=== PATIENT | female | born 1955 | race Caucasian/White ===

== ENCOUNTER 2016-07-27 06:33 | Inpatient (IN) ==
[2016-07-27] MEDS ORDERED: Ipratropium/Albuterol Neb 3 ML IH ONE (07:25)
[2016-07-27] MEDS ORDERED: 0.9 % Sodium Chloride 1,000 ML IVC ONE ×2 (07:27→10:56)
[2016-07-27] MEDS ORDERED: Acetaminophen 325 MG TABLET PO ONE (07:33)
--- NOTE | 2016-07-27 07:33 | Emergency Department Note ---
Disposition Clinical Impression: Sepsis Qualifiers: Sepsis type: sepsis due to unspecified organism Qualified Code(s): A41.9 - Sepsis, unspecified organism Lumbar compression fracture Qualifiers: Encounter type: initial encounter Fracture type: closed Qualified Code(s): S32.000A - Wedge compression fracture of unspecified lumbar vertebra, initial encounter for closed fracture Disposition: Admitted As Inpatient Condition: Fair Time of Disposition: 09:27 Fall HPI - General Chief Complaint: ED Fall Stated Complaint: fall Time Seen by Provider: 07/27/16 06:37 Source: patient Mode of arrival: EMS Limitations: language barrier, altered mental status, physical limitation Nursing Notes Reviewed: Yes Vital Signs Reviewed: Yes - History of Present Illness HPI Narrative: 61 year old female with PMHx of GERD, anemia, Osteoarthritis, depression, asthma , DM II, hypothyroidism. Patient is a poor historian and was extremely somnolent upon qestioning. She was having a very hard time staying awake. patient lives at home with her . She states that she had two episodes of falls before arriving to the ED. Her first time, she lost her balance and fell and hit the wall. Her second fall was when she was in the bathroom, went to get up and fell. She has had multiple falls over the years. She admits to nausea with 1 episode of vomiting. She denies diarrhea, fever, admits to having chills. she denies chest pain, shortness of breath, and dizziness. Patient is prescribed clonazapam 1mg TID for anxiety. She states she has not taken more of her medication than prescribed. She denies loss of consciousness. Pt Subjective Complaint: fall Onset (ago): hour(s) Fall From: standing Fall Witnessed: yes Place Fall Occurred: home Loss of Consciousness: none Symptoms Prior to Fall: dizziness Context: history of frequent falls Location of injury: head Location of injury - extremities: Bilateral: arm, knee, lower leg Associated symptoms (after fall): Denies: chest pain, shortness of breath, lightheaded - Related Data Home Medications Medication Instructions Recorded Confirmed BuPROPion 02/06/15 Buspirone 02/06/15 Citalopram 02/06/15 ClonazePAM 02/06/15 Iron Pill 02/06/15 Loratadine 02/06/15 Vitamin D 02/06/15 Albuterol Sulfate [Albuterol 07/07/16 Inhaler] Alendronate Sodium [Fosamax] 07/07/16 Biotin 1 mg PO 07/07/16 Calcium Carbonate [Tums] 07/07/16 Celecoxib [Celebrex] 200 mg PO BID 07/07/16 07/07/16 Fluticasone/Salmeterol [Advair 07/07/16 500-50 Diskus] Glucosamn/Condroitn/C/Mn/Stuart 1 each PO 07/07/16 [Cvs Glucosamine Chondroitin Tb] Levothyroxine [Synthroid] 07/07/16 Loratadine [Allergy Relief] 07/07/16 Magnesium Oxide [Magnesium] 400 mg PO 07/07/16 Melatonin 5 mg PO 07/07/16 Meloxicam 15 mg PO 07/07/16 Montelukast [Singulair] 10 mg PO 07/07/16 Omeprazole 20 mg PO 07/07/16 clonazePAM [Klonopin] 1 mg PO TID 07/07/16 07/07/16 traZODone [TraZODone] 50 mg PO 07/07/16 Previous Rx's Medication Instructions Recorded Benzonatate [Tessalon] 200 mg PO TID PRN #30 capsule 02/06/15 Cyclobenzaprine [Flexeril] 10 mg PO TID #15 tablet 02/06/15 Albuterol Sulfate [Albuterol 2 - 4 puff IH Q4HR PRN #1 03/09/15 Inhaler] hfa.[id number].ad Oxycodone HCl/Acetaminophen 1 each PO Q4-6H PRN #15 tablet 07/29/15 [Percocet 5-325 mg Tablet] Gabapentin [Neurontin] 200 mg PO TID #35 capsule 05/30/16 OxyCODONE/APAP 5/325 [Percocet 1 each PO Q6HR PRN #8 tablet 07/07/16 5/325 MG] PredniSONE [Deltasone] 40 mg PO DAILY 4 Days 07/07/16 Allergies Allergy/AdvReac Type Severity Reaction Status Date / Time codeine Allergy Swelling Verified 07/27/16 06:34 of Lip/Tongue/Throat Medroxyprogesterone Allergy Swelling Verified 07/27/16 06:34 [From Provera] of Lip/Tongue/Throat Penicillins Allergy Rash Verified 06/18/17 06:34 All systems ED: reviewed and negative except as stated. Fall PMH - Past Medical History Medical history: Reports: asthma, osteoporosis, thyroid disease, other Surgical history: Reports: cholecystectomy, orthopedic, other, JULIANNA/BSO, thyroidectomy, other Psychiatric history: Reports: anxiety, depression MOTION [employer]APH[employer] ARTIST history: Reports: no [employer]ION [employer] ARTIST history - Social History Smoking Status: Never smoker Alcohol use: Reports: none Drug use: Reports: none Physical Exam - General Limitations: altered mental status, physical limitation General appearance: alert, anxious, lethargic - Head Head exam: other (bruising along width of forehead. ) - Eye Eye exam: Present: normal appearance - Neck Neck exam: Present: trachea midline - Chest Chest inspection: Present: normal inspection, symmetric chest wall rise - Respiratory Respiratory exam: Present: wheezes - Cardiovascular Cardiovascular exam: Present: regular rate, normal rhythm, +S1, +S2 - Abdominal Exam Abdominal exam: Present: soft, Non-Tender - Extremities Exam Extremities exam: Present: other (significant bruising and scabbing along both arms, both legs, forhead, and knees. ) - Neurological Exam Neurological exam: Present: alert, other (oriented to person and place. ) - Psychiatric Psychiatric exam: Present: anxious Course Vital Signs Temperature 97.6 F 07/27/16 06:36 Pulse Rate 107 07/27/16 06:36 Respiratory Rate 18 07/27/16 06:36 Blood Pressure 118/72 07/27/16 06:36 O2 Sat by Pulse Oximetry 84 07/27/16 06:36 Temperature 97.6 F 07/27/16 06:36 Pulse Rate 102 07/27/16 08:57 Respiratory Rate 20 07/27/16 08:57 Blood Pressure 134/83 07/27/16 08:57 O2 Sat by Pulse Oximetry 98 07/27/16 08:57 Oxygen Delivery Oxygen Delivery Aerosol Mask Fall - [facility] Narrative Medical decision making narrative: Patient had wbc of 22.5, HG of 10.4. She has sodium of 129, creatinine of 1.98. She received one breathing treatment, 1 L of fluid, one dose of ceftriaxone, and one dose of azithromycin. She did not receive 30 mL per kilogram of fluids initially as her blood pressure was stable. Patient is septic, and source of infection likely secondary to multifocal opacities seen on thoracic CT. Patient also was noted to have a UTI. Patient had elevated troponin of .05 and EKG showed no signs of acute ischemia. Patients lactic acid level is currently pending. CT of thoracic spine did not show any signs of fracture. CT of cervical spine was negative as well. L5 transverse process acute fracture. She also had bilateral sacral insufficiency fractures. Spoke with Dr. Archer and informed him of these results. Spoke with hospitalist, , who has accepted this patient for admission. - Medical Records Medical records reviewed: Yes I reviewed the patient's medical records. - Lab Data Lab results reviewed: Yes I reviewed the patient's lab results. Result diagrams: 07/27/16 08:17 07/27/16 08:17 Lab Results 07/27/16 07/27/16 07/27/16 Range/Units 08:17 08:17 08:17 WBC 22.5 H (4.3-11.1) K/mcL RBC 3.82 (3.82-4.97) M/mcL Hgb 10.4 L (11.5-15.4) g/dL Hct 31.8 L (35.3-44.9) % MCV 83.2 (83.0-100.0) fL MCH 27.2 L (28.0-33.3) pg MCHC 32.7 (31.6-35.5) g/dL RDW 16.5 H (11.5-14.5) % Plt Count 303 (140-400) K/mcL MPV 10.5 (9.4-12.4) fL Seg Neutrophils % 83.0 % Band Neutrophils % 7.0 H (0-4) % Lymphocytes % 10.0 % Neutrophils # 20.3 H (1.6-8.9) K/mcL Lymphocytes # 2.3 (0.6-4.6) K/mcL Nucleated RBCs/100 WBC 0.1 H (0) /100 WBC Platelet Estimate Normal (Normal) Sodium 129 L (136-145) mEq/L Potassium 4.4 (3.5-4.5) mEq/L Chloride 97 L (98-109) mEq/L Carbon Dioxide 20 (19-29) mEq/L BUN 50 H (7-20) mg/dL Creatinine 1.98 H (0.57-1.11) mg/dL Est GFR ( Amer) 31 L (> 60) Est GFR (Non-Af Amer) 26 L (> 60) BUN/Creatinine Ratio 25 (6-26) Glucose 133 H (70-99) mg/dL Calculated Osmolality 283 (280-300) Calcium 9.6 (8.6-10.8) mg/dL Troponin I 0.05 H* (0-0.03) ng/mL Urine Color (Yellow) Urine Clarity (Clear) Urine pH (5.0-8.0) pH Units Ur Specific Goodman (1.010-1.025) Urine Protein (Neg-Trace) mg/dL Urine Glucose (UA) (Normal) mg/dL Urine Ketones (Negative) mg/dL Urine Blood (Negative) Urine Nitrite (Negative) Urine Bilirubin (Negative) Urine Urobilinogen (Normal) mg/dL Ur Leukocyte Esterase (Negative) Urine Microscopic RBC (0-3) per hpf Urine Microscopic WBC (0-3) per hpf Ur Squamous Epith Cells (None-Few) per lpf Urine Bacteria (None-Few) per hpf Ur Culture Indicated? (NO) Urine Opiates Screen (Obsvse=062) ng/mL Ur Barbiturates Screen (Bimwwu=658) ng/mL Ur Phencyclidine Scrn (Cutoff=25) ng/mL Ur Amphetamines Screen (Rshdle=8930) ng/mL U Benzodiazepines Scrn (Vbuluk=899) ng/mL Urine Cocaine Screen (Cutoff= 300) ng/mL U Marijuana (THC) Screen (Cutoff = 50) ng/mL 07/27/16 07/27/16 Range/Units 08:34 08:34 WBC (4.3-11.1) K/mcL RBC (3.82-4.97) M/mcL Hgb (11.5-15.4) g/dL Hct (35.3-44.9) % MCV (83.0-100.0) fL MCH (28.0-33.3) pg MCHC (31.6-35.5) g/dL RDW (11.5-14.5) % Plt Count (140-400) K/mcL MPV (9.4-12.4) fL Seg Neutrophils % % Band Neutrophils % (0-4) % Lymphocytes % % Neutrophils # (1.6-8.9) K/mcL Lymphocytes # (0.6-4.6) K/mcL Nucleated RBCs/100 WBC (0) /100 WBC Platelet Estimate (Normal) Sodium (136-145) mEq/L Potassium (3.5-4.5) mEq/L Chloride (98-109) mEq/L Carbon Dioxide (19-29) mEq/L BUN (7-20) mg/dL Creatinine (0.57-1.11) mg/dL Est GFR ( Amer) (> 60) Est GFR (Non-Af Amer) (> 60) BUN/Creatinine Ratio (6-26) Glucose (70-99) mg/dL Calculated Osmolality (280-300) Calcium (8.6-10.8) mg/dL Troponin I (0-0.03) ng/mL Urine Color Dark Yellow (Yellow) Urine Clarity Turbid A (Clear) Urine pH 5.0 (5.0-8.0) pH Units Ur Specific Goodman 1.025 (1.010-1.025) Urine Protein 30 H (Neg-Trace) mg/dL Urine Glucose (UA) Normal (Normal) mg/dL Urine Ketones Negative (Negative) mg/dL Urine Blood Large H (Negative) Urine Nitrite Negative (Negative) Urine Bilirubin Negative (Negative) Urine Urobilinogen Normal (Normal) mg/dL Ur Leukocyte Esterase Moderate H (Negative) Urine Microscopic RBC 15-30 H (0-3) per hpf Urine Microscopic WBC 15-30 H (0-3) per hpf Ur Squamous Epith Cells Many H (None-Few) per lpf Urine Bacteria Many H (None-Few) per hpf Ur Culture Indicated? YES A (NO) Urine Opiates Screen Positive H (Roidbu=830) ng/mL Ur Barbiturates Screen Negative (Eusjdk=655) ng/mL Ur Phencyclidine Scrn Negative (Cutoff=25) ng/mL Ur Amphetamines Screen Negative (Uxwqet=1058) ng/mL U Benzodiazepines Scrn Positive H (Idzcmj=669) ng/mL Urine Cocaine Screen Negative (Cutoff= 300) ng/mL U Marijuana (THC) Screen Negative (Cutoff = 50) ng/mL - Radiology Data Radiology results reviewed: Yes I reviewed the patient's radiology results. - EKG Data EKG attestation: Yes I reviewed and interpreted this EKG. EKG results narrative: sinus tachycardia, regular axis, ventricular rate 109, ME interval 139, QRS duration: 86 Qt/Qtc: 293/357, P-R-T axes: 49 27 48, no ischemic changes noted.
[2016-07-27 08:23] LABS: Hematocrit 31.8 % (35.3-44.9); Hemoglobin 10.4 g/dL (11.5-15.4); Mean Corpuscular HGB Conc 32.7 g/dL (31.6-35.5); Mean Corpuscular Hemoglobin 27.2 pg (28.0-33.3); Mean Corpuscular Volume 83.2 fL (83.0-100.0); Mean Platelet Volume 10.5 fL (9.4-12.4); Nucleated Red Blood Cells 0.1 /100 WBC (0); Platelet Count 303 K/mcL (140-400); Red Blood Count 3.82 M/mcL (3.82-4.97); Red Cell Distribution Width 16.5 % (11.5-14.5)
[2016-07-27 08:36] LABS: Calcium 9.6 mg/dL (8.6-10.8); Potassium 4.4 mEq/L (3.5-4.5)
[2016-07-27 08:41] LABS: Bilirubin,Urine Negative (Negative); Blood,Urine Large (Negative); Clarity,Urine Turbid (Clear); Color,Urine Dark Yellow (Yellow); Glucose,Urine (UA) Normal (Normal); Ketones,Urine Negative (Negative); Leukocyte Esterase,Urine Moderate (Negative); Nitrite,Urine Negative (Negative); Protein,Urine 30 mg/dL (Neg-Trace); Specific Gravity,Urine 1.025 (1.010-1.025); Urobilinogen,Urine Normal (Normal)
[2016-07-27 08:44] LABS: Bacteria,Urine Many per hpf (None-Few); RBC,Urine 15-30 per hpf (0-3); Squamous Epithelial Cell,Urine Many per lpf (None-Few); WBC,Urine 15-30 per hpf (0-3)
[2016-07-27 08:51] LABS: Amphetamine Screen,Urine Negative ng/mL (Cutoff=1000); Barbiturate Screen,Urine Negative ng/mL (Cutoff=200); Benzodiazepines Screen,Urine Positive ng/mL (Cutoff=200); Cannabinoid Screen,Urine Negative ng/mL (Cutoff = 50); Cocaine Screen,Urine Negative ng/mL (Cutoff= 300); Opiate Screen,Urine Positive ng/mL (Cutoff=300); Phencyclidine Screen,Urine Negative ng/mL (Cutoff=25)
[2016-07-27 08:57] LABS: Lymphocytes # 2.3 K/mcL (0.6-4.6); Neutrophils # 20.3 K/mcL (1.6-8.9); Platelet Estimate Normal (Normal)
[2016-07-27] MEDS ORDERED: Azithromycin 500 MG in D5% in Water 250 ML IVPB ONE (08:58)
[2016-07-27] MEDS ORDERED: Naloxone 0.4 MG/ML INJ IVP PRN (10:42)
[2016-07-27] MEDS ORDERED: Acetaminophen 325 MG TABLET PO PRN (10:42)
[2016-07-27] MEDS ORDERED: Albuterol 2.5 MG/3 ML NEBULIZER IH PRN (10:49)
[2016-07-27] MEDS: Ipratropium/Albuterol Neb 3 ML IH SCH ×3 (11:15→22:17)
--- NOTE | 2016-07-27 11:19 | Internal Med History&Physical ---
<Elliott Shah - Last Filed: 07/27/16 19:06> Date of Encounter: 07/27/16 Internal Medicine - H&P: HPI History of present illness: Ms. Chen is a 61 year old female Internal Medicine - H&P: Meds Citalopram [CeleXA] 20 mg PO DAILY 02/06/15 [History] Cyclobenzaprine [Flexeril] 10 mg PO TID #15 tablet 02/06/15 [Rx] Albuterol Sulfate [Albuterol Inhaler] 2 - 4 puff IH Q4HR PRN #1 hfa.aer.[id number] 03/09 [Rx] Alendronate Sodium [Fosamax] 70 mg PO QWEEK 07/07/16 [History] Celecoxib [Celebrex] 200 mg PO BID 07/07/16 [History] Fluticasone/Salmeterol [Advair 500-50 Diskus] 1 puff IH BID 07/07/16 [History] Levothyroxine [Synthroid] 100 mcg PO DAILY 07/07/16 [History] Meloxicam 15 mg PO DAILY 07/07/16 [History] Omeprazole 20 mg PO DAILY 07/07/16 [History] OxyCODONE/APAP 5/325 [Percocet 5/325 MG] 1 each PO Q6HR PRN #8 tablet 07/07/16 [ Rx] clonazePAM [Klonopin] 1 mg PO TID 07/07/16 [History] Gabapentin [Neurontin] 300 mg PO TID 07/27/16 [History] Tramadol HCl [Ultram] 50 mg PO TID PRN 07/27/16 [History] Allergies codeine Allergy (Verified 07/27/16 06:34) Swelling of Lip/Tongue/Throat Medroxyprogesterone [From Provera] Allergy (Verified 07/27/16 06:34) Swelling of Lip/Tongue/Throat Penicillins Allergy (Verified 07/27/16 06:34) Rash All Systems PM: A 10-system review of systems was performed and is negative for pertinent findings except as documented above in the HPI. - Constitutional Vitals: Temp Pulse Resp BP Pulse Ox 98.7 F 94 18 112/60 98 07/27/16 15:00 07/27/16 15:00 07/27/16 16:15 07/27/16 15:00 07/27/16 16:15 Internal Med - H&P Results - Labs CBC & Chem 7: 07/27/16 08:17 07/27/16 08:17 Labs: Cardiac Enzymes 07/27/16 Range/Units 14:24 Troponin I 0.03 (0-0.03) ng/mL - Attending Attestation I examined this patient and my medical decision-making was reviewed with the Advanced Practice Nurse. I agree with the documented findings, disposition and treatment plan as described except to the extent set forth below. Plan: Ceftriaxone and azithromycin for pneumonia and UTI as well as broad- spectrum coverage for sepsis. Follow-up urine culture and blood culture. IV fluids. PT OT and social work consult for unsanitary living situation. Spine surgery consult for acute L4 fracture. <Germaine Lombardo - Last Filed: 07/27/16 22:29> Date of Encounter: 07/27/16 Time of Encounter: 11:15 Assessment and Plan (1) Sepsis Current visit: Yes Status: Acute Patient with UTI, pneumonia, elevated WBC, tachycardia with HR in low 100s, meeting criteria for sepsis. Blood cultures and urine cultures obtained. 2L fluid bolus ordered, followed by fluids at 125mL/hr Lactate normal at 1.8 Antibiotics initiated with Azithromycin and ceftriaxone. Qualifiers: Sepsis type: sepsis due to unspecified organism Qualified Code(s): A41.9 - Sepsis, unspecified organism (2) Pneumonia Current visit: Yes Status: Acute CT of the thoracic spine revealed multifocal ground glass opacities in bilateral lungs. WBC count 22.5. Patient denies fever, chills, sweats, or coughing, though she is a bit somnolent and appears to be a poor historian. Azithromycin and Ceftriaxone IVPB daily 2L fluid bolus followed by 0.9NS at 125mL/hr duoneb treatments QID albuterol nebulizer Q2hr PRN. titrate oxygen to maintain saturations > 92%. Qualifiers: Pneumonia type: due to unspecified organism Laterality: bilateral Lung location: unspecified part of lung Qualified Code(s): J18.9 - Pneumonia, unspecified organism (3) Urinary tract infection Current visit: Yes Status: Acute UA was consistent with UTI. Cultures are pending. Patient also has elevated WBC count and NAVDEEP. Patient denied any dysuria, but appears to be poor historian. Getting Azithromycin and Ceftriaxone for PNeumonia, which should also cover her UTI. 2L fluid bolus followed by 0.9NS at 125mL/hr Qualifiers: Urinary tract infection type: acute cystitis Hematuria presence: without hematuria Qualified Code(s): N30.00 - Acute cystitis without hematuria (4) Acute kidney injury Current visit: Yes Status: Acute BUN of 50 and Creatinine of 1.98. Up from previous creatinine of 0.8. Likely multifactorial with chronic use of NSAIDS, with acute UTI and sepsis. Hold NSAIDS and nephrotoxins. Renal dose medications. 2L fluid bolus followed by 0.9NS at 125mL/hr Check chemistry again tomorrow. (5) Elevated troponin Current visit: Yes Status: Acute Troponin of 0.05. Patient denies any chest pain or shortness of breath. Likely due to demand secondary to sepsis. Serial troponins for trend continuous personnel monitor. (6) Lumbar compression fracture Current visit: Yes Status: Acute Patient's lumbar spine CT revealed acute right L5 transverse fracture as well as a right sacral insufficiency fracture. Patient has been having multiple falls at home. Orthopedic surgery, Dr. Ratliff consulted. Qualifiers: Encounter type: initial encounter Fracture type: closed Qualified Code(s) : S32.000A - Wedge compression fracture of unspecified lumbar vertebra, initial encounter for closed fracture (7) Falls Current visit: Yes Status: Acute Patient reporting frequent falls at home, stating she has fallen and hit her head and has pain in her right hip and lower back. She has bruising to her left forehead, as well as bruised on her left arm, left hip, and left sacral area. She has scattered abrasions and ecchymosis to both legs. CT of the head showed no acute intracranial abnormality. CT of the lumbar spine revealed acute right L5 transverse fracture and right sacral insuffieciency fracture. Fall precautions SWK, PT/OT consults Ortho consulted for fractures. Qualifiers: Encounter type: initial encounter Qualified Code(s): W19.XXXA - Unspecified fall, initial encounter (8) DVT prophylaxis Current visit: Yes Status: Acute anti-embolic stockings. Heparin 5000u SQ TID Internal Medicine - H&P: HPI Chief complaint: falls Admitted From: Emergency Dept Plans for Post Hospital Care: Home History of present illness: Ms. Chen is a 61 year old female with asthma, type 2 diabetes, hypothyroid, osteopororis who presented to the emergency department with complaints of multiple falls recently. She reports she fell and hit her head. She reports pain in her back and right hip. She denies any chest pain, palpitations, shortness of breath, coughing, fever, chills, sweats, nausea, vomiting, dysuria , diarrhea. Evaluation in the ER revealed elevated WBC count to 22.5, UA consistent with UTI, CT of lumbar spine revealed multifocal ground glass opacities in bilateral lungs consistent with pneumonia, Lumbar spine CT revealed acute right L5 transverse fracture and right sacral insufficiency fracture. She has acute kidney injury with creatinine 1.98, up from previous value of 0.8. Troponin was mildly elevated at 0.05. Lactate was normal at 1.8. On exam, patient appears disheveled and dirty, with bruising to her forehead, left elbow, left hip. She has multiple small abrasions to her abdomen she reports are from her multiple animals (dogs and cats). Lungs have bilateral rhonchi. Heart has regular rate and rhythm with systolic murmur. Past Med Surg Social Fam HX - Past Medical History Source: patient, old records reviewed Medical history: asthma, diabetes, osteoporosis, thyroid disease, other Psychiatric history: anxiety, depression - Past Surgical History Surgical History: cholecystectomy, hysterectomy, orthopedic, other (shoulder, neck, back ), JULIANNA/BSO, thyroidectomy, other, bariatric surgery - Social History Smoking Status: Never smoker Smokeless Tobacco Status: No Alcohol use: none Drug use: none - Family History Father Living Status: Hx Family Cardiac Disorders: Yes Hx Family Respiratory Disorders: Yes Hx Family Cancer: Yes (lung) Hx Family GI Disorders: No Hx Family Endocrine Disorder: Yes Hx Family Neuromuscular Disorders: No Hx Family Neurologic Disorders: No Hx Family HEENT Disorders: No Hx Family Autoimmune Disorders: No Mother Living Status: Hx Family Cardiac Disorders: Yes (chf) Hx Family Respiratory Disorders: No Hx Family Cancer: No Hx Family GI Disorders: No Hx Family Endocrine Disorder: Yes (DM) Hx Family Neuromuscular Disorders: No Hx Family Neurologic Disorders: No Hx Family HEENT Disorders: No Hx Family Autoimmune Disorders: No All Systems PM: A 10-system review of systems was performed and is negative for pertinent findings except as documented above in the HPI. - Constitutional Constitutional: falls, no chills, no fever(s), no night sweats - EENT Eyes: no change in vision, no discharge, no pain, no photophobia Ears: no ear discharge, no ear pain, no tinnitus Nose, mouth and throat: no dysphagia, no nasal discharge, no neck pain, no sore throat - Cardiovascular Cardiovascular ROS IM: no chest pain, no diaphoresis, no dyspnea, no lightheadedness, no palpitations, no syncope - Respiratory Respiratory: no cough, no dyspnea, no wheezing, no excessive phlegm production - Gastrointestinal Gastrointestinal: no abdominal pain, no diarrhea, no hematemesis, no hematochezia, no melena, no nausea, no vomiting - Genitourinary Genitourinary: no change in urinary stream, no dysuria, no flank pain, no hematuria - Musculoskeletal Musculoskeletal ROS IM: back pain, no numbness, no tingling - Integumentary Integumentary IM: no rash, no unusual bruising - Neurological Neurological ROS: no confusion, no convulsions, no focal weakness, no numbness, no tingling, no tremor(s) - Hematologic/Lymphatic Hematologic/Lymphatic: no easy bruising - Constitutional Vitals: Temp Pulse Resp BP Pulse Ox 97.6 F 88 18 123/76 94 07/27/16 11:00 07/27/16 11:00 07/27/16 11:00 07/27/16 11:00 07/27/16 11:00 General appearance: Present: disheveled, A&O X 3, pleasant, no acute distress - Head Head exam: Present: normocephalic Additional comments: bruising to left forehead - Eye Eye exam: Present: PERRL, conjuntiva pink, sclera anicteric Pupils: Present: PERRL - Neck Neck exam general surgery: Present: supple, trachea midline. Absent: lymphadenopathy - Respiratory Respiratory exam: Present: rhonchi. Absent: accessory muscle use, rales, wheezes - Cardiovascular Cardiovascular exam: Present: RRR, +S1, +S2, systolic murmur. Absent: diastolic murmur, gallop, rubs - GI/Abdominal GI/Abdominal exam: Present: normal bowel sounds, soft, no peritoneal signs. Absent: distended, tenderness - Extremities Exam Extremities exam: Present: warm, radial pulses palpable and symetrical. Absent : calf tenderness, cyanotic, pedal edema - Neurological Exam Neurological exam: Present: CN II-XII intact, oriented X3, no focal deficits. Absent: facial droop, speech deficit - Skin Skin exam: Present: abrasion (scattered abrasions and excoriations to legs, arms and abdomen.), dry, excoriation Additional comments: ecchymosis to forehead, left arm, left hip Internal Med - H&P Results - Labs CBC & Chem 7: 07/27/16 08:17 07/27/16 08:17 Labs: All Lab Results (24 Hours) 07/27/16 07/27/16 07/27/16 Range/Units 08:17 08:17 08:17 WBC 22.5 H (4.3-11.1) K/mcL RBC 3.82 (3.82-4.97) M/mcL Hgb 10.4 L (11.5-15.4) g/dL Hct 31.8 L (35.3-44.9) % MCV 83.2 (83.0-100.0) fL MCH 27.2 L (28.0-33.3) pg MCHC 32.7 (31.6-35.5) g/dL RDW 16.5 H (11.5-14.5) % Plt Count 303 (140-400) K/mcL MPV 10.5 (9.4-12.4) fL Seg Neutrophils % 83.0 % Band Neutrophils % 7.0 H (0-4) % Lymphocytes % 10.0 % Neutrophils # 20.3 H (1.6-8.9) K/mcL Lymphocytes # 2.3 (0.6-4.6) K/mcL Nucleated RBCs/100 WBC 0.1 H (0) /100 WBC Platelet Estimate Normal (Normal) Sodium 129 L (136-145) mEq/L Potassium 4.4 (3.5-4.5) mEq/L Chloride 97 L (98-109) mEq/L Carbon Dioxide 20 (19-29) mEq/L BUN 50 H (7-20) mg/dL Creatinine 1.98 H (0.57-1.11) mg/dL Est GFR ( Amer) 31 L (> 60) Est GFR (Non-Af Amer) 26 L (> 60) BUN/Creatinine Ratio 25 (6-26) Glucose 133 H (70-99) mg/dL Calculated Osmolality 283 (280-300) Lactic Acid (0.5-2.2) mmol/L Calcium 9.6 (8.6-10.8) mg/dL Troponin I 0.05 H* (0-0.03) ng/mL Urine Color (Yellow) Urine Clarity (Clear) Urine pH (5.0-8.0) pH Units Ur Specific [place] (1.010-1.025) Urine Protein (Neg-Trace) mg/dL Urine Glucose (UA) (Normal) mg/dL Urine Ketones (Negative) mg/dL Urine Blood (Negative) Urine Nitrite (Negative) Urine Bilirubin (Negative) Urine Urobilinogen (Normal) mg/dL Ur Leukocyte Esterase (Negative) Urine Microscopic RBC (0-3) per hpf Urine Microscopic WBC (0-3) per hpf Ur Squamous Epith Cells (None-Few) per lpf Urine Bacteria (None-Few) per hpf Ur Culture Indicated? (NO) Urine Opiates Screen (Bhdltg=105) ng/mL Ur Barbiturates Screen (Ievfoz=316) ng/mL Ur Phencyclidine Scrn (Cutoff=25) ng/mL Ur Amphetamines Screen (Fqcqgs=4331) ng/mL U Benzodiazepines Scrn (Omzowb=013) ng/mL Urine Cocaine Screen (Cutoff= 300) ng/mL U Marijuana (THC) Screen (Cutoff = 50) ng/mL 07/27/16 07/27/16 07/27/16 Range/Units 08:34 08:34 09:38 WBC (4.3-11.1) K/mcL RBC (3.82-4.97) M/mcL Hgb (11.5-15.4) g/dL Hct (35.3-44.9) % MCV (83.0-100.0) fL MCH (28.0-33.3) pg MCHC (31.6-35.5) g/dL RDW (11.5-14.5) % Plt Count (140-400) K/mcL MPV (9.4-12.4) fL Seg Neutrophils % % Band Neutrophils % (0-4) % Lymphocytes % % Neutrophils # (1.6-8.9) K/mcL Lymphocytes # (0.6-4.6) K/mcL Nucleated RBCs/100 WBC (0) /100 WBC Platelet Estimate (Normal) Sodium (136-145) mEq/L Potassium (3.5-4.5) mEq/L Chloride (98-109) mEq/L Carbon Dioxide (19-29) mEq/L BUN (7-20) mg/dL Creatinine (0.57-1.11) mg/dL Est GFR ( Amer) (> 60) Est GFR (Non-Af Amer) (> 60) BUN/Creatinine Ratio (6-26) Glucose (70-99) mg/dL Calculated Osmolality (280-300) Lactic Acid 1.8 (0.5-2.2) mmol/L Calcium (8.6-10.8) mg/dL Troponin I (0-0.03) ng/mL Urine Color Dark Yellow (Yellow) Urine Clarity Turbid A (Clear) Urine pH 5.0 (5.0-8.0) pH Units Ur Specific [place] 1.025 (1.010-1.025) Urine Protein 30 H (Neg-Trace) mg/dL Urine Glucose (UA) Normal (Normal) mg/dL Urine Ketones Negative (Negative) mg/dL Urine Blood Large H (Negative) Urine Nitrite Negative (Negative) Urine Bilirubin Negative (Negative) Urine Urobilinogen Normal (Normal) mg/dL Ur Leukocyte Esterase Moderate H (Negative) Urine Microscopic RBC 15-30 H (0-3) per hpf Urine Microscopic WBC 15-30 H (0-3) per hpf Ur Squamous Epith Cells Many H (None-Few) per lpf Urine Bacteria Many H (None-Few) per hpf Ur Culture Indicated? YES A (NO) Urine Opiates Screen Positive H (Rnykzz=916) ng/mL Ur Barbiturates Screen Negative (Hrcioh=550) ng/mL Ur Phencyclidine Scrn Negative (Cutoff=25) ng/mL Ur Amphetamines Screen Negative (Ynzlea=9982) ng/mL U Benzodiazepines Scrn Positive H (Xcftzh=404) ng/mL Urine Cocaine Screen Negative (Cutoff= 300) ng/mL U Marijuana (THC) Screen Negative (Cutoff = 50) ng/mL - Diagnostic Studies Chest x-ray Additional comments: Chest X-Ray 07/27/16 07:22 IMPRESSION: Mild bibasilar atelectasis. D/ / Chelita Duran MD / Chelita Duran MD Interpreting Provider: Chelita Duran MD CT scan - head Additional comments: Head CT 07/27/16 07:22 IMPRESSION: No acute intracranial abnormality. Sinus disease as discussed above. D/ / 07/27/2016 08:29:09 Oneyda Arevalo MD / [email or web address] Interpreting Provider: Oneyda Arevalo MD Other Images Additional comments: Cervical Spine CT 07/27/16 07:22 IMPRESSION: No acute abnormality of the cervical spine. Stable postsurgical changes D/ / Lonnie Donaldson MD / Lonnie Donaldson MD Interpreting Provider: Lonnie Donaldson MD Lumbar Spine CT 07/27/16 07:22 IMPRESSION: 1. Mild compression fracture of the superior endplate of L2 is age indeterminate but likely chronic. No other acute lumbar compression fracture. 2. Acute appearing right L5 transverse process fracture. 3. Acute right sacral insufficiency fracture. Subacute left sacral insufficiency fracture. D/ / 07/27/2016 08:52:31 Zach Shepherd MD / [email or web address] Interpreting Provider: Zach Shepherd MD Thoracic Spine CT 07/27/16 07:22 IMPRESSION: 1. No acute abnormality of the thoracic spine 2. Multifocal ground-glass opacities in both lungs should be correlated with any clinical findings of pneumonia or other acute respiratory abnormality D/ / Lonnie Donaldson MD / Lonnie Donaldson MD Interpreting Provider: Lonnie Donaldson MD
[2016-07-27] MEDS ORDERED: *HR* Dextrose 50 % in Water (Syg) 50 ML SYRINGE IVP PRN (11:20)
[2016-07-27] MEDS ORDERED: D5% in Water 1,000 ML IVC PRN (11:20)
[2016-07-27] MEDS ORDERED: Dextrose Gel 15 GM PO PRN ×2 (11:20)
[2016-07-27] MEDS: Insulin LISPRO 300 UNITS/3 ML VIAL SQ SCH ×2 (12:00→16:18)
[2016-07-27 14:47] LABS: Hemoglobin A1C 5.6 %
[2016-07-27] MEDS: *HR* OxyCODONE/APAP 5/325 TABLET PO PRN ×2 (16:09→23:05)
[2016-07-27] MEDS: Gabapentin 300 MG CAPSULE PO SCH ×2 (16:09→21:03)
[2016-07-27] MEDS: 0.9 % Sodium Chloride 1,000 ML IVC SCH (16:09)
[2016-07-27] MEDS: *HR* Heparin 5,000 UNIT/ML VIAL SQ SCH ×2 (16:12→23:31)
[2016-07-27] MEDS ORDERED: *HR* HYDROmorphone (PF) 1 MG/ML SYRINGE IVP PRN (17:17)
[2016-07-27] MEDS ORDERED: Insulin LISPRO 300 UNITS/3 ML VIAL SQ SCH (21:00)
[2016-07-27] MEDS: Budesonide/Formoterol 160/4.5 MDI IH SCH (22:17)
[2016-07-28 03:46] LABS: Basophils % 0.2 %; Eosinophils # 0.3 K/mcL (0.0-0.6); Eosinophils % 1.8 %; Hematocrit 26.7 % (35.3-44.9); Immature Granulocytes % 0.4 % (0-4); Lymphocytes # 1.3 K/mcL (0.6-4.6); Lymphocytes % 8.3 %; Mean Corpuscular HGB Conc 32.6 g/dL (31.6-35.5); Mean Corpuscular Hemoglobin 27.1 pg (28.0-33.3); Mean Corpuscular Volume 83.2 fL (83.0-100.0); Mean Platelet Volume 10.6 fL (9.4-12.4); Monocytes # 0.8 K/mcL (0.0-1.3); Monocytes % 4.8 %; Neutrophils # 13.7 K/mcL (1.6-8.9); Platelet Count 228 K/mcL (140-400); Red Blood Count 3.21 M/mcL (3.82-4.97); Red Cell Distribution Width 16.9 % (11.5-14.5); Segmented Neutrophils % 84.5 %
[2016-07-28 03:47] LABS: Hemoglobin 8.7 g/dL (11.5-15.4)
[2016-07-28 04:03] LABS: BUN/Creatinine Ratio 34 (6-26); Calcium 8.2 mg/dL (8.6-10.8); Carbon Dioxide 23 mEq/L (19-29); Chloride 108 mEq/L (98-109); Glucose 134 mg/dL (70-99); Osmolality,Calculated 289 (280-300); Potassium 4.1 mEq/L (3.5-4.5); eGFR For African Americans > 60 (> 60); eGFR For Non-African Americans > 60 (> 60)
[2016-07-28 04:19] LABS: Sodium 136 mEq/L (136-145)
[2016-07-28 04:20] LABS: Blood Urea Nitrogen 28 mg/dL (7-20)
[2016-07-28] MEDS: Ipratropium/Albuterol Neb 3 ML IH SCH ×2 (04:39→10:40)
[2016-07-28] MEDS: 0.9 % Sodium Chloride 1,000 ML IVC SCH ×2 (05:21→08:38)
[2016-07-28] MEDS ORDERED: *HR* Morphine 2 MG/ML SYRINGE IVP ONE (06:16)
[2016-07-28] MEDS ORDERED: *HR* HYDROmorphone (PF) 1 MG/ML SYRINGE IVP PRN ×2 (08:28→15:08)
--- NOTE | 2016-07-28 08:33 | Pain Management Consultation ---
Date of Encounter: 07/28/16 Time of Encounter: 12:25 Assessment and Plan (1) Lumbar compression fracture Current Visit: Yes Status: Acute The patient has both a transverse process fracture as well as a compression fracture. The transverse process fracture is inconsequential. Nothing that supportive care is necessary for that problem. The compression fracture appears old on the CT scan, but the patient is complaining of a severe exacerbation of chronic low back pain. That situation warrants MRI imaging without contrast to check the L2 vertebral body for acute signs of compression deformity. If acute signs of compression fracture/deformity are found on the MRI, the patient would be a candidate for kyphoplasty repair of that fracture. Recommend obtaining lumbar MRI without contrast. We will also recommend that the patient's infectious process were treated adequately before considering surgery. Therefore, the patient could be sent home on antibiotic therapy and follow up with me in the office to continue to formulate a plan for suspected L2 compression fracture. The assessment and plan as outlined above was discussed with the patient and/or family members who expressed understanding and agreement. All questions were answered. Qualifiers: Encounter type: initial encounter Fracture type: closed Qualified Code(s) : S32.000A - Wedge compression fracture of unspecified lumbar vertebra, initial encounter for closed fracture History of Present Illness Chief complaint: back pain HPI: Ms. Chen is a 61 year old female suffering with sharp pain in the lower back. She expressed a fall 2 days ago they cause a significant increase in chronic back pain. This is a person that has had back pain for the past 7 months. She does say that the pain traditionally radiates down the backside of her right leg. She says that now the pain score is 12/10. She hurts more when she sits up or roll side to side. She is mostly reclined to a bed right now. She states the most significant pain is located in her right lower back and the pain traveling down her leg is also worse. Past Med Surg Social Fam HX - Past Medical History Medical history: asthma, diabetes, osteoporosis, thyroid disease, other Psychiatric history: anxiety, depression - Past Surgical History Surgical History: cholecystectomy, hysterectomy, orthopedic, other (shoulder, neck, back ), JULIANNA/BSO, thyroidectomy, other, bariatric surgery - Social History Smoking Status: Never smoker Smokeless Tobacco Status: No Alcohol use: none Drug use: none - Family History Father Living Status: Hx Family Cardiac Disorders: Yes Hx Family Respiratory Disorders: Yes Hx Family Cancer: Yes (lung) Hx Family GI Disorders: No Hx Family Endocrine Disorder: Yes Hx Family Neuromuscular Disorders: No Hx Family Neurologic Disorders: No Hx Family HEENT Disorders: No Hx Family Autoimmune Disorders: No Mother Living Status: Hx Family Cardiac Disorders: Yes (chf) Hx Family Respiratory Disorders: No Hx Family Cancer: No Hx Family GI Disorders: No Hx Family Endocrine Disorder: Yes (DM) Hx Family Neuromuscular Disorders: No Hx Family Neurologic Disorders: No Hx Family HEENT Disorders: No Hx Family Autoimmune Disorders: No Medications and Allergies Citalopram [CeleXA] 20 mg PO DAILY 02/06/15 [History] Cyclobenzaprine [Flexeril] 10 mg PO TID #15 tablet 02/06/15 [Rx] Albuterol Sulfate [Albuterol Inhaler] 2 - 4 puff IH Q4HR PRN #1 [id number] 03/09 [Rx] Alendronate Sodium [Fosamax] 70 mg PO QWEEK 07/07/16 [History] Celecoxib [Celebrex] 200 mg PO BID 07/07/16 [History] Fluticasone/Salmeterol [Advair 500-50 Diskus] 1 puff IH BID 07/07/16 [History] Levothyroxine [Synthroid] 100 mcg PO DAILY 07/07/16 [History] Meloxicam 15 mg PO DAILY 07/07/16 [History] Omeprazole 20 mg PO DAILY 07/07/16 [History] OxyCODONE/APAP 5/325 [Percocet 5/325 MG] 1 each PO Q6HR PRN #8 tablet 07/07/16 [ Rx] clonazePAM [Klonopin] 1 mg PO TID 07/07/16 [History] Gabapentin [Neurontin] 300 mg PO TID 07/27/16 [History] Tramadol HCl [Ultram] 50 mg PO TID PRN 07/27/16 [History] Allergies codeine Allergy (Verified 07/27/16 06:34) Swelling of Lip/Tongue/Throat Medroxyprogesterone [From Provera] Allergy (Verified 07/27/16 06:34) Swelling of Lip/Tongue/Throat Penicillins Allergy (Verified 07/27/16 06:34) Rash Review of Systems - Constitutional Constitutional ROS IM: no photophobia, no phonophobia, no daytime sleepiness, no fever(s), no stops breathing during sleep - EENT Nose, mouth and throat: no headache(s), no neck pain, no neck trauma - Cardiovascular Cardiovascular ROS: no chest pain, no leg edema, no lightheadedness - Respiratory Respiratory: no pain on inspiration, no pain with cough - Gastrointestinal Gastrointestinal: no abdominal pain, no constipation, no diarrhea, no heartburn - Genitourinary Genitourinary ROS: no difficulty urinating, no flank pain, no urinary hesitancy - Musculoskeletal Musculoskeletal ROS: no muscle weakness, no numbness, no radiating pain into limb, no tingling - Integumentary Integumentary: no erythema, no lesions, no swelling - Neurological Neurological ROS: radicular pain, no abnormal gait, no behavioral changes, no focal weakness - Psychiatric Psychiatric general: no anxiety, no confusion, no depression - Hematologic/Lymphatic Hematologic/Lymphatic pediatric: no easy bleeding, no easy bruising Physical Exam Initial Vital Signs Temp Pulse Resp BP Pulse Ox 97.6 F 107 18 118/72 84 07/27/16 06:36 07/27/16 06:36 07/27/16 06:36 07/27/16 06:36 07/27/16 06:36 - Additional Findings EYES:: pupils equal and round, no myosis. SKIN:: multiple areas of echymoses in upper and lower limbs. CARDIOVASCULAR:: Tachycardia, regular rhythm PULMONARY:: Quiet, normal respiratory pattern. GASTROINTESTINAL:: active bowel sounds. MUSCULOSKELETAL GAIT:: Reclining in bed INSPECTION:: Midline lumbar surgical scarring. PALPATION:: paraspinous musculature is tender to deep palpation in the lumbar area bilaterally, right more so than left about the L5 level. STRENGTH:: RIGHT hip flexors: 5/5 :: LEFT hip flexors: 5/5 RIGHT hip adduction 5/5 :: LEFT hip adduction 5/5 RIGHT hip abduction 5/5 :: LEFT hip abduction 5/5 RIGHT knee extension 5/5 :: LEFT knee extension 5/5 RIGHT knee flexion 5/5 :: LEFT knee flexion 5/5 RIGHT ankle dorsiflexion 5/5 :: LEFT ankle dorsiflexion 5/5 RIGHT ankle plantarflexion 5/5 :: LEFT ankle plantarflexion 5/5 RIGHT great toe dorsiflexion 5/5 :: LEFT great toe dorsiflexion 5/5 RIGHT great toe plantarflexion 5/5 :: LEFT great toe plantarflexion 5/5 STRAIGHT LEG RAISE:: LLE is negative at 120 degrees. RLE is positive at 90 degrees. NEUROLOGIC SENSATION:: hypesthesia is not noted in lower extremity dermatomes. SIGNS OF NEUROVASCULAR COMPRESSION Spasticity:: none Atrophy:: not present in UE or LE musculature Fasciculation:: not present in UE or LE musculature PSYCHIATRIC:: ORIENTATION:: awake and alert. INSIGHT:: good awareness of illness. AFFECT:: pleasant. Radiology Images Viewed By Me:: 07/27/2016 CT scan of the lumbar spine shows an old L2 superior endplate fracture that is mild with approximately 10% loss of the body height. There is a an acute L5 transverse process fracture. No other acute abnormalities are identified. The lumbar spine is overall degenerated. There is severe degenerative disc disease at nearly every lumbar level with vacuum phenomenon present in the remaining aspect of the disc that is not loss to degeneration. Moderate to severe spondylosis is also present throughout the neuraxis. I have reviewed and agree with information documented in the scribed documentation, ROS, patient medications, allergies, medical history, surgical history, social history, and family history. Results - Labs 07/28/16 03:35 07/28/16 03:35 Abnormal lab results WBC 16.2 K/mcL (4.3-11.1) H 07/28/16 03:35 RBC 3.21 M/mcL (3.82-4.97) L 07/28/16 03:35 Hgb 8.7 g/dL (11.5-15.4) L D 07/28/16 03:35 Hct 26.7 % (35.3-44.9) L 07/28/16 03:35 MCH 27.1 pg (28.0-33.3) L 07/28/16 03:35 RDW 16.9 % (11.5-14.5) H 07/28/16 03:35 Band Neutrophils % 7.0 % (0-4) H 07/27/16 08:17 Neutrophils # 13.7 K/mcL (1.6-8.9) H 07/28/16 03:35 Nucleated RBCs/100 WBC 0.1 /100 WBC (0) H 07/27/16 08:17 BUN 28 mg/dL (7-20) H D 07/28/16 03:35 BUN/Creatinine Ratio 34 (6-26) H 07/28/16 03:35 Glucose 134 mg/dL (70-99) H 07/28/16 03:35 POC Glucose 151 (58-89) H 07/27/16 16:12 Calcium 8.2 mg/dL (8.6-10.8) L 07/28/16 03:35 Urine Clarity Turbid (Clear) A 07/27/16 08:34 Urine Protein 30 mg/dL (Neg-Trace) H 07/27/16 08:34 Urine Blood Large (Negative) H 07/27/16 08:34 Ur Leukocyte Esterase Moderate (Negative) H 07/27/16 08:34 Urine Microscopic RBC 15-30 per hpf (0-3) H 07/27/16 08:34 Urine Microscopic WBC 15-30 per hpf (0-3) H 07/27/16 08:34 Ur Squamous Epith Cells Many per lpf (None-Few) H 07/27/16 08:34 Urine Bacteria Many per hpf (None-Few) H 07/27/16 08:34 Ur Culture Indicated? YES (NO) A 07/27/16 08:34 Urine Opiates Screen Positive ng/mL (Hmhndk=409) H 07/27/16 08:34 U Benzodiazepines Scrn Positive ng/mL (Uhzztv=481) H 07/27/16 08:34 Diabetes panel 07/28/16 Range/Units 03:35 Sodium 136 D (136-145) mEq/L Potassium 4.1 (3.5-4.5) mEq/L Chloride 108 (98-109) mEq/L Carbon Dioxide 23 (19-29) mEq/L BUN 28 H D (7-20) mg/dL Creatinine 0.82 D (0.57-1.11) mg/dL Glucose 134 H (70-99) mg/dL Calcium 8.2 L (8.6-10.8) mg/dL Calcium panel 07/28/16 Range/Units 03:35 Calcium 8.2 L (8.6-10.8) mg/dL Pituitary panel 07/28/16 Range/Units 03:35 Sodium 136 D (136-145) mEq/L Potassium 4.1 (3.5-4.5) mEq/L Chloride 108 (98-109) mEq/L Carbon Dioxide 23 (19-29) mEq/L BUN 28 H D (7-20) mg/dL Creatinine 0.82 D (0.57-1.11) mg/dL Glucose 134 H (70-99) mg/dL Calcium 8.2 L (8.6-10.8) mg/dL Adrenal panel 07/28/16 Range/Units 03:35 Sodium 136 D (136-145) mEq/L Potassium 4.1 (3.5-4.5) mEq/L Chloride 108 (98-109) mEq/L Carbon Dioxide 23 (19-29) mEq/L BUN 28 H D (7-20) mg/dL Creatinine 0.82 D (0.57-1.11) mg/dL Glucose 134 H (70-99) mg/dL Calcium 8.2 L (8.6-10.8) mg/dL All other labs normal. - VTE Documentation of Mechanical Device: Graduated compression elastic hosiery Consult Discharge Plan - Plan Referrals: Tracie Castelan CNP [Primary Care Provider] - 08/20/16 2:00 pm
[2016-07-28] MEDS: Insulin LISPRO 300 UNITS/3 ML VIAL SQ SCH ×2 (08:38→12:59)
[2016-07-28] MEDS: *HR* Heparin 5,000 UNIT/ML VIAL SQ SCH (08:48)
[2016-07-28] MEDS: Gabapentin 300 MG CAPSULE PO SCH ×3 (08:50→20:59)
[2016-07-28] MEDS: *HR* HYDROmorphone (PF) 1 MG/ML SYRINGE IVP PRN ×3 (08:50→19:50)
[2016-07-28] MEDS ORDERED: Azithromycin 500 MG in D5% in Water 250 ML IVPB SCH (09:00)
--- NOTE | 2016-07-28 09:11 | Internal Med Progress Note ---
<Frederick Ramirez - Last Filed: 07/28/16 09:09> Date of Encounter: 07/28/16 Time of Encounter: 09:09 - Assessment and plan (1) Sepsis Current Visit: Yes Status: Resolved Assessment and plan: Resolved at this time. White blood cell count is elevated but improved. Tachycardia is resolved. Blood cultures are pending. We will discontinue fluids. Continue antibiotics. Qualifiers: Sepsis type: sepsis due to unspecified organism Qualified Code(s): A41.9 - Sepsis, unspecified organism (2) Pneumonia Current Visit: Yes Status: Acute Assessment and plan: Patient underwent an incidental finding of areas of groundglass opacities of the lungs on the thoracic spine CT. Patient did have signs of sepsis as discussed above however I think these are more likely related to a urinary tract infection and pneumonia. Clinically the patient's lungs are clear, she is having no breathing difficulties, she is saturating in the 90s on room air. We will discontinue azithromycin and continue Rocephin. Qualifiers: Pneumonia type: due to unspecified organism Laterality: bilateral Lung location: unspecified part of lung Qualified Code(s): J18.9 - Pneumonia, unspecified organism (3) Urinary tract infection Current Visit: Yes Status: Acute Assessment and plan: UA shows sign of infection which could be contributing to the patient's unsteadiness and falls. Urinary catheter in place at this time due to extreme fall risk. Continue Rocephin. Urine culture pending. Qualifiers: Urinary tract infection type: acute cystitis Hematuria presence: without hematuria Qualified Code(s): N30.00 - Acute cystitis without hematuria (4) Acute kidney injury Current Visit: Yes Status: Acute Assessment and plan: Likely related to dehydration in the setting of infection. Has resolved. Continue to monitor serum creatinine and urine output. (5) Lumbar compression fracture Current Visit: Yes Status: Acute Assessment and plan: Imaging shows a likely chronic L2 compression fracture and an acute transverse process fracture of L5. Consult spine surgery. Qualifiers: Encounter type: initial encounter Fracture type: closed Qualified Code(s) : S32.000A - Wedge compression fracture of unspecified lumbar vertebra, initial encounter for closed fracture (6) Falls Current Visit: Yes Status: Acute Assessment and plan: Patient has multiple falls at home which is a chronic issue for her which she reports is related to cervical spine pathology for which she has had multiple surgeries in [place]. Patient states she continues to follow-up in [place] with her spine surgeon and the plan was for her to receive a motorized wheelchair to prevent further falls. PT/OT consult pending. Qualifiers: Encounter type: initial encounter Qualified Code(s): W19.XXXA - Unspecified fall, initial encounter (7) Chronic back pain Current Visit: No Status: Acute Assessment and plan: Patient calls with the spine surgeon in [place] and has had multiple spine surgeries in the past. Will be evaluated by our surgeon for plan of care. Continue with pain medication. Qualifiers: Back pain location: low back pain Back pain laterality: midline Sciatica presence: without sciatica Qualified Code(s): M54.5 - Low back pain; G89.29 - Other chronic pain (8) DVT prophylaxis Current Visit: Yes Status: Acute Assessment and plan: Heparin 5000 units subcutaneous 3 times a day. - Subjective Interval history: Patient seen and examined at bedside. Patient states that she feels better today, she states her pain is improved this morning. She does still report some mild low back pain but states it is tolerable. She states she is breathing normally. She is eating and drinking well, has no other complaints. - Constitutional Vitals: Temp Pulse Resp BP Pulse Ox 97.9 F 76 18 115/96 92 07/28/16 07:27 07/28/16 07:27 07/28/16 07:27 07/28/16 07:27 07/28/16 07:48 General appearance: Present: disheveled, A&O X 3, pleasant, no acute distress - Head Additional comments: Ecchymosis to the left forehead - Respiratory Respiratory exam: Present: CTAB. Absent: rales, rhonchi, wheezes - Cardiovascular Cardiovascular exam: Present: RRR. Absent: gallop, rubs, systolic murmur - GI/Abdominal GI/Abdominal exam: Present: normal bowel sounds, soft. Absent: distended, tenderness - Extremities Exam Extremities exam: Absent: pedal edema - Skin Additional comments: There is extensive ecchymosis and abrasions on all 4 extremities in different stages of healing. None of the areas have significant erythema, drainage, warmth. Internal Medicine: Result - Labs CBC & Chem 7: 07/28/16 03:35 07/28/16 03:35 Labs: Short CBC 06/19/17 Range/Units 03:35 WBC 16.2 H (4.3-11.1) K/mcL Hgb 8.7 L D (11.5-15.4) g/dL Hct 26.7 L (35.3-44.9) % Plt Count 228 (140-400) K/mcL Neutrophils # 13.7 H (1.6-8.9) K/mcL BMP 07/28/16 03:35 Sodium 136 D Potassium 4.1 Chloride 108 Carbon Dioxide 23 BUN 28 H D Creatinine 0.82 D Glucose 134 H Calcium 8.2 L Cardiac Enzymes 07/27/16 07/27/16 Range/Units 14:24 20:35 Troponin I 0.03 0.02 (0-0.03) ng/mL - VTE Documentation of Mechanical Device: Graduated compression elastic hosiery Consult Discharge Plan - Plan Referrals: Tracie Castelan, JACKSPOOLER [Primary Care Provider] - 08/20/16 2:00 pm <Emely Mijares - Last Filed: 07/28/16 13:37> Date of Encounter: 07/28/16 - Constitutional Vitals: Temp Pulse Resp BP Pulse Ox 98.2 F 99 18 112/108 95 07/28/16 11:57 07/28/16 11:57 07/28/16 11:57 07/28/16 11:57 07/28/16 11:57 Internal Medicine: Result - Labs CBC & Chem 7: 07/28/16 03:35 07/28/16 03:35 Labs: Short CBC 07/28/16 Range/Units 03:35 WBC 16.2 H (4.3-11.1) K/mcL Hgb 8.7 L D (11.5-15.4) g/dL Hct 26.7 L (35.3-44.9) % Plt Count 228 (140-400) K/mcL Neutrophils # 13.7 H (1.6-8.9) K/mcL BMP 07/28/16 03:35 Sodium 136 D Potassium 4.1 Chloride 108 Carbon Dioxide 23 BUN 28 H D Creatinine 0.82 D Glucose 134 H Calcium 8.2 L Cardiac Enzymes 07/27/16 07/27/16 Range/Units 14:24 20:35 Troponin I 0.03 0.02 (0-0.03) ng/mL - Attending Attestation I saw and examined pt. I have discussed with Resident Dr Ramirez regarding pt' s management plan. I agree with the documentation. Pt c/o back pain. Denies chest pain or SOB, denies dysuria. She came with Fall, without LOC. In ER she was found elevated WBC, possible pneumonia and asymptomatic UTI. Elevated WBC is also possible reactive. Will continue rocephin. Orthopedic surgeon consult for L5 transverse process fracture. In the afternoon, pt was found A Fib with RVR. She has no hx of A Fib previously. Will start cardizem drip and heparin drip now. Will consult cardio for further management.
[2016-07-28] MEDS: Budesonide/Formoterol 160/4.5 MDI IH SCH ×2 (10:40→20:36)
[2016-07-28] MEDS ORDERED: *HR* HYDROmorphone 2 MG/ML SYRINGE IVP ONE (13:20)
[2016-07-28] MEDS ORDERED: *HR* Heparin 5,000 UNIT/ML VIAL IVP PRN ×4 (13:24→18:34)
[2016-07-28] MEDS ORDERED: *HR* Heparin 5,000 UNIT/ML VIAL IVP ONE (13:24)
[2016-07-28] MEDS ORDERED: Heparin 25,000 UNIT/500 ML D5W 25,000 UNIT/500 ML MLS IVC SCH ×2 (13:30→18:34)
--- NOTE | 2016-07-28 14:03 | Event Note ---
Date of Encounter: 07/28/16 Time of Encounter: 13:59 I was paged by the nurse due to concernes for high HR. When I entered the room patient was awake, alert and writhing around in pain. She denied any chest pain , palpitations, lightheadedness, syncope. Patients HR was 170-190 sustained with BPs running 110/70s. Patient denied history of cardiac arrhythmia. EKG revealed A fib with RVR. Patient was initially given cardizem 10mg bolus with briefly decreased her HR to the 140s but it quickly returned to the 180s. Cardizem drip was then initiated. Heparin drip was also initiated for anticoaglation. Echo has been ordered, cardiology has been consulted. Patient remains asymptomatic. Pain and muscle spasms were further treated.
[2016-07-28] MEDS ORDERED: *HR* Metoprolol 5 MG/5 ML VIAL IVP ONE (14:38)
--- NOTE | 2016-07-28 15:12 | Cardiology Consult Note ---
<Ulysses Lopez - Last Filed: 07/28/16 15:06> Date of Encounter: 07/28/16 Time of Encounter: 15:07 Assessment and Plan (1) Atrial fibrillation Current Visit: Yes Status: Acute This is a resident progress note pending review by attending medical economics consultant New onset, possibly secondary to sepsis, UTI, PNA Echocardiogram pending Agree with current rate control using Cardizem titration, can consider change to amiodarone Agree with current anticoagulation using heparin, [id number] 1 or 2 (per patient diabetes reversed following gastric bypass ---> 200 lb weight loss years ago) May not need long-term anticoagulation if rhythm converts, will reassess TSH 2.07 four weeks ago Qualifiers: Qualified Code(s): I48.91 - Unspecified atrial fibrillation Discussion w patient/family: The assessment and plan as outlined above was discussed with the patient and/or family members who expressed understanding and agreement. All questions were answered. Thank you for involving us in the care of your patient. Please call with any questions. History of Present Illness Consult date: 07/28/16 Consult reason: New onset a. fib History of present illness: Ms. Chen is a 61 year old female with past medical history of hypothyroidism , type 2 diabetes which per patient report resolved years ago after she lost 200 pounds following gastric bypass, asthma, and osteoporosis who was recently admitted to the hospital following a fall in which she hit her head and appears to have an acute lumbar fracture. She was found to be septic with positive urinalysis as well as pneumonia on CT chest. Patient denies any history of hypertension, heart failure, heart attack, or other cardiac history. This afternoon her heart rate became elevated in the 170-190s and EKG revealed A. fib with RVR. She was given Cardizem 10 mg bolus with brief improvement in her heart rate into the 140s however it returned to the 180s. Patient denies any recent history of chest pain, palpitations, shortness of breath and is currently comfortable Past Med Surg Social Fam HX - Past Medical History Medical history: asthma, diabetes, osteoporosis, thyroid disease, other Psychiatric history: anxiety, depression - Past Surgical History Surgical History: cholecystectomy, hysterectomy, orthopedic, other (shoulder, neck, back ), JULIANNA/BSO, thyroidectomy, other, bariatric surgery - Social History Smoking Status: Never smoker Smokeless Tobacco Status: No Alcohol use: none Drug use: none - Family History Father Living Status: Hx Family Cardiac Disorders: Yes Hx Family Respiratory Disorders: Yes Hx Family Cancer: Yes (lung) Hx Family GI Disorders: No Hx Family Endocrine Disorder: Yes Hx Family Neuromuscular Disorders: No Hx Family Neurologic Disorders: No Hx Family HEENT Disorders: No Hx Family Autoimmune Disorders: No Mother Living Status: Hx Family Cardiac Disorders: Yes (chf) Hx Family Respiratory Disorders: No Hx Family Cancer: No Hx Family GI Disorders: No Hx Family Endocrine Disorder: Yes (DM) Hx Family Neuromuscular Disorders: No Hx Family Neurologic Disorders: No Hx Family HEENT Disorders: No Hx Family Autoimmune Disorders: No Medications and Allergies Citalopram [CeleXA] 20 mg PO DAILY 02/06/15 [History] Cyclobenzaprine [Flexeril] 10 mg PO TID #15 tablet 02/06/15 [Rx] Albuterol Sulfate [Albuterol Inhaler] 2 - 4 puff IH Q4HR PRN #1 [id number].[id number] 03/09 [Rx] Alendronate Sodium [Fosamax] 70 mg PO QWEEK 07/07/16 [History] Celecoxib [Celebrex] 200 mg PO BID 07/07/16 [History] Fluticasone/Salmeterol [Advair 500-50 Diskus] 1 puff IH BID 07/07/16 [History] Levothyroxine [Synthroid] 100 mcg PO DAILY 07/07/16 [History] Meloxicam 15 mg PO DAILY 07/07/16 [History] Omeprazole 20 mg PO DAILY 07/07/16 [History] OxyCODONE/APAP 5/325 [Percocet 5/325 MG] 1 each PO Q6HR PRN #8 tablet 07/07/16 [ Rx] clonazePAM [Klonopin] 1 mg PO TID 07/07/16 [History] Gabapentin [Neurontin] 300 mg PO TID 07/27/16 [History] Tramadol HCl [Ultram] 50 mg PO TID PRN 07/27/16 [History] Allergies codeine Allergy (Verified 07/27/16 06:34) Swelling of Lip/Tongue/Throat Medroxyprogesterone [From Provera] Allergy (Verified 07/27/16 06:34) Swelling of Lip/Tongue/Throat Penicillins Allergy (Verified 07/27/16 06:34) Rash All Systems Review: A 10-system review of systems was performed and is negative for pertinent findings except as documented above in the HPI. - Cardiovascular Cardiovascular: no chest pain at rest, no chest pain with exertion, no claudication, no diaphoresis, no dyspnea at rest, no dyspnea on exertion, no radiating jaw, neck or arm pain, no leg edema, no palpitations - Respiratory Respiratory: no cough, no dyspnea, no wheezing Physical Examination Vital Signs, Last 4 Hours Temp Pulse Resp BP Pulse Ox 07/28/16 15:00 170 16 142/72 07/28/16 14:40 160 16 120/72 95 07/28/16 14:00 180 16 126/62 95 07/28/16 11:57 98.2 F 99 18 112/108 95 General: Conversant, No Apparent Distress Cardiac: Normal S1 and S2, No Murmur, Other (Irregularly irregular) Lungs: Other (Bilateral rhonchi) Abdomen: Soft, Non-Tender Extremities: No Clubbing, No Cyanosis, No Edema, Normal Pulses Results 07/28/16 03:35 07/28/16 03:35 Lab Results 07/27/16 07/27/16 07/28/16 14:24 20:35 03:35 WBC 16.2 H Hgb 8.7 L D Hct 26.7 L Plt Count 228 Sodium Potassium Chloride Carbon Dioxide BUN Creatinine Glucose Calcium Troponin I 0.03 0.02 07/28/16 03:35 WBC Hgb Hct Plt Count Sodium 136 D Potassium 4.1 Chloride 108 Carbon Dioxide 23 BUN 28 H D Creatinine 0.82 D Glucose 134 H Calcium 8.2 L Troponin I Consult Discharge Plan - Plan Referrals: Tracie Castelan CNP [Primary Care Provider] - 08/20/16 2:00 pm <Aide Rodriguez - Last Filed: 07/28/16 16:32> Date of Encounter: 07/28/16 Assessment and Plan Discussion w patient/family: The assessment and plan as outlined above was discussed with the patient and/or family members who expressed understanding and agreement. All questions were answered. Thank you for involving us in the care of your patient. Please call with any questions. History of Present Illness History of present illness: Ms. Chen is a 61 year old female All Systems Review: A 10-system review of systems was performed and is negative for pertinent findings except as documented above in the HPI. Physical Examination Vital Signs, Last 4 Hours Temp Pulse Resp BP Pulse Ox 07/28/16 16:24 150 16 116/72 07/28/16 15:59 98.4 F 94 16 100/72 94 07/28/16 15:00 170 16 142/72 07/28/16 14:40 160 16 120/72 95 07/28/16 14:00 180 16 126/62 95 Results 07/28/16 03:35 07/28/16 03:35 Lab Results 07/27/16 07/28/16 07/28/16 20:35 03:35 03:35 WBC 16.2 H Hgb 8.7 L D Hct 26.7 L Plt Count 228 Sodium 136 D Potassium 4.1 Chloride 108 Carbon Dioxide 23 BUN 28 H D Creatinine 0.82 D Glucose 134 H Calcium 8.2 L Troponin I 0.02 - Attending Attestation I examined this patient and my medical decision-making was reviewed with the ICE HANDLER/PA/Advanced Practice Nurse/Resident Physician. I agree with the documented findings, disposition and treatment plan. Ms. Chen presented with what appears to be a mechanical fall. She states she has "bad knees" that "just give out." She was noted to have a UTI and possibly PNA. She was found to be in AF RVR upon admission which is a new diagnosis. She is being anticoagulated with heparin and rate is attempting to be controlled with cardizem but is not very effective. It is reasonable to try amiodarone drip for now. 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 Additionally, recommend careful watch on blood counts which have downtrended. Otherwise, TSH recently normal. Troponin elevation is flat and adynamic and does not appear to represent acute coronary syndrome. Agree with echo for re-evaluation of structure and function.
[2016-07-28] MEDS ORDERED: Amiodarone Premix 360 MG/200 ML BAG IVC ONE ×2 (15:23→20:36)
[2016-07-28] MEDS ORDERED: Amiodarone Premix 150 MG/100 ML BAG IVPB ONE ×3 (15:23→20:40)
[2016-07-28] MEDS ORDERED: Amiodarone Premix 360 MG/200 ML BAG IVC SCH ×3 (15:30→21:30)
[2016-07-28] MEDS ORDERED: Acetaminophen 325 MG TABLET PO PRN (18:34)
[2016-07-28] MEDS ORDERED: Albuterol 2.5 MG/3 ML NEBULIZER IH PRN (18:34)
[2016-07-28] MEDS ORDERED: Dextrose Gel 15 GM PO PRN ×2 (18:34)
[2016-07-28] MEDS ORDERED: *HR* Dextrose 50 % in Water (Syg) 50 ML SYRINGE IVP PRN (18:34)
[2016-07-28] MEDS ORDERED: D5% in Water 1,000 ML IVC PRN (18:34)
[2016-07-28] MEDS ORDERED: Naloxone 0.4 MG/ML INJ IVP PRN (18:34)
[2016-07-28] MEDS: *HR* OxyCODONE/APAP 5/325 TABLET PO PRN (20:50)
[2016-07-29] MEDS: *HR* HYDROmorphone (PF) 1 MG/ML SYRINGE IVP PRN ×4 (00:33→20:05)
[2016-07-29] MEDS: Insulin LISPRO 300 UNITS/3 ML VIAL SQ SCH ×5 (00:35→20:06)
[2016-07-29] MEDS: *HR* OxyCODONE/APAP 5/325 TABLET PO PRN ×3 (03:15→19:29)
[2016-07-29 07:46] LABS: Basophils % 0.2 %; Eosinophils # 0.3 K/mcL (0.0-0.6); Eosinophils % 2.7 %; Hematocrit 26.1 % (35.3-44.9); Hemoglobin 8.5 g/dL (11.5-15.4); Immature Granulocytes % 0.4 % (0-4); Lymphocytes % 16.4 %; Mean Corpuscular HGB Conc 32.6 g/dL (31.6-35.5); Mean Corpuscular Hemoglobin 27.6 pg (28.0-33.3); Mean Corpuscular Volume 84.7 fL (83.0-100.0); Mean Platelet Volume 11.5 fL (9.4-12.4); Monocytes # 0.9 K/mcL (0.0-1.3); Monocytes % 7.8 %; Neutrophils # 8.8 K/mcL (1.6-8.9); Platelet Count 205 K/mcL (140-400); Red Blood Count 3.08 M/mcL (3.82-4.97); Red Cell Distribution Width 17.4 % (11.5-14.5); Segmented Neutrophils % 72.5 %
[2016-07-29 08:05] LABS: BUN/Creatinine Ratio 24 (6-26); Calcium 8.1 mg/dL (8.6-10.8); Carbon Dioxide 24 mEq/L (19-29); Chloride 105 mEq/L (98-109); Glucose 126 mg/dL (70-99); Magnesium 1.4 mg/dL (1.6-2.6); Osmolality,Calculated 285 (280-300); Potassium 4.1 mEq/L (3.5-4.5); Sodium 136 mEq/L (136-145); eGFR For African Americans > 60 (> 60); eGFR For Non-African Americans > 60 (> 60)
[2016-07-29 08:16] LABS: Large Platelets Present (Not Present); Platelet Estimate Normal (Normal)
[2016-07-29 08:25] LABS: Blood Urea Nitrogen 17 mg/dL (7-20)
[2016-07-29 08:51] LABS: Phosphorous 2.4 mg/dL (2.3-4.7)
[2016-07-29] MEDS: Gabapentin 300 MG CAPSULE PO SCH ×3 (08:55→21:31)
--- NOTE | 2016-07-29 09:01 | Cardiology Progress Note ---
<Ulysses Lopez - Last Filed: 07/29/16 13:42> Date of Encounter: 07/29/16 Time of Encounter: 08:59 Assessment and Plan (1) Atrial fibrillation Current Visit: Yes Status: Acute This is a resident progress note pending review by attending contact center representative Rhythm appears to have converted to normal sinus Discontinue amiodarone, will change to by mouth Toprol Patient c/o mild chest pain this morning, continue to monitor for now Echocardiogram pending Agree with stopping heparin, start aspirin Qualifiers: Atrial fibrillation type: unspecified Qualified Code(s): I48.91 - Unspecified atrial fibrillation Discussion w patient/family: The assessment and plan as outlined above was discussed with the patient and/or family members who expressed understanding and agreement. All questions were answered. Thank you for involving us in the care of your patient. Please call with any questions. Subjective Principal diagnosis: atrial fibrillation Interval history: Patient was seen and examined at bedside this morning. She is complaining of some chest pain which she describes as mild. She has history of acid reflux but says this feels different. Described as "achy". No radiation, no diaphoresis. She denies palpitations, dyspnea, or other new complaints. Objective General: Conversant, No Apparent Distress Cardiac: Reg Rate and Rhythm, Normal S1 and S2, No Murmur Lungs: Other (Bilateral rhonchi) Neuro: Alert and responsive Abdomen: Soft, Non-Tender Extremities: No Clubbing, No Cyanosis, No Edema, Normal Pulses Results 07/29/16 07:08 07/29/16 07:08 Lab Results 07/28/16 07/29/16 07/29/16 20:22 07:08 07:08 WBC 12.1 H Hgb 8.5 L Hct 26.1 L Plt Count 205 APTT 55.0 H Sodium 136 Potassium 4.1 Chloride 105 Carbon Dioxide 24 BUN 17 D Creatinine 0.72 Glucose 126 H Calcium 8.1 L Magnesium 1.4 L 07/29/16 07:08 WBC Hgb Hct Plt Count APTT 33.5 Sodium Potassium Chloride Carbon Dioxide BUN Creatinine Glucose Calcium Magnesium - VTE Documentation of Mechanical Device: Graduated compression elastic hosiery Consult Discharge Plan - Plan Referrals: Tracie Castelan, WOOL FLEECE GRADER [Primary Care Provider] - (SENT WEB REQUEST ON 07-29-16 @ 1367) <Aide Rodriguez - Last Filed: 07/29/16 17:06> Date of Encounter: 07/29/16 Assessment and Plan Discussion w patient/family: I examined this patient and my medical decision-making was reviewed with the CLOTH CUTTING INSPECTOR/PA/Advanced Practice Nurse/Resident Physician. I agree with the documented findings, disposition and treatment plan. Ms. Chen does not describe any particular complaints to me today. She states she is feeling better and is interested in going home. She has converted to normal sinus rhythm. Recommend stopping amiodarone. Will start aspirin (CHADSVASC 1-frequent falls) and beta lillie. She can follow up as an outpatient. Objective Vital Signs, Last 4 Hours Temp Pulse Resp BP Pulse Ox 07/29/16 15:57 98.1 F 85 16 117/67 99 Results 07/29/16 15:21 07/29/16 15:21 Lab Results 07/28/16 07/29/16 07/29/16 20:22 07:08 07:08 WBC 12.1 H Hgb 8.5 L Hct 26.1 L Plt Count 205 APTT 55.0 H Sodium 136 Potassium 4.1 Chloride 105 Carbon Dioxide 24 BUN 17 D Creatinine 0.72 Glucose 126 H Calcium 8.1 L Magnesium 1.4 L 07/29/16 07/29/16 07/29/16 07:08 15:21 15:21 WBC 11.2 H Hgb 9.4 L Hct 29.5 L Plt Count 232 APTT 33.5 Sodium 137 Potassium 3.9 Chloride 105 Carbon Dioxide 26 BUN 15 Creatinine 0.70 Glucose 108 H Calcium 8.4 L Magnesium
[2016-07-29] MEDS ORDERED: Magnesium Sulfate 1 GM in D5% in Water 100 ML IVPB ONE (09:43)
--- NOTE | 2016-07-29 09:49 | Internal Med Progress Note ---
Date of Encounter: 07/29/16 Time of Encounter: 09:49 - Assessment and plan (1) Electrolyte abnormality Current Visit: Yes Status: Acute Assessment and plan: Hypomagnesemia Mg supplemented continue to monitor electrolytes and replace as needed (2) Chronic back pain Current Visit: No Status: Acute Assessment and plan: Awaiting MR of [facility] spine to rule out compression fracture PT eval after MR Dr. Lopez's evaluation noted Qualifiers: Back pain location: low back pain Back pain laterality: midline Sciatica presence: without sciatica Qualified Code(s): M54.5 - Low back pain; G89.29 - Other chronic pain (3) Sepsis Current Visit: Yes Status: Resolved Assessment and plan: Resolved Likely secondary to UTI Continue Ceftriaxone at this time. Will treat for a total of 5 days Qualifiers: Sepsis type: sepsis due to unspecified organism Qualified Code(s): A41.9 - Sepsis, unspecified organism (4) Urinary tract infection Current Visit: Yes Status: Acute Assessment and plan: Urine culture positive for Ecoli continue ceftriaxone Qualifiers: Urinary tract infection type: acute cystitis Hematuria presence: without hematuria Qualified Code(s): N30.00 - Acute cystitis without hematuria (5) Acute kidney injury Current Visit: Yes Status: Resolved Assessment and plan: renal function back to baseline continue to monitor (6) Falls Current Visit: Yes Status: Acute Assessment and plan: PT eval fall precautions pt to receive MR of Vy spine prior to her PT evaluation Qualifiers: Encounter type: initial encounter Qualified Code(s): W19.XXXA - Unspecified fall, initial encounter (7) DVT prophylaxis Current Visit: Yes Status: Acute Assessment and plan: Heparin SQ (8) Atrial fibrillation Current Visit: Yes Status: Acute Assessment and plan: Rate controlled converted to sinus rhythm cardiology on board, consultation appreciated to be transitioned to oral agent and titrate off amiodarone drip as per cardiology not a candidate for anticoagulation given history of recurrent falls. discontinued heparin gtt BP better controlled. Repeat BP: 116/59 Qualifiers: Qualified Code(s): I48.91 - Unspecified atrial fibrillation - Subjective Interval history: Patient seen and examined at bedside. Resting in bed and reports of having chronic back pain. Pt is disheveled, reports of living with her and able to ambulate with a walker. Given patient's recurrent falls, pt might benefit from ECF, however she states she will not be going to any ECF and only wants ECF. Dr. Lopez's evaluation noted, awaiting MR Vy spine for further evaluation and to rule out compression fracture. Rate better controlled, currently on Amiodarone gtt. Cardiology on board Anticoagulation discontinued given increased risk of falls. Currently in sinus rhythm. - Constitutional Vitals: Temp Pulse Resp BP Pulse Ox 98.3 F 77 16 161/80 94 07/29/16 04:46 07/29/16 02:00 07/28/16 17:27 07/29/16 02:00 07/28/16 23:30 General appearance: Present: disheveled, A&O X 3, no acute distress, obese - Head Head exam: Present: atraumatic, normocephalic - Eye Eye exam: Present: normal appearance, conjuntiva pink, sclera anicteric - Respiratory Respiratory exam: Present: CTAB. Absent: respiratory distress, wheezes - Cardiovascular Cardiovascular exam: Present: RRR, +S1, +S2. Absent: diastolic murmur, gallop, rubs, systolic murmur - GI/Abdominal GI/Abdominal exam: Present: normal bowel sounds, soft, no peritoneal signs. Absent: distended, tenderness - Extremities Exam Extremities exam: Present: warm, radial pulses palpable and symetrical. Absent : calf tenderness, pedal edema - Neurological Exam Neurological exam: Present: alert, oriented X3 - Psychiatric Psychiatric exam: Present: normal affect, normal mood Internal Medicine: Result - Labs CBC & Chem 7: 07/29/16 07:08 07/29/16 07:08 Labs: Short CBC 07/29/16 Range/Units 07:08 WBC 12.1 H (4.3-11.1) K/mcL Hgb 8.5 L (11.5-15.4) g/dL Hct 26.1 L (35.3-44.9) % Plt Count 205 (140-400) K/mcL Neutrophils # 8.8 (1.6-8.9) K/mcL BMP 07/29/16 07:08 Sodium 136 Potassium 4.1 Chloride 105 Carbon Dioxide 24 BUN 17 D Creatinine 0.72 Glucose 126 H Calcium 8.1 L - VTE Documentation of Mechanical Device: Graduated compression elastic hosiery Consult Discharge Plan - Plan Referrals: Tracie Castelan, MOBILE LOUNGE DRIVER [Primary Care Provider] - (SENT WEB REQUEST ON 07-29-16 @ [id number])
[2016-07-29] MEDS: Budesonide/Formoterol 160/4.5 MDI IH SCH ×2 (11:59→20:52)
[2016-07-29] MEDS: Aspirin 81 MG TAB.CHEW PO SCH (12:12)
[2016-07-29] MEDS: Metoprolol XL (24 HR) Succ 25 MG TAB.ER.24H PO SCH (12:12)
--- NOTE | 2016-07-29 13:50 | Event Note ---
<JohnUlysses Frederick - Last Filed: 07/29/16 13:48> Date of Encounter: 07/29/16 Time of Encounter: 13:48 - Cardiology Event Note Patient was complaining of some chest pain this morning. I reevaluated her this afternoon and she states her pain has completely resolved. No current palpitations, dyspnea, or new complaints. Echocardiogram resulted and is nonacute. Cardiology will sign off at this time thank you for the consult and please let us know if we can be of further assistance <Aide Rodriguez - Last Filed: 07/29/16 17:08> Date of Encounter: 07/29/16 - Cardiology Event Note Patient did not endorse any particular complaints this morning to me. She reported feeling better and expressed interest in wanting to go home. Recommend aspirin and BB and follow up as outpatient. Echo demonstrated normal LV/RV function. Will sign off.
[2016-07-29] MEDS ORDERED: Magnesium Sulfate 2 GM in D5% in Water 100 ML IVPB PRN (15:02)
[2016-07-29] MEDS ORDERED: Potassium Phosphate 44 MEQ in 0.9 % Sodium Chloride 250 ML IVPB PRN (15:02)
[2016-07-29 15:31] LABS: Basophils % 0.3 %; Eosinophils # 0.3 K/mcL (0.0-0.6); Eosinophils % 2.9 %; Hematocrit 29.5 % (35.3-44.9); Hemoglobin 9.4 g/dL (11.5-15.4); Immature Granulocytes % 0.5 % (0-4); Lymphocytes # 1.3 K/mcL (0.6-4.6); Lymphocytes % 11.4 %; Mean Corpuscular HGB Conc 31.9 g/dL (31.6-35.5); Mean Corpuscular Hemoglobin 26.6 pg (28.0-33.3); Mean Corpuscular Volume 83.6 fL (83.0-100.0); Mean Platelet Volume 10.6 fL (9.4-12.4); Monocytes # 0.9 K/mcL (0.0-1.3); Monocytes % 8.1 %; Neutrophils # 8.6 K/mcL (1.6-8.9); Platelet Count 232 K/mcL (140-400); Red Blood Count 3.53 M/mcL (3.82-4.97); Red Cell Distribution Width 17.5 % (11.5-14.5); Segmented Neutrophils % 76.8 %
[2016-07-29 15:40] LABS: BUN/Creatinine Ratio 21 (6-26); Blood Urea Nitrogen 15 mg/dL (7-20); Calcium 8.4 mg/dL (8.6-10.8); Carbon Dioxide 26 mEq/L (19-29); Chloride 105 mEq/L (98-109); Glucose 108 mg/dL (70-99); Osmolality,Calculated 285 (280-300); Potassium 3.9 mEq/L (3.5-4.5); Sodium 137 mEq/L (136-145); eGFR For African Americans > 60 (> 60); eGFR For Non-African Americans > 60 (> 60)
--- NOTE | 2016-07-29 17:20 | Pain Management Consultation ---
Date of Encounter: 07/29/16 Time of Encounter: 17:17 Assessment and Plan (1) Lumbar compression fracture Current Visit: Yes Status: Chronic Qualifiers: Encounter type: initial encounter Fracture type: closed Qualified Code(s) : S32.000A - Wedge compression fracture of unspecified lumbar vertebra, initial encounter for closed fracture (2) Sacral fracture Current Visit: Yes Status: Acute MRI imaging shows an old lumbar compression fracture. There is an acute right L5 transverse process fracture. No surgical intervention necessary for these problems. A new finding that was not seen on the prior CT scan is a sacral ala fracture both left and right. The management of this sort of fracture can be conservative at first if the patient is able to function relatively well. Recommend trial of physical therapy, oral analgesics, and back bracing. If the patient is able to participate in physical therapy and remain comfortable with reasonable doses of oral analgesics, she can follow-up with me in the outpatient chronic pain clinic as well as be sent home. If the patient is having difficulty with routine activities such as moving around, transferring in and out of bed, and participating in physical therapy, recommend transfer of care to a tertiary center that can provide interventional care for the sacral fractures. The assessment and plan as outlined above was discussed with the patient and/or family members who expressed understanding and agreement. All questions were answered. Qualifiers: Encounter type: initial encounter Zone of sacrum fracture: zone I of sacrum Fracture type: closed Fracture alignment: nondisplaced Qualified Code(s): S32.110A - Nondisplaced Zone I fracture of sacrum, initial encounter for closed fracture History of Present Illness Chief complaint: back pain HPI: Ms. Chen is a 61 year old female continuing to suffer with severe lower back pain on the left and right. The pain dramatically increases when she gets up out of the hospital bed. She is requiring the assistance of one of the nurses to transfer out of bed. The pain score is a "12/10". Again, she typically has elements of pain radiating down her legs. This is not a new symptom. She does not necessarily feel worse radiating pain into her left or right lower limb. The pain that she is complaining of has been present since the fall one day prior to her hospital admission. Pain is described as "sharp". The pain causes her legs to get out because it is intense. Past Med Surg Social Fam HX - Past Medical History Medical history: asthma, diabetes, osteoporosis, thyroid disease, other Psychiatric history: anxiety, depression - Past Surgical History Surgical History: cholecystectomy, hysterectomy, orthopedic, other (shoulder, neck, back ), JULIANNA/BSO, thyroidectomy, other, bariatric surgery - Social History Smoking Status: Never smoker Smokeless Tobacco Status: No Alcohol use: none Drug use: none - Family History Father Living Status: Hx Family Cardiac Disorders: Yes Hx Family Respiratory Disorders: Yes Hx Family Cancer: Yes (lung) Hx Family GI Disorders: No Hx Family Endocrine Disorder: Yes Hx Family Neuromuscular Disorders: No Hx Family Neurologic Disorders: No Hx Family HEENT Disorders: No Hx Family Autoimmune Disorders: No Mother Living Status: Hx Family Cardiac Disorders: Yes (chf) Hx Family Respiratory Disorders: No Hx Family Cancer: No Hx Family GI Disorders: No Hx Family Endocrine Disorder: Yes (DM) Hx Family Neuromuscular Disorders: No Hx Family Neurologic Disorders: No Hx Family HEENT Disorders: No Hx Family Autoimmune Disorders: No Medications and Allergies Citalopram [CeleXA] 20 mg PO DAILY 02/06/15 [History] Cyclobenzaprine [Flexeril] 10 mg PO TID #15 tablet 02/06/15 [Rx] Albuterol Sulfate [Albuterol Inhaler] 2 - 4 puff IH Q4HR PRN #1 hfa.aer.ad 03/09 [Rx] Alendronate Sodium [Fosamax] 70 mg PO QWEEK 07/07/16 [History] Celecoxib [Celebrex] 200 mg PO BID 07/07/16 [History] Fluticasone/Salmeterol [Advair 500-50 Diskus] 1 puff IH BID 07/07/16 [History] Levothyroxine [Synthroid] 100 mcg PO DAILY 07/07/16 [History] Meloxicam 15 mg PO DAILY 07/07/16 [History] Omeprazole 20 mg PO DAILY 07/07/16 [History] OxyCODONE/APAP 5/325 [Percocet 5/325 MG] 1 each PO Q6HR PRN #8 tablet 07/07/16 [ Rx] clonazePAM [Klonopin] 1 mg PO TID 07/07/16 [History] Gabapentin [Neurontin] 300 mg PO TID 07/27/16 [History] Tramadol HCl [Ultram] 50 mg PO TID PRN 07/27/16 [History] Allergies codeine Allergy (Verified 07/27/16 06:34) Swelling of Lip/Tongue/Throat Medroxyprogesterone [From Provera] Allergy (Verified 07/27/16 06:34) Swelling of Lip/Tongue/Throat Penicillins Allergy (Verified 07/27/16 06:34) Rash Review of Systems - Constitutional Constitutional ROS IM: no photophobia, no phonophobia, no daytime sleepiness, no fever(s), no stops breathing during sleep - EENT Nose, mouth and throat: no headache(s), no neck pain, no neck trauma - Cardiovascular Cardiovascular ROS: no chest pain, no leg edema, no lightheadedness - Respiratory Respiratory: no pain on inspiration, no pain with cough - Gastrointestinal Gastrointestinal: no abdominal pain, no constipation, no diarrhea, no heartburn - Genitourinary Genitourinary ROS: no difficulty urinating, no flank pain, no urinary hesitancy - Musculoskeletal Musculoskeletal ROS: radiating pain into limb, no muscle weakness, no numbness, no tingling - Integumentary Integumentary: no erythema, no lesions, no swelling - Neurological Neurological ROS: no abnormal gait, no behavioral changes, no focal weakness, no radicular pain - Psychiatric Psychiatric general: no anxiety, no confusion, no depression - Hematologic/Lymphatic Hematologic/Lymphatic pediatric: no easy bleeding, no easy bruising Physical Exam Initial Vital Signs Temp Pulse Resp BP Pulse Ox 97.6 F 107 18 118/72 84 07/27/16 06:36 07/27/16 06:36 07/27/16 06:36 07/27/16 06:36 07/27/16 06:36 - Additional Findings Constitutional: well appearing, well dressed, well groomed Skin: Multiple areas of echymoses or petechiae. Multiple skin tears noted on right anterior forehead, left forearm. Cranial Nerves: CN II through X12 grossly intact HEENT: NCAT other than skin tears. Ecchymosis noted around left eye. Cardiac: peripheral pulses equal and symmetric at radial arteries Respiratory: quiet, normal respiratory pattern ABD: no distention MSK: Pain at lumbosacral junction in the midline. Neuro: no focal sensory deficits in lower limbs. Lower extremity myotomes graded 5/5 grossly. Radiology images viewed by me: Lumbar MRI shows an old L2 compression fracture as well as an acute L5 right transverse process fracture. There is also bilateral sacral ala fractures. I have reviewed and agree with information documented in the scribed documentation, ROS, patient medications, allergies, medical history, surgical history, social history, and family history. Results - Labs 07/29/16 15:21 07/29/16 15:21 Abnormal lab results WBC 11.2 K/mcL (4.3-11.1) H 07/29/16 15:21 RBC 3.53 M/mcL (3.82-4.97) L 07/29/16 15:21 Hgb 9.4 g/dL (11.5-15.4) L 07/29/16 15:21 Hct 29.5 % (35.3-44.9) L 07/29/16 15:21 MCH 26.6 pg (28.0-33.3) L 07/29/16 15:21 RDW 17.5 % (11.5-14.5) H 07/29/16 15:21 Band Neutrophils % 7.0 % (0-4) H 07/27/16 08:17 Nucleated RBCs/100 WBC 0.1 /100 WBC (0) H 07/27/16 08:17 Large Platelets Present (Not Present) A 07/29/16 07:08 Glucose 108 mg/dL (70-99) H 07/29/16 15:21 POC Glucose 99 (58-89) H 07/28/16 20:45 Calcium 8.4 mg/dL (8.6-10.8) L 07/29/16 15:21 Magnesium 1.4 mg/dL (1.6-2.6) L 07/29/16 07:08 Urine Clarity Turbid (Clear) A 07/27/16 08:34 Urine Protein 30 mg/dL (Neg-Trace) H 07/27/16 08:34 Urine Blood Large (Negative) H 07/27/16 08:34 Ur Leukocyte Esterase Moderate (Negative) H 07/27/16 08:34 Urine Microscopic RBC 15-30 per hpf (0-3) H 07/27/16 08:34 Urine Microscopic WBC 15-30 per hpf (0-3) H 07/27/16 08:34 Ur Squamous Epith Cells Many per lpf (None-Few) H 07/27/16 08:34 Urine Bacteria Many per hpf (None-Few) H 07/27/16 08:34 Ur Culture Indicated? YES (NO) A 07/27/16 08:34 Urine Opiates Screen Positive ng/mL (Ybzgaz=374) H 07/27/16 08:34 U Benzodiazepines Scrn Positive ng/mL (Qfmnwq=096) H 07/27/16 08:34 Diabetes panel 07/29/16 07/29/16 Range/Units 07:08 15:21 Sodium 136 137 (136-145) mEq/L Potassium 4.1 3.9 (3.5-4.5) mEq/L Chloride 105 105 (98-109) mEq/L Carbon Dioxide 24 26 (19-29) mEq/L BUN 17 D 15 (7-20) mg/dL Creatinine 0.72 0.70 (0.57-1.11) mg/dL Glucose 126 H 108 H (70-99) mg/dL Calcium 8.1 L 8.4 L (8.6-10.8) mg/dL Calcium panel 07/29/16 07/29/16 Range/Units 07:08 15:21 Calcium 8.1 L 8.4 L (8.6-10.8) mg/dL Phosphorus 2.4 (2.3-4.7) mg/dL Pituitary panel 07/29/16 07/29/16 Range/Units 07:08 15:21 Sodium 136 137 (136-145) mEq/L Potassium 4.1 3.9 (3.5-4.5) mEq/L Chloride 105 105 (98-109) mEq/L Carbon Dioxide 24 26 (19-29) mEq/L BUN 17 D 15 (7-20) mg/dL Creatinine 0.72 0.70 (0.57-1.11) mg/dL Glucose 126 H 108 H (70-99) mg/dL Calcium 8.1 L 8.4 L (8.6-10.8) mg/dL Adrenal panel 07/29/16 07/29/16 Range/Units 07:08 15:21 Sodium 136 137 (136-145) mEq/L Potassium 4.1 3.9 (3.5-4.5) mEq/L Chloride 105 105 (98-109) mEq/L Carbon Dioxide 24 26 (19-29) mEq/L BUN 17 D 15 (7-20) mg/dL Creatinine 0.72 0.70 (0.57-1.11) mg/dL Glucose 126 H 108 H (70-99) mg/dL Calcium 8.1 L 8.4 L (8.6-10.8) mg/dL All other labs normal. - VTE Documentation of Mechanical Device: Graduated compression elastic hosiery Consult Discharge Plan - Plan Referrals: Tracie Castelan, MACHINIST SUPERVISOR OUTSIDE [Primary Care Provider] - (SENT WEB REQUEST ON 07-29-16 @ [id number])
--- NOTE | 2016-07-29 18:58 | Electrocardiograph Report ---
[address] [address] Test Date: 2016-07-28 Pat Name: Fanta Chen Department: 111 Room: 2N06 Gender: F Rn Lvn: REYES : 1955 Requested By: Mary Gomez Order Number: [id number] Reading MD: Camila Presley Measurements Intervals [place] Rate: 179 P: IA: 0 QRS: 62 QRSD: 89 T: -83 QT: 213 QTc: 308 Interpretive Statements ATRIAL FIBRILLATION WITH RAPID VENTRICULAR RESPONSE ST DEVIATION AND MODERATE T-WAVE ABNORMALITY, CONSIDER INFERIOR ISCHEMIA Electronically Signed On 07-29-2016 18:56:43 EDT by Camila Presley
[2016-07-29] MEDS: *HR* Heparin 5,000 UNIT/ML VIAL SQ SCH (19:29)
[2016-07-29] MEDS: clonazePAM 1 MG TABLET PO SCH (21:31)
[2016-07-30] MEDS: *HR* OxyCODONE/APAP 5/325 TABLET PO PRN (04:02)
[2016-07-30] MEDS: *HR* Heparin 5,000 UNIT/ML VIAL SQ SCH ×2 (06:04→16:56)
[2016-07-30 07:15] LABS: Basophils % 0.4 %; Eosinophils # 0.3 K/mcL (0.0-0.6); Eosinophils % 3.5 %; Hematocrit 28.5 % (35.3-44.9); Hemoglobin 9.3 g/dL (11.5-15.4); Immature Granulocytes % 0.4 % (0-4); Lymphocytes # 1.6 K/mcL (0.6-4.6); Lymphocytes % 18.6 %; Mean Corpuscular HGB Conc 32.6 g/dL (31.6-35.5); Mean Corpuscular Hemoglobin 27.5 pg (28.0-33.3); Mean Corpuscular Volume 84.3 fL (83.0-100.0); Mean Platelet Volume 11.1 fL (9.4-12.4); Monocytes # 0.8 K/mcL (0.0-1.3); Monocytes % 9.8 %; Neutrophils # 5.7 K/mcL (1.6-8.9); Platelet Count 259 K/mcL (140-400); Red Blood Count 3.38 M/mcL (3.82-4.97); Red Cell Distribution Width 17.4 % (11.5-14.5); Segmented Neutrophils % 67.3 %
[2016-07-30 07:18] LABS: BUN/Creatinine Ratio 17 (6-26); Blood Urea Nitrogen 12 mg/dL (7-20); Calcium 8.3 mg/dL (8.6-10.8); Carbon Dioxide 28 mEq/L (19-29); Chloride 104 mEq/L (98-109); Glucose 151 mg/dL (70-99); Magnesium 1.4 mg/dL (1.6-2.6); Osmolality,Calculated 287 (280-300); Phosphorous 2.4 mg/dL (2.3-4.7); Potassium 3.7 mEq/L (3.5-4.5); Sodium 137 mEq/L (136-145); eGFR For African Americans > 60 (> 60); eGFR For Non-African Americans > 60 (> 60)
[2016-07-30] MEDS: *HR* HYDROmorphone (PF) 1 MG/ML SYRINGE IVP PRN (08:25)
[2016-07-30] MEDS: clonazePAM 1 MG TABLET PO SCH ×3 (08:29→21:51)
[2016-07-30] MEDS: Gabapentin 300 MG CAPSULE PO SCH ×3 (08:30→21:51)
[2016-07-30] MEDS: Metoprolol XL (24 HR) Succ 25 MG TAB.ER.24H PO SCH (08:30)
[2016-07-30] MEDS: Aspirin 81 MG TAB.CHEW PO SCH (08:30)
[2016-07-30] MEDS: Insulin LISPRO 300 UNITS/3 ML VIAL SQ SCH ×4 (08:32→21:51)
[2016-07-30] MEDS: Budesonide/Formoterol 160/4.5 MDI IH SCH ×2 (09:28→20:53)
--- NOTE | 2016-07-30 10:35 | Internal Med Progress Note ---
Date of Encounter: 07/30/16 Time of Encounter: 10:10 - Assessment and plan (1) Electrolyte abnormality Current Visit: Yes Status: Acute Assessment and plan: Hypomagnesemia Mg supplemented continue to monitor electrolytes and replace as needed (2) Chronic back pain Current Visit: No Status: Inactive Assessment and plan: MR Vy spine reviewed Dr. Lopez's evaluated noted and appreciated Aggressive pain control back brace to be ordered by Dr. Lopez PT as tolerated Pt in agreement for d/c to ECF at this time Qualifiers: Back pain location: low back pain Back pain laterality: midline Sciatica presence: without sciatica Qualified Code(s): M54.5 - Low back pain; G89.29 - Other chronic pain (3) Sepsis Current Visit: Yes Status: Resolved Assessment and plan: Resolved Likely secondary to UTI Continue Ceftriaxone at this time. Will treat for a total of 5 days(Day 3/5) Qualifiers: Sepsis type: sepsis due to unspecified organism Qualified Code(s): A41.9 - Sepsis, unspecified organism (4) Urinary tract infection Current Visit: Yes Status: Acute Assessment and plan: Urine culture positive for Ecoli continue ceftriaxone Qualifiers: Urinary tract infection type: acute cystitis Hematuria presence: without hematuria Qualified Code(s): N30.00 - Acute cystitis without hematuria (5) Acute kidney injury Current Visit: Yes Status: Resolved Assessment and plan: renal function back to baseline continue to monitor (6) Falls Current Visit: Yes Status: Acute Assessment and plan: PT eval fall precautions Qualifiers: Encounter type: initial encounter Qualified Code(s): W19.XXXA - Unspecified fall, initial encounter (7) DVT prophylaxis Current Visit: Yes Status: Acute Assessment and plan: Heparin SQ (8) Atrial fibrillation Current Visit: Yes Status: Acute Assessment and plan: Rate controlled converted to sinus rhythm cardiology on board, consultation appreciated continue BB ASA for CVA ppx not a candidate for anticoagulation given history of recurrent falls. BP better controlled Qualifiers: Atrial fibrillation type: unspecified Qualified Code(s): I48.91 - Unspecified atrial fibrillation - Subjective Interval history: Patient seen and examined at bedside. Reports of severe back pain that is only relieved with IV pain medications. I spoke with Dr. Lopez who states that the patient has sacral fractures and no surgical intervention can be provided at this facility. Medical optimization and supportive care is recommended Awaiting PT eval and back brace. Pt in agreement for ECF placement at this time. Rate better controlled, off amiodarone gtt. Rate controlled with BB FPC anticoagulation not recommended given high risk of falls. ASA for CVA ppx - Constitutional Vitals: Temp Pulse Resp BP Pulse Ox 97.8 F 77 18 130/33 99 07/30/16 07:50 07/30/16 07:50 07/30/16 07:50 07/30/16 07:50 07/30/16 07:50 General appearance: Present: disheveled, A&O X 3, no acute distress, obese - Head Head exam: Present: atraumatic, normocephalic - Eye Eye exam: Present: conjuntiva pink, sclera anicteric - Respiratory Respiratory exam: Present: CTAB. Absent: accessory muscle use, rales, rhonchi, wheezes - Cardiovascular Cardiovascular exam: Present: RRR, +S1, +S2. Absent: diastolic murmur, gallop, rubs, systolic murmur - GI/Abdominal GI/Abdominal exam: Present: normal bowel sounds, soft. Absent: tenderness - Extremities Exam Extremities exam: Present: warm, radial pulses palpable and symetrical. Absent : calf tenderness, pedal edema - Neurological Exam Neurological exam: Present: alert, oriented X3 - Psychiatric Psychiatric exam: Present: normal affect, normal mood Internal Medicine: Result - Labs CBC & Chem 7: 07/30/16 06:02 07/30/16 06:02 Labs: Short CBC 07/29/16 07/30/16 Range/Units 15:21 06:02 WBC 11.2 H 8.4 (4.3-11.1) K/mcL Hgb 9.4 L 9.3 L (11.5-15.4) g/dL Hct 29.5 L 28.5 L (35.3-44.9) % Plt Count 232 259 (140-400) K/mcL Neutrophils # 8.6 5.7 (1.6-8.9) K/mcL BMP 07/29/16 07/30/16 15:21 06:02 Sodium 137 137 Potassium 3.9 3.7 Chloride 105 104 Carbon Dioxide 26 28 BUN 15 12 Creatinine 0.70 0.70 Glucose 108 H 151 H Calcium 8.4 L 8.3 L - Impressions Impressions Lumbar Spine MRI 07/29/16 12:23 IMPRESSION: 1. Acute bilateral sacral ala fractures. 2. The right L5 transverse process fracture is not well seen on the current exam, however, there is a left transverse process fracture that is better seen on the current MRI compared to the previous CT. 3. Chronic L2 superior endplate compression fracture with 10% loss of vertebral body height. 4. Multilevel foraminal narrowing as described in detail above. 5. Mild central spinal canal narrowing at L5-S1, and L1-L2. D/ / 07/29/2016 13:51:47 Josias De Anda MD / Beth Lindsey Interpreting Provider: Josias De Anda MD - VTE Documentation of Mechanical Device: Graduated compression elastic hosiery Consult Discharge Plan - Plan Referrals: Tracie Castelan, MANAGER APPLICATION DEVELOPMENT [Primary Care Provider] - (SENT WEB REQUEST ON 07-29-16 @ [id number])
[2016-07-30] MEDS: *HR* OxyCODONE/APAP 10/325 TABLET PO PRN ×3 (10:46→23:27)
[2016-07-30 15:05] LABS: BUN/Creatinine Ratio 16 (6-26); Blood Urea Nitrogen 12 mg/dL (7-20); Calcium 8.4 mg/dL (8.6-10.8); Carbon Dioxide 27 mEq/L (19-29); Chloride 102 mEq/L (98-109); Glucose 137 mg/dL (70-99); Osmolality,Calculated 284 (280-300); Potassium 3.7 mEq/L (3.5-4.5); Sodium 136 mEq/L (136-145); eGFR For African Americans > 60 (> 60); eGFR For Non-African Americans > 60 (> 60)
[2016-07-31] MEDS: *HR* HYDROmorphone (PF) 1 MG/ML SYRINGE IVP PRN ×2 (00:48→19:33)
[2016-07-31 05:20] LABS: Basophils % 0.4 %; Eosinophils # 0.2 K/mcL (0.0-0.6); Hematocrit 30.1 % (35.3-44.9); Hemoglobin 9.8 g/dL (11.5-15.4); Immature Granulocytes % 0.6 % (0-4); Lymphocytes % 20.4 %; Mean Corpuscular HGB Conc 32.6 g/dL (31.6-35.5); Mean Corpuscular Hemoglobin 27.3 pg (28.0-33.3); Mean Corpuscular Volume 83.8 fL (83.0-100.0); Mean Platelet Volume 10.9 fL (9.4-12.4); Monocytes # 1.6 K/mcL (0.0-1.3); Monocytes % 16.3 %; Neutrophils # 5.9 K/mcL (1.6-8.9); Platelet Count 275 K/mcL (140-400); Red Blood Count 3.59 M/mcL (3.82-4.97); Red Cell Distribution Width 17.2 % (11.5-14.5); Segmented Neutrophils % 60.3 %
[2016-07-31 05:37] LABS: BUN/Creatinine Ratio 14 (6-26); Blood Urea Nitrogen 10 mg/dL (7-20); Calcium 9.1 mg/dL (8.6-10.8); Carbon Dioxide 27 mEq/L (19-29); Chloride 100 mEq/L (98-109); Glucose 114 mg/dL (70-99); Magnesium 1.6 mg/dL (1.6-2.6); Osmolality,Calculated 282 (280-300); Phosphorous 3.7 mg/dL (2.3-4.7); Sodium 136 mEq/L (136-145); eGFR For African Americans > 60 (> 60); eGFR For Non-African Americans > 60 (> 60)
[2016-07-31] MEDS: *HR* Heparin 5,000 UNIT/ML VIAL SQ SCH ×2 (05:39→16:36)
[2016-07-31] MEDS: Insulin LISPRO 300 UNITS/3 ML VIAL SQ SCH ×4 (07:29→20:58)
[2016-07-31] MEDS: Aspirin 81 MG TAB.CHEW PO SCH (08:38)
[2016-07-31] MEDS: Gabapentin 300 MG CAPSULE PO SCH ×3 (08:38→20:57)
[2016-07-31] MEDS: clonazePAM 1 MG TABLET PO SCH ×3 (08:38→20:57)
[2016-07-31] MEDS: *HR* OxyCODONE/APAP 10/325 TABLET PO PRN ×3 (08:39→20:57)
[2016-07-31] MEDS: Metoprolol XL (24 HR) Succ 25 MG TAB.ER.24H PO SCH (08:39)
[2016-07-31] MEDS: Budesonide/Formoterol 160/4.5 MDI IH SCH ×2 (09:47→21:34)
[2016-07-31 16:12] LABS: BUN/Creatinine Ratio 13 (6-26); Blood Urea Nitrogen 10 mg/dL (7-20); Calcium 8.9 mg/dL (8.6-10.8); Carbon Dioxide 31 mEq/L (19-29); Chloride 100 mEq/L (98-109); Glucose 118 mg/dL (70-99); Osmolality,Calculated 286 (280-300); Potassium 3.9 mEq/L (3.5-4.5); Sodium 138 mEq/L (136-145); eGFR For African Americans > 60 (> 60); eGFR For Non-African Americans > 60 (> 60)
--- NOTE | 2016-07-31 17:57 | Internal Med Progress Note ---
Date of Encounter: 08/01/16 Time of Encounter: 17:55 - Assessment and plan (1) Fracture of transverse process of lumbar vertebra Current Visit: Yes Status: Acute Qualifiers: Qualified Code(s): S32.008A - Other fracture of unspecified lumbar vertebra, initial encounter for closed fracture (2) Atrial fibrillation Current Visit: Yes Status: Acute Qualifiers: Atrial fibrillation type: unspecified Qualified Code(s): I48.91 - Unspecified atrial fibrillation (3) Falls Current Visit: Yes Status: Acute Qualifiers: Encounter type: initial encounter Qualified Code(s): W19.XXXA - Unspecified fall, initial encounter (4) Urinary tract infection Current Visit: Yes Status: Acute Qualifiers: Urinary tract infection type: acute cystitis Hematuria presence: without hematuria Qualified Code(s): N30.00 - Acute cystitis without hematuria (5) Acute kidney injury Current Visit: Yes Status: Resolved (6) Sepsis Current Visit: Yes Status: Resolved Qualifiers: Sepsis type: sepsis due to unspecified organism Qualified Code(s): A41.9 - Sepsis, unspecified organism - Subjective Interval history: Mrs. Fanta Garcia is a 61-year-old female with a long history of chronic pain. She was admitted with UTI sepsis and pneumonia shown on CAT scan. She is on IV antibiotics. Initially she had acute kidney injury but that has resolved. She also has chronic atrial fibrillation which was cardioverted. Manager Oncology has recommended to DC amiodarone and start Toprol and aspirin. Patient has multiple falls at home and her whole body is covered with bruises. Recently she sustained right L5 transverse process fracture. An echocardiogram was done which is unremarkable. He has seen an neurologist and [place] and also underwent 11 back surgeries in the past. She uses walker at home. His vital therapy has recommended inpatient rehabilitation. - Constitutional Vitals: Temp Pulse Resp BP Pulse Ox 98.3 F 80 18 124/74 97 07/31/16 15:00 07/31/16 15:00 07/31/16 15:00 07/31/16 15:00 07/31/16 15:00 General appearance: Present: disheveled, A&O X 3, no acute distress, obese - Head Head exam: Present: atraumatic, normocephalic - Eye Eye exam: Present: PERRL, conjuntiva pink, sclera anicteric Pupils: Present: PERRL - Neck Neck exam general surgery: Present: supple, trachea midline. Absent: lymphadenopathy - Respiratory Respiratory exam: Present: CTAB. Absent: accessory muscle use, rales, rhonchi, wheezes - Cardiovascular Cardiovascular exam: Present: RRR, +S1, +S2. Absent: diastolic murmur, gallop, rubs, systolic murmur - GI/Abdominal GI/Abdominal exam: Present: normal bowel sounds, soft, no peritoneal signs. Absent: distended, tenderness - Extremities Exam Extremities exam: Present: warm, radial pulses palpable and symetrical. Absent : calf tenderness, cyanotic, pedal edema - Neurological Exam Neurological exam: Present: CN II-XII intact, oriented X3, no focal deficits. Absent: pronater drift, facial droop, speech deficit - Skin Skin exam: Present: dry, intact Internal Medicine: Result - Labs CBC & Chem 7: 07/31/16 04:42 07/31/16 15:50 Labs: Short CBC 07/31/16 Range/Units 04:42 WBC 9.8 (4.3-11.1) K/mcL Hgb 9.8 L (11.5-15.4) g/dL Hct 30.1 L (35.3-44.9) % Plt Count 275 (140-400) K/mcL Neutrophils # 5.9 (1.6-8.9) K/mcL BMP 07/31/16 07/31/16 04:42 15:50 Sodium 136 138 Potassium 4.0 3.9 Chloride 100 100 Carbon Dioxide 27 31 H BUN 10 10 Creatinine 0.71 0.78 Glucose 114 H 118 H Calcium 9.1 8.9 - VTE Documentation of Mechanical Device: Graduated compression elastic hosiery Consult Discharge Plan - Plan Referrals: Tracie Castelan, SHUTTLECOCK FEATHER TRIMMER [Primary Care Provider] - (SENT WEB REQUEST ON 07-29-16 @ 4047)
[2016-08-01] MEDS: *HR* OxyCODONE/APAP 10/325 TABLET PO PRN ×3 (02:58→15:03)
[2016-08-01] MEDS: *HR* Heparin 5,000 UNIT/ML VIAL SQ SCH ×2 (06:14→17:39)
[2016-08-01] MEDS: *HR* HYDROmorphone (PF) 1 MG/ML SYRINGE IVP PRN ×2 (06:21→12:19)
[2016-08-01] MEDS: Insulin LISPRO 300 UNITS/3 ML VIAL SQ SCH ×3 (08:52→17:33)
[2016-08-01] MEDS: Metoprolol XL (24 HR) Succ 25 MG TAB.ER.24H PO SCH (09:20)
[2016-08-01] MEDS: Aspirin 81 MG TAB.CHEW PO SCH (09:20)
[2016-08-01] MEDS: clonazePAM 1 MG TABLET PO SCH ×2 (09:20→15:03)
[2016-08-01] MEDS: Gabapentin 300 MG CAPSULE PO SCH ×2 (09:21→15:03)
[2016-08-01] MEDS: Budesonide/Formoterol 160/4.5 MDI IH SCH (10:51)
--- NOTE | 2016-08-01 14:53 | Electrocardiograph Report ---
[place] [address] Test Date: 2016-07-27 Pat Name: Fanta Chen Department: 105 Room: [facility] Gender: F Track Laborer: MELITON : 1955 Requested By: Eboni Lim Order Number: [id number] Reading MD: Camila Presley Measurements Intervals [place] Rate: 109 P: 49 MO: 139 QRS: 27 QRSD: 86 T: 48 QT: 293 QTc: 357 Interpretive Statements SINUS TACHYCARDIA WITH OCCASIONAL SUPRAVENTRICULAR PREMATURE COMPLEXES MINIMAL ST DEPRESSION [0.025+ mV ST DEPRESSION] ABNORMAL RHYTHM ECG Electronically Signed On 08-01-2016 14:51:53 EDT by Camila Presley
[2016-08-01 16:25] VITALS: BP 112/68
--- NOTE | 2016-08-01 16:28 | Physician Discharge Referral ---
ExtendedCare Referral Info Transfer To: ECF Provider in Charge: anushka Provider in Charge after Transfer: PCP Institutional Level of Care: Skilled - Diagnosis (1) Fracture of transverse process of lumbar vertebra Status: Acute (2) Atrial fibrillation Status: Acute (3) Falls Status: Acute (4) Urinary tract infection Status: Acute (5) Acute kidney injury Status: Resolved (6) Sepsis Status: Resolved - Transfer Medications Home Medications: Citalopram [CeleXA] 20 mg PO DAILY 02/06/15 [History] Cyclobenzaprine [Flexeril] 10 mg PO TID #15 tablet 02/06/15 [Rx] Albuterol Sulfate [Albuterol Inhaler] 2 - 4 puff IH Q4HR PRN #1 hfa.aer.ad 03/09 [Rx] Alendronate Sodium [Fosamax] 70 mg PO QWEEK 07/07/16 [History] Celecoxib [Celebrex] 200 mg PO BID 07/07/16 [History] Fluticasone/Salmeterol [Advair 500-50 Diskus] 1 puff IH BID 07/07/16 [History] Levothyroxine [Synthroid] 100 mcg PO DAILY 07/07/16 [History] Meloxicam 15 mg PO DAILY 07/07/16 [History] Omeprazole 20 mg PO DAILY 07/07/16 [History] OxyCODONE/APAP 5/325 [Percocet 5/325 MG] 1 each PO Q6HR PRN #8 tablet 07/07/16 [ Rx] clonazePAM [Klonopin] 1 mg PO TID 07/07/16 [History] Gabapentin [Neurontin] 300 mg PO TID 07/27/16 [History] Tramadol HCl [Ultram] 50 mg PO TID PRN 07/27/16 [History] Allergies/Adverse Reactions: Allergies codeine Allergy (Verified 07/27/16 06:34) Swelling of Lip/Tongue/Throat Medroxyprogesterone [From Provera] Allergy (Verified 07/27/16 06:34) Swelling of Lip/Tongue/Throat Penicillins Allergy (Verified 07/27/16 06:34) Rash - Respiratory Orders Smoking Cessation: Smoking cessation has been advised. For more information, call the [place] Tobacco Quit Line at 7-744-ZEAG-NOW. CERTIFICATION: I certify that the transfer of the above named patient to an Extended Care Facility is necessary for the continuing treatment of the diagnosis listed. The above information is true and accurate reflection of patient's current condition. Confidential - Redisclosure prohibited without a patient's written consent.
--- NOTE | 2016-08-01 16:33 | Discharge Summary ---
Date of Encounter: 08/01/16 Time of Encounter: 16:30 - Discharge Diagnosis (1) Fracture of transverse process of lumbar vertebra Priority: Secondary Status: Acute Qualifiers: Qualified Code(s): S32.008A - Other fracture of unspecified lumbar vertebra, initial encounter for closed fracture (2) Atrial fibrillation Priority: Secondary Status: Acute Qualifiers: Atrial fibrillation type: unspecified Qualified Code(s): I48.91 - Unspecified atrial fibrillation (3) Falls Priority: Primary Status: Acute Qualifiers: Encounter type: initial encounter Qualified Code(s): W19.XXXA - Unspecified fall, initial encounter (4) Urinary tract infection Priority: Primary Status: Acute Qualifiers: Urinary tract infection type: acute cystitis Hematuria presence: without hematuria Qualified Code(s): N30.00 - Acute cystitis without hematuria (5) Acute kidney injury Priority: Secondary Status: Resolved (6) Sepsis Priority: Primary Status: Resolved Qualifiers: Sepsis type: sepsis due to unspecified organism Qualified Code(s): A41.9 - Sepsis, unspecified organism - Discharge Medications Prescriptions: cefaCLOR [Cefaclor] 500 mg PO BID #18 capsule Home Medications: Citalopram [CeleXA] 20 mg PO DAILY 02/06/15 [History] Albuterol Sulfate [Albuterol Inhaler] 2 - 4 puff IH Q4HR PRN #1 hfa.aer.ad 03/09 [Rx] Alendronate Sodium [Fosamax] 70 mg PO QWEEK 07/07/16 [History] Celecoxib [Celebrex] 200 mg PO BID 07/07/16 [History] Fluticasone/Salmeterol [Advair 500-50 Diskus] 1 puff IH BID 07/07/16 [History] Levothyroxine [Synthroid] 100 mcg PO DAILY 07/07/16 [History] Omeprazole 20 mg PO DAILY 07/07/16 [History] clonazePAM [Klonopin] 1 mg PO TID 07/07/16 [History] Gabapentin [Neurontin] 300 mg PO TID 07/27/16 [History] Tramadol HCl [Ultram] 50 mg PO TID PRN 07/27/16 [History] Acetaminophen [Tylenol] 650 mg PO Q6HR PRN #0 tablet 08/01/16 [Rx] Aspirin 81 mg PO DAILY tab.chew 08/01/16 [Rx] Budesonide/Formoterol 160/4.5 [Symbicort 160/4.5] 2 puff IH BIDR inhaler [Rx] Docusate [Colace] 100 mg PO BID PRN #0 capsule 08/01/16 [Rx] Heparin 5,000 unit SQ Q12HCO vial 08/01/16 [Rx] Metoprolol XL (24 HR) Succ [Toprol Xl] 25 mg PO DAILY tab.er.24h 08/01/16 [Rx] cefaCLOR [Cefaclor] 500 mg PO BID #18 capsule 08/01/16 [Rx] Allergies/Adverse Reactions: Allergies codeine Allergy (Verified 07/27/16 06:34) Swelling of Lip/Tongue/Throat Medroxyprogesterone [From Provera] Allergy (Verified 07/27/16 06:34) Swelling of Lip/Tongue/Throat Penicillins Allergy (Verified 07/27/16 06:34) Rash Date of admission: 07/27/16 10:42 Primary care physician: Tracie Castelan CNP Consults: 07/28/16 13:35 Consult to Cardiology [CONS] Routine Comment: Consulting Provider: Cardiology Jannette Reason for Consult: New onset a fib Call Completed: Yes Discharging clinician: Hollie Garcia Anticipated date of discharge: 08/01/16 - Patient Status Disposition: Transfer SNF Overall status at discharge: patient is progressing back to baseline - Discharge Instructions Follow Up With: Tracie Castelan CNP [Primary Care Provider] - (SENT WEB REQUEST ON 07-29-16 @ [phone]) Forms: ED Satisfaction Letter Additional Instructions: Take medications as prescribed. Use brace with ambulation for comfort. Use walker as needed. Web request made for follow-up appointment. - Diet and Activity Activity: as per physical therapy Diet: advance to your usual diet Hospital course: Mrs. Fanta Garcia is a 61-year-old female with a long history of chronic pain. She was admitted with UTI sepsis and pneumonia shown on CAT scan. She is on IV antibiotics. Initially she had acute kidney injury but that has resolved. She also has chronic atrial fibrillation which was cardioverted. Electroplating Sales Representative has recommended to DC amiodarone and start Toprol and aspirin. Patient has multiple falls at home and her whole body is covered with bruises. Recently she sustained right L5 transverse process fracture. During this admission she was diagnosed with UTI due to Escherichia coli. She was treated with IV Rocephin. An echocardiogram was done which is unremarkable. sHe has seen an neurologist in [place] and also underwent 11 back surgeries in the past. She uses walker at home. Physical therapy has recommended inpatient rehabilitation. - Time Spent with Patient Total time spent providing and/or coordinating discharge services: Greater than 30 minutes - Constitutional Vitals: Temp Pulse Resp BP Pulse Ox 98.9 F 94 16 112/68 93 08/01/16 14:38 08/01/16 14:38 08/01/16 14:38 08/01/16 14:38 08/01/16 14:38 General appearance: Present: disheveled, A&O X 3, no acute distress, obese - Head Head exam: Present: atraumatic, normocephalic - Eye Eye exam: Present: PERRL, conjuntiva pink, sclera anicteric Pupils: Present: PERRL - Neck Neck exam general surgery: Present: supple, trachea midline. Absent: lymphadenopathy - Respiratory Respiratory exam: Present: CTAB. Absent: accessory muscle use, rales, rhonchi, wheezes - Cardiovascular Cardiovascular exam: Present: RRR, +S1, +S2. Absent: diastolic murmur, gallop, rubs, systolic murmur - GI/Abdominal GI/Abdominal exam: Present: normal bowel sounds, soft, no peritoneal signs. Absent: distended, tenderness - Extremities Exam Extremities exam: Present: warm, radial pulses palpable and symetrical. Absent : calf tenderness, cyanotic, pedal edema - Neurological Exam Neurological exam: Present: CN II-XII intact, oriented X3, no focal deficits. Absent: pronater drift, facial droop, speech deficit - Skin Skin exam: Present: dry, intact - VTE Documentation of Mechanical Device: Graduated compression elastic hosiery
== END 2016-08-01 17:56 | DRG 871 ==
LOC: 2NENU 06:33 → EMEROO 06:33 → 2NENU 10:21 → SUATTDRO 10:42 → 2NENU 10:47 → 2NNU 07-28 17:20 → 3NENU 07-30 15:16
PROVIDERS: ADMIT Internal Medicine; ATTEND Internal Medicine

== ENCOUNTER 2016-09-16 07:54 | Inpatient (IN) ==
[2016-09-16] MEDS ORDERED: *HR* HYDROcodone/Acet 5/325 mg TABLET PO ONE (07:58)
--- NOTE | 2016-09-16 09:55 | Emergency Department Note ---
START Narrative - START START: examined and interviewed patient. Ciaran has a distal femur fracture and has been admitted to the [facility] for ortho surgical intervetion with [place]. Patient is stable and in no acute distress.
[2016-09-16] MEDS ORDERED: Ondansetron 4 MG/2 ML VIAL IVP ONE (10:13)
[2016-09-16] MEDS ORDERED: *HR* Morphine 2 MG/ML SYRINGE IVP ONE (10:13)
[2016-09-16 10:39] LABS: Basophils % 0.2 %; Hematocrit 33.1 % (35.3-44.9); Hemoglobin 10.5 g/dL (11.5-15.4); Immature Granulocytes % 0.3 % (0-4); Lymphocytes # 1.2 K/mcL (0.6-4.6); Lymphocytes % 8.8 %; Mean Corpuscular HGB Conc 31.7 g/dL (31.6-35.5); Mean Corpuscular Volume 85.1 fL (83.0-100.0); Mean Platelet Volume 11.2 fL (9.4-12.4); Monocytes # 0.3 K/mcL (0.0-1.3); Monocytes % 2.5 %; Neutrophils # 11.7 K/mcL (1.6-8.9); Platelet Count 274 K/mcL (140-400); Red Blood Count 3.89 M/mcL (3.82-4.97); Red Cell Distribution Width 16.2 % (11.5-14.5); Segmented Neutrophils % 88.2 %
--- NOTE | 2016-09-16 10:44 | Internal Med History&Physical ---
<ArceliaelviNaga bee - Last Filed: 09/16/16 11:30> Date of Encounter: 09/16/16 Time of Encounter: 10:15 Assessment and Plan (1) Fracture of distal femur Current visit: Yes Status: Acute Patient presents with a fracture of distal femur of the right leg sustained following a fall she reports happened within the past 24 hours. Orthopedic surgery consult placed in the ED. Will administer stair-step pain medication for pain management. Patient to be placed as falls precautions/up with assist/ bed rest with bed side commode with assist only due to hx of falls and current fracture/pain. Qualifiers: Encounter type: initial encounter Fracture type: closed Fracture morphology: unspecified fracture morphology Laterality: right Qualified Code (s): S72.401A - Unspecified fracture of lower end of right femur, initial encounter for closed fracture (2) Bronchitis Current visit: Yes Status: Acute Patient presents with current bronchitis she states was diagnosed yesterday at urgent care. Patient was placed on oral erythromycin for infection coverage. We will continue patient's by mouth erythromycin. (3) Falls Current visit: Yes Status: Acute Patient presents with history of falls and latest acute fall resulting in right distal femur fracture. Patient reports falling 7 times within recent history but denies losing consciousness or seizures. Patient placed as falls precautions/up with assist/bed rest with bed side commode with assist only due to hx of falls and current pain related to fracture. Qualifiers: Encounter type: initial encounter Qualified Code(s): W19.XXXA - Unspecified fall, initial encounter (4) Chronic anemia Current visit: Yes Status: Chronic Patient presents with history of chronic anemia. Patient's Hgb is currently 10.5 and HCT is 33.1, both of which are higher than patient's usual baseline. Will monitor H/H follow-up labs and order type and screen if needed for transfusion if necessary. (5) Diabetes Current visit: Yes Status: Chronic Patient reports history of chronic diabetes but is currently not on hyperglycemic medications. A1c ordered. Will order low-dose correction insulin sliding scale and blood glucose monitoring before meals at bedtime if needed. Qualifiers: Diabetes mellitus type: type 2 Diabetes mellitus complication status: without complication Diabetes mellitus auto tech insulin use: without residential use Qualified Code(s): E11.9 - Type 2 diabetes mellitus without complications (6) Thyroid disease Current visit: Yes Status: Chronic Patient presents with history of chronic thyroid disease. Will continue patient 's Synthroid. (7) DVT prophylaxis Current visit: Yes Status: Acute Patient placed on DVT prophylaxis due to current admission status, bed rest, and recent fracture. Heparin 5000 units subcutaneous every 8 ordered. Internal Medicine - H&P: HPI Chief complaint: Fall/Femur fracture Admitted From: Emergency Dept Plans for Post Hospital Care: Home History of present illness: Ms. Chen is a 61 year old female who presents from the ED with chief complaint of fall resulting in a femur fracture of her right leg. Patient reports she has a history of falls, stating that she has fallen approximately 7 times recently. She denies pre-syncope, syncope, seizures, or neuro symptoms prior to falls. She reports falls are more from clumsiness. Ms. Chen also states that she has bronchitis and was diagnosed yesterday at Urgent Care and was placed on oral erythromycin. Patient has a medical history of asthma, diabetes, osteoporosis, thyroid disease, and anemia. Patient has a history of chronic anemia and current Hgb and Hct are above her numbers from previous visits. Will monitor H/H through follow-up labs. Ms. Chen is at moderate risk for further morbidity due to current leg fracture as well as medical history and will be placed as inpatient status with consult to orthopedic surgery placed in the ED. Patient will be placed as falls precautions/up/with assist/bed rest with bed side commode with assist only due to current fracture and pain. Stair-step pain medication to be ordered for pain management. Time spent with patient > 40 minutes. Past Med Surg Social Fam HX - Past Medical History Source: patient Medical history: arthritis, asthma, diabetes, fibromyalgia, osteoporosis, thyroid disease, other (Chronic anemia) Psychiatric history: anxiety, depression - Past Surgical History Surgical History: cholecystectomy, orthopedic, other (shoulder, neck, back ), JULIANNA/BSO, thyroidectomy, other, bariatric surgery - Social History Smoking Status: Never smoker Smokeless Tobacco Status: No Alcohol use: none Drug use: none Current living situation: Home Activity Level: Independent ambulation Recent Out of Country Travel Within the Last 8 Weeks: No Exposure or Possible Exposure to Illness During Travel: No - Family History Father Race: Family Member Ethnicity: Non- Living Status: (6) Age at : 63 Cause of : [place] Hx Family Cardiac Disorders: Yes ([place], Stroke) Hx Family Respiratory Disorders: Yes Hx Family Cancer: Yes (Lung/Metastatic) Hx Family Endocrine Disorder: Yes (DM) Mother Race: Family Member Ethnicity: Non- Living Status: Age at : 82 Cause of : Kidney Failure Hx Family Cardiac Disorders: Yes (CHF) Hx Family Genitourinary Disorders: Yes (Kidney Disease) Hx Family Endocrine Disorder: Yes (DM) Brother Race: Family Member Ethnicity: Non- Living Status: Still Living Hx Family Cardiac Disorders: Yes (HD) Hx Family Endocrine Disorder: Yes (DM) Sister Race: Family Member Ethnicity: Non- Living Status: Still Living Hx Family Musculoskeletal Disorders: Yes (Arthritis) Internal Medicine - H&P: Meds Citalopram [CeleXA] 20 mg PO DAILY 02/06/15 [History] Albuterol Sulfate [Albuterol Inhaler] 2 - 4 puff IH Q4HR PRN #1 hfa.aer.ad 03/09 [Rx] Alendronate Sodium [Fosamax] 70 mg PO QWEEK 07/07/16 [History] Celecoxib [Celebrex] 200 mg PO BID 07/07/16 [History] Fluticasone/Salmeterol [Advair 500-50 Diskus] 1 puff IH BID 07/07/16 [History] Levothyroxine [Synthroid] 100 mcg PO DAILY 07/07/16 [History] Omeprazole 20 mg PO DAILY 07/07/16 [History] clonazePAM [Klonopin] 1 mg PO TID 07/07/16 [History] Gabapentin [Neurontin] 300 mg PO TID 07/27/16 [History] Acetaminophen [Tylenol] 650 mg PO Q6HR PRN #0 tablet 08/01/16 [Rx] Aspirin 81 mg PO DAILY tab.chew 08/01/16 [Rx] Docusate [Colace] 100 mg PO BID PRN #0 capsule 08/01/16 [Rx] Metoprolol XL (24 HR) Succ [Toprol Xl] 25 mg PO DAILY tab.er.24h 08/01/16 [Rx] Azithromycin [Azithromycin 6-Tab Pack] 250 mg PO PER PKG DI #6 tab 09/15/16 [Rx] Benzonatate [Tessalon] 200 mg PO TID PRN #30 capsule 09/15/16 [Rx] GuaiFENesin ER [Mucinex] 1,200 mg PO BID #20 tbbp.12hr 09/15/16 [Rx] methylPREDNISolone [Medrol] 4 mg PO TAPER #21 tablet 09/15/16 [Rx] Bupropion HCl [Wellbutrin Xl] 300 mg PO QAM 09/16/16 [History] Cyclobenzaprine [Flexeril] 10 mg PO TID 09/16/16 [History] Diphenhydramine HCl [Allergy Relief] 25 mg PO DAILY PRN 09/16/16 [History] Ferrous Sulfate [Iron] 325 mg PO BID 09/16/16 [History] Magnesium Oxide [Mgo] 400 mg PO DAILY 09/16/16 [History] OxyCODONE/APAP 10/325 [Percocet 10/325 MG] 1 tab PO Q6HR PRN 09/16/16 [History] Aspirin Enteric Coated [Aspirin EC] 325 mg PO DAILY #21 tablet. 09/17/16 [Rx] OxyCODONE Immed Rel [Roxicodone 5 MG] 5 - 10 mg PO Q6HR PRN #40 tablet 09/17/16 [Rx] Allergies codeine Allergy (Verified 07/27/16 06:34) Swelling of Lip/Tongue/Throat Medroxyprogesterone [From Provera] Allergy (Verified 07/27/16 06:34) Swelling of Lip/Tongue/Throat Penicillins Allergy (Verified 07/27/16 06:34) Rash All Systems PM: A 10-system review of systems was performed and is negative for pertinent findings except as documented above in the HPI. - Constitutional Constitutional: as per HPI, falls, no chills, no fever(s), no night sweats - EENT Eyes: no change in vision, no discharge, no pain, no photophobia Ears: no ear discharge, no ear pain, no tinnitus Nose, mouth and throat: no dysphagia, no nasal discharge, no neck pain, no sore throat - Breasts Breasts: as per HPI - Cardiovascular Cardiovascular ROS IM: no chest pain, no diaphoresis, no dyspnea, no lightheadedness, no palpitations, no syncope - Respiratory Respiratory: as per HPI, dyspnea (Due to current bronchitis), no cough, no wheezing, no excessive phlegm production - Gastrointestinal Gastrointestinal: no abdominal pain, no diarrhea, no hematemesis, no hematochezia, no melena, no nausea, no vomiting - Genitourinary Genitourinary: no change in urinary stream, no dysuria, no flank pain, no hematuria Menstruation: as per HPI - Musculoskeletal Musculoskeletal ROS IM: no numbness, no tingling - Integumentary Integumentary IM: no rash, no unusual bruising - Neurological Neurological ROS: no confusion, no convulsions, no focal weakness, no numbness, no tingling, no tremor(s) - Psychiatric Psychiatric: as per HPI - Endocrine Endocrine IM: as per HPI - Hematologic/Lymphatic Hematologic/Lymphatic: no easy bruising - Allergic/Immunologic Allergic/Immunologic: as per HPI - Constitutional Vitals: Temp Pulse Resp BP Pulse Ox 98.6 F 81 16 136/98 96 09/16/16 07:56 09/16/16 10:05 09/16/16 10:05 09/16/16 10:05 09/16/16 07:56 General appearance: Present: cooperative, mild distress, A&O X 3, pleasant, obese, answers questions appropriately - Head Head exam: Present: atraumatic, normocephalic - Eye Eye exam: Present: PERRL, conjuntiva pink, sclera anicteric Pupils: Present: PERRL - ENT ENT exam: Present: normal exam, normal external ear exam - Neck Neck exam general surgery: Present: normal inspection, supple, trachea midline. Absent: lymphadenopathy - Respiratory Respiratory exam: Present: CTAB. Absent: accessory muscle use, rales, rhonchi, wheezes - Cardiovascular Cardiovascular exam: Present: irregular rhythm - GI/Abdominal GI/Abdominal exam: Present: normal bowel sounds, soft, no peritoneal signs. Absent: distended, tenderness - Rectal Rectal exam: Present: deferred - Additional comments: exam deferred. - Extremities Exam Extremities exam: Present: warm, radial pulses palpable and symmetrical. Absent : calf tenderness, cyanotic, pedal edema - Back Exam Back exam: Present: normal inspection - Neurological Exam Neurological exam: Present: CN II-XII intact, oriented X3, no focal deficits. Absent: pronater drift, facial droop, speech deficit - Psychiatric Psychiatric exam: Present: normal affect, normal mood - Skin Skin exam: Present: dry, intact Internal Med - H&P Results - Labs CBC & Chem 7: 09/16/16 10:30 09/16/16 10:30 - EKG Data EKG shows normal: sinus rhythm - EKG Data Prior EKG available for review: yes When compared to previous EKG: there are significant changes EKG comments: 09/16/16 11:02 EKG dated 07/28/16 shows atrial fibrillation with rapid ventricular response, ST deviation and moderate T-wave abnormality (consider inferior ischemia). EKG dated 09/16/16 shows sinus rhythm with frequent supraventricular premature complexes. - Impressions ITS Impressions Knee X-Ray 09/16/16 07:57 IMPRESSION: Comminuted, impacted and angulated distal femoral diaphyseal fracture. D/ / 09/16/2016 08:21:07 Harjinder Soliman MD / brandon Interpreting Provider: Harjinder Soliman MD - Diagnostic Studies Other Images Additional comments: Impressions Knee X-Ray 09/16/16 07:57 IMPRESSION: Comminuted, impacted and angulated distal femoral diaphyseal fracture. D/ / 09/16/2016 08:21:07 Harjinder Soliman MD / brandon Interpreting Provider: Harjinder Soliman MD Chest x-ray Additional comments: Impressions Chest X-Ray 09/16/16 10:04 IMPRESSION: No acute process. D/ / 09/16/2016 10:44:02 Harjinder Soliman MD / brandon Interpreting Provider: Harjinder Soliman MD <Juan Ramon Gan - Last Filed: 09/17/16 18:44> Date of Encounter: 09/17/16 Internal Medicine - H&P: HPI History of present illness: Ms. Chen is a 61 year old female All Systems PM: A 10-system review of systems was performed and is negative for pertinent findings except as documented above in the HPI. - Constitutional Vitals: Temp Pulse Resp BP Pulse Ox 98.3 F 67 14 101/69 96 09/17/16 18:19 09/17/16 18:19 09/17/16 18:19 09/17/16 18:19 09/17/16 18:19 Internal Med - H&P Results - Labs CBC & Chem 7: 09/17/16 14:44 09/17/16 05:31 Labs: Short CBC 09/17/16 09/17/16 09/17/16 Range/Units 05:31 09:03 14:44 WBC 9.5 (4.3-11.1) K/mcL Hgb 9.8 L 9.2 L 8.6 L (11.5-15.4) g/dL Hct 31.8 L 29.4 L 27.7 L (35.3-44.9) % Plt Count 231 (140-400) K/mcL Neutrophils # 4.7 (1.6-8.9) K/mcL BMP 09/17/16 05:31 Sodium 139 Potassium 4.3 Chloride 105 Carbon Dioxide 28 BUN 19 Creatinine 0.96 Glucose 93 Calcium 8.4 L - Impressions ITS Impressions Femur X-Ray 09/17/16 08:10 IMPRESSION: Expected new changes of internal fixation of the comminuted fracture of the right femoral distal metadiaphysis with near anatomic alignment. D/ / Frederick Caro MD / Frederick Caro MD Interpreting Provider: Frederick Caro MD Fluoroscopy 09/17/16 13:00 IMPRESSION: Intraprocedural fluoroscopic spot images as above. See separate procedure report for more information. D/ / Estelita Lee MD / Estelita Lee MD Interpreting Provider: Estelita Lee MD - Attending Attestation I examined this patient and my medical decision-making was reviewed with the GRAIN CLEANER AND TRANSFER OPERATOR. I agree with the documented findings, disposition and treatment plan as described
[2016-09-16 10:45] LABS: INR 1.1; Prothrombin Time 11.6 Seconds (9.4-12.1)
[2016-09-16 10:48] LABS: Activated Partial Thrombo Time 28.3 Seconds (26.0-36.0)
--- NOTE | 2016-09-16 10:56 | Emergency Department Note ---
Disposition Clinical Impression: Femur fracture Disposition: Admitted As Inpatient Condition: Fair Referrals: Tracie Castelan CNP [Primary Care Provider] - Forms: ED Satisfaction Letter Time of Disposition: 10:59 Fall HPI - General Chief Complaint: ED Fall Stated Complaint: fall, R knee pain Time Seen by Provider: 09/16/16 07:57 Source: patient, EMS Mode of arrival: private vehicle Limitations: no limitations Nursing Notes Reviewed: Yes Vital Signs Reviewed: Yes - History of Present Illness HPI Narrative: 61-year-old female patient presents to the emergency department via EMS from her personal home. Patient had a fall. Patient states that this occurred because she tripped over a dog pad. She denies being dizzy or lightheaded prior to the fall. She denies any chest pain or shortness of breath. Patient is complaining of right knee pain. Patient does state that approximately 4 years ago she had a partial knee replacement with Dr. Fabian. Patient states that she cannot ambulate secondary to pain. She denies being able to bear weight. Pt Subjective Complaint: fall Onset (ago): Just NET FINISHER Fall From: standing Fall Witnessed: no Place Fall Occurred: home Loss of Consciousness: none Prolonged Down Time?: no Symptoms Prior to Fall: none Context: tripped/slipped Location of injury - extremities: Right: knee - Related Data Home Medications Medication Instructions Recorded Confirmed Citalopram [CeleXA] 20 mg PO DAILY 02/06/15 09/16/16 Alendronate Sodium [Fosamax] 70 mg PO QWEEK 07/07/16 09/16/16 Celecoxib [Celebrex] 200 mg PO BID 07/07/16 09/16/16 Fluticasone/Salmeterol [Advair 1 puff IH BID 07/07/16 09/16/16 500-50 Diskus] Levothyroxine [Synthroid] 100 mcg PO DAILY 07/07/16 09/16/16 Omeprazole 20 mg PO DAILY 07/07/16 09/16/16 clonazePAM [Klonopin] 1 mg PO TID 07/07/16 09/16/16 Gabapentin [Neurontin] 300 mg PO TID 07/27/16 09/16/16 Bupropion HCl [Wellbutrin Xl] 300 mg PO QAM 09/16/16 09/16/16 Cyclobenzaprine [Flexeril] 10 mg PO TID 09/16/16 09/16/16 Diphenhydramine HCl [Allergy 25 mg PO DAILY PRN 09/16/16 09/16/16 Relief] Ferrous Sulfate [Iron] 325 mg PO BID 09/16/16 09/16/16 Magnesium Oxide [Mgo] 400 mg PO DAILY 09/16/16 09/16/16 OxyCODONE/APAP 10/325 [Percocet 1 tab PO Q6HR PRN 09/16/16 09/16/16 10/325 MG] Previous Rx's Medication Instructions Recorded Albuterol Sulfate [Albuterol 2 - 4 puff IH Q4HR PRN #1 03/09/15 Inhaler] hfa.aer.ad Acetaminophen [Tylenol] 650 mg PO Q6HR PRN #0 tablet 08/01/16 Aspirin 81 mg PO DAILY tab.chew 08/01/16 Docusate [Colace] 100 mg PO BID PRN #0 capsule 08/01/16 Metoprolol XL (24 HR) Succ [Toprol 25 mg PO DAILY tab.er.24h 08/01/16 Xl] Azithromycin [Azithromycin 6-Tab 250 mg PO PER PKG DI #6 tab 09/15/16 Pack] Benzonatate [Tessalon] 200 mg PO TID PRN #30 capsule 09/15/16 GuaiFENesin ER [Mucinex] 1,200 mg PO BID #20 tbbp.12hr 09/15/16 methylPREDNISolone [Medrol] 4 mg PO TAPER #21 tablet 09/15/16 Allergies Allergy/AdvReac Type Severity Reaction Status Date / Time codeine Allergy Swelling Verified 07/27/16 06:34 of Lip/Tongue/Throat Medroxyprogesterone Allergy Swelling Verified 07/27/16 06:34 [From Provera] of Lip/Tongue/Throat Penicillins Allergy Rash Verified 07/27/16 06:34 All systems ED: reviewed and negative except as stated. Constitutional: Denies: fever, chills Cardiovascular: Denies: chest pain Respiratory: Denies: dyspnea Gastrointestinal: Denies: abdominal pain, nausea, vomiting Musculoskeletal: Reports: arthralgia. Denies: back pain, neck pain Integumentary: Denies: rash, abrasion, lesions Neurological: Denies: headache Fall PMH - Past Medical History Medical history: Reports: arthritis, asthma, diabetes, fibromyalgia, osteoporosis, thyroid disease, other Surgical history: Reports: cholecystectomy, hysterectomy, orthopedic, other ( shoulder, neck, back ), JULIANNA/BSO, thyroidectomy, other, bariatric surgery Psychiatric history: Reports: anxiety, depression BAKERY DELIVERER history: Reports: no BAKERY DELIVERER history - Social History Smoking Status: Never smoker Alcohol use: Reports: none Drug use: Reports: none Physical Exam - General Limitations: no limitations General appearance: alert - Head Head exam: atraumatic, normocephalic, normal inspection - Eye Eye exam: Present: normal appearance, PERRL - Neck Neck exam: Present: normal inspection, full ROM, trachea midline - Chest Chest inspection: Present: normal inspection, symmetric chest wall rise - Respiratory Respiratory exam: Present: normal lung sounds bilaterally. Absent: respiratory distress - Cardiovascular Cardiovascular exam: Present: regular rate, normal rhythm, normal heart sounds - Expanded Lower Extremity Exam Knee exam: Present: tenderness, swelling, pain with valgus, pain with varus, other (Well-healed scar consistent with previous knee replacement noted. cellulitis. No lymphangitis. Neurovascularly intact distally.) Gait: observed and normal - Back Exam Back exam: Present: normal inspection, full ROM. Absent: tenderness - Neurological Exam Neurological exam: Present: alert, oriented X3 - Psychiatric Psychiatric exam: Present: normal affect, normal mood - Skin Skin exam: Present: warm, dry, intact, normal color Course - Consultations Consultation #1: Dr. Fabian states that he would like the patient to be admitted to Medicine and will consult for orthopedic surgery. Time: 10:00 Vital Signs Temperature 98.6 F 09/16/16 07:56 Pulse Rate 92 09/16/16 07:56 Respiratory Rate 18 09/16/16 07:56 Blood Pressure 111/75 09/16/16 07:56 O2 Sat by Pulse Oximetry 96 09/16/16 07:56 Temperature 98.6 F 09/16/16 07:56 Pulse Rate 85 09/16/16 10:45 Respiratory Rate 16 09/16/16 10:45 Blood Pressure 142/55 09/16/16 10:45 O2 Sat by Pulse Oximetry 96 09/16/16 07:56 Oxygen Delivery Oxygen Delivery Room Air Fall - Lab Data Lab results reviewed: Yes I reviewed the patient's lab results. Result diagrams: 09/16/16 10:30 Lab Results 09/16/16 09/16/16 Range/Units 10:30 10:30 WBC 13.3 H (4.3-11.1) K/mcL RBC 3.89 (3.82-4.97) M/mcL Hgb 10.5 L (11.5-15.4) g/dL Hct 33.1 L (35.3-44.9) % MCV 85.1 (83.0-100.0) fL MCH 27.0 L (28.0-33.3) pg MCHC 31.7 (31.6-35.5) g/dL RDW 16.2 H (11.5-14.5) % Plt Count 274 (140-400) K/mcL MPV 11.2 (9.4-12.4) fL Immature Gran % 0.3 (0-4) % Seg Neutrophils % 88.2 % Lymphocytes % 8.8 % Monocytes % 2.5 % Eosinophils % 0.0 % Basophils % 0.2 % Neutrophils # 11.7 H (1.6-8.9) K/mcL Lymphocytes # 1.2 (0.6-4.6) K/mcL Monocytes # 0.3 (0.0-1.3) K/mcL Eosinophils # 0.0 (0.0-0.6) K/mcL Basophils # 0.0 (0.0-0.2) K/mcL PT 11.6 (9.4-12.1) Seconds INR 1.1 - Radiology Data Radiology results reviewed: Yes I reviewed the patient's radiology results.
[2016-09-16 10:58] LABS: Alanine Aminotransferase 11 Units/L (0-55); Albumin 2.9 g/dL (3.5-5.0); Albumin/Globulin Ratio 0.8 (1.1-2.2); Alkaline Phosphatase 111 Units/L (38-126); Aspartate Amino Transferase 17 Units/L (5-34); BUN/Creatinine Ratio 20 (6-26); Blood Urea Nitrogen 16 mg/dL (7-20); Calcium 8.7 mg/dL (8.6-10.8); Carbon Dioxide 26 mEq/L (19-29); Chloride 105 mEq/L (98-109); Globulin 3.6 g/dL (2.4-3.5); Glucose 131 mg/dL (70-99); Osmolality,Calculated 289 (280-300); Potassium 4.6 mEq/L (3.5-4.5); Sodium 138 mEq/L (136-145); Total Protein 6.5 g/dL (6.0-8.3); eGFR For African Americans > 60 (> 60); eGFR For Non-African Americans > 60 (> 60)
[2016-09-16 10:59] LABS: Bilirubin,Total < 0.3 mg/dL (0.2-1.2)
[2016-09-16] MEDS ORDERED: Naloxone 0.4 MG/ML INJ IVP PRN (11:15)
[2016-09-16] MEDS ORDERED: Acetaminophen 325 MG TABLET PO PRN (11:15)
[2016-09-16] MEDS ORDERED: Ondansetron 4 MG/2 ML VIAL IVP PRN (11:15)
[2016-09-16] MEDS ORDERED: *HR* HYDROmorphone (PF) 1 MG/ML SYRINGE IVP PRN (11:22)
[2016-09-16] MEDS ORDERED: Pantoprazole 40 MG VIAL IVP ONE (11:30)
--- NOTE | 2016-09-16 12:36 | Orthopedic Consult Note ---
Date of Encounter: 09/16/16 Time of Encounter: 12:33 Assessment and Plan (1) Fracture of distal femur Current Visit: Yes Status: Acute Patient set up for surgery 09/17/16, Right Distal femur ORIF with 1345. NWB, PLACED IN TSCOPE BRACE. Consent discussed and reviewed with patient. patient signed. NPO after midnight. Medical clearance. Diagnosed with Bronchitis 09/15/16 - on antibiotic. is aware, and ok to proceed with surgery while on antibiotics. Qualifiers: Encounter type: initial encounter Fracture type: closed Fracture morphology: unspecified fracture morphology Laterality: right Qualified Code (s): S72.401A - Unspecified fracture of lower end of right femur, initial encounter for closed fracture History of Present Illness Chief complaint: FAll HPI: Ms. Chen is a 61 year old female who presents from the ED - mechanical fall resulting in a femur fracture of her right leg. Patient reports she has a history of falls, stating that she has fallen approximately 7 times recently. She had a Right TKR 2013, unaffected by current fracture. Unable to ambulate secondary to pain. Lower extremity swelling minimal, denies N/T, denies radiation of pain. Pain resides along distal thigh, no calf tenderness. She denies syncope, or neuro symptoms prior to falls. She reports falls are more from clumsiness. Ms. Chen also states that she has bronchitis and was diagnosed yesterday at Urgent Care and was placed on oral erythromycin. Patient has a medical history of asthma, diabetes, osteoporosis, thyroid disease, and anemia. Patient has a history of chronic anemia and current Hgb and Hct are above her numbers from previous visits. Will monitor H/H through follow-up labs. Ms. Chen is at moderate risk for further morbidity due to current leg fracture as well as medical history and will be placed Past Med Surg Social Fam HX - Past Medical History Medical history: arthritis, asthma, diabetes, fibromyalgia, osteoporosis, thyroid disease, other (Chronic anemia) Psychiatric history: anxiety, depression - Past Surgical History Surgical History: cholecystectomy, orthopedic, other (shoulder, neck, back ), JULIANNA/BSO, thyroidectomy, other, bariatric surgery - Social History Smoking Status: Never smoker Smokeless Tobacco Status: No Alcohol use: none Drug use: none - Family History Father Race: Family Member Ethnicity: Non- Living Status: (6) Age at : 63 Cause of : SC Hx Family Cardiac Disorders: Yes (SC, Stroke) Hx Family Respiratory Disorders: Yes Hx Family Cancer: Yes (Lung/Metastatic) Hx Family GI Disorders: No Hx Family Endocrine Disorder: Yes (DM) Hx Family Neuromuscular Disorders: No Hx Family Neurologic Disorders: No Hx Family HEENT Disorders: No Hx Family Autoimmune Disorders: No Mother Race: Family Member Ethnicity: Non- Living Status: Age at : 82 Cause of : Kidney Failure Hx Family Cardiac Disorders: Yes (CHF) Hx Family Respiratory Disorders: No Hx Family Cancer: No Hx Family GI Disorders: No Hx Family Genitourinary Disorders: Yes (Kidney Disease) Hx Family Endocrine Disorder: Yes (DM) Hx Family Neuromuscular Disorders: No Hx Family Neurologic Disorders: No Hx Family HEENT Disorders: No Hx Family Autoimmune Disorders: No Brother Race: Family Member Ethnicity: Non- Living Status: Still Living Hx Family Cardiac Disorders: Yes (HD) Hx Family Endocrine Disorder: Yes (DM) Sister Race: Family Member Ethnicity: Non- Living Status: Still Living Hx Family Musculoskeletal Disorders: Yes (Arthritis) Medications and Allergies Citalopram [CeleXA] 20 mg PO DAILY 02/06/15 [History] Albuterol Sulfate [Albuterol Inhaler] 2 - 4 puff IH Q4HR PRN #1 hfa.aer.ad 03/09 [Rx] Alendronate Sodium [Fosamax] 70 mg PO QWEEK 07/07/16 [History] Celecoxib [Celebrex] 200 mg PO BID 07/07/16 [History] Fluticasone/Salmeterol [Advair 500-50 Diskus] 1 puff IH BID 07/07/16 [History] Levothyroxine [Synthroid] 100 mcg PO DAILY 07/07/16 [History] Omeprazole 20 mg PO DAILY 07/07/16 [History] clonazePAM [Klonopin] 1 mg PO TID 07/07/16 [History] Gabapentin [Neurontin] 300 mg PO TID 07/27/16 [History] Acetaminophen [Tylenol] 650 mg PO Q6HR PRN #0 tablet 08/01/16 [Rx] Aspirin 81 mg PO DAILY tab.chew 08/01/16 [Rx] Docusate [Colace] 100 mg PO BID PRN #0 capsule 08/01/16 [Rx] Metoprolol XL (24 HR) Succ [Toprol Xl] 25 mg PO DAILY tab.er.24h 08/01/16 [Rx] Azithromycin [Azithromycin 6-Tab Pack] 250 mg PO PER PKG DI #6 tab 09/15/16 [Rx] Benzonatate [Tessalon] 200 mg PO TID PRN #30 capsule 09/15/16 [Rx] GuaiFENesin ER [Mucinex] 1,200 mg PO BID #20 tbbp.12hr 09/15/16 [Rx] methylPREDNISolone [Medrol] 4 mg PO TAPER #21 tablet 09/15/16 [Rx] Bupropion HCl [Wellbutrin Xl] 300 mg PO QAM 09/16/16 [History] Cyclobenzaprine [Flexeril] 10 mg PO TID 09/16/16 [History] Diphenhydramine HCl [Allergy Relief] 25 mg PO DAILY PRN 09/16/16 [History] Ferrous Sulfate [Iron] 325 mg PO BID 09/16/16 [History] Magnesium Oxide [Mgo] 400 mg PO DAILY 09/16/16 [History] OxyCODONE/APAP 10/325 [Percocet 10/325 MG] 1 tab PO Q6HR PRN 09/16/16 [History] Allergies codeine Allergy (Verified 07/27/16 06:34) Swelling of Lip/Tongue/Throat Medroxyprogesterone [From Provera] Allergy (Verified 07/27/16 06:34) Swelling of Lip/Tongue/Throat Penicillins Allergy (Verified 07/27/16 06:34) Rash All Systems Reviewed: A 10-system review of systems was performed and is negative for pertinent findings except as documented above in the HPI. - Constitutional Constitutional: as per HPI - Cardiovascular Cardiovascular: as per HPI, no chest pain, no syncope - Respiratory Respiratory: as per HPI, no cough, no dyspnea - Musculoskeletal Musculoskeletal: as per HPI Physical Exam - Constitutional Vitals: Temp Pulse Resp BP Pulse Ox 98.6 F 85 18 140/70 96 09/16/16 07:56 09/16/16 10:45 09/16/16 12:11 09/16/16 12:11 09/16/16 07:56 - Fracture right femur Location of fracture: Right distal femur Compartments: soft Distal extremity neurovascularly intact: Yes Proximal joint involvement: No Distal joint involvement: No Other injury: muscle injury: no, tendon injury: no, ligament injury: no, vascular injury: no, nerve injury: no Results - Labs Result Diagrams: 09/16/16 10:30 09/16/16 10:30 Labs: Abnormal lab results WBC 13.3 K/mcL (4.3-11.1) H 09/16/16 10:30 Hgb 10.5 g/dL (11.5-15.4) L 09/16/16 10:30 Hct 33.1 % (35.3-44.9) L 09/16/16 10:30 MCH 27.0 pg (28.0-33.3) L 09/16/16 10:30 RDW 16.2 % (11.5-14.5) H 09/16/16 10:30 Neutrophils # 11.7 K/mcL (1.6-8.9) H 09/16/16 10:30 Potassium 4.6 mEq/L (3.5-4.5) H 09/16/16 10:30 Glucose 131 mg/dL (70-99) H 09/16/16 10:30 Albumin 2.9 g/dL (3.5-5.0) L 09/16/16 10:30 Globulin 3.6 g/dL (2.4-3.5) H 09/16/16 10:30 Albumin/Globulin Ratio 0.8 (1.1-2.2) L 09/16/16 10:30 All other labs normal. - Diagnostic results Knee x-ray: report reviewed, image reviewed Consult Discharge Plan - Plan Referrals: Tracie Castelan, DIETARY WORKER [Primary Care Provider] -
[2016-09-16] MEDS: *HR* Heparin 5,000 UNIT/ML VIAL SQ SCH ×2 (14:51→22:06)
[2016-09-16] MEDS: *HR* OxyCODONE/APAP 10/325 TABLET PO PRN (14:59)
--- NOTE | 2016-09-16 16:04 | Electrocardiograph Report ---
[place] [address] Test Date: 2016-09-16 Pat Name: Fanta Chen Department: 104 Room: [facility] Gender: F Biomedical Engineering Director: BELKIS : 1955 Requested By: Khalif Stout Order Number: [id number] Reading MD: Maycol Presley Measurements Intervals [place] Rate: 86 P: 60 [place]: 171 QRS: 36 QRSD: 84 T: 39 QT: 365 QTc: 409 Interpretive Statements SINUS RHYTHM WITH FREQUENT SUPRAVENTRICULAR PREMATURE COMPLEXES ABNORMAL RHYTHM ECG Electronically Signed On 09-16-2016 16:03:18 EDT by Maycol Presley
[2016-09-16] MEDS ORDERED: Benzonatate 100 MG CAPSULE PO PRN (16:52)
[2016-09-16] MEDS ORDERED: NON-FORMULARY MEDICATION 1 EACH EACH (Alendronate Sodium [Fosamax] 70 MG) PO SCH (17:00)
--- NOTE | 2016-09-16 19:17 | Anesthesia Evaluation PreOp ---
Date of Encounter: 09/16/16 Time of Encounter: 19:00 - Past History Planned Operation: ORIF Rt Femur Cardiac History: Arrhythmia (Hx AFib due to sepsis treated medically, on Diltiazem), Other (Anemia) Pulmonary History: Asthma, COPD, Other (Recent Bronchitis..started on Abtx and steroids) MACHINE TOOL MECHANIC History: Other (Recurrent Falls, denies seizures or CVA) Other Medical History: Diabetes Type II, Thyroid Anesthesia History: No Prior Anesthetic Complications, Past Anesthesia (JULIANNA, Cholecystectomy, Thyroidectomy) : No Alcohol Use: none Drug use: none Medications and Allergies Citalopram [CeleXA] 20 mg PO DAILY 02/06/15 [History] Albuterol Sulfate [Albuterol Inhaler] 2 - 4 puff IH Q4HR PRN #1 hfa.aer.ad 03/09 [Rx] Alendronate Sodium [Fosamax] 70 mg PO QWEEK 07/07/16 [History] Celecoxib [Celebrex] 200 mg PO BID 07/07/16 [History] Fluticasone/Salmeterol [Advair 500-50 Diskus] 1 puff IH BID 07/07/16 [History] Levothyroxine [Synthroid] 100 mcg PO DAILY 07/07/16 [History] Omeprazole 20 mg PO DAILY 07/07/16 [History] clonazePAM [Klonopin] 1 mg PO TID 07/07/16 [History] Gabapentin [Neurontin] 300 mg PO TID 07/27/16 [History] Acetaminophen [Tylenol] 650 mg PO Q6HR PRN #0 tablet 08/01/16 [Rx] Aspirin 81 mg PO DAILY tab.chew 08/01/16 [Rx] Docusate [Colace] 100 mg PO BID PRN #0 capsule 08/01/16 [Rx] Metoprolol XL (24 HR) Succ [Toprol Xl] 25 mg PO DAILY tab.er.24h 08/01/16 [Rx] Azithromycin [Azithromycin 6-Tab Pack] 250 mg PO PER PKG DI #6 tab 09/15/16 [Rx] Benzonatate [Tessalon] 200 mg PO TID PRN #30 capsule 09/15/16 [Rx] GuaiFENesin ER [Mucinex] 1,200 mg PO BID #20 tbbp.12hr 09/15/16 [Rx] methylPREDNISolone [Medrol] 4 mg PO TAPER #21 tablet 09/15/16 [Rx] Bupropion HCl [Wellbutrin Xl] 300 mg PO QAM 09/16/16 [History] Cyclobenzaprine [Flexeril] 10 mg PO TID 09/16/16 [History] Diphenhydramine HCl [Allergy Relief] 25 mg PO DAILY PRN 09/16/16 [History] Ferrous Sulfate [Iron] 325 mg PO BID 09/16/16 [History] Magnesium Oxide [Mgo] 400 mg PO DAILY 09/16/16 [History] OxyCODONE/APAP 10/325 [Percocet 10/325 MG] 1 tab PO Q6HR PRN 09/16/16 [History] Allergies codeine Allergy (Verified 07/27/16 06:34) Swelling of Lip/Tongue/Throat Medroxyprogesterone [From Provera] Allergy (Verified 07/27/16 06:34) Swelling of Lip/Tongue/Throat Penicillins Allergy (Verified 07/27/16 06:34) Rash - Meds/Allergy Pre-op Review Medications Reviewed: Yes Allergies Reviewed: Yes Beta Blockers on Current Med List: Yes (On Metoprolol) Anesthesia Results - Labs 09/16/16 10:30 09/16/16 10:30 - Imaging EKG: report reviewed (SR frequent PSVT) Additional studies: EF 60% Anesthesia Exam O2 Sat Height 1.6 m Weight 77.564 kg O2 Sat by Pulse Oximetry 94 O2 Sat by Pulse Oximetry 97 O2 Sat by Pulse Oximetry 94 O2 Sat by Pulse Oximetry 96 Vital Signs Temp Pulse Resp BP Pulse Ox 98.6 F 92 18 111/75 96 09/16/16 07:56 09/16/16 07:56 09/16/16 07:56 09/16/16 07:56 09/16/16 07:56 Height: 5'3 Weight: 171 lbs NPO (# of Hours): MN Pain Scale: 0 - HEENT Pupil (Motor): Pupils equal, EOMI Mallampati: III Teeth: Edentulous Oral Opening: Less than or equal to 3 - MACHINE TOOL MECHANIC LOC: Oriented MACHINE TOOL MECHANIC Motor: Normal RUE, Normal LUE, Normal RLE, Normal LLE, Normal Face MACHINE TOOL MECHANIC Sensory: Normal: RUE, LUE, RLE, LLE, Face - Cardiac Rhythm: Regular Murmur: None JVD: No Carotid Bruit: No - Pulmonary Breath Sounds: bilateral Rhonchi Respiratory Effort: Symmetrical Anesthesia Assess/Plan ASA Score: 3 (Asthma, Bronchitis, DM) Modified Christian Scale for Level of Consciousness: Cooperative, oriented, and tranquil Anesthetic Plan: General (Discussed GA, possible SAB but getting heparin q8 hrs , agrees to proceed, at risk for post op complications), Regional Monitoring Plan: Standard Monitors Recovery Plan: PACU
[2016-09-16] MEDS: Budesonide/Formoterol 160/4.5 MDI IH SCH (21:01)
[2016-09-16] MEDS: Celecoxib 200 MG CAPSULE PO SCH (22:05)
[2016-09-16] MEDS: Gabapentin 300 MG CAPSULE PO SCH (22:06)
[2016-09-16] MEDS: clonazePAM 1 MG TABLET PO SCH (22:06)
[2016-09-17] MEDS: *HR* Heparin 5,000 UNIT/ML VIAL SQ SCH ×3 (05:52→20:43)
[2016-09-17 05:53] LABS: Basophils % 0.4 %; Eosinophils % 0.4 %; Hematocrit 31.8 % (35.3-44.9); Hemoglobin 9.8 g/dL (11.5-15.4); Immature Granulocytes % 0.3 % (0-4); Lymphocytes # 3.7 K/mcL (0.6-4.6); Lymphocytes % 38.9 %; Mean Corpuscular HGB Conc 30.8 g/dL (31.6-35.5); Mean Corpuscular Volume 87.6 fL (83.0-100.0); Mean Platelet Volume 11.2 fL (9.4-12.4); Monocytes % 10.4 %; Neutrophils # 4.7 K/mcL (1.6-8.9); Platelet Count 231 K/mcL (140-400); Red Blood Count 3.63 M/mcL (3.82-4.97); Red Cell Distribution Width 16.4 % (11.5-14.5); Segmented Neutrophils % 49.6 %
[2016-09-17 06:03] LABS: BUN/Creatinine Ratio 20 (6-26); Blood Urea Nitrogen 19 mg/dL (7-20); Calcium 8.4 mg/dL (8.6-10.8); Carbon Dioxide 28 mEq/L (19-29); Chloride 105 mEq/L (98-109); Chol/HDL Ratio 2.7 (0-4.9); Cholesterol 145 mg/dL (< 200); Glucose 93 mg/dL (70-99); HDL Cholesterol 54 mg/dL (40-59); LDL Cholesterol,Calculated 70 mg/dL (0-99); Magnesium 1.9 mg/dL (1.6-2.6); Osmolality,Calculated 290 (280-300); Potassium 4.3 mEq/L (3.5-4.5); Sodium 139 mEq/L (136-145); Triglycerides 105 mg/dL (< 150); eGFR For African Americans > 60 (> 60); eGFR For Non-African Americans 59 (> 60)
[2016-09-17 07:09] LABS: Hypochromasia Present (Not Present); Platelet Estimate Normal (Normal)
[2016-09-17 07:10] LABS: Reactive Lymphocytes Present (Not Present)
--- NOTE | 2016-09-17 07:40 | Orthopedics Progress Note ---
Date of Encounter: 09/17/16 Time of Encounter: 07:39 Subjective Interval history: Patient seen this morning right distal third femur fracture. Neurovascular intact. Recommendation for open reduction internal fixation. Hematocrit 31 in stable Objective Vital signs: Vital Signs Temp Pulse Resp BP Pulse Ox 09/17/16 06:49 98 F 87 16 109/68 99 09/17/16 06:00 20 98 09/17/16 03:54 97.9 F 81 22 107/64 95 09/16/16 23:06 98.1 F 72 18 108/70 95 09/16/16 21:02 16 93 09/16/16 20:25 98.7 F 73 19 96/57 94 09/16/16 18:44 69 18 110/69 94 09/16/16 15:38 98.5 F 76 18 102/67 97 09/16/16 13:00 98.8 F 80 17 115/56 94 09/16/16 12:11 18 140/70 Intake and Output 09/16/16 09/16/16 09/17/16 15:59 23:59 07:59 Intake Total 120 / 120 Output Total 200 / 200 0 / 0 0 / 0 Balance -200 / -200 120 / 120 0 / 0 Intake: Oral 120 / 120 Output: Urine 200 / 200 0 / 0 0 / 0 Other: Meal Dinner Percent of Meal Consumed 90% # Voids 1 Weight 80.13 kg Blood Glucose* 145 89 Patient Weight 09/17/16 23:59 Weight 80.13 kg - Labs CBC & BMP: 09/17/16 05:31 09/17/16 05:31 Labs: Abnormal lab results RBC 3.63 M/mcL (3.82-4.97) L 09/17/16 05:31 Hgb 9.8 g/dL (11.5-15.4) L 09/17/16 05:31 Hct 31.8 % (35.3-44.9) L 09/17/16 05:31 MCH 27.0 pg (28.0-33.3) L 09/17/16 05:31 MCHC 30.8 g/dL (31.6-35.5) L 09/17/16 05:31 RDW 16.4 % (11.5-14.5) H 09/17/16 05:31 Reactive Lymphocytes Present (Not Present) A 09/17/16 05:31 Hypochromasia Present (Not Present) A 09/17/16 05:31 Est GFR (Non-Af Amer) 59 (> 60) L 09/17/16 05:31 POC Glucose 145 (58-89) H 09/16/16 23:13 Calcium 8.4 mg/dL (8.6-10.8) L 09/17/16 05:31 Albumin 2.9 g/dL (3.5-5.0) L 09/16/16 10:30 Globulin 3.6 g/dL (2.4-3.5) H 09/16/16 10:30 Albumin/Globulin Ratio 0.8 (1.1-2.2) L 09/16/16 10:30 Consult Discharge Plan - Plan Referrals: Tracie Castelan, HOTEL SERVICE SUPERVISOR [Primary Care Provider] -
[2016-09-17] MEDS: Celecoxib 200 MG CAPSULE PO SCH ×2 (07:53→20:41)
[2016-09-17] MEDS: Gabapentin 300 MG CAPSULE PO SCH ×2 (07:55→20:42)
[2016-09-17] MEDS: clonazePAM 1 MG TABLET PO SCH ×2 (07:55→20:42)
[2016-09-17] MEDS: *HR* OxyCODONE/APAP 10/325 TABLET PO PRN ×2 (08:04→16:23)
[2016-09-17] MEDS ORDERED: methylPREDNISolone 125 MG/2 ML VIAL IVP SCH (08:59)
[2016-09-17] MEDS ORDERED: Metoprolol XL (24 HR) Succ 25 MG TAB.ER.24H PO SCH (09:00)
[2016-09-17] MEDS ORDERED: BuPROPion XL (24 HR) 150 MG TABLET PO SCH (09:00)
[2016-09-17] MEDS ORDERED: Aspirin 81 MG TAB.CHEW PO SCH (09:00)
[2016-09-17] MEDS ORDERED: Magnesium Oxide 400 MG TABLET PO SCH (09:00)
[2016-09-17] MEDS ORDERED: Azithromycin 250 MG TABLET PO SCH (09:00)
--- NOTE | 2016-09-17 09:08 | Event Note ---
Date of Encounter: 09/17/16 Time of Encounter: 09:02 Pt admitted with acute R distal femur fracture s/p fall. She has hx of asthma and recent diagnosis of bronchitis yesterday. She is currently on azithromycin. She has taken steroids in the past. She also has a history of multiple spinal surgeries and disc removals. She denies chest pain. Occ dizziness and unsteady gait she relates to her spinal issues. Hx of "leak in heart valve." Exam Alert. Comfortable Mucus membranes dry No bruits heard. Heart reg - no overt murmur heard though difficult to hear. Lungs with scant end exp wheeze on L. Abd soft Pulses palpable. EKG - NSR with PACs Last echo 07/2016 - mild to mod MR. I/P 1. Acute asthmatic bronchitis- on azithromycin. Solumedrol started this AM. Pt not hypoxic at this time and in no respiratory distress. 2. Mild to mod MR on echo 3. Hx multiple spinal surgeries Pt is moderate risk (acute bronchitis) for moderate risk surgery but acceptable to proceed today.
[2016-09-17 10:02] LABS: Hematocrit 29.4 % (35.3-44.9); Hemoglobin 9.2 g/dL (11.5-15.4)
[2016-09-17] MEDS: Budesonide/Formoterol 160/4.5 MDI IH SCH ×2 (11:00→21:47)
--- NOTE | 2016-09-17 11:31 | Internal Med Progress Note ---
<Delmis Chavez - Last Filed: 09/17/16 11:28> Date of Encounter: 09/17/16 Time of Encounter: 11:28 - Assessment and plan (1) Fracture of distal femur Current Visit: Yes Status: Acute Assessment and plan: Patient suffered fx after fall at home. Plan for surgery today per ortho Plan: -Patient ok for surgery today -Plan per ortho Qualifiers: Encounter type: initial encounter Fracture type: closed Fracture morphology: unspecified fracture morphology Laterality: right Qualified Code (s): S72.401A - Unspecified fracture of lower end of right femur, initial encounter for closed fracture (2) Falls Current Visit: Yes Status: Acute Assessment and plan: Patient reports 7 falls in the last year secondary to "balance issues" and occasional dizziness. Friend reports 4 falls in last month. Patient uses cane and walker at home, although lost her cane. Plan: -PT/OT -Will require rehab stay at discharge Qualifiers: Encounter type: initial encounter Qualified Code(s): W19.XXXA - Unspecified fall, initial encounter (3) Bronchitis Current Visit: Yes Status: Acute Assessment and plan: On azithromycin from recent diagnosis Plan: -Continue azithromycin -Solumedrol (4) Mitral regurgitation Current Visit: Yes Status: Acute Assessment and plan: ECHO 07/2016 shows mild to moderate MR Murmur not appreciated on exam today, although heart sounds are distant (5) Chronic anemia Current Visit: Yes Status: Chronic Assessment and plan: Stable, 9.8, 9.2 this AM Plan: -Will continue to monitor (6) Diabetes Current Visit: Yes Status: Chronic Assessment and plan: Continue Low-dose SSI Qualifiers: Diabetes mellitus type: type 2 Diabetes mellitus complication status: without complication Diabetes mellitus termite renewal inspector insulin use: without termite renewal inspector use Qualified Code(s): E11.9 - Type 2 diabetes mellitus without complications (7) Thyroid disease Current Visit: Yes Status: Chronic - Subjective Interval history: Patient seen and examined. She reports that prior to her fall she was feeling dizzy. Her friend is at bedside and states she has fallen 4 times in the last month, and 7 times in the last year. She states she has "brittle bones" and will be started on IV therapy after surgery as she had a bad reaction to fosfomax. She denies CP, SOB, abd pain, dysuria, dizziness, GAYTAN, leg pain if at rest. - Constitutional Vitals: Temp Pulse Resp BP Pulse Ox 97.7 F 68 18 107/58 93 09/17/16 10:04 09/17/16 10:04 09/17/16 11:02 09/17/16 10:04 09/17/16 11:02 General appearance: Present: cooperative, mild distress, A&O X 3, pleasant, obese, answers questions appropriately - Head Head exam: Present: atraumatic, normocephalic - Neck Neck exam general surgery: Present: supple, trachea midline Additional comments: right anterior scar noted - Respiratory Respiratory exam: Present: CTAB. Absent: accessory muscle use, rales, rhonchi, wheezes - Cardiovascular Cardiovascular exam: Present: distant heart sounds, RRR, +S1, +S2. Absent: diastolic murmur, gallop, rubs, systolic murmur - GI/Abdominal GI/Abdominal exam: Present: normal bowel sounds, soft, no peritoneal signs. Absent: distended, tenderness - Extremities Exam Extremities exam: Present: normal capillary refill, warm, radial pulses palpable and symmetrical. Absent: calf tenderness, cyanotic, pedal edema Additional comments: leg brace in place on right leg, neurovascularly intact, no erythema or eccymosis noted - Neurological Exam Neurological exam: Present: oriented X3, no focal deficits. Absent: facial droop, speech deficit - Skin Skin exam: Present: dry, intact. Absent: erythema Internal Medicine: Result - Labs CBC & Chem 7: 09/17/16 09:03 09/17/16 05:31 Labs: Short CBC 09/17/16 09/17/16 Range/Units 05:31 09:03 WBC 9.5 (4.3-11.1) K/mcL Hgb 9.8 L 9.2 L (11.5-15.4) g/dL Hct 31.8 L 29.4 L (35.3-44.9) % Plt Count 231 (140-400) K/mcL Neutrophils # 4.7 (1.6-8.9) K/mcL BMP 09/17/16 05:31 Sodium 139 Potassium 4.3 Chloride 105 Carbon Dioxide 28 BUN 19 Creatinine 0.96 Glucose 93 Calcium 8.4 L - ABG Interpretation ABG results: PT/INR, D-dimer PT 11.6 Seconds (9.4-12.1) 09/16/16 10:30 Consult Discharge Plan - Plan Referrals: Tracie Castelan, HUGH [Primary Care Provider] - Prescriptions: OxyCODONE Immed Rel [Roxicodone 5 MG] 5 - 10 mg PO Q6HR PRN #40 tablet PRN Reason: Pain Aspirin Enteric Coated [Aspirin EC] 325 mg PO DAILY #21 tablet. <Johnny Cook - Last Filed: 09/17/16 18:48> Date of Encounter: 09/17/16 - Assessment and plan (1) Asthmatic bronchitis with acute exacerbation Current Visit: Yes Status: Acute Qualifiers: Asthma severity: mild intermittent Qualified Code(s): J45.21 - Mild intermittent asthma with (acute) exacerbation (2) Acute bronchitis Current Visit: Yes Status: Acute Qualifiers: Bronchitis organism: other organism Qualified Code(s): J20.8 - Acute bronchitis due to other specified organisms (3) Fracture of distal femur Current Visit: Yes Status: Acute Qualifiers: Encounter type: subsequent encounter Fracture type: closed Fracture morphology: unspecified fracture morphology Laterality: right Fracture healing: with routine healing Qualified Code(s): S72.401D - Unspecified fracture of lower end of right femur, subsequent encounter for closed fracture with routine healing (4) Mitral regurgitation Current Visit: Yes Status: Acute Qualifiers: Cardiac valve disease etiology: etiology unspecified Qualified Code(s): I34.0 - Nonrheumatic mitral (valve) insufficiency (5) Falls Current Visit: Yes Status: Acute Qualifiers: Encounter type: subsequent encounter Qualified Code(s): W19.XXXD - Unspecified fall, subsequent encounter (6) Diabetes Current Visit: Yes Status: Chronic Qualifiers: Diabetes mellitus type: type 2 Diabetes mellitus complication status: without complication Diabetes mellitus senior living insulin use: without termite renewal inspector use Qualified Code(s): E11.9 - Type 2 diabetes mellitus without complications - Constitutional Vitals: Temp Pulse Resp BP Pulse Ox 98.3 F 67 14 101/69 96 09/17/16 18:19 09/17/16 18:19 09/17/16 18:19 09/17/16 18:19 09/17/16 18:19 Internal Medicine: Result - Labs CBC & Chem 7: 09/17/16 14:44 09/17/16 05:31 Labs: Short CBC 09/17/16 09/17/16 09/17/16 Range/Units 05:31 09:03 14:44 WBC 9.5 (4.3-11.1) K/mcL Hgb 9.8 L 9.2 L 8.6 L (11.5-15.4) g/dL Hct 31.8 L 29.4 L 27.7 L (35.3-44.9) % Plt Count 231 (140-400) K/mcL Neutrophils # 4.7 (1.6-8.9) K/mcL BMP 09/17/16 05:31 Sodium 139 Potassium 4.3 Chloride 105 Carbon Dioxide 28 BUN 19 Creatinine 0.96 Glucose 93 Calcium 8.4 L - ABG Interpretation ABG results: PT/INR, D-dimer PT 11.6 Seconds (9.4-12.1) 09/16/16 10:30 - Impressions Impressions Femur X-Ray 09/17/16 08:10 IMPRESSION: Expected new changes of internal fixation of the comminuted fracture of the right femoral distal metadiaphysis with near anatomic alignment. D/ / Frederick Caro MD / Frederick Caro MD Interpreting Provider: Frederick Caro MD Fluoroscopy 09/17/16 13:00 IMPRESSION: Intraprocedural fluoroscopic spot images as above. See separate procedure report for more information. D/ / Estelita Lee MD / Estelita Lee MD Interpreting Provider: Estelita Lee MD - Attending Attestation I examined this patient and my medical decision-making was reviewed with the Resident Physician on 09/17/16. I agree with the documented findings, disposition and treatment plan as described except to the extent set forth below. Ms Chen is currently admitted for acute fracture of R distal femur. She remains high risk due to acute fracture, asthma and need for OR today. Ms Chen feels OK. She is breathing OK. Please see event note of today Exam Alert. Comfortable. Heart reg Lungs with scant wheeze L Abd soft I/P 1. Acute asthmatic bronchitis 2. Fracture femur Further diagnoses and plan as above.
[2016-09-17] MEDS ORDERED: *HR* Midazolam HCl 2 MG/2 ML VIAL ONE (11:37)
[2016-09-17] MEDS ORDERED: Lidocaine -MPF 4% 5 ML AMPUL ONE (11:37)
[2016-09-17] MEDS ORDERED: *HR* Propofol 200 MG/20 ML VIAL IVP ONE (11:37)
[2016-09-17] MEDS ORDERED: *HR* FentaNYL (PF) 100 MCG/2 ML VIAL ONE (11:37)
[2016-09-17] MEDS ORDERED: Lidocaine -MPF 2% 2 ML VIAL ONE (11:37)
[2016-09-17] MEDS ORDERED: *HR* Succinylcholine 200 MG/10 ML VIAL IVP ONE (11:37)
[2016-09-17] MEDS ORDERED: Albuterol 2.5 MG/3 ML NEBULIZER ONE (12:11)
[2016-09-17] MEDS ORDERED: cloNIDine HCl 0.1 MG TABLET ONE (12:13)
[2016-09-17] MEDS ORDERED: Ringers Solution, Lactated 1,000 ML IVC SCH ×3 (12:15→15:42)
[2016-09-17] MEDS ORDERED: CloNIDine Patch 0.1 MG PATCH (WEEKLY) TD SCH ×2 (12:15→15:42)
[2016-09-17] MEDS ORDERED: Albuterol 2.5 MG/3 ML NEBULIZER IH ONE (12:47)
[2016-09-17] MEDS ORDERED: *HR* Labetalol 20 MG/4 ML SYRINGE IVP PRN (12:47)
[2016-09-17] MEDS ORDERED: Ondansetron 4 MG/2 ML VIAL IVP ONE (12:47)
[2016-09-17] MEDS ORDERED: Naloxone 0.4 MG/ML INJ IVP PRN ×2 (12:47→15:42)
[2016-09-17] MEDS ORDERED: *HR* Meperidine 25 MG/ML SYRINGE IVP PRN (12:47)
[2016-09-17] MEDS ORDERED: CloNIDine Patch 0.1 MG PATCH (WEEKLY) ONE (12:50)
[2016-09-17] MEDS ORDERED: Clindamycin 900 MG/50 ML 900 MG/50 ML IV.SOLN IVPB ONE (12:58)
[2016-09-17] MEDS ORDERED: Ketamine *HR* 500 MG/10 ML MDV ONE (13:11)
[2016-09-17] MEDS ORDERED: Ketorolac 30 MG/ML VIAL ONE (13:13)
[2016-09-17] MEDS ORDERED: Ondansetron 4 MG/2 ML VIAL ONE (13:15)
[2016-09-17] MEDS ORDERED: Dexamethasone 4 MG/ML VIAL ONE (13:15)
--- NOTE | 2016-09-17 13:54 | Orthopedic Operative Note ---
<RuiRomain - Last Filed: 09/17/16 13:50> Date of procedure: 09/17/16 Pre-op diagnosis: Displaced right distal third femoral shaft fracture comminuted Post-op diagnosis: same Procedure: Right open reduction internal fixation femoral shaft fracture Estimated blood loss: 300 cc Hardware: Synthes Large Frag 4.5 LCDCP right periarticular distal femur locking Plate, 2 4.5 cortical screws, 6 5.0 Locking screws, 5, 5.0 cannulated locking screws. One super cable. Procedural Notes: Patient with a distal third displaced comminuted fracture proximal to a femoral implant for knee replacement. Fracture did not extend around the implant. Operative procedure: The patient was brought to the operating room and placed on the operating room fracture table. The well leg was placed in the well leg correa, the fracture leg was placed in the fracture leg correa. After general anesthesia was administered the operative leg was prepped and draped in the sterile surgical fashion The patient received IV antibiotics prior to skin incision. A standard lateral approach was made to the femur the incision is made to the skin and subcutaneous tissue. Hemostasis was obtained with Bovie cautery. Using careful blunt dissection the tensor fascia was identified and incised along the length of the incision. The vastus lateralis was elevated up after the fascia was split exposing the lateral femur and the fracture site. The fractures reduced and held in place with bone holding forceps a syntheses large fragment distal right periarticular LCDCP locking plate was approximated to the lateral femur surface position was confirmed with fluoroscopy. It was initially fixed distally with one 5.0 cannulated screw. This was placed over wire with fluoroscopic assistance. It was fixed proximally with 24.5 cortical screws. Position of hardware as well as fracture reduction found acceptable. Patient had a large butterfly fragment anterior medial, this was reduced and fixed with a super cable. Fixation was then completed with a combination of cannulated 5.0 locking screws and solid 5.0 locking screws. Position of hardware as well as fracture reduction was found to be acceptable with fluoroscopic assistance. The wound was irrigated the fascia was closed with a running #1 PDS suture tensa fascia was closed with a running #2 PDS suture subcutaneous tissues and closed deep #1 PDS suture superficially with 0 PDS suture and skin was closed with skin gregory. The patient was placed in a sterile dressing, and knee brace. The patient was extubated, and then transferred to the recovery room in stable condition. Anesthesia: GETA Surgeon: Romain Fabian Condition: stable Disposition: PACU <Diamodn Licea - Last Filed: 09/17/16 15:09> Procedure: Bone stimulator given - 3 hours per day to Right distal thigh.
[2016-09-17] MEDS: *HR* HYDROmorphone (PF) 1 MG/ML SYRINGE IVP PRN ×2 (14:53→14:58)
[2016-09-17 14:54] LABS: Hematocrit 27.7 % (35.3-44.9); Hemoglobin 8.6 g/dL (11.5-15.4)
--- NOTE | 2016-09-17 15:20 | Anesthesia Evaluation Post Op ---
Date of Encounter: 09/17/16 Time of Encounter: 15:19 - Vital Signs Vital Signs: Vital Signs/O2 Sat/Glucose, Most Current Temp Pulse Resp BP Pulse Ox 09/17/16 15:17 97.8 F 69 13 109/64 95 09/17/16 15:07 69 10 113/66 96 09/17/16 14:57 70 12 112/69 94 09/17/16 14:47 97.7 F 70 15 120/72 95 09/17/16 14:37 69 11 126/59 98 09/17/16 14:27 70 16 121/60 98 09/17/16 14:17 97.2 F L 74 18 114/58 96 - Lungs Lungs: Clear Ascult./Percussion - Airway Airway: Non-obstructed - Cardiovascular Regular Rate - Mental Status Mental Status: Alert & Oriented, Answers Appropriately - Pain Pain Scale: 2 - Nausea Vomiting Nausea Vomiting: Not Present - Hydration Hydration: Ice chips - Discharge PostOp Status: Transfer Patient to floor
[2016-09-17] MEDS ORDERED: Ondansetron 4 MG/2 ML VIAL IVP PRN (15:42)
[2016-09-17] MEDS ORDERED: Acetaminophen 325 MG TABLET PO PRN (15:42)
[2016-09-17] MEDS ORDERED: Benzonatate 100 MG CAPSULE PO PRN (15:42)
[2016-09-17] MEDS ORDERED: *HR* HYDROmorphone (PF) 1 MG/ML SYRINGE IVP PRN (15:42)
[2016-09-17] MEDS ORDERED: ceFAZolin 2,000 MG in D5% in Water 100 ML IVPB SCH (16:00)
[2016-09-17] MEDS: methylPREDNISolone 125 MG/2 ML VIAL IVP SCH (16:27)
[2016-09-18] MEDS ORDERED: Ringers Solution, Lactated 1,000 ML IVC SCH (00:14)
[2016-09-18] MEDS: *HR* OxyCODONE/APAP 10/325 TABLET PO PRN ×2 (03:48→11:22)
[2016-09-18] MEDS: *HR* Heparin 5,000 UNIT/ML VIAL SQ SCH ×3 (04:39→21:36)
[2016-09-18 07:00] LABS: Hematocrit 23.8 % (35.3-44.9); Hemoglobin 7.4 g/dL (11.5-15.4)
[2016-09-18] MEDS: Budesonide/Formoterol 160/4.5 MDI IH SCH ×2 (08:08→21:46)
[2016-09-18] MEDS: methylPREDNISolone 125 MG/2 ML VIAL IVP SCH ×3 (09:02→18:01)
[2016-09-18] MEDS: Azithromycin 250 MG TABLET PO SCH (09:03)
[2016-09-18] MEDS: clonazePAM 1 MG TABLET PO SCH ×3 (09:03→21:35)
[2016-09-18] MEDS: Metoprolol XL (24 HR) Succ 25 MG TAB.ER.24H PO SCH (09:03)
[2016-09-18] MEDS: Celecoxib 200 MG CAPSULE PO SCH ×2 (09:03→21:35)
[2016-09-18] MEDS: Aspirin 81 MG TAB.CHEW PO SCH (09:03)
[2016-09-18] MEDS: Magnesium Oxide 400 MG TABLET PO SCH (09:05)
[2016-09-18] MEDS: Gabapentin 300 MG CAPSULE PO SCH ×3 (09:06→21:35)
[2016-09-18] MEDS: BuPROPion XL (24 HR) 150 MG TABLET PO SCH (09:06)
[2016-09-18] MEDS: Clindamycin 600 MG/50 ML 600 MG/50 ML IV.SOLN IVPB SCH ×2 (09:06)
--- NOTE | 2016-09-18 09:22 | Internal Med Progress Note ---
<Delmis Chavez - Last Filed: 09/18/16 14:00> Date of Encounter: 09/18/16 Time of Encounter: 09:20 - Assessment and plan (1) Fracture of distal femur Current Visit: Yes Status: Acute Assessment and plan: POD#1 Right open reduction internal fixation of femoral shaft fracture with Dr. Fabian Patient suffered fx after fall at home. Post op management per ortho Patien currently in knee brace Plan for inpatient rehab at discharge Plan: -PT/OT per ortho -Post op management per ortho -SW in process of establishing placement at [place], possible bed available thursday/thursday Qualifiers: Encounter type: subsequent encounter Fracture type: closed Fracture morphology: unspecified fracture morphology Laterality: right Fracture healing: with routine healing Qualified Code(s): S72.401D - Unspecified fracture of lower end of right femur, subsequent encounter for closed fracture with routine healing (2) Falls Current Visit: Yes Status: Acute Assessment and plan: Patient reports 7 falls in the last year secondary to "balance issues" and occasional dizziness. Friend reports 4 falls in last month. Patient uses cane and walker at home, although lost her cane. Plan: -PT/OT -Will require rehab stay at discharge Qualifiers: Encounter type: subsequent encounter Qualified Code(s): W19.XXXD - Unspecified fall, subsequent encounter (3) Bronchitis Current Visit: Yes Status: Acute Assessment and plan: On azithromycin from recent diagnosis, increased wheezing today Plan: -Continue azithromycin -Continue Solumedrol -Will add albuterol nebs today -IS Q1 hr while awake (4) Mitral regurgitation Current Visit: Yes Status: Acute Assessment and plan: ECHO 07/2016 shows mild to moderate MR Murmur not appreciated on exam today, although heart sounds are distant (5) Chronic anemia Current Visit: Yes Status: Chronic Assessment and plan: Hgb 7.4 Plan: -Will continue to monitor H/H (6) Diabetes Current Visit: Yes Status: Chronic Assessment and plan: Plan: -Accuchecks ACHS -Continue Low-dose SSI Qualifiers: Diabetes mellitus type: type 2 Diabetes mellitus complication status: without complication Diabetes mellitus correction insulin use: without correction use Qualified Code(s): E11.9 - Type 2 diabetes mellitus without complications (7) Thyroid disease Current Visit: Yes Status: Chronic - Subjective Interval history: Patient seen and examined. She is sitting up in the chair with her breakfast untouched in front of her ordering her lunch. She states that she is angry and in pain. When asked what she is angry about she states "I'm angry at my . It's personal and I don't want to talk about it." She states that her right leg is painful. She notes some wheezing, but denies any CP, abdominal pain or any other complaints. - Constitutional Vitals: Temp Pulse Resp BP Pulse Ox 98 F 83 18 105/68 92 09/18/16 06:44 09/18/16 06:44 09/18/16 08:10 09/18/16 06:44 09/18/16 08:10 General appearance: Present: cooperative, mild distress, A&O X 3, obese, answers questions appropriately - Head Head exam: Present: atraumatic, normocephalic - Neck Neck exam general surgery: Present: trachea midline Additional comments: scar on right anterior neck just lateral to trachea - Respiratory Respiratory exam: Present: wheezes. Absent: accessory muscle use, respiratory distress, tachypnea - Cardiovascular Cardiovascular exam: Present: distant heart sounds, RRR, +S1, +S2. Absent: diastolic murmur, gallop, rubs, systolic murmur - GI/Abdominal GI/Abdominal exam: Present: normal bowel sounds, soft, no peritoneal signs. Absent: distended, tenderness - Extremities Exam Extremities exam: Present: normal capillary refill, radial pulses palpable and symmetrical. Absent: calf tenderness, joint swelling, pedal edema Additional comments: Splint in place right leg, leg wrapped and dressing in place. Leg is neurovascularly intact - Back Exam Additional comments: Scar noted over lower cervical/upper thoracic spine - Neurological Exam Neurological exam: Present: alert, oriented X3, no focal deficits. Absent: facial droop, speech deficit - Psychiatric Psychiatric exam: Present: agitated - Skin Skin exam: Present: dry, intact, normal color, warm. Absent: erythema Internal Medicine: Result - Labs CBC & Chem 7: 09/18/16 05:43 09/17/16 05:31 Labs: Short CBC 09/17/16 09/17/16 09/18/16 Range/Units 09:03 14:44 05:43 Hgb 9.2 L 8.6 L 7.4 L (11.5-15.4) g/dL Hct 29.4 L 27.7 L 23.8 L (35.3-44.9) % - ABG Interpretation ABG results: PT/INR, D-dimer PT 11.6 Seconds (9.4-12.1) 09/16/16 10:30 - Impressions Impressions Femur X-Ray 09/17/16 08:10 IMPRESSION: Expected new changes of internal fixation of the comminuted fracture of the right femoral distal metadiaphysis with near anatomic alignment. D/ / Frederick Caro MD / Frederick Caro MD Interpreting Provider: Frederick Caro MD Fluoroscopy 09/17/16 13:00 IMPRESSION: Intraprocedural fluoroscopic spot images as above. See separate procedure report for more information. D/ / Estelita Lee MD / Estelita Lee MD Interpreting Provider: Estelita Lee MD - VTE Documentation of Mechanical Device: Venous foot pump, device Consult Discharge Plan - Plan Referrals: Tracie Castelan CNP [Primary Care Provider] - Prescriptions: OxyCODONE Immed Rel [Roxicodone 5 MG] 5 - 10 mg PO Q6HR PRN #40 tablet PRN Reason: Pain Aspirin Enteric Coated [Aspirin EC] 325 mg PO DAILY #21 tablet.Johnny Cooney - Last Filed: 09/18/16 17:39> Date of Encounter: 09/18/16 - Assessment and plan (1) Anemia, posthemorrhagic, acute Current Visit: Yes Status: Acute (2) Asthmatic bronchitis with acute exacerbation Current Visit: Yes Status: Acute Qualifiers: Asthma severity: mild intermittent Qualified Code(s): J45.21 - Mild intermittent asthma with (acute) exacerbation (3) Acute bronchitis Current Visit: Yes Status: Acute Qualifiers: Bronchitis organism: other organism Qualified Code(s): J20.8 - Acute bronchitis due to other specified organisms (4) Fracture of distal femur Current Visit: Yes Status: Acute Qualifiers: Encounter type: subsequent encounter Fracture type: closed Fracture morphology: unspecified fracture morphology Laterality: right Fracture healing: with routine healing Qualified Code(s): S72.401D - Unspecified fracture of lower end of right femur, subsequent encounter for closed fracture with routine healing (5) Mitral regurgitation Current Visit: Yes Status: Acute Qualifiers: Cardiac valve disease etiology: etiology unspecified Qualified Code(s): I34.0 - Nonrheumatic mitral (valve) insufficiency (6) Falls Current Visit: Yes Status: Acute Qualifiers: Encounter type: subsequent encounter Qualified Code(s): W19.XXXD - Unspecified fall, subsequent encounter (7) Diabetes Current Visit: Yes Status: Chronic Qualifiers: Diabetes mellitus type: type 2 Diabetes mellitus complication status: without complication Diabetes mellitus extermination inspector insulin use: without correction use Qualified Code(s): E11.9 - Type 2 diabetes mellitus without complications - Constitutional Vitals: Temp Pulse Resp BP Pulse Ox 98.6 F 88 18 96/63 88 09/18/16 15:17 09/18/16 15:17 09/18/16 15:17 09/18/16 15:17 09/18/16 15:17 Internal Medicine: Result - Labs CBC & Chem 7: 09/18/16 05:43 09/17/16 05:31 Labs: Short CBC 09/18/16 Range/Units 05:43 Hgb 7.4 L (11.5-15.4) g/dL Hct 23.8 L (35.3-44.9) % - ABG Interpretation ABG results: PT/INR, D-dimer PT 11.6 Seconds (9.4-12.1) 09/16/16 10:30 - Attending Attestation I examined this patient and my medical decision-making was reviewed with the Resident Physician on 09/18/16. I agree with the documented findings, disposition and treatment plan as described except to the extent set forth below. Ms Chen is currently admitted for acute R distal femur fracture s/p orif. She remains moderate to high risk due to risk of post op complications. She is in need of blood today. Ms Chen is having some pain. She is upset with her and won't talk much. No fever or chills. No GI issues. To receive blood today. Exam Alert. Comfortable Mucus membranes dry Heart reg with murmur Lungs clear Abd soft I/P 1. Fracture R distal femur 2. Posthemorrhagic anemia Further diagnoses and plan as above.
[2016-09-18] MEDS: Albuterol 2.5 MG/3 ML NEBULIZER IH SCH ×3 (10:34→21:46)
[2016-09-18] MEDS ORDERED: 0.9 % Sodium Chloride 250 ML ONE (12:00)
--- NOTE | 2016-09-18 12:21 | Orthopedics Progress Note ---
Date of Encounter: 09/18/16 Time of Encounter: 07:45 - Assessment and Plan (1) Fracture of distal femur Current Visit: Yes Status: Acute POD#1 Right Distal Femur ORIF 09/17/16 - Patient doing well, A&O in bed. Pain controlled. Vitals stable. Afebrile. H/H - 7.9 - plan to transfuse 2 units today. Plan: Tranfuse 2 units today. RLE: NWB, in knee immobilizer x 6 weeks with no knee flexion Bone stimulator use 3 hours/day - complaining of burning during use, if this happens today will ask bracing to come to evaluate. D/C to ECF likely today or tomorrow* pending Auth Qualifiers: Encounter type: subsequent encounter Fracture type: closed Fracture morphology: unspecified fracture morphology Laterality: right Fracture healing: with routine healing Qualified Code(s): S72.401D - Unspecified fracture of lower end of right femur, subsequent encounter for closed fracture with routine healing Subjective Principal diagnosis: Right Femur Fracture Interval history: POD#1 Right Distal Femur ORIF 09/17/16 - Patient doing well, A&O in bed. Pain controlled. Vitals stable. Afebrile. H/H - 7.9 - plan to transfuse 2 units today. RLE: Minimal swelling, no erythema or ecchymosis noted. No calf tenderness or warmth noted. ROM limited. NV intact distally. Plan: Tranfuse 2 units today. RLE: NWB, in knee immobilizer x 6 weeks with no knee flexion Bone stimulator use 3 hours/day - complaining of burning during use, if this happens today will ask bracing to come to evaluate. D/C to ECF likely today or tomorrow* pending Auth Objective Vital signs: Vital Signs Temp Pulse Resp BP Pulse Ox 09/18/16 12:11 98.3 F 91 15 97/62 93 09/18/16 10:14 97.8 F 76 16 108/56 95 09/18/16 08:10 18 92 09/18/16 06:44 98 F 83 16 105/68 94 09/18/16 04:42 16 92 09/18/16 03:44 97.8 F 79 18 102/63 93 09/17/16 23:25 98.0 F 66 109/71 94 09/17/16 21:48 16 91 09/17/16 19:02 97.9 F 66 107/65 96 09/17/16 18:19 98.3 F 67 14 101/69 96 09/17/16 17:40 98.3 F 74 15 109/70 99 09/17/16 16:34 97.6 F 72 14 101/57 94 09/17/16 16:12 97.9 F 76 15 114/66 93 09/17/16 15:43 98.1 F 74 16 117/62 95 09/17/16 15:27 97.8 F 72 19 118/77 95 09/17/16 15:17 97.8 F 69 13 109/64 95 09/17/16 15:07 69 10 113/66 96 09/17/16 14:57 70 12 112/69 94 09/17/16 14:47 97.7 F 70 15 120/72 95 09/17/16 14:37 69 11 126/59 98 09/17/16 14:27 70 16 121/60 98 09/17/16 14:17 97.2 F L 74 18 114/58 96 Intake and Output 09/17/16 09/18/16 09/18/16 23:59 07:59 15:59 Intake Total 400 / 400 120 / 120 Output Total 250 / 250 425 / 425 Balance -250 / -250 -25 / -25 120 / 120 Intake: IV Fluids 50 / 50 Cleocin Premix 600 MG/50 50 / 50 ML 600 mg In 50 ml @ 50 mls/hr IVPB Q8HR [facility] Rx#: [id number] Oral 350 / 350 120 / 120 Blood Product 0 / 0 Rbcs Leuko Poor As-1 0 / 0 Unit [id number] Output: Urine 250 / 250 425 / 425 Other: Meal Breakfast Percent of Meal Consumed 50% Weight 82.6 kg Blood Glucose* 145 Patient Weight 09/18/16 23:59 Weight 82.6 kg Incision: clean and dry - Labs CBC & BMP: 09/18/16 05:43 09/17/16 05:31 Labs: Abnormal lab results RBC 3.63 M/mcL (3.82-4.97) L 09/17/16 05:31 Hgb 7.4 g/dL (11.5-15.4) L 09/18/16 05:43 Hct 23.8 % (35.3-44.9) L 09/18/16 05:43 MCH 27.0 pg (28.0-33.3) L 09/17/16 05:31 MCHC 30.8 g/dL (31.6-35.5) L 09/17/16 05:31 RDW 16.4 % (11.5-14.5) H 09/17/16 05:31 Reactive Lymphocytes Present (Not Present) A 09/17/16 05:31 Hypochromasia Present (Not Present) A 09/17/16 05:31 Est GFR (Non-Af Amer) 59 (> 60) L 09/17/16 05:31 Calcium 8.4 mg/dL (8.6-10.8) L 09/17/16 05:31 Albumin 2.9 g/dL (3.5-5.0) L 09/16/16 10:30 Globulin 3.6 g/dL (2.4-3.5) H 09/16/16 10:30 Albumin/Globulin Ratio 0.8 (1.1-2.2) L 09/16/16 10:30 - VTE Documentation of Mechanical Device: Venous foot pump, device Consult Discharge Plan - Plan Referrals: Tracie Castelan, HUGH [Primary Care Provider] - Prescriptions: OxyCODONE Immed Rel [Roxicodone 5 MG] 5 - 10 mg PO Q6HR PRN #40 tablet PRN Reason: Pain Aspirin Enteric Coated [Aspirin EC] 325 mg PO DAILY #21 tablet.
[2016-09-18] MEDS ORDERED: 0.9 % Sodium Chloride 500 ML ONE (15:00)
[2016-09-19] MEDS ORDERED: Diphenoxylate/Atropine 1 TAB TABLET PO STA (01:38)
[2016-09-19] MEDS: methylPREDNISolone 125 MG/2 ML VIAL IVP SCH ×2 (01:45→08:55)
[2016-09-19] MEDS: Albuterol 2.5 MG/3 ML NEBULIZER IH SCH ×2 (04:00→07:37)
[2016-09-19] MEDS: *HR* Heparin 5,000 UNIT/ML VIAL SQ SCH (06:23)
[2016-09-19] MEDS: *HR* OxyCODONE/APAP 10/325 TABLET PO PRN (06:26)
[2016-09-19 06:39] LABS: Hematocrit 28.9 % (35.3-44.9); Hemoglobin 9.6 g/dL (11.5-15.4)
[2016-09-19] MEDS: Budesonide/Formoterol 160/4.5 MDI IH SCH (07:38)
--- NOTE | 2016-09-19 08:33 | Internal Med Progress Note ---
Date of Encounter: 09/19/16 Time of Encounter: 08:30 - Assessment and plan (1) Fracture of distal femur Current Visit: Yes Status: Acute Assessment and plan: POD#2 Right open reduction internal fixation of femoral shaft fracture with Dr. Fabian Patient suffered fx after fall at home. Post op management per ortho Patien currently in knee brace Plan for inpatient rehab at discharge Received 2 units PRBCs yesterday, Hgb 9.6 Plan: -PT/OT per ortho -Post op management per ortho -SW in process of establishing placement at [facility], possible bed available thursday/thursday (2) Falls Current Visit: Yes Status: Acute Assessment and plan: Patient reports 7 falls in the last year secondary to "balance issues" and occasional dizziness. Friend reports 4 falls in last month. Patient uses cane and walker at home, although lost her cane. Plan: -PT/OT -Will require rehab stay at discharge Qualifiers: Encounter type: subsequent encounter Qualified Code(s): W19.XXXD - Unspecified fall, subsequent encounter (3) Bronchitis Current Visit: Yes Status: Acute Assessment and plan: On azithromycin from recent diagnosis, wheezing improved but patient complains of anterior wheezing rhonchi on exam Encouraged pt to utilize IS every hour as she states she is only using it 4 times per day Plan: -Stop IVF -Continue azithromycin, last dose is today -Continue Solumedrol -Will add albuterol nebs today -IS Q1 hr while awake (4) Mitral regurgitation Current Visit: Yes Status: Acute Assessment and plan: ECHO 07/2016 shows mild to moderate MR Murmur not appreciated on exam today, although heart sounds are distant Qualifiers: Cardiac valve disease etiology: etiology unspecified (5) Chronic anemia Current Visit: Yes Status: Chronic Assessment and plan: Hgb 9.6 today after 2 units PRBCs yesterda Plan: -Will continue to monitor H/H (6) Diabetes Current Visit: Yes Status: Chronic Assessment and plan: Plan: -Accuchecks ACHS -Continue Low-dose SSI Qualifiers: Diabetes mellitus type: type 2 Diabetes mellitus complication status: without complication Diabetes mellitus fdc insulin use: without intermediate school teacher use Qualified Code(s): E11.9 - Type 2 diabetes mellitus without complications (7) Thyroid disease Current Visit: Yes Status: Chronic - Subjective Interval history: Patient seen and examined. She is lying in bed eating vanilla wafers. She states that her leg pain is 7/10. She asks if we are going to do anything about her wheezing. I discussed that she has been on antibiotics, steroids and nebs for her bronchitis. She states that before she got a shot and it was better. She states that these meds don't seem to be doing anything and that she is wheezing anteriorly with a cough. - Constitutional Vitals: Temp Pulse Resp BP Pulse Ox 98.6 F 82 16 126/75 97 09/19/16 07:09 09/19/16 07:09 09/19/16 07:39 09/19/16 07:09 09/19/16 07:39 General appearance: Present: cooperative, mild distress, A&O X 3, obese, answers questions appropriately - Head Head exam: Present: atraumatic, normocephalic - Eye Eye exam: Present: EOMI, PERRL, conjuntiva pink, sclera anicteric Pupils: Present: PERRL - Neck Neck exam general surgery: Present: supple, trachea midline Additional comments: scar on right anterior neck just lateral to trachea - Respiratory Respiratory exam: Present: rhonchi. Absent: accessory muscle use, respiratory distress, wheezes, tachypnea - Cardiovascular Cardiovascular exam: Present: distant heart sounds, RRR, +S1, +S2. Absent: diastolic murmur, gallop, rubs, systolic murmur - GI/Abdominal GI/Abdominal exam: Present: normal bowel sounds, soft, no peritoneal signs. Absent: distended, tenderness - Extremities Exam Extremities exam: Present: normal capillary refill, warm, radial pulses palpable and symmetrical. Absent: calf tenderness, cyanotic, pedal edema Additional comments: Splint in place right leg, leg wrapped and dressing in place. Leg is neurovascularly intact - Back Exam Additional comments: Scar noted over lower cervical/upper thoracic spine - Neurological Exam Neurological exam: Present: oriented X3, no focal deficits. Absent: pronater drift, facial droop, speech deficit - Psychiatric Psychiatric exam: Present: agitated - Skin Skin exam: Present: dry, intact Internal Medicine: Result - Labs CBC & Chem 7: 09/19/16 05:59 09/17/16 05:31 Labs: Short CBC 09/19/16 Range/Units 05:59 Hgb 9.6 L D (11.5-15.4) g/dL Hct 28.9 L (35.3-44.9) % - ABG Interpretation ABG results: PT/INR, D-dimer PT 11.6 Seconds (9.4-12.1) 09/16/16 10:30 - VTE Documentation of Mechanical Device: Venous foot pump, device Consult Discharge Plan - Plan Referrals: Tracie Castelan, [employer] MANAGER [Primary Care Provider] - Prescriptions: OxyCODONE Immed Rel [Roxicodone 5 MG] 5 - 10 mg PO Q6HR PRN #40 tablet PRN Reason: Pain Aspirin Enteric Coated [Aspirin EC] 325 mg PO DAILY #21 tablet.
[2016-09-19] MEDS: Celecoxib 200 MG CAPSULE PO SCH (08:54)
[2016-09-19] MEDS: Azithromycin 250 MG TABLET PO SCH (08:54)
[2016-09-19] MEDS: Magnesium Oxide 400 MG TABLET PO SCH (08:54)
[2016-09-19] MEDS: Aspirin 81 MG TAB.CHEW PO SCH (08:54)
[2016-09-19] MEDS: Metoprolol XL (24 HR) Succ 25 MG TAB.ER.24H PO SCH (08:55)
[2016-09-19] MEDS: clonazePAM 1 MG TABLET PO SCH (08:55)
[2016-09-19] MEDS: Gabapentin 300 MG CAPSULE PO SCH (08:55)
[2016-09-19] MEDS: BuPROPion XL (24 HR) 150 MG TABLET PO SCH (08:55)
--- NOTE | 2016-09-19 08:58 | Discharge Summary ---
<Delmis Chavez - Last Filed: 09/19/16 13:42> Date of Encounter: 09/19/16 Time of Encounter: 08:46 - Discharge Diagnosis (1) Fracture of distal femur Priority: Primary Status: Acute Qualifiers: Encounter type: subsequent encounter Fracture type: closed Fracture morphology: unspecified fracture morphology Laterality: right Fracture healing: with routine healing Qualified Code(s): S72.401D - Unspecified fracture of lower end of right femur, subsequent encounter for closed fracture with routine healing (2) Falls Priority: Primary Status: Acute Qualifiers: Encounter type: subsequent encounter Qualified Code(s): W19.XXXD - Unspecified fall, subsequent encounter (3) Bronchitis Priority: Secondary Status: Acute (4) Mitral regurgitation Priority: Primary Status: Acute (5) Chronic anemia Priority: Primary Status: Chronic (6) Diabetes Priority: Primary Status: Chronic Qualifiers: Diabetes mellitus type: type 2 Diabetes mellitus complication status: without complication Diabetes mellitus detention insulin use: without detention use Qualified Code(s): E11.9 - Type 2 diabetes mellitus without complications (7) Thyroid disease Priority: Secondary Status: Chronic - Discharge Medications Prescriptions: OxyCODONE Immed Rel [Roxicodone 5 MG] 5 - 10 mg PO Q6HR PRN #40 tablet PRN Reason: Pain Aspirin Enteric Coated [Aspirin EC] 325 mg PO DAILY #21 tablet.dr clonazePAM [Klonopin] 1 mg PO TID #21 tab Cyclobenzaprine [Flexeril] 10 mg PO TID #15 tab Gabapentin [Neurontin] 300 mg PO TID #21 Insulin ASPART [Novolog Flexpen] 100 unit SQ ACHS #1 insuln.pen Insulin DETEMIR [Levemir] 5 unit SQ HS #1 vial PredniSONE [Deltasone] 40 mg PO DAILY #10 tablet Home Medications: Citalopram [CeleXA] 20 mg PO DAILY 02/06/15 [History] Albuterol Sulfate [Albuterol Inhaler] 2 - 4 puff IH Q4HR PRN #1 hfa.aer.ad 03/09 [Rx] Alendronate Sodium [Fosamax] 70 mg PO QWEEK 07/07/16 [History] Celecoxib [Celebrex] 200 mg PO BID 07/07/16 [History] Fluticasone/Salmeterol [Advair 500-50 Diskus] 1 puff IH BID 07/07/16 [History] Levothyroxine [Synthroid] 100 mcg PO DAILY 07/07/16 [History] Omeprazole 20 mg PO DAILY 07/07/16 [History] Acetaminophen [Tylenol] 650 mg PO Q6HR PRN #0 tablet 08/01/16 [Rx] Aspirin 81 mg PO DAILY tab.chew 08/01/16 [Rx] Docusate [Colace] 100 mg PO BID PRN #0 capsule 08/01/16 [Rx] Metoprolol XL (24 HR) Succ [Toprol Xl] 25 mg PO DAILY tab.er.24h 08/01/16 [Rx] Benzonatate [Tessalon] 200 mg PO TID PRN #30 capsule 09/15/16 [Rx] GuaiFENesin ER [Mucinex] 1,200 mg PO BID #20 tbbp.12hr 09/15/16 [Rx] Bupropion HCl [Wellbutrin Xl] 300 mg PO QAM 09/16/16 [History] Diphenhydramine HCl [Allergy Relief] 25 mg PO DAILY PRN 09/16/16 [History] Ferrous Sulfate [Iron] 325 mg PO BID 09/16/16 [History] Magnesium Oxide [Mgo] 400 mg PO DAILY 09/16/16 [History] OxyCODONE/APAP 10/325 [Percocet 10/325 MG] 1 tab PO Q6HR PRN 09/16/16 [History] Aspirin Enteric Coated [Aspirin EC] 325 mg PO DAILY #21 tablet. 09/17/16 [Rx] OxyCODONE Immed Rel [Roxicodone 5 MG] 5 - 10 mg PO Q6HR PRN #40 tablet 09/17/16 [Rx] Acetaminophen [Tylenol] 650 mg PO Q6HR PRN tab 09/19/16 [Rx] Cyclobenzaprine [Flexeril] 10 mg PO TID #15 tab 09/19/16 [Rx] Gabapentin [Neurontin] 300 mg PO TID #21 09/19/16 [Rx] Insulin ASPART [Novolog Flexpen] 100 unit SQ ACHS #1 insuln.pen 09/19/16 [Rx] Insulin DETEMIR [Levemir] 5 unit SQ HS #1 vial 09/19/16 [Rx] PredniSONE [Deltasone] 40 mg PO DAILY #10 tablet 09/19/16 [Rx] clonazePAM [Klonopin] 1 mg PO TID #21 tab 09/19/16 [Rx] Allergies/Adverse Reactions: Allergies codeine Allergy (Verified 07/27/16 06:34) Swelling of Lip/Tongue/Throat Medroxyprogesterone [From Provera] Allergy (Verified 07/27/16 06:34) Swelling of Lip/Tongue/Throat Penicillins Allergy (Verified 07/27/16 06:34) Rash Date of admission: 09/16/16 12:05 Primary care physician: Tracie Castelan CNP Consults: 09/17/16 15:42 Consult to Orthopedic Navigator [CONS] [CONS] Routine Consult to Physical Therapy [CONS] Routine Comment: Evaluate, develop and implement POC Reason for Consult: non weight bearing right LE RT Post Op Consult [CONS] Routine 09/18/16 09:24 Consult to Occupational Therapy [CONS] Routine Comment: Evaluate, develop and implement POC Reason for Consult: post op therapy Discharging clinician: Johnny Cook Anticipated date of discharge: 09/19/16 - Patient Status Disposition: Transfer Inpatient Rehab Fac Condition: Fair Functional capacity at discharge: uses cane/walker Overall status at discharge: patient is progressing back to baseline - Discharge Instructions Follow Up With: Romain Fabian MD [Partnered Physician] - Diamond Licea PAC [Physician Curb Machine Operator] - 10/02/16 3:00 pm Tracie Castelan CNP [Primary Care Provider] - Additional Instructions: Right Distal Femur ORIF 09/17/16 - Plan: RLE: NWB, in knee immobilizer x 6 weeks with no knee flexion Bone stimulator use 3 hours/day - complaining of burning during use, if this happens today will ask bracing to come to evaluate. Opsite dressing, leave intact until first post-operative visit. Apply BRENNA wrap and ABD pads for protection If dressing becomes >50% saturated, contact office, remove dressing and place appropriate dressing in its place. Do not allow for dressing to get wet. [place] in place, plan to remove at post-operative day #14-16. No knee ROM, locked in extension. Wear T-Scope brace x 6 weeks. Apply cold therapy wrap 3-6x/day for 20 minutes at a time. Encourage ambulation throughout the day Use Incentive spirometer 10x/hour. Elevate affected extremity above heart as tolerated. D/C to ECF likely today - Diet and Activity Activity: as per physical therapy Diet: advance to your usual diet Interval History: Patient seen and examined. She is lying in bed eating vanilla wafers. She states that her leg pain is 7/10. She asks if we are going to do anything about her wheezing. I discussed that she has been on antibiotics, steroids and nebs for her bronchitis. She states that before she got a shot and it was better. She states that these meds don't seem to be doing anything and that she is wheezing anteriorly with a cough. She notes she is not using her IS more than 4 times per day. Discussed that she needs to use this every hour. Hospital course: Ms. Chen is a 61 year old female who presented to [facility] ED after a fall resulting in a fracture of her left femur. The patient has a history of falls, 7 in the last year and 4 in the last month. She denied syncopal symptoms, neurological symptoms. She states she was getting out of bed and fell. She does use a walker at home and a cane, although she has lost her cane. She states her falls are secondary to balance issues she has after a back surgery. 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 She had surgery with Dr. Fabian 09/16. She had some increased wheezing after surgery and has been on albuterol nebs and solumedrol. The patient is rhonchorous on exam today, states she is only using her IS 4 times per day. Encouraged use every hour and to get up with PT. Will discharge patient on 5 day prednisone 40mg daily burst. She has completed her course of abx. Patient tolerated the surgery well and is in a knee brace, neurovascularly intact. Will be discharged to [facility] for inpatient rehab pending bed placement today or tomorrow in stable condition. - Time Spent with Patient Total time spent providing and/or coordinating discharge services: - Constitutional Vitals: Temp Pulse Resp BP Pulse Ox 98.6 F 82 16 126/75 97 09/19/16 07:09 09/19/16 07:09 09/19/16 07:39 09/19/16 07:09 09/19/16 07:39 General appearance: Present: cooperative, mild distress, A&O X 3, obese, answers questions appropriately - Head Head exam: Present: atraumatic, normocephalic - Neck Neck exam general surgery: Present: supple, trachea midline - Respiratory Respiratory exam: Present: rhonchi (at the b/l bases and anteriorly). Absent: accessory muscle use, rales, respiratory distress, wheezes, tachypnea - Cardiovascular Cardiovascular exam: Present: distant heart sounds, RRR, +S1, +S2. Absent: diastolic murmur, gallop, rubs, systolic murmur - GI/Abdominal GI/Abdominal exam: Present: normal bowel sounds, soft, no peritoneal signs. Absent: distended, tenderness - Extremities Exam Extremities exam: Present: warm, radial pulses palpable and symmetrical. Absent : calf tenderness, cyanotic, pedal edema Additional comments: knee brace in place on the right. Neurovascularly intact. - Neurological Exam Neurological exam: Present: oriented X3, no focal deficits. Absent: facial droop, speech deficit - Psychiatric Psychiatric exam: Present: agitated - Skin Skin exam: Present: dry, intact - VTE Documentation of Mechanical Device: Venous foot pump, device <Johnny Cook - Last Filed: 09/19/16 18:18> Date of Encounter: 09/19/16 - Discharge Diagnosis (1) Fracture of distal femur Status: Acute Qualifiers: Encounter type: subsequent encounter Fracture type: closed Fracture morphology: unspecified fracture morphology Laterality: right Fracture healing: with routine healing Qualified Code(s): S72.401D - Unspecified fracture of lower end of right femur, subsequent encounter for closed fracture with routine healing (2) Anemia, posthemorrhagic, acute Priority: Secondary Status: Acute (3) Asthmatic bronchitis with acute exacerbation Priority: Secondary Status: Acute Qualifiers: Asthma severity: mild intermittent Qualified Code(s): J45.21 - Mild intermittent asthma with (acute) exacerbation (4) Acute bronchitis Priority: Secondary Status: Acute Qualifiers: Bronchitis organism: other organism Qualified Code(s): J20.8 - Acute bronchitis due to other specified organisms (5) Mitral regurgitation Status: Acute Qualifiers: Cardiac valve disease etiology: etiology unspecified Qualified Code(s): I34.0 - Nonrheumatic mitral (valve) insufficiency (6) Falls Status: Acute Qualifiers: Encounter type: subsequent encounter Qualified Code(s): W19.XXXD - Unspecified fall, subsequent encounter (7) Diabetes Status: Chronic Qualifiers: Diabetes mellitus type: type 2 Diabetes mellitus complication status: without complication Diabetes mellitus intermediate manager insulin use: without intermediate manager use Qualified Code(s): E11.9 - Type 2 diabetes mellitus without complications Date of admission: 09/16/16 12:05 Primary care physician: Tracie Castelan CNP Consults: 09/17/16 15:42 Consult to Orthopedic Navigator [CONS] [CONS] Routine Consult to Physical Therapy [CONS] Routine Comment: Evaluate, develop and implement POC Reason for Consult: non weight bearing right LE RT Post Op Consult [CONS] Routine 09/18/16 09:24 Consult to Occupational Therapy [CONS] Routine Comment: Evaluate, develop and implement POC Reason for Consult: post op therapy Hospital course: Ms. Chen is a 61 year old female - Time Spent with Patient Total time spent providing and/or coordinating discharge services:37min - Constitutional Vitals: Temp Pulse Resp BP Pulse Ox 97.5 F L 77 18 127/64 92 09/19/16 11:08 09/19/16 11:08 09/19/16 11:08 09/19/16 11:08 09/19/16 11:08 - Attending Attestation I examined this patient and my medical decision-making was reviewed with the Resident Physician on 09/19/16. I agree with the documented findings, disposition and treatment plan as described except to the extent set forth below. Ms Chen was admitted for acute R distal femur fracture. She was taken to OR for ORIF. She is now afebrile with stable vitals and ready for discharge to rehab. Exam Alert. Comfortable Mucus membranes dry Heart reg Lungs with scattered rhonchi - clear with cough Plan D/C to SNF today Complete steroids/abx Follow up as arranged.
--- NOTE | 2016-09-19 09:09 | Physician Discharge Referral ---
ExtendedCare Referral Info Transfer To: [facility] Provider in Charge after Transfer: PCP Institutional Level of Care: Skilled - Diagnosis (1) Fracture of distal femur Priority: Primary Status: Acute (2) Falls Priority: Primary Status: Acute (3) Bronchitis Priority: Primary Status: Acute (4) Mitral regurgitation Priority: Primary Status: Acute (5) Chronic anemia Priority: Primary Status: Chronic (6) Diabetes Priority: Primary Status: Chronic (7) Thyroid disease Priority: Primary Status: Chronic Prognosis: Good Aware of Diagnosis: Patient Aware of Prognosis: Patient - Transfer Medications Prescriptions: OxyCODONE Immed Rel [Roxicodone 5 MG] 5 - 10 mg PO Q6HR PRN #40 tablet PRN Reason: Pain Aspirin Enteric Coated [Aspirin EC] 325 mg PO DAILY #21 tablet. Cyclobenzaprine [Flexeril] 10 mg PO TID #15 tab PredniSONE [Deltasone] 40 mg PO DAILY #10 tablet Home Medications: Citalopram [CeleXA] 20 mg PO DAILY 02/06/15 [History] Albuterol Sulfate [Albuterol Inhaler] 2 - 4 puff IH Q4HR PRN #1 hfa.aer.ad 03/09 [Rx] Alendronate Sodium [Fosamax] 70 mg PO QWEEK 07/07/16 [History] Celecoxib [Celebrex] 200 mg PO BID 07/07/16 [History] Fluticasone/Salmeterol [Advair 500-50 Diskus] 1 puff IH BID 07/07/16 [History] Levothyroxine [Synthroid] 100 mcg PO DAILY 07/07/16 [History] Omeprazole 20 mg PO DAILY 07/07/16 [History] clonazePAM [Klonopin] 1 mg PO TID 07/07/16 [History] Gabapentin [Neurontin] 300 mg PO TID 07/27/16 [History] Acetaminophen [Tylenol] 650 mg PO Q6HR PRN #0 tablet 08/01/16 [Rx] Aspirin 81 mg PO DAILY tab.chew 08/01/16 [Rx] Docusate [Colace] 100 mg PO BID PRN #0 capsule 08/01/16 [Rx] Metoprolol XL (24 HR) Succ [Toprol Xl] 25 mg PO DAILY tab.er.24h 08/01/16 [Rx] Benzonatate [Tessalon] 200 mg PO TID PRN #30 capsule 09/15/16 [Rx] GuaiFENesin ER [Mucinex] 1,200 mg PO BID #20 tbbp.12hr 09/15/16 [Rx] Bupropion HCl [Wellbutrin Xl] 300 mg PO QAM 09/16/16 [History] Diphenhydramine HCl [Allergy Relief] 25 mg PO DAILY PRN 09/16/16 [History] Ferrous Sulfate [Iron] 325 mg PO BID 09/16/16 [History] Magnesium Oxide [Mgo] 400 mg PO DAILY 09/16/16 [History] OxyCODONE/APAP 10/325 [Percocet 10/325 MG] 1 tab PO Q6HR PRN 09/16/16 [History] Aspirin Enteric Coated [Aspirin EC] 325 mg PO DAILY #21 tablet.dr 09/17/16 [Rx] OxyCODONE Immed Rel [Roxicodone 5 MG] 5 - 10 mg PO Q6HR PRN #40 tablet 09/17/16 [Rx] Acetaminophen [Tylenol] 650 mg PO Q6HR PRN tab 09/19/16 [Rx] Cyclobenzaprine [Flexeril] 10 mg PO TID #15 tab 09/19/16 [Rx] PredniSONE [Deltasone] 40 mg PO DAILY #10 tablet 09/19/16 [Rx] Allergies/Adverse Reactions: Allergies codeine Allergy (Verified 07/27/16 06:34) Swelling of Lip/Tongue/Throat Medroxyprogesterone [From Provera] Allergy (Verified 07/27/16 06:34) Swelling of Lip/Tongue/Throat Penicillins Allergy (Verified 07/27/16 06:34) Rash - Respiratory Orders Smoking Cessation: Smoking cessation has been advised. For more information, call the [place] Tobacco Quit Line at 1-597-WSRO-NOW. - Advance Directives Code Status: Full Code - Mobility Orders Chair, Ambulate - Rehabiliation Orders Rehab Potential: Good Rehab Orders: Evaluation for Physical Therapy, Evaluation for Occupational Therapy - Diet Orders Cardiac CERTIFICATION: I certify that the transfer of the above named patient to an Extended Care Facility is necessary for the continuing treatment of the diagnosis listed. The above information is true and accurate reflection of patient's current condition. Confidential - Redisclosure prohibited without a patient's written consent.
[2016-09-19 11:10] VITALS: BP 127/64
--- NOTE | 2016-09-19 11:10 | Orthopedics Progress Note ---
Date of Encounter: 09/19/16 Time of Encounter: 11:08 - Assessment and Plan (1) Fracture of distal femur Current Visit: Yes Status: Acute POD#2 Right Distal Femur ORIF 09/17/16 - Patient doing well, A&O in bed. Pain controlled. Vitals stable. Afebrile. H/H - 9.6/28.9 - 2 units given 09/18. RLE: Minimal swelling, no erythema or ecchymosis noted. No calf tenderness or warmth noted. ROM limited. NV intact distally. Plan: RLE: NWB, in knee immobilizer x 6 weeks with no knee flexion Bone stimulator use 3 hours/day - complaining of burning during use, if this happens today will ask bracing to come to evaluate. D/C to ECF likely today Qualifiers: Encounter type: subsequent encounter Fracture type: closed Fracture morphology: unspecified fracture morphology Laterality: right Fracture healing: with routine healing Qualified Code(s): S72.401D - Unspecified fracture of lower end of right femur, subsequent encounter for closed fracture with routine healing Subjective Principal diagnosis: Right Femur Fracture Interval history: POD#2 Right Distal Femur ORIF 09/17/16 - Patient doing well, A&O in bed. Pain controlled. Vitals stable. Afebrile. H/H - 9.6/28.9 - 2 units given 09/18. RLE: Minimal swelling, no erythema or ecchymosis noted. No calf tenderness or warmth noted. ROM limited. NV intact distally. Plan: RLE: NWB, in knee immobilizer x 6 weeks with no knee flexion Bone stimulator use 3 hours/day - complaining of burning during use, if this happens today will ask bracing to come to evaluate. D/C to ECF likely today Objective Vital signs: Vital Signs Temp Pulse Resp BP Pulse Ox 09/19/16 07:39 16 97 09/19/16 07:09 98.6 F 82 18 126/75 96 09/19/16 05:14 98.2 F 83 17 119/85 95 09/19/16 04:00 18 89 09/19/16 00:57 99.4 F 94 20 122/77 93 09/18/16 22:34 99.1 F 98 19 136/79 90 09/18/16 21:48 18 88 09/18/16 17:58 99.8 F H 82 18 101/68 09/18/16 15:17 98.6 F 88 18 96/63 88 09/18/16 15:07 98.7 F 87 18 91/53 86 09/18/16 14:32 94 09/18/16 13:18 91 14 104/64 94 09/18/16 12:26 99.0 F 91 14 104/64 94 09/18/16 12:11 98.3 F 91 15 97/62 93 Intake and Output 09/18/16 09/19/16 09/19/16 23:59 07:59 15:59 Intake Total 550 / 550 120 / 120 Balance 550 / 550 120 / 120 Intake: Oral 200 / 200 120 / 120 Blood Product 350 / 350 Rbcs Leuko Poor As-1 350 / 350 Unit [id number] Other: Meal Breakfast Percent of Meal Consumed 90% Stool Size Large Large Small Stool Consistency loose loose soft Stool Characteristics Mucoid Mucoid Normal for Patient Stool Color Brown Brown Brown # Voids 1 # Urine Diapers 2 2 # Bowel Movements 1 # Bowel Movement Diapers 2 3 Incision: clean and dry - Labs CBC & BMP: 09/19/16 05:59 09/17/16 05:31 Labs: Abnormal lab results RBC 3.63 M/mcL (3.82-4.97) L 09/17/16 05:31 Hgb 9.6 g/dL (11.5-15.4) L D 09/19/16 05:59 Hct 28.9 % (35.3-44.9) L 09/19/16 05:59 MCH 27.0 pg (28.0-33.3) L 09/17/16 05:31 MCHC 30.8 g/dL (31.6-35.5) L 09/17/16 05:31 RDW 16.4 % (11.5-14.5) H 09/17/16 05:31 Reactive Lymphocytes Present (Not Present) A 09/17/16 05:31 Hypochromasia Present (Not Present) A 09/17/16 05:31 Est GFR (Non-Af Amer) 59 (> 60) L 09/17/16 05:31 Calcium 8.4 mg/dL (8.6-10.8) L 09/17/16 05:31 Albumin 2.9 g/dL (3.5-5.0) L 09/16/16 10:30 Globulin 3.6 g/dL (2.4-3.5) H 09/16/16 10:30 Albumin/Globulin Ratio 0.8 (1.1-2.2) L 09/16/16 10:30 - VTE Documentation of Mechanical Device: Venous foot pump, device Consult Discharge Plan - Plan Additional Instructions: Right Distal Femur ORIF 09/17/16 - Plan: RLE: NWB, in knee immobilizer x 6 weeks with no knee flexion Bone stimulator use 3 hours/day - complaining of burning during use, if this happens today will ask bracing to come to evaluate. Opsite dressing, leave intact until first post-operative visit. Apply BRENNA wrap and ABD pads for protection If dressing becomes >50% saturated, contact office, remove dressing and place appropriate dressing in its place. Do not allow for dressing to get wet. Lida in place, plan to remove at post-operative day #14-16. No knee ROM, locked in extension. Wear T-Scope brace x 6 weeks. Apply cold therapy wrap 3-6x/day for 20 minutes at a time. Encourage ambulation throughout the day Use Incentive spirometer 10x/hour. Elevate affected extremity above heart as tolerated. D/C to ECF likely today Referrals: Romain Fabian MD [Partnered Physician] - Tracie Castelan CNP [Primary Care Provider] - Prescriptions: OxyCODONE Immed Rel [Roxicodone 5 MG] 5 - 10 mg PO Q6HR PRN #40 tablet PRN Reason: Pain Aspirin Enteric Coated [Aspirin EC] 325 mg PO DAILY #21 tablet. Cyclobenzaprine [Flexeril] 10 mg PO TID #15 tab PredniSONE [Deltasone] 40 mg PO DAILY #10 tablet
[2016-09-19] MEDS ORDERED: Insulin Regular, Human 100 UNIT/ML SQ ONE (14:17)
== END 2016-09-19 14:39 | DRG 481 ==
LOC: 3NENU 07:54 → EMEROO 07:54 → SUATTDRO 12:01 → 3NENU 12:42
PROVIDERS: ADMIT Family Medicine; ATTEND Internal Medicine

== ENCOUNTER 2016-09-20 21:58 | Inpatient (IN) ==
[2016-09-20 22:44] LABS: Basophils % 0.1 %; Hematocrit 29.5 % (35.3-44.9); Hemoglobin 9.6 g/dL (11.5-15.4); Immature Granulocytes % 0.8 % (0-4); Immature Platelets 6.4 % (1.1-6.1); Lymphocytes # 1.2 K/mcL (0.6-4.6); Lymphocytes % 9.3 %; Mean Corpuscular HGB Conc 32.5 g/dL (31.6-35.5); Mean Corpuscular Hemoglobin 27.8 pg (28.0-33.3); Mean Corpuscular Volume 85.5 fL (83.0-100.0); Monocytes # 0.7 K/mcL (0.0-1.3); Monocytes % 5.4 %; Nucleated Red Blood Cells 0.5 /100 WBC (0); Platelet Count 214 K/mcL (140-400); Red Blood Count 3.45 M/mcL (3.82-4.97); Segmented Neutrophils % 84.4 %
[2016-09-20 22:46] LABS: Neutrophils # 11.1 K/mcL (1.6-8.9)
[2016-09-20 22:55] LABS: BUN/Creatinine Ratio 23 (6-26); Blood Urea Nitrogen 18 mg/dL (7-20); Calcium 8.1 mg/dL (8.6-10.8); Carbon Dioxide 27 mEq/L (19-29); Chloride 102 mEq/L (98-109); Glucose 76 mg/dL (70-99); Osmolality,Calculated 283 (280-300); Potassium 3.6 mEq/L (3.5-4.5); Sodium 136 mEq/L (136-145); eGFR For African Americans > 60 (> 60); eGFR For Non-African Americans > 60 (> 60)
[2016-09-20] MEDS ORDERED: Cefepime HCl 2,000 MG in D5% in Water (Mini-Bag+) 100 ML IVPB ONE (23:00)
[2016-09-20] MEDS ORDERED: Vancomycin 1,250 MG in D5% in Water 250 ML IVPB ONE (23:00)
--- NOTE | 2016-09-21 00:10 | Emergency Department Note ---
Disposition Clinical Impression: Multifocal pneumonia, Hypoxemia Disposition: Admitted As Inpatient Condition: Fair Time of Disposition: 02:07 General Adult HPI - General Chief complaint: ED Fever Stated complaint: fever/GRAHAM Time Seen by Provider: 09/20/16 22:09 Source: patient, EMS Limitations: no limitations Nursing Notes Reviewed: Yes Vital Signs Reviewed: Yes - History of Present Illness HPI Narrative: Patient is a 61-year-old female who presents to [facility] ED with a chief complaint of difficulty breathing and fever. Patient is currently residing at [facility] status R ORIF of the distal femur by Dr. Fabian on 09/17/16. Approximately one month ago, patient also was treated for sepsis and pneumonia. Patient states she has had more more difficulty breathing today. Denies any nausea, vomiting. Per correction, patient had a fever up to 102 today. Past medical history significant for asthma. Per EMS, patient was saturating 84% on room air 1 date picked her up. They do not know if she is on any home oxygen. Patient denies being on any home oxygen. Apparently, patient fell out of bed at around 7 PM last night and at that time they noted her temperature to be 102.4 and gave her 650 mg Tylenol as well as 500 mg of Levaquin. They say her saturation was 74% on room air with 3-1/2 L nasal cannula. She was then given an albuterol nebulizer. And then fell another 3 more times. Patient was sent over with concern for pneumonia or sepsis. Onset (ago): day(s) Radiation: non-radiation Pain Scale: 0 Consistency: constant Improves with: nothing Worsens with: nothing Associated symptoms: Reports: fever/chills, shortness of breath. Denies: chest pain, loss of appetite, nausea/vomiting Treatments Prior to Arrival: other (tylenol, albuterol) - Related Data Home Medications Medication Instructions Recorded Confirmed Citalopram [CeleXA] 20 mg PO DAILY 02/06/15 09/16/16 Alendronate Sodium [Fosamax] 70 mg PO QWEEK 07/07/16 09/16/16 Celecoxib [Celebrex] 200 mg PO BID 07/07/16 09/16/16 Fluticasone/Salmeterol [Advair 1 puff IH BID 07/07/16 09/16/16 500-50 Diskus] Levothyroxine [Synthroid] 100 mcg PO DAILY 07/07/16 09/16/16 Omeprazole 20 mg PO DAILY 07/07/16 09/16/16 Bupropion HCl [Wellbutrin Xl] 300 mg PO QAM 09/16/16 09/16/16 Diphenhydramine HCl [Allergy 25 mg PO DAILY PRN 09/16/16 09/16/16 Relief] Ferrous Sulfate [Iron] 325 mg PO BID 09/16/16 09/16/16 Magnesium Oxide [Mgo] 400 mg PO DAILY 09/16/16 09/16/16 OxyCODONE/APAP 10/325 [Percocet 1 tab PO Q6HR PRN 09/16/16 09/16/16 10/325 MG] Previous Rx's Medication Instructions Recorded Albuterol Sulfate [Albuterol 2 - 4 puff IH Q4HR PRN #1 03/09/15 Inhaler] hfa.aer.ad Acetaminophen [Tylenol] 650 mg PO Q6HR PRN #0 tablet 08/01/16 Aspirin 81 mg PO DAILY tab.chew 08/01/16 Docusate [Colace] 100 mg PO BID PRN #0 capsule 08/01/16 Metoprolol XL (24 HR) Succ [Toprol 25 mg PO DAILY tab.er.24h 08/01/16 Xl] Benzonatate [Tessalon] 200 mg PO TID PRN #30 capsule 09/15/16 GuaiFENesin ER [Mucinex] 1,200 mg PO BID #20 tbbp.12hr 09/15/16 Aspirin Enteric Coated [Aspirin EC] 325 mg PO DAILY #21 tablet. 09/17/16 OxyCODONE Immed Rel [Roxicodone 5 5 - 10 mg PO Q6HR PRN #40 tablet 09/17/16 MG] Acetaminophen [Tylenol] 650 mg PO Q6HR PRN tab 09/19/16 Cyclobenzaprine [Flexeril] 10 mg PO TID #15 tab 09/19/16 Gabapentin [Neurontin] 300 mg PO TID #21 09/19/16 Insulin ASPART [Novolog Flexpen] 100 unit SQ ACHS #1 insuln.pen 09/19/16 Insulin DETEMIR [Levemir] 5 unit SQ HS #1 vial 09/19/16 PredniSONE [Deltasone] 40 mg PO DAILY #10 tablet 09/19/16 clonazePAM [Klonopin] 1 mg PO TID #21 tab 09/19/16 Allergies Allergy/AdvReac Type Severity Reaction Status Date / Time codeine Allergy Swelling Verified 07/27/16 06:34 of Lip/Tongue/Throat Medroxyprogesterone Allergy Swelling Verified 07/27/16 06:34 [From Provera] of Lip/Tongue/Throat Penicillins Allergy Rash Verified 07/27/16 06:34 All systems ED: reviewed and negative except as stated. Past Medical History - Past Medical History Attestation: Yes The following information was validated with the patient. Source: patient Medical history: Reports: arthritis, asthma, diabetes, fibromyalgia, osteoporosis, thyroid disease, other Surgical history: Reports: cholecystectomy, orthopedic, other (shoulder, neck, back ), JULIANNA/BSO, thyroidectomy, other, bariatric surgery Psychiatric history: Reports: anxiety, depression DENTAL OFFICE 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: Reports: no DENTAL OFFICE 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 - Social History Smoking Status: Former smoker Smokeless Tobacco Status: No Alcohol use: Reports: none Drug use: Reports: none Physical Exam - General Limitations: no limitations General appearance: alert, in no apparent distress - Head Head exam: atraumatic, normocephalic, normal inspection - Eye Eye exam: Present: normal appearance, EOMI - ENT ENT exam: normal exam, normal oropharynx, mucous membranes moist - Neck Neck exam: Present: normal inspection, full ROM, trachea midline - Chest Chest inspection: Present: normal inspection, symmetric chest wall rise - Respiratory Respiratory exam: Present: other (b/l rhochi diffusely) - Cardiovascular Cardiovascular exam: Present: normal rhythm, tachycardia - Abdominal Exam Abdominal exam: Present: soft, Non-Tender. Absent: tenderness, distention, guarding, rebound, rigidity - Extremities Exam Extremities exam: Present: normal inspection, full ROM. Absent: tenderness, pedal edema - Back Exam Back exam: Present: normal inspection, full ROM. Absent: tenderness - Neurological Exam Neurological exam: Present: alert - Psychiatric Psychiatric exam: Present: normal affect, normal mood - Skin Skin exam: Present: warm, dry, intact, normal color Course Course Narrative: Patient seen and examined. Hypoxemia as well as multiple falls and recent surgery. Concern for possible pulmonary embolus versus ammonia or sepsis. A septic workup initiated. Creatinine was within normal limits so CTA of the chest was ordered. - Reevaluation(s) Reevaluation #1: CT of the chest shows multifocal pneumonia. Patient has already been started on vancomycin and cefepime. Will admit for healthcare associated pneumonia, hypoxemia. I spoke with hospitalist Dr. Irizarry who has accepted patient for admission. Time: 02:06 Vital Signs Temperature 100.6 F H 09/20/16 22:00 Pulse Rate 105 09/20/16 22:00 Respiratory Rate 20 09/20/16 22:00 Blood Pressure 101/70 09/20/16 22:00 O2 Sat by Pulse Oximetry 90 09/20/16 22:00 Temperature 100.6 F H 09/20/16 22:00 Pulse Rate 89 09/21/16 01:49 Respiratory Rate 0 09/21/16 02:30 Blood Pressure 0/0 09/21/16 02:30 O2 Sat by Pulse Oximetry 98 09/21/16 01:49 Oxygen Delivery Oxygen Delivery Nasal Cannula Medical Decision Making - Medical Records Medical records reviewed: Yes I reviewed the patient's medical records. - Lab Data Lab results reviewed: Yes I reviewed the patient's lab results. Result diagrams: 09/20/16 22:37 09/20/16 22:37 Lab Results 09/20/16 09/20/16 09/20/16 Range/Units 22:37 22:37 22:37 WBC 13.2 H (4.3-11.1) K/mcL RBC 3.45 L (3.82-4.97) M/mcL Hgb 9.6 L (11.5-15.4) g/dL Hct 29.5 L (35.3-44.9) % MCV 85.5 (83.0-100.0) fL MCH 27.8 L (28.0-33.3) pg MCHC 32.5 (31.6-35.5) g/dL RDW 16.0 H (11.5-14.5) % Plt Count 214 (140-400) K/mcL MPV 11.0 (9.4-12.4) fL Immature Gran % 0.8 (0-4) % Seg Neutrophils % 84.4 % Lymphocytes % 9.3 % Monocytes % 5.4 % Eosinophils % 0.0 % Basophils % 0.1 % Neutrophils # 11.1 H (1.6-8.9) K/mcL Lymphocytes # 1.2 (0.6-4.6) K/mcL Monocytes # 0.7 (0.0-1.3) K/mcL Eosinophils # 0.0 (0.0-0.6) K/mcL Basophils # 0.0 (0.0-0.2) K/mcL Nucleated RBCs/100 WBC 0.5 H (0) /100 WBC Immature Plt Fraction 6.4 H (1.1-6.1) % Sodium 136 (136-145) mEq/L Potassium 3.6 (3.5-4.5) mEq/L Chloride 102 (98-109) mEq/L Carbon Dioxide 27 (19-29) mEq/L BUN 18 (7-20) mg/dL Creatinine 0.78 (0.57-1.11) mg/dL Est GFR ( Amer) > 60 (> 60) Est GFR (Non-Af Amer) > 60 (> 60) BUN/Creatinine Ratio 23 (6-26) Glucose 76 (70-99) mg/dL Calculated Osmolality 283 (280-300) Lactic Acid 1.0 (0.5-2.2) mmol/L Calcium 8.1 L (8.6-10.8) mg/dL Troponin I (0-0.03) ng/mL 09/20/16 Range/Units 22:37 WBC (4.3-11.1) K/mcL RBC (3.82-4.97) M/mcL Hgb (11.5-15.4) g/dL Hct (35.3-44.9) % MCV (83.0-100.0) fL MCH (28.0-33.3) pg MCHC (31.6-35.5) g/dL RDW (11.5-14.5) % Plt Count (140-400) K/mcL MPV (9.4-12.4) fL Immature Gran % (0-4) % Seg Neutrophils % % Lymphocytes % % Monocytes % % Eosinophils % % Basophils % % Neutrophils # (1.6-8.9) K/mcL Lymphocytes # (0.6-4.6) K/mcL Monocytes # (0.0-1.3) K/mcL Eosinophils # (0.0-0.6) K/mcL Basophils # (0.0-0.2) K/mcL Nucleated RBCs/100 WBC (0) /100 WBC Immature Plt Fraction (1.1-6.1) % Sodium (136-145) mEq/L Potassium (3.5-4.5) mEq/L Chloride (98-109) mEq/L Carbon Dioxide (19-29) mEq/L BUN (7-20) mg/dL Creatinine (0.57-1.11) mg/dL Est GFR ( Amer) (> 60) Est GFR (Non-Af Amer) (> 60) BUN/Creatinine Ratio (6-26) Glucose (70-99) mg/dL Calculated Osmolality (280-300) Lactic Acid (0.5-2.2) mmol/L Calcium (8.6-10.8) mg/dL Troponin I 0.02 (0-0.03) ng/mL - Radiology Data Radiology results reviewed: Yes I reviewed the patient's radiology results. Chest CTA 09/20/16 23:25 IMPRESSION: 1. No radiographic findings to suggest presence of pulmonary thromboembolism. 2. Bilateral multifocal parenchymal disease which includes areas of tree in bud nodularity and bandlike densities/nodular areas of consolidation within both lower lobes. Finding is suspicious representing an infectious/inflammatory process. Follow-up examination after treatment is recommended to document resolution of the areas of nodularity. 3. Findings suggestive of presence of subacute fractures involving the anterior aspects of multiple bilateral ribs as described above. 4. Minimally prominent lymph nodes and subcarinal and left hilar regions. Finding could be reactive in nature. Finding can be reassessed on the recommended follow-up examination. D/ / Sanju Portillo MD / Sanju Portillo MD Interpreting Provider: Sanju Portillo MD - EKG Data EKG #1 EKG attestation: Yes I reviewed and interpreted this EKG. EKG results narrative: EKG done at 2203 shows sinus tachycardia with a rate of [address] depression noted in leads V3 through V6 as well as 2, 3, aVF. No acute ST elevation. Normal axis. ST depression does appear new from prior EKG done 09/2016. Attestation Statement - Attestation Attestation: I, Maycol Quiroz, examined this patient and my medical decision-making was reviewed with the TREE GIRDLER/PA/Advanced Practice Nurse/Resident Physician. I agree with the documented findings, disposition and treatment plan as described except to the extent set forth below. 61-year-old female presents to the emergency department by EMS from rehabilitation facility after multiple falls and a fever noted at rehabilitation facility today. Patient has had a cough and has difficulty with her breathing. Patient was hypoxic during initial evaluation by EMS. Patient started on empiric antibiotics for likely pneumonia after initial evaluation. CTA of the chest reveals areas of likely pneumonia and recent rib fractures. No evidence of PE. EKG shows sinus tachycardia with a rate of [address] depressions in leads V3, V4. Initial troponin negative. Patient is comfortable with the plan for admission to the hospital continuation of care.
[2016-09-21] MEDS ORDERED: Ipratropium/Albuterol Neb 3 ML IH PRN (02:14)
[2016-09-21] MEDS ORDERED: Naloxone 0.4 MG/ML INJ IVP PRN (02:14)
[2016-09-21] MEDS ORDERED: Dextrose Gel 15 GM PO PRN ×2 (02:20)
[2016-09-21] MEDS ORDERED: D5% in Water 1,000 ML IVC PRN (02:20)
[2016-09-21] MEDS ORDERED: *HR* Dextrose 50 % in Water (Syg) 50 ML SYRINGE IVP PRN (02:20)
[2016-09-21] MEDS ORDERED: Acetaminophen 325 MG TABLET PO PRN (02:22)
[2016-09-21] MEDS ORDERED: Benzonatate 100 MG CAPSULE PO PRN (02:22)
--- NOTE | 2016-09-21 02:29 | Internal Med History&Physical ---
Date of Encounter: 09/21/16 Time of Encounter: 02:35 Assessment and Plan (1) Multifocal pneumonia Current visit: Yes Status: Resolved CTA with multifocal PNA with bronchiolitis - start empiric van, cefepime, azithromycin pharmacy to dose, check levels, duonebs, IVF. ED sent blood cx - pend (2) Fracture of distal femur Current visit: No Status: Acute s/p surgery recently. Will likely need to be placed back to SNF after improving of respiratory status Qualifiers: Encounter type: subsequent encounter Laterality: right Qualified Code(s) : S72.401D - Unspecified fracture of lower end of right femur, subsequent encounter for closed fracture with routine healing (3) Urinary tract infection Current visit: No Status: Acute Asymptomatic. On antibiotics. Urine cx pend Qualifiers: Urinary tract infection type: acute cystitis Hematuria presence: with hematuria Qualified Code(s): N30.01 - Acute cystitis with hematuria (4) Diabetes Current visit: No Status: Chronic continue insulin Qualifiers: Diabetes mellitus type: type 2 Diabetes mellitus complication status: without complication Diabetes mellitus mcfp insulin use: with long term care pharmacist use Qualified Code(s): E11.9 - Type 2 diabetes mellitus without complications ; Z79.4 - intermediate frame tender (current) use of insulin (5) Bronchitis Current visit: No Status: Acute supportive, treat PNA. Hold pulse steroids for now unless clinical wheezing Internal Medicine - H&P: HPI Chief complaint: SOB History of present illness: Ms. Chen is a 61 year old female who had been recently here for ORIF of right distal femur fracture 09/17 and was sent to SNF for rehab who presents with acute hypoxia. She had also been found to have fallen several times per report - patient reports falling because her right brace has been cumbersome. At the SNF, she was found to be hypoxic in the 70-80s on RA along with a temp of 102. In the UA, UA with pyuria but she denies overt UTI symptoms. CTA in the ED demonstrated multi-focal infiltrates and broncholitis changes suspicious for infectious PNA causing respiratory failure. No trauma imaging was completed as she did not acknowledge to localizing symptoms from her falls. Past Med Surg Social Fam HX - Past Medical History Medical history: arthritis, asthma, diabetes, fibromyalgia, osteoporosis, thyroid disease, other Psychiatric history: anxiety, depression - Past Surgical History Surgical History: cholecystectomy, orthopedic, other (shoulder, neck, back ), JULIANNA/BSO, thyroidectomy, other, bariatric surgery - Social History Smoking Status: Former smoker Smokeless Tobacco Status: No Alcohol use: none Drug use: none - Family History Father Family Member Ethnicity: Non- Living Status: Hx Family Cardiac Disorders: Yes ([place], Stroke) Hx Family Respiratory Disorders: Yes Hx Family Cancer: Yes (Lung/Metastatic) Hx Family GI Disorders: No Hx Family Endocrine Disorder: Yes (DM) Hx Family Neuromuscular Disorders: No Hx Family Neurologic Disorders: No Hx Family HEENT Disorders: No Hx Family Autoimmune Disorders: No Mother Family Member Ethnicity: Non- Living Status: Hx Family Cardiac Disorders: Yes (CHF) Hx Family Respiratory Disorders: No Hx Family Cancer: No Hx Family GI Disorders: No Hx Family Endocrine Disorder: Yes (DM) Hx Family Neuromuscular Disorders: No Hx Family Neurologic Disorders: No Hx Family HEENT Disorders: No Hx Family Autoimmune Disorders: No Brother Family Member Ethnicity: Non- Living Status: Still Living Hx Family Cardiac Disorders: Yes (HD) Hx Family Endocrine Disorder: Yes (DM) Sister Family Member Ethnicity: Non- Living Status: Still Living Internal Medicine - H&P: Meds Citalopram [CeleXA] 20 mg PO DAILY 02/06/15 [History] Albuterol Sulfate [Albuterol Inhaler] 2 - 4 puff IH Q4HR PRN #1 hfa.aer.ad 03/09 [Rx] Alendronate Sodium [Fosamax] 70 mg PO QWEEK 07/07/16 [History] Celecoxib [Celebrex] 200 mg PO BID 07/07/16 [History] Fluticasone/Salmeterol [Advair 500-50 Diskus] 1 puff IH BID 07/07/16 [History] Levothyroxine [Synthroid] 100 mcg PO DAILY 07/07/16 [History] Omeprazole 20 mg PO DAILY 07/07/16 [History] Acetaminophen [Tylenol] 650 mg PO Q6HR PRN #0 tablet 08/01/16 [Rx] Aspirin 81 mg PO DAILY tab.chew 08/01/16 [Rx] Docusate [Colace] 100 mg PO BID PRN #0 capsule 08/01/16 [Rx] Metoprolol XL (24 HR) Succ [Toprol Xl] 25 mg PO DAILY tab.er.24h 08/01/16 [Rx] Benzonatate [Tessalon] 200 mg PO TID PRN #30 capsule 09/15/16 [Rx] GuaiFENesin ER [Mucinex] 1,200 mg PO BID #20 tbbp.12hr 09/15/16 [Rx] Bupropion HCl [Wellbutrin Xl] 300 mg PO QAM 09/16/16 [History] Diphenhydramine HCl [Allergy Relief] 25 mg PO DAILY PRN 09/16/16 [History] Ferrous Sulfate [Iron] 325 mg PO BID 09/16/16 [History] Magnesium Oxide [Mgo] 400 mg PO DAILY 09/16/16 [History] OxyCODONE/APAP 10/325 [Percocet 10/325 MG] 1 tab PO Q6HR PRN 09/16/16 [History] Aspirin Enteric Coated [Aspirin EC] 325 mg PO DAILY #21 tablet.dr 09/17/16 [Rx] OxyCODONE Immed Rel [Roxicodone 5 MG] 5 - 10 mg PO Q6HR PRN #40 tablet 09/17/16 [Rx] Acetaminophen [Tylenol] 650 mg PO Q6HR PRN tab 09/19/16 [Rx] Cyclobenzaprine [Flexeril] 10 mg PO TID #15 tab 09/19/16 [Rx] Gabapentin [Neurontin] 300 mg PO TID #21 09/19/16 [Rx] Insulin ASPART [Novolog Flexpen] 100 unit SQ ACHS #1 insuln.pen 09/19/16 [Rx] Insulin DETEMIR [Levemir] 5 unit SQ HS #1 vial 09/19/16 [Rx] PredniSONE [Deltasone] 40 mg PO DAILY #10 tablet 09/19/16 [Rx] clonazePAM [Klonopin] 1 mg PO TID #21 tab 09/19/16 [Rx] Allergies codeine Allergy (Verified 07/27/16 06:34) Swelling of Lip/Tongue/Throat Medroxyprogesterone [From Provera] Allergy (Verified 07/27/16 06:34) Swelling of Lip/Tongue/Throat Penicillins Allergy (Verified 07/27/16 06:34) Rash All Systems PM: A 10-system review of systems was performed and is negative for pertinent findings except as documented above in the HPI. Review of systems: ROS 14 point review of systems reviewed as best as possible given presentation. Pertinent positive or negative as per HPI or otherwise reviewed as negative - Constitutional Vitals: Temp Pulse Resp BP Pulse Ox 100.6 F H 89 18 112/78 98 09/20/16 22:00 09/21/16 01:49 09/21/16 01:49 09/21/16 01:49 09/21/16 01:49 Exam: General - AAO x 3 Psych - Appropriate affect/speech. No agitation Eyes - LEONA. Eye lids intact. No scleral icterus ENT - Oral mucosa pink, dentition intact. External ear clear/dry/intact. No thyromegaly Heart - Sinus. RRR. S1 and S2 present. No added HS/murmurs appreciated. No elevated JVD appreciated. Lung - Adequate air entry b/l, bibasal crackles, No wheezes appreciated GI - Soft, non-tender. No hepatosplenomegaly/ascites. BS+ - No CVA/suprapubic tenderness or palpable bladder distension Skin - Intact. No rash/petechiae/ecchymosis. Warm extremities MSK - right knee and supportive brace Internal Med - H&P Results - Labs CBC & Chem 7: 09/20/16 22:37 09/20/16 22:37
[2016-09-21] MEDS: *HR* OxyCODONE Immed Rel 5 MG TABLET PO PRN (03:16)
[2016-09-21] MEDS: Azithromycin 500 MG in D5% in Water 250 ML IVPB SCH (03:45)
[2016-09-21] MEDS: 0.9 % Sodium Chloride 1,000 ML IVC SCH ×2 (03:46→22:39)
[2016-09-21] MEDS: Ipratropium/Albuterol Neb 3 ML IH SCH ×4 (04:19→23:03)
[2016-09-21] MEDS: *HR* Enoxaparin 30 MG/0.3 ML SYRINGE SQ SCH (05:56)
[2016-09-21 06:27] LABS: Hematocrit 31.8 % (35.3-44.9); Hemoglobin 10.1 g/dL (11.5-15.4); Mean Corpuscular HGB Conc 31.8 g/dL (31.6-35.5); Mean Corpuscular Hemoglobin 28.2 pg (28.0-33.3); Mean Corpuscular Volume 88.8 fL (83.0-100.0); Mean Platelet Volume 11.1 fL (9.4-12.4); Platelet Count 199 K/mcL (140-400); Red Blood Count 3.58 M/mcL (3.82-4.97)
[2016-09-21 06:47] LABS: BUN/Creatinine Ratio 21 (6-26); Blood Urea Nitrogen 18 mg/dL (7-20); Calcium 8.1 mg/dL (8.6-10.8); Carbon Dioxide 27 mEq/L (19-29); Chloride 101 mEq/L (98-109); Glucose 115 mg/dL (70-99); Magnesium 1.5 mg/dL (1.6-2.6); Osmolality,Calculated 283 (280-300); Potassium 3.6 mEq/L (3.5-4.5); Sodium 135 mEq/L (136-145); eGFR For African Americans > 60 (> 60); eGFR For Non-African Americans > 60 (> 60)
[2016-09-21] MEDS: Aspirin 81 MG TAB.CHEW PO SCH (08:21)
[2016-09-21] MEDS: BuPROPion XL (24 HR) 150 MG TABLET PO SCH (08:21)
[2016-09-21] MEDS: Metoprolol XL (24 HR) Succ 25 MG TAB.ER.24H PO SCH (08:22)
[2016-09-21] MEDS: Magnesium Oxide 400 MG TABLET PO SCH (08:22)
[2016-09-21] MEDS: Gabapentin 300 MG CAPSULE PO SCH ×3 (08:22→22:39)
[2016-09-21] MEDS: Insulin LISPRO 300 UNITS/3 ML VIAL SQ SCH ×3 (08:23→16:45)
[2016-09-21] MEDS: clonazePAM 1 MG TABLET PO SCH ×3 (08:23→23:18)
[2016-09-21] MEDS: Budesonide/Formoterol 160/4.5 MDI IH SCH ×2 (10:03→23:03)
[2016-09-21] MEDS ORDERED: 0.9 % Sodium Chloride 500 ML IVC ONE (10:11)
--- NOTE | 2016-09-21 10:17 | Internal Med Progress Note ---
Date of Encounter: 09/21/16 Time of Encounter: 10:14 - Assessment and plan (1) Sepsis Current Visit: No Status: Acute Assessment and plan: P does meet sepsis criteria Cont IV hydration will give NS boluses no need of vasopressors at this point hold on BP meds cont broad spec abx Qualifiers: Sepsis type: sepsis due to unspecified organism Qualified Code(s): A41.9 - Sepsis, unspecified organism (2) Acute respiratory failure with hypoxia Current Visit: Yes Status: Acute Assessment and plan: due to MLL PNA noticed she was d/c home on PO steroids due to Asthma exacerbation she does not have any wheezing now so will cont Prednisone and start tapering soon ruled out PE (3) Pneumonia Current Visit: No Status: Acute Assessment and plan: Multi lobular pNA HCAP f/u on blood cx, Sputum cx Cont Cefepime and Vanco, and Azithromycin for now Qualifiers: Pneumonia type: due to unspecified organism Laterality: bilateral Lung location: unspecified part of lung Qualified Code(s): J18.9 - Pneumonia, unspecified organism (4) S/P ORIF (open reduction internal fixation) fracture Current Visit: Yes Status: Acute Assessment and plan: Cont PT / OT on Lovenox for DVT prophylaxis (5) Paroxysmal a-fib Current Visit: Yes Status: Chronic Assessment and plan: Rate controlled in NSR now High risk for falls.. cont ASA only for anticoag - Subjective Interval history: Ms. Chen is a 61 year old female who had been recently here for ORIF of right distal femur fracture 09/17 and was sent to SNF for rehab who presents with acute hypoxia. She had also been found to have fallen several times per report - patient reports falling because her right brace has been cumbersome. At the SNF, she was found to be hypoxic in the 70-80s on RA along with a temp of 102. In the UA, UA with pyuria but she denies overt UTI symptoms. CTA in the ED demonstrated multi-focal infiltrates and broncholitis changes suspicious for infectious PNA causing respiratory failure. Pt was admitted here for multi lobular PNA. she denied any CP now. Still has moderate SOB / JAUREGUI , Cough with yellowish expectoration - Constitutional Vitals: Temp Pulse Resp BP Pulse Ox 100.3 F H 100 16 73/62 90 09/21/16 07:39 09/21/16 07:39 08/13/17 07:39 09/21/16 07:39 09/21/16 07:39 General appearance: Present: mild distress (resp distress), A&O X 3 - Head Head exam: Present: atraumatic, normal inspection - Respiratory Respiratory exam: Present: decreased breath sounds, respiratory distress, rhonchi, tachypnea. Absent: rales, wheezes - Cardiovascular Cardiovascular exam: Present: +S1, +S2, tachycardia - GI/Abdominal GI/Abdominal exam: Present: soft. Absent: rebound, rigid, tenderness - Extremities Exam Extremities exam: Present: pedal edema (trace). Absent: calf tenderness, tenderness Additional comments: brace on over Rt leg - Neurological Exam Neurological exam: Present: alert, oriented X3 - Psychiatric Psychiatric exam: Present: anxious Internal Medicine: Result - Labs CBC & Chem 7: 09/21/16 06:19 09/21/16 06:19 Labs: Short CBC 09/21/16 Range/Units 06:19 WBC 12.3 H (4.3-11.1) K/mcL Hgb 10.1 L (11.5-15.4) g/dL Hct 31.8 L (35.3-44.9) % Plt Count 199 (140-400) K/mcL BMP 09/21/16 06:19 Sodium 135 L Potassium 3.6 Chloride 101 Carbon Dioxide 27 BUN 18 Creatinine 0.86 Glucose 115 H Calcium 8.1 L Consult Discharge Plan - Plan Referrals: Tracie Castelan, HUGH [Primary Care Provider] -
[2016-09-21] MEDS: MethylPREDNISolone 40 MG/ML VIAL IVP SCH ×2 (11:10→16:39)
[2016-09-21] MEDS ORDERED: Cefepime HCl 2,000 MG in D5% in Water (Mini-Bag+) 100 ML IVPB SCH (12:00)
[2016-09-21 12:28] LABS: Acinetobacter baumannii by PCR Not Detected (Not Detect); Candida albicans by PCR Not Detected (Not Detect); Candida glabrata by PCR Not Detected (Not Detect); Candida krusei by PCR Not Detected (Not Detect); Candida parapsilosis by PCR Not Detected (Not Detect); Candida tropicalis by PCR Not Detected (Not Detect); Enterococcus by PCR Not Detected (Not Detect); Escherichia coli by PCR Not Detected (Not Detect); Klebsiella oxytoca by PCR Not Detected (Not Detect); Klebsiella pneumoniae by PCR Not Detected (Not Detect); Pseudomonas aeruginosa by PCR Not Detected (Not Detect); Serratia marcescens by PCR Not Detected (Not Detect); Staphylococcus aureus by PCR ***DETECTED*** (Not Detect); Streptococcus agalactiae(B)PCR Not Detected (Not Detect); Streptococcus by PCR Not Detected (Not Detect); Streptococcus pneumoniae PCR Not Detected (Not Detect); Streptococcus pyogenes (A) PCR Not Detected (Not Detect); blaKPC Carbapenem-Resist Gene Not Detected (Not Detect); mecA Methicillin-Resist Gene Not Detected (Not Detect); vanA/B Vancomycin-Resist Genes Not Detected (Not Detect)
[2016-09-21] MEDS: Vancomycin 1,250 MG in D5% in Water 250 ML IVPB SCH (13:13)
[2016-09-21] MEDS ORDERED: Vancomycin 1,000 MG in D5% in Water 250 ML IVPB SCH (15:00)
[2016-09-21] MEDS: Cefepime HCl 2,000 MG in D5% in Water (Mini-Bag+) 100 ML IVPB SCH (16:39)
[2016-09-21] MEDS ORDERED: Insulin DETEMIR 100 UNIT/ML X5UNITS SQ SCH (21:00)
[2016-09-21] MEDS ORDERED: Insulin LISPRO 300 UNITS/3 ML VIAL SQ SCH (21:00)
[2016-09-22] MEDS: Vancomycin 1,250 MG in D5% in Water 250 ML IVPB SCH ×2 (01:40→14:05)
[2016-09-22] MEDS: Azithromycin 500 MG in D5% in Water 250 ML IVPB SCH (03:34)
[2016-09-22] MEDS: Ipratropium/Albuterol Neb 3 ML IH SCH ×4 (04:32→22:25)
[2016-09-22] MEDS: Cefepime HCl 2,000 MG in D5% in Water (Mini-Bag+) 100 ML IVPB SCH ×2 (05:37→16:17)
[2016-09-22] MEDS: MethylPREDNISolone 40 MG/ML VIAL IVP SCH (05:38)
[2016-09-22] MEDS: *HR* Enoxaparin 30 MG/0.3 ML SYRINGE SQ SCH (05:38)
[2016-09-22 05:40] LABS: BUN/Creatinine Ratio 21 (6-26); Blood Urea Nitrogen 16 mg/dL (7-20); Carbon Dioxide 25 mEq/L (19-29); Chloride 103 mEq/L (98-109); Glucose 280 mg/dL (70-99); Magnesium 1.7 mg/dL (1.6-2.6); Osmolality,Calculated 289 (280-300); Potassium 3.5 mEq/L (3.5-4.5); Sodium 134 mEq/L (136-145); eGFR For African Americans > 60 (> 60); eGFR For Non-African Americans > 60 (> 60)
[2016-09-22 06:42] LABS: Basophils % 0.1 %; Hematocrit 25.8 % (35.3-44.9); Immature Granulocytes % 0.8 % (0-4); Lymphocytes % 4.6 %; Mean Corpuscular HGB Conc 32.6 g/dL (31.6-35.5); Mean Corpuscular Hemoglobin 27.5 pg (28.0-33.3); Mean Corpuscular Volume 84.6 fL (83.0-100.0); Mean Platelet Volume 11.6 fL (9.4-12.4); Monocytes % 2.8 %; Platelet Count 206 K/mcL (140-400); Red Blood Count 3.05 M/mcL (3.82-4.97); Segmented Neutrophils % 91.7 %
[2016-09-22 06:43] LABS: Lymphocytes # 0.6 K/mcL (0.6-4.6); Monocytes # 0.4 K/mcL (0.0-1.3)
[2016-09-22 06:55] LABS: Hemoglobin 8.4 g/dL (11.5-15.4)
--- NOTE | 2016-09-22 07:06 | Electrocardiograph Report ---
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
[2016-09-22 07:47] LABS: Platelet Estimate Normal (Normal)
[2016-09-22] MEDS ORDERED: Aminoglycoside Consult 1 EACH MC ONE (08:27)
[2016-09-22] MEDS: Metoprolol XL (24 HR) Succ 25 MG TAB.ER.24H PO SCH (08:28)
[2016-09-22] MEDS: clonazePAM 1 MG TABLET PO SCH ×2 (08:28→15:06)
[2016-09-22] MEDS: *HR* OxyCODONE Immed Rel 5 MG TABLET PO PRN ×2 (08:28→21:05)
[2016-09-22] MEDS: Gabapentin 300 MG CAPSULE PO SCH ×3 (08:29→21:05)
[2016-09-22] MEDS: Aspirin 81 MG TAB.CHEW PO SCH (08:29)
[2016-09-22] MEDS: BuPROPion XL (24 HR) 150 MG TABLET PO SCH (08:29)
[2016-09-22] MEDS: Magnesium Oxide 400 MG TABLET PO SCH (08:29)
[2016-09-22] MEDS: Insulin LISPRO 300 UNITS/3 ML VIAL SQ SCH ×4 (08:30→21:04)
[2016-09-22] MEDS: Budesonide/Formoterol 160/4.5 MDI IH SCH ×2 (10:43→22:26)
--- NOTE | 2016-09-22 11:20 | Internal Med Progress Note ---
Date of Encounter: 09/22/16 Time of Encounter: 11:18 - Assessment and plan (1) Sepsis Current Visit: No Status: Acute Assessment and plan: Pt does meet sepsis criteria Improved BP d/c IVF Cont holding BP meds Her blood cx 05/13 growign Staph aureus Cont Vancomycin , Cefepime and Azithromycin will d/c Azithromycin for 3 doses Check ESR, CRP Repeat blood cx now Her septicemia mostly from pneumonia, however with recent Rt distal femur repair , with still non healing wound little concerned about that too consulted Ortho to evaluated her leg consulted ID for further abx management Qualifiers: Sepsis type: sepsis due to unspecified organism Qualified Code(s): A41.9 - Sepsis, unspecified organism (2) Acute respiratory failure with hypoxia Current Visit: Yes Status: Acute Assessment and plan: due to MLL PNA noticed she was d/c home on PO steroids due to Asthma exacerbation she does not have any wheezing now so will cont Prednisone and start tapering soon ruled out PE (3) Pneumonia Current Visit: No Status: Acute Assessment and plan: Multi lobular pNA HCAP f/u on blood cx, Sputum cx Cont Cefepime and Vanco, and Azithromycin for now Qualifiers: Pneumonia type: due to unspecified organism Laterality: bilateral Lung location: unspecified part of lung Qualified Code(s): J18.9 - Pneumonia, unspecified organism (4) S/P ORIF (open reduction internal fixation) fracture Current Visit: Yes Status: Acute Assessment and plan: Cont PT / OT ortho consulted on Lovenox for DVT prophylaxis (5) Paroxysmal a-fib Current Visit: Yes Status: Chronic Assessment and plan: Rate controlled in NSR now High risk for falls.. cont ASA only for anticoag - Subjective Interval history: Ms. Chen is a 61 year old female who had been recently here for ORIF of right distal femur fracture 09/17 and was sent to SNF for rehab who presents with acute hypoxia. She had also been found to have fallen several times per report - patient reports falling because her right brace has been cumbersome. At the SNF, she was found to be hypoxic in the 70-80s on RA along with a temp of 102. In the UA, UA with pyuria but she denies overt UTI symptoms. CTA in the ED demonstrated multi-focal infiltrates and broncholitis changes suspicious for infectious PNA causing respiratory failure. Pt was admitted here for multi lobular PNA. she denied any CP now. Still has moderate SOB / JAUREGUI , Cough with yellowish expectoration.. Denied any leg pain - Constitutional Vitals: Temp Pulse Resp BP Pulse Ox 98.0 F 82 21 126/78 85 09/22/16 07:00 09/22/16 07:00 09/22/16 07:00 09/22/16 07:00 09/22/16 08:15 General appearance: Present: A&O X 3 - Head Head exam: Present: atraumatic, normal inspection - Respiratory Respiratory exam: Present: decreased breath sounds, rales, rhonchi, wheezes. Absent: respiratory distress - Cardiovascular Cardiovascular exam: Present: RRR, +S1, +S2. Absent: systolic murmur - GI/Abdominal GI/Abdominal exam: Present: soft. Absent: rebound, rigid, tenderness - Extremities Exam Extremities exam: Absent: calf tenderness, tenderness Additional comments: sterile dressing over Rt distal leg medially.. mild serous drainage and swelling noticed. No tenderness. - Neurological Exam Neurological exam: Present: alert, oriented X3 - Psychiatric Psychiatric exam: Present: normal affect, normal mood Internal Medicine: Result - Labs CBC & Chem 7: 09/22/16 04:49 09/22/16 04:49 Labs: Short CBC 09/22/16 Range/Units 04:49 WBC 13.1 H (4.3-11.1) K/mcL Hgb 8.4 L D (11.5-15.4) g/dL Hct 25.8 L (35.3-44.9) % Plt Count 206 (140-400) K/mcL Neutrophils # 12.0 H (1.6-8.9) K/mcL BMP 09/22/16 04:49 Sodium 134 L Potassium 3.5 Chloride 103 Carbon Dioxide 25 BUN 16 Creatinine 0.78 Glucose 280 H Calcium 8.0 L Consult Discharge Plan - Plan Referrals: Tracie Castelan, MANAGER LPN [Primary Care Provider] -
--- NOTE | 2016-09-22 11:35 | Infectious Disease Consult ---
Date of Encounter: 09/22/16 Time of Encounter: 11:34 Assessment and Plan (1) Sepsis Status: Acute Assessment and plan: Since admission she has met two SIRS criteria of temperature 100.6 F and tachycardia HR 105. Labs on admission revealed a WBC 13.2 with left shift, initial lactic acid 1.0 Blood cultures collected 09/20/16 revealed Staphylococcus aureus 2 sets (with preliminary MRSA gene negative on PCR). Patient was started on cefepime on 09/20/16 and azithromycin and vancomycin were added on 09/21/16 after patient spiked a fever 103.1 F and lactic acid level was 2.9 despite Cefepime. (Patient reports allergy to penicillins which causes a rash) Recommendations: Nothing by mouth. Recommend wound washout. Need to obtain deep wound cultures. Repeat blood cultures collected 09/22/16 results are pending Await CT right leg results Discontinue cefepime, azithromycin, vancomycin. Start Cefazolin 2g IV q8h for 4 weeks. Consider Rifampin given possible hardware infection. Will need PICC palcement and KYRA prior to discharge to evaluate for endocarditis. Duration of antibiotics depends on clinical course. Continue to monitor labs for drug toxicity and dose adjust antibiotics accordingly Qualifiers: Sepsis type: sepsis due to unspecified organism Qualified Code(s): A41.9 - Sepsis, unspecified organism (2) Bacteremia Status: Acute Assessment and plan: Blood cultures collected 09/20/16 revealed Staphylococcus aureus 2 sets (with preliminary MRSA gene negative on PCR). Discontinue cefepime, azithromycin, vancomycin. Start Cefazolin 2g IV q8h for 4 weeks. Consider Rifampin given possible hardware infection. Will need PICC palcement and KYRA prior to discharge to evaluate for endocarditis. (3) Hospital-acquired pneumonia Status: Acute Assessment and plan: Shortness of breath, hypoxia in the 70s to 80s on room air and temperature 102 F. Patient reports nonproductive cough for the past 3 weeks prior to surgery 09/17 CT chest revealed bilateral multifocal parenchymal disease which includes areas of tree in bud nodularity and bandlike densities/nodular areas of consolidation within both lower lobes. Finding is suspicious representing an infectious/ inflammatory process. Minimally prominent lymph nodes and subcarinal and left hilar regions. Check urine legionella and pneumococcus antigen (4) Postoperative wound infection Status: Acute Assessment and plan: s/p ORIF of right distal femur fracture 09/17/16 Right lateral distal femur incision with moderate amount of purulent drainage, gregory intact, dressing saturated, mild surrounding erythema, no proximal streaking. No palpable lymphadenopathy Qualifiers: Encounter type: initial encounter Qualified Code(s): T81.4XXA - Infection following a procedure, initial encounter (5) Fracture of distal femur Status: Acute Assessment and plan: ORIF of right distal femur fracture 09/17/16 Qualifiers: Encounter type: subsequent encounter Fracture type: closed Fracture morphology: unspecified fracture morphology Laterality: right Fracture healing: with malunion Qualified Code(s): S72.401P - Unspecified fracture of lower end of right femur, subsequent encounter for closed fracture with malunion (6) Diabetes Status: Chronic Assessment and plan: Continue management per primary team Qualifiers: Diabetes mellitus type: type 2 Diabetes mellitus complication status: without complication Diabetes mellitus care home insulin use: with care home use Qualified Code(s): E11.9 - Type 2 diabetes mellitus without complications ; Z79.4 - retirement (current) use of insulin (7) Chronic anemia Status: Chronic Assessment and plan: Continue to monitor. Infectious Disease HPI - Data of Consult Consult date: 09/22/16 Requesting Physician: Jeanette Dela Cruz MD Primary Care Provider: Tracie Castelan CNP - Consult Narrative Reason for consult: further antibiotic management History of present illness: Ms. Chen is a 61 year old female was admitted on 09/21/16 for multifocal pneumonia and urinary tract infection on POD#4 s/p distal femur ORIF Infectious disease is consulted on 09/22/16 for further antibiotic management Ms. Chen is a 61 year old female with a PMH significant for arthritis, asthma , diabetes, fibromyalgia, osteoporosis, thyroid disease, and recent ORIF of right distal femur fracture 09/17/16 after fall who was sent to SNF for postoperative rehab. She returned to the hospital on 09/20/16 for shortness of breath and hypoxia in the 70s to 80s on room air and temperature 102 F. Patient reports nonproductive cough for the past 3 weeks prior to surgery and denies oxygen use at home. Since admission she has met two SIRS criteria of temperature 100.6 F and tachycardia HR 105. Labs on admission revealed a WBC 13.2 with left shift, hemoglobin 9.6, initial lactic acid 1.0 CT chest revealed bilateral multifocal parenchymal disease which includes areas of tree in bud nodularity and bandlike densities/nodular areas of consolidation within both lower lobes. Finding is suspicious representing an infectious/ inflammatory process. Minimally prominent lymph nodes and subcarinal and left hilar regions. Blood cultures collected 09/20/16 revealed Staphylococcus aureus 2 sets (with preliminary MRSA gene negative on PCR). Patient was started on cefepime on 09/20/16 and azithromycin and vancomycin were added on 09/21/16 after patient spiked a fever 103.1 F and lactic acid level was 2.9 despite Cefepime. (Patient reports allergy to penicillins which causes a rash) CC: Jeanette Dela Cruz MD Past Med Surg Social Fam HX - Past Medical History Medical history: arthritis, asthma, fibromyalgia, osteoporosis, thyroid disease Psychiatric history: anxiety, depression - Past Surgical History Surgical History: cholecystectomy, orthopedic, other, JULIANNA/BSO, thyroidectomy - Social History Smoking Status: Never smoker Smokeless Tobacco Status: No Alcohol use: none Drug use: none - Family History Father Family Member Ethnicity: Non- Living Status: Hx Family Cardiac Disorders: Yes (NM, Stroke) Hx Family Respiratory Disorders: Yes Hx Family Cancer: Yes (Lung/Metastatic) Hx Family GI Disorders: No Hx Family Endocrine Disorder: Yes (DM) Hx Family Neuromuscular Disorders: No Hx Family Neurologic Disorders: No Hx Family HEENT Disorders: No Hx Family Autoimmune Disorders: No Mother Family Member Ethnicity: Non- Living Status: Hx Family Cardiac Disorders: Yes (CHF) Hx Family Respiratory Disorders: No Hx Family Cancer: No Hx Family GI Disorders: No Hx Family Endocrine Disorder: Yes (DM) Hx Family Neuromuscular Disorders: No Hx Family Neurologic Disorders: No Hx Family HEENT Disorders: No Hx Family Autoimmune Disorders: No Brother Family Member Ethnicity: Non- Living Status: Still Living Hx Family Cardiac Disorders: Yes (HD) Hx Family Endocrine Disorder: Yes (DM) Sister Family Member Ethnicity: Non- Living Status: Still Living Infectious Disease-CN:Meds Citalopram [CeleXA] 20 mg PO DAILY 02/06/15 [History] Albuterol Sulfate [Albuterol Inhaler] 2 - 4 puff IH Q4HR PRN #1 [id number] 03/09 [Rx] Alendronate Sodium [Fosamax] 70 mg PO QWEEK 07/07/16 [History] Celecoxib [Celebrex] 200 mg PO BID 07/07/16 [History] Fluticasone/Salmeterol [Advair 500-50 Diskus] 1 puff IH BID 07/07/16 [History] Levothyroxine [Synthroid] 100 mcg PO DAILY 07/07/16 [History] Omeprazole 20 mg PO DAILY 07/07/16 [History] Aspirin 81 mg PO DAILY tab.chew 08/01/16 [Rx] Docusate [Colace] 100 mg PO BID PRN #0 capsule 08/01/16 [Rx] Metoprolol XL (24 HR) Succ [Toprol Xl] 25 mg PO DAILY tab.er.24h 08/01/16 [Rx] GuaiFENesin ER [Mucinex] 1,200 mg PO BID #20 tbbp.12hr 09/15/16 [Rx] Diphenhydramine HCl [Allergy Relief] 25 mg PO DAILY PRN 09/16/16 [History] Ferrous Sulfate [Iron] 325 mg PO BID 09/16/16 [History] Magnesium Oxide [Mgo] 400 mg PO DAILY 09/16/16 [History] Cyclobenzaprine [Flexeril] 10 mg PO TID #15 tab 09/19/16 [Rx] Gabapentin [Neurontin] 300 mg PO TID #21 09/19/16 [Rx] clonazePAM [Klonopin] 1 mg PO TID #21 tab 09/19/16 [Rx] Oxycodone HCl/Acetaminophen [Endocet 5-325 Tablet] 1 tab PO Q4H PRN 09/21/16 [ History] Allergies codeine Allergy (Verified 07/27/16 06:34) Swelling of Lip/Tongue/Throat Medroxyprogesterone [From Provera] Allergy (Verified 07/27/16 06:34) Swelling of Lip/Tongue/Throat Penicillins Allergy (Verified 07/27/16 06:34) Rash Review of systems: Travel: denies recent travel Animal exposure: 3 cats and 4 dogs at home Sick contacts: Denies. Denies exposure to small children. Diet: denies ingestion of undercooked or raw meats. Dental: denies recent dental procedures - Constitutional Constitutional: Present: chills, fever(s). Absent: weight gain, weight loss - EENT Eyes: Absent: change in vision Nose, mouth and throat: Absent: nasal congestion, sore throat - Cardiovascular Cardiovascular: Absent: chest pain, palpitations - Respiratory Respiratory: Present: cough (Nonproductive), dyspnea, wheezing, chest congestion. Absent: hemoptysis, excessive phlegm production, change in phlegm color - Gastrointestinal Gastrointestinal: Absent: abdominal pain, diarrhea, nausea, vomiting - Genitourinary Genitourinary: Absent: urinary frequency, urinary urgency - Musculoskeletal Musculoskeletal: Present: arthralgias. Absent: numbness, tingling - Integumentary Integumentary: Present: erythema, lesions, wounds. Absent: change in hair, change in nails - Neurological Neurological: Absent: confusion, numbness, tingling - Psychiatric Psychiatric: Absent: anxiety, confusion - Endocrine Endocrine: Absent: palpitations, polydipsia, polyphagia, polyuria - Hematologic/Lymphatic Hematologic/Lymphatic: Absent: lymphadenopathy Exam - Constitutional Vitals: Temp Pulse Resp BP Pulse Ox 98.0 F 82 21 126/78 85 09/22/16 07:00 09/22/16 07:00 09/22/16 07:00 09/22/16 07:00 09/22/16 08:15 General appearance: cooperative, obese, no febrile, no no acute distress - Head Head exam: Present: atraumatic, normal inspection, normocephalic - Eye Eye exam: Present: PERRL, conjuntiva pink - ENT ENT exam: Present: mucous membranes moist, normal oropharynx - Neck Neck exam: Present: full ROM, normal inspection. Absent: lymphadenopathy, tenderness - Respiratory Respiratory exam: Present: prolonged expiratory phase, rhonchi, wheezes. Absent : accessory muscle use, rales, respiratory distress Additional comments: Coarse breath sounds bilaterally - Cardiovascular Cardiovascular exam: Present: RRR, +S1, +S2 - GI/Abdominal GI/Abdominal exam: Present: normal bowel sounds, soft. Absent: guarding, rebound, tenderness - Extremities Exam Extremities exam: Present: pedal edema, tenderness. Absent: normal inspection Additional comments: Right lateral distal femur incision with moderate amount of purulent drainage, gregory intact, dressing saturated, mild surrounding erythema, no proximal streaking. No palpable lymphadenopathy - Neurological Exam Neurological exam: Present: alert, oriented X3. Absent: altered - Psychiatric Psychiatric exam: Present: normal affect, normal mood - Skin Additional comments: Right lateral distal femur incision with moderate amount of purulent drainage, gregory intact, dressing saturated, mild surrounding erythema, no proximal streaking. No palpable lymphadenopathy Infectious Disease CN: Results - Labs CBC & Chem 7: 09/23/16 05:58 09/22/16 04:49 Cultures: Microbiology 09/20/16 22:37 Peripheral Venipuncture Blood Culture - Preliminary Staphylococcus aureus 09/20/16 22:37 Peripheral Venipuncture Blood Culture - Preliminary Staphylococcus aureus Consult Discharge Plan - Plan Referrals: Tracie Castelan, USER EXPERIENCE TEAM LEAD [Primary Care Provider] - - Attending Attestation I examined this patient and my medical decision-making was reviewed with the Resident Physician. I agree with the documented findings, disposition and treatment plan as described except to the extent set forth below. 61 year old woman admitted last night for fever and difficulty breathing, we are consulted today for Sepsis. Patient is a 61 year old woman with past medical DM, obesity, asthma and depression was at rehab for recent ORIF right distal femur done here by Dr. Fabian 4 days prior to admission s/p fall. Since admission, patient was tachycardic and febrile, with leukocytosis and neutrophilic predominance. Patient was also noted to have ESR of 93 and CRP of 272. Physical exam revealed purlunce from the surgical wound. CT chest was done which showed multifocal pneumonia. Blood cultures were obtained and revealed 2/2 sets positive on 09/20. We were asked to evaluate the patient and make further recommendations: At this point we recommend 1-at this point I think the pneumonia is porbably caused by the same organism as the bacteremia (MSSA), but will check urine legionella and pneumococcal antigen 2- repeat blood cultures x 2, will need KYRA prior to d/c to rule out endocarditis . 3 surgical wound infection , get cultures now. Awaitiing CT scan, might need I& D. will await orthos recommendations. 4. d/c vancomycin, d/c azithromycin and d/c cefepime 5. start cefazolin 2 grams IV q8 hrs duration of treatment likely 4 weeks minimum; will need picc line placement once cultures are negative 6. if hardware stays in place, might need to add rifampin as well. .
[2016-09-22] MEDS ORDERED: Vancomycin 1,000 MG in D5% in Water 250 ML IVPB SCH (14:00)
--- NOTE | 2016-09-22 14:06 | Orthopedic Consult Note ---
<Diamond Licea - Last Filed: 09/22/16 16:34> Date of Encounter: 09/22/16 Assessment and Plan (1) Wound infection following procedure Current Visit: Yes Status: Acute and myself evaluated patient. Persistent purulent, bloody drainage from mid-incision along lateral aspect of thigh. Patient is s/p Right Femur ORIF from 09/17/16, with uncomplicated hospital stay. On 09/19/16 - wound was clean/dry and intact without drainage or erythema. Patient was discharged to [facility] in stable condition. Patient reports little to no pain with gentle palpation, but obvious drainage noted. No erythema noted. No palpable fluctuance. Because of patients current health status, with multi-focal pneumonia and Staph Aureus Bacteremia, along with patient's history of recent hospitalization for sepsis a month ago and her history of poor wound healing s/p her TKR in 2014 - we will treat aggressively with Right Wound I&D today. Patient was A&O x 3 - pressure dressing applied to wound. T-Scope brace placed. Surgical consent was reviewed with patient, patient voiced understanding and consent was signed. All questions were addressed. NPO now. Continue NWB and no knee ROM. Will plan to follow closely and coordinate plan for anti-biotics based off intra -operative culture and input from Infectious disease. Diamond Licea PA-C History of Present Illness HPI: Ms. Chen is a 61 year old female Medications and Allergies Citalopram [CeleXA] 20 mg PO DAILY 02/06/15 [History] Albuterol Sulfate [Albuterol Inhaler] 2 - 4 puff IH Q4HR PRN #1 hfa.aer.ad 03/09 [Rx] Alendronate Sodium [Fosamax] 70 mg PO QWEEK 07/07/16 [History] Celecoxib [Celebrex] 200 mg PO BID 07/07/16 [History] Fluticasone/Salmeterol [Advair 500-50 Diskus] 1 puff IH BID 07/07/16 [History] Levothyroxine [Synthroid] 100 mcg PO DAILY 07/07/16 [History] Omeprazole 20 mg PO DAILY 07/07/16 [History] Aspirin 81 mg PO DAILY tab.chew 08/01/16 [Rx] Docusate [Colace] 100 mg PO BID PRN #0 capsule 08/01/16 [Rx] Metoprolol XL (24 HR) Succ [Toprol Xl] 25 mg PO DAILY tab.er.24h 08/01/16 [Rx] GuaiFENesin ER [Mucinex] 1,200 mg PO BID #20 tbbp.12hr 09/15/16 [Rx] Diphenhydramine HCl [Allergy Relief] 25 mg PO DAILY PRN 09/16/16 [History] Ferrous Sulfate [Iron] 325 mg PO BID 09/16/16 [History] Magnesium Oxide [Mgo] 400 mg PO DAILY 09/16/16 [History] Cyclobenzaprine [Flexeril] 10 mg PO TID #15 tab 09/19/16 [Rx] Gabapentin [Neurontin] 300 mg PO TID #21 09/19/16 [Rx] clonazePAM [Klonopin] 1 mg PO TID #21 tab 09/19/16 [Rx] Oxycodone HCl/Acetaminophen [Endocet 5-325 Tablet] 1 tab PO Q4H PRN 09/21/16 [ History] Allergies codeine Allergy (Verified 07/27/16 06:34) Swelling of Lip/Tongue/Throat Medroxyprogesterone [From Provera] Allergy (Verified 07/27/16 06:34) Swelling of Lip/Tongue/Throat Penicillins Allergy (Verified 07/27/16 06:34) Rash All Systems Reviewed: A 10-system review of systems was performed and is negative for pertinent findings except as documented above in the HPI. Physical Exam - Constitutional Vitals: Temp Pulse Resp BP Pulse Ox 98.0 F 82 21 126/78 95 09/22/16 07:00 09/22/16 07:00 09/22/16 07:00 09/22/16 07:00 09/22/16 08:20 Results - Labs Result Diagrams: 09/22/16 04:49 09/22/16 04:49 Labs: Abnormal lab results WBC 13.1 K/mcL (4.3-11.1) H 09/22/16 04:49 RBC 3.05 M/mcL (3.82-4.97) L 09/22/16 04:49 Hgb 8.4 g/dL (11.5-15.4) L D 09/22/16 04:49 Hct 25.8 % (35.3-44.9) L 09/22/16 04:49 MCH 27.5 pg (28.0-33.3) L 09/22/16 04:49 RDW 16.0 % (11.5-14.5) H 09/22/16 04:49 Neutrophils # 12.0 K/mcL (1.6-8.9) H 09/22/16 04:49 Nucleated RBCs/100 WBC 0.5 /100 WBC (0) H 09/20/16 22:37 Immature Plt Fraction 6.4 % (1.1-6.1) H 09/20/16 22:37 ESR 93 mm/hr (0-15) H 09/22/16 12:29 Sodium 134 mEq/L (136-145) L 09/22/16 04:49 Glucose 280 mg/dL (70-99) H 09/22/16 04:49 POC Glucose 309 (58-89) H 09/21/16 22:01 Calcium 8.0 mg/dL (8.6-10.8) L 09/22/16 04:49 C-Reactive Protein 272 mg/L (Less than 5) H 09/22/16 12:29 Staphylococcus sp PCR DETECTED (Not Detect) A 09/20/16 22:37 Staph aureus (PCR) DETECTED (Not Detect) A 09/20/16 22:37 H & H 09/22/16 Range/Units 04:49 Hgb 8.4 L D (11.5-15.4) g/dL Hct 25.8 L (35.3-44.9) % All other labs normal. Consult Discharge Plan - Plan Referrals: Tracie Castelan, DISINTEGRATOR [Primary Care Provider] - <Mera Jesus - Last Filed: 09/23/16 16:20> Date of Encounter: 09/22/16 Time of Encounter: 13:45 Assessment and Plan (1) Postoperative wound infection Current Visit: Yes Status: Acute Qualifiers: Encounter type: initial encounter Qualified Code(s): T81.4XXA - Infection following a procedure, initial encounter (2) S/P ORIF (open reduction internal fixation) fracture Current Visit: Yes Status: Acute History of Present Illness Chief complaint: wound drainage HPI: Ms. Chen is a 61 year old female consulted per ID for concern for wound infection of right distal femur ORIF performed 09/17/[address] Fabian. Patient seen and examined at bedside. Alert and oriented x 3. Wearing O2 by nasal cannula. Locked extension tscope brace on right leg. Patient admits to some pain to right leg but states she has been in the locked extension Tscope brace as directed. Patient is neurovascularly intact to operative extremity. Dressing inspection reveals saturation to approximately 80% with serosanguinous appearance. With dressing removed, wound is actively draining from distal third. No erythema or petechiae noted to skin surrounding incision. No fluctuance or induration noted around incision. Discussed with Dr. Fabian. Consider CT of the right knee to evaluate for abscess. Dr. Fabian to see patient. Past Med Surg Social Fam HX - Past Medical History Medical history: arthritis, asthma, fibromyalgia, osteoporosis, thyroid disease Psychiatric history: anxiety, depression - Past Surgical History Surgical History: cholecystectomy, orthopedic, other, JULIANNA/BSO, thyroidectomy - Social History Smoking Status: Never smoker Smokeless Tobacco Status: No Alcohol use: none Drug use: none - Family History Father Family Member Ethnicity: Non- Living Status: Hx Family Cardiac Disorders: Yes (MD, Stroke) Hx Family Respiratory Disorders: Yes Hx Family Cancer: Yes (Lung/Metastatic) Hx Family GI Disorders: No Hx Family Endocrine Disorder: Yes (DM) Hx Family Neuromuscular Disorders: No Hx Family Neurologic Disorders: No Hx Family HEENT Disorders: No Hx Family Autoimmune Disorders: No Mother Family Member Ethnicity: Non- Living Status: Hx Family Cardiac Disorders: Yes (CHF) Hx Family Respiratory Disorders: No Hx Family Cancer: No Hx Family GI Disorders: No Hx Family Endocrine Disorder: Yes (DM) Hx Family Neuromuscular Disorders: No Hx Family Neurologic Disorders: No Hx Family HEENT Disorders: No Hx Family Autoimmune Disorders: No Brother Family Member Ethnicity: Non- Living Status: Still Living Hx Family Cardiac Disorders: Yes (HD) Hx Family Endocrine Disorder: Yes (DM) Sister Family Member Ethnicity: Non- Living Status: Still Living All Systems Reviewed: A 10-system review of systems was performed and is negative for pertinent findings except as documented above in the HPI. Physical Exam - Constitutional Vitals: Temp Pulse Resp BP Pulse Ox 98.0 F 82 21 126/78 95 09/22/16 07:00 09/22/16 07:00 09/22/16 07:00 09/22/16 07:00 09/22/16 08:20 Results - Labs Result Diagrams: 09/23/16 05:58 09/22/16 04:49 Labs: Abnormal lab results WBC 13.1 K/mcL (4.3-11.1) H 09/22/16 04:49 RBC 3.05 M/mcL (3.82-4.97) L 09/22/16 04:49 Hgb 8.4 g/dL (11.5-15.4) L D 09/22/16 04:49 Hct 25.8 % (35.3-44.9) L 09/22/16 04:49 MCH 27.5 pg (28.0-33.3) L 09/22/16 04:49 RDW 16.0 % (11.5-14.5) H 09/22/16 04:49 Neutrophils # 12.0 K/mcL (1.6-8.9) H 09/22/16 04:49 Nucleated RBCs/100 WBC 0.5 /100 WBC (0) H 09/20/16 22:37 Immature Plt Fraction 6.4 % (1.1-6.1) H 09/20/16 22:37 ESR 93 mm/hr (0-15) H 09/22/16 12:29 Sodium 134 mEq/L (136-145) L 09/22/16 04:49 Glucose 280 mg/dL (70-99) H 09/22/16 04:49 POC Glucose 309 (58-89) H 09/21/16 22:01 Calcium 8.0 mg/dL (8.6-10.8) L 09/22/16 04:49 C-Reactive Protein 272 mg/L (Less than 5) H 09/22/16 12:29 Staphylococcus sp PCR DETECTED (Not Detect) A 09/20/16 22:37 Staph aureus (PCR) DETECTED (Not Detect) A 09/20/16 22:37 H & H 09/22/16 Range/Units 04:49 Hgb 8.4 L D (11.5-15.4) g/dL Hct 25.8 L (35.3-44.9) % All other labs normal.
[2016-09-22] MEDS ORDERED: Ondansetron 4 MG/2 ML VIAL ONE (17:41)
[2016-09-22] MEDS ORDERED: Lidocaine -MPF 2% 2 ML VIAL ONE (17:41)
[2016-09-22] MEDS ORDERED: *HR* Midazolam HCl 2 MG/2 ML VIAL ONE (17:42)
[2016-09-22] MEDS ORDERED: *HR* Propofol 200 MG/20 ML VIAL IVP ONE (17:42)
[2016-09-22] MEDS ORDERED: *HR* FentaNYL (PF) 100 MCG/2 ML VIAL ONE (17:42)
--- NOTE | 2016-09-22 17:56 | Anesthesia Evaluation PreOp ---
Date of Encounter: 09/22/16 Time of Encounter: 17:53 - Past History Planned Operation: I&D Right Femur Cardiac History: Arrhythmia (Hx AFib due to sepsis treated medically), Other ( Anemia) Pulmonary History: Asthma, COPD IPHONE DEVELOPER History: Other (Recurrent falls) Other Medical History: Diabetes Type II, Thyroid Anesthesia History: No Prior Anesthetic Complications, Past Anesthesia (JULIANNA, Cholecystectomy, Thyroidectomy, Right distal femur, Cervical fusion) : No Alcohol Use: none Drug use: none Medications and Allergies Citalopram [CeleXA] 20 mg PO DAILY 02/06/15 [History] Albuterol Sulfate [Albuterol Inhaler] 2 - 4 puff IH Q4HR PRN #1 hfa.aer.ad 03/09 [Rx] Alendronate Sodium [Fosamax] 70 mg PO QWEEK 07/07/16 [History] Celecoxib [Celebrex] 200 mg PO BID 07/07/16 [History] Fluticasone/Salmeterol [Advair 500-50 Diskus] 1 puff IH BID 07/07/16 [History] Levothyroxine [Synthroid] 100 mcg PO DAILY 07/07/16 [History] Omeprazole 20 mg PO DAILY 07/07/16 [History] Aspirin 81 mg PO DAILY tab.chew 08/01/16 [Rx] Docusate [Colace] 100 mg PO BID PRN #0 capsule 08/01/16 [Rx] Metoprolol XL (24 HR) Succ [Toprol Xl] 25 mg PO DAILY tab.er.24h 08/01/16 [Rx] GuaiFENesin ER [Mucinex] 1,200 mg PO BID #20 tbbp.12hr 09/15/16 [Rx] Diphenhydramine HCl [Allergy Relief] 25 mg PO DAILY PRN 09/16/16 [History] Ferrous Sulfate [Iron] 325 mg PO BID 09/16/16 [History] Magnesium Oxide [Mgo] 400 mg PO DAILY 09/16/16 [History] Cyclobenzaprine [Flexeril] 10 mg PO TID #15 tab 09/19/16 [Rx] Gabapentin [Neurontin] 300 mg PO TID #21 09/19/16 [Rx] clonazePAM [Klonopin] 1 mg PO TID #21 tab 09/19/16 [Rx] Oxycodone HCl/Acetaminophen [Endocet 5-325 Tablet] 1 tab PO Q4H PRN 09/21/16 [ History] Allergies codeine Allergy (Verified 07/27/16 06:34) Swelling of Lip/Tongue/Throat Medroxyprogesterone [From Provera] Allergy (Verified 07/27/16 06:34) Swelling of Lip/Tongue/Throat Penicillins Allergy (Verified 07/27/16 06:34) Rash - Meds/Allergy Pre-op Review Medications Reviewed: Yes Allergies Reviewed: Yes Beta Blockers on Current Med List: Yes If Beta Blockers taken, Date/Time (Last Dose taken): 08:28 09/22/2016 Anesthesia Results - Labs 09/22/16 04:49 09/22/16 04:49 - Imaging EKG: image reviewed (SINUS TACHYCARDIA WITH OCCASIONAL SUPRAVENTRICULAR PREMATURE COMPLEXES) Anesthesia Exam O2 Sat O2 Sat by Pulse Oximetry 96 O2 Sat by Pulse Oximetry 95 O2 Sat by Pulse Oximetry 97 O2 Sat by Pulse Oximetry 95 O2 Sat by Pulse Oximetry 85 O2 Sat by Pulse Oximetry 95 O2 Sat by Pulse Oximetry 97 O2 Sat by Pulse Oximetry 95 O2 Sat by Pulse Oximetry 98 O2 Sat by Pulse Oximetry 95 Vital Signs Temp Pulse Resp BP Pulse Ox 100.6 F H 105 20 101/70 90 09/20/16 22:00 09/20/16 22:00 09/20/16 22:00 09/20/16 22:00 09/20/16 22:00 Vital Signs/O2 Sat, Most Current Temp Pulse Resp BP Pulse Ox 97.9 F 81 18 124/64 96 09/22/16 16:00 09/22/16 16:00 09/22/16 16:42 09/22/16 16:00 09/22/16 16:42 Height: 5'3'' Weight: 193# NPO (# of Hours): > 8 hrs Pain Scale: 0 Pain Scale Used: Numeric (1 - 10) - HEENT Pupil (Motor): Pupils equal, EOMI Mallampati: III Teeth: Edentulous Oral Opening: Greater than 3 - IPHONE DEVELOPER LOC: Oriented IPHONE DEVELOPER Motor: Normal RUE, Normal LUE, Normal RLE, Normal LLE, Normal Face IPHONE DEVELOPER Sensory: Normal: RUE, LUE, RLE, LLE, Face - Cardiac Rhythm: Regular Murmur: None JVD: No Carotid Bruit: No - Pulmonary Breath Sounds: bilateral Clear Respiratory Effort: Symmetrical Anesthesia Assess/Plan ASA Score: 3 Modified Christian Scale for Level of Consciousness: Cooperative, oriented, and tranquil Anesthetic Plan: General Autologous Blood: Yes Recovery Plan: PACU
[2016-09-22] MEDS ORDERED: Albuterol 2.5 MG/3 ML NEBULIZER IH PRN (18:59)
[2016-09-22] MEDS ORDERED: Ondansetron 4 MG/2 ML VIAL IVP PRN (18:59)
--- NOTE | 2016-09-22 18:59 | Orthopedic Operative Note ---
Date of procedure: 09/22/16 Pre-op diagnosis: Infection right femur status post open reduction internal fixation Post-op diagnosis: same Procedure: Procedure: Irrigation and debridement right femur Estimated blood loss 100 mL Findings: Disruption of tensor fascia with purulent type material down to fixation plate. Patient status post multiple falls since discharge on Thursday, surgery was last Thursday. Procedure: Patient brought to the operating placed in the operative table after general anesthesia was administered the right lower extremity was prepped and draped in sterile surgical fashion the patient received IV antibiotics prior skin incision. The old incision was opened with a hemostat bloody purulent material drained out. There was disruption of the tensor fascia as well as the fascia of the vastus lateralis. The plate was easily identified. The wound was irrigated with 3 L of pulse irrigation. Debridement was performed of abnormal tissue. The wound was then irrigated with Bactisure, antibiotic fluid. It was then irrigated with 1 L of Betadine saline solution and then 3 L of pulse irrigation. Intraoperative fluoroscopy showed no change in the position of the hardware or the fracture reduction. The tensa fascia was closed over a SEAN drain with a running #2 PDS suture. Subcutaneous tissues irrigated and closed deep #1 PDS suture superficially with 0 PDS suture skin was closed with skin gregory. Patient was placed in a sterile dressing postoperative brace extubated and transferred to recovery room stable condition. Anesthesia: CACHORRO Surgeon: Romain Fabian Communications Strategist: Diamond Licea Condition: stable Disposition: PACU
[2016-09-22] MEDS ORDERED: *HR* HYDROmorphone 2 MG/ML SYRINGE ONE (19:05)
[2016-09-22] MEDS: *HR* HYDROmorphone (PF) 1 MG/ML SYRINGE IVP PRN ×4 (19:32→20:02)
[2016-09-22] MEDS ORDERED: Gabapentin 300 MG CAPSULE PO ONE (19:35)
[2016-09-22] MEDS ORDERED: Acetaminophen IV 1,000 MG/100 ML INFUS..BTL IVPB ONE (19:38)
--- NOTE | 2016-09-22 20:33 | Anesthesia Evaluation Post Op ---
Date of Encounter: 09/22/16 Time of Encounter: 20:30 - Vital Signs Vital Signs: Vital Signs/O2 Sat/Glucose, Most Current Temp Pulse Resp BP Pulse Ox 09/22/16 20:16 98.3 F 80 20 94 09/22/16 20:06 80 20 120/70 95 09/22/16 19:56 82 18 117/66 97 09/22/16 19:46 98.1 F 78 16 126/60 94 09/22/16 19:36 80 18 120/63 98 09/22/16 19:26 84 20 125/64 98 09/22/16 19:16 98.1 F 98 18 157/87 98 09/22/16 16:42 18 96 - Lungs Lungs: Clear Ascult./Percussion - Airway Airway: Non-obstructed - Cardiovascular Baseline Rhythm - Mental Status Mental Status: Alert & Oriented, Answers Appropriately - Pain Pain Scale: 6 Pain Scale used: Numeric (1 - 10) - Nausea Vomiting Nausea Vomiting: Not Present - Hydration Hydration: Tolerates oral liquids, Nagel catheter - Discharge PostOp Status: Transfer Patient to floor Anes Supervising Prov Stmt: Pt seen/evaluated, VSS and pt has met criteria for discharge to home. - MD Arturo
[2016-09-22] MEDS ORDERED: D5% in Water 1,000 ML IVC PRN (20:39)
[2016-09-22] MEDS ORDERED: Ipratropium/Albuterol Neb 3 ML IH PRN (20:39)
[2016-09-22] MEDS ORDERED: Naloxone 0.4 MG/ML INJ IVP PRN ×2 (20:39)
[2016-09-22] MEDS ORDERED: Acetaminophen 325 MG TABLET PO PRN (20:39)
[2016-09-22] MEDS ORDERED: *HR* HYDROmorphone (PF) 1 MG/ML SYRINGE IVP PRN (20:39)
[2016-09-22] MEDS ORDERED: Dextrose Gel 15 GM PO PRN ×2 (20:39)
[2016-09-22] MEDS ORDERED: Benzonatate 100 MG CAPSULE PO PRN (20:39)
[2016-09-22] MEDS ORDERED: *HR* Dextrose 50 % in Water (Syg) 50 ML SYRINGE IVP PRN (20:39)
[2016-09-22] MEDS ORDERED: Insulin DETEMIR 100 UNIT/ML X5UNITS SQ SCH (21:00)
[2016-09-22 22:12] LABS: Hematocrit 25.7 % (35.3-44.9); Hemoglobin 8.3 g/dL (11.5-15.4)
[2016-09-22] MEDS: ceFAZolin 2,000 MG in D5% in Water 100 ML IVPB SCH (23:41)
[2016-09-23] MEDS ORDERED: ceFAZolin 2,000 MG in D5% in Water 100 ML IVPB SCH
[2016-09-23] MEDS: *HR* OxyCODONE Immed Rel 5 MG TABLET PO PRN (03:50)
[2016-09-23] MEDS: clonazePAM 1 MG TABLET PO SCH ×4 (03:57→20:25)
[2016-09-23] MEDS: Ipratropium/Albuterol Neb 3 ML IH SCH ×4 (04:26→21:18)
[2016-09-23] MEDS: *HR* Enoxaparin 40 MG/0.4 ML SYRINGE SQ SCH (05:55)
[2016-09-23] MEDS: MethylPREDNISolone 40 MG/ML VIAL IVP SCH ×2 (05:56→17:12)
[2016-09-23] MEDS ORDERED: *HR* Enoxaparin 40 MG/0.4 ML SYRINGE SQ SCH (06:00)
[2016-09-23 06:08] LABS: Hematocrit 23.8 % (35.3-44.9); Hemoglobin 7.6 g/dL (11.5-15.4)
--- NOTE | 2016-09-23 09:50 | Infectious Disease Progress No ---
Date of Encounter: 09/23/16 Time of Encounter: 09:42 - Assessment and Plan (1) Sepsis Current Visit: No Status: Acute Since admission she has met two SIRS criteria of temperature 100.6 F and tachycardia HR 105. Labs on admission revealed a WBC 13.2 with left shift, initial lactic acid 1.0 Blood cultures collected 09/20/16 revealed MSSA Patient was started on cefepime on 09/20/16 and azithromycin and vancomycin were added on 09/21/16 after patient spiked a fever 103.1 F and lactic acid level was 2.9 whiel on Cefepime. (Patient reports allergy to penicillins which causes a rash) POD #1 s/p Irrigation and debridement right femur and SEAN drain placement by Dr. Fabian Deep wound cultures collected 09/22/16 are pending Repeat blood cultures collected 09/22/16 results are pending Recommendations: Continue Cefazolin 2g IV q8h for 4 weeks. 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 Will need PICC line placement and KYRA prior to discharge to evaluate for endocarditis. Duration of antibiotics depends on clinical course. Continue to monitor labs for drug toxicity and dose adjust antibiotics accordingly Qualifiers: Sepsis type: sepsis due to unspecified organism Qualified Code(s): A41.9 - Sepsis, unspecified organism (2) Bacteremia Current Visit: Yes Status: Acute Blood cultures collected 09/20/16 revealed MSSA Continue Cefazolin 2g IV q8h for 4 weeks. Consider Rifampin given possible hardware infection. Will need PICC line placement and KYRA prior to discharge to evaluate for endocarditis. (3) Hospital-acquired pneumonia Current Visit: Yes Status: Acute Shortness of breath, hypoxia in the 70s to 80s on room air and temperature 102 F. Patient reports nonproductive cough for the past 3 weeks prior to surgery 09/17 CT chest revealed bilateral multifocal parenchymal disease which includes areas of tree in bud nodularity and bandlike densities/nodular areas of consolidation within both lower lobes. Finding is suspicious representing an infectious/ inflammatory process. Minimally prominent lymph nodes and subcarinal and left hilar regions. Urine legionella and pneumococcus antigens pending (4) Postoperative wound infection Current Visit: Yes Status: Acute s/p ORIF of right distal femur fracture 09/17/16 s/p Irrigation and debridement right femur and SEAN drain placement on by Dr. Fabian Qualifiers: Encounter type: initial encounter Qualified Code(s): T81.4XXA - Infection following a procedure, initial encounter (5) Fracture of distal femur Current Visit: No Status: Acute s/p ORIF of right distal femur fracture 09/17/16 Qualifiers: Encounter type: subsequent encounter Fracture type: closed Fracture morphology: unspecified fracture morphology Laterality: right Fracture healing: with malunion Qualified Code(s): S72.401P - Unspecified fracture of lower end of right femur, subsequent encounter for closed fracture with malunion (6) Diabetes Current Visit: No Status: Chronic Continue management per primary team Qualifiers: Diabetes mellitus type: type 2 Diabetes mellitus complication status: without complication Diabetes mellitus adjunct faculty for medical terminology insulin use: with usp use Qualified Code(s): E11.9 - Type 2 diabetes mellitus without complications ; Z79.4 - care home (current) use of insulin (7) Chronic anemia Current Visit: No Status: Chronic Acute vs chronic blood loss anemia. Continue to monitor - Subjective Interval history: Patient seen and examined. No acute events overnight. Patient is POD #1 s/p Irrigation and debridement right femur and SEAN drain placement by Dr. Fabian. Patient denies fever, chills, CP, worsening SOB, abdominal pain, N/V/D, or bleeding from incision site. Infect Dis PN-Objective Data - Labs CBC & Chem 7: 09/23/16 05:58 09/22/16 04:49 Labs: Laboratory Results - last 24 hr 09/22/16 09/22/16 09/22/16 07:37 11:51 12:29 Hgb Hct ESR POC Glucose 254 H 268 H C-Reactive Protein Urine Color Urine Clarity Urine pH Ur Specific Gillett Urine Protein Urine Glucose (UA) Urine Ketones Urine Blood Urine Nitrite Urine Bilirubin Urine Urobilinogen Ur Leukocyte Esterase Urine Microscopic RBC Urine Microscopic WBC Ur Squamous Epith Cells Urine Bacteria Hyaline Casts Ur Culture Indicated? Vancomycin Trough 19.8 09/22/16 09/22/16 09/22/16 12:29 12:29 14:57 Hgb Hct ESR 93 H POC Glucose C-Reactive Protein 272 H Urine Color TNP Urine Clarity TNP Urine pH TNP Ur Specific [place]lett TNP Urine Protein TNP Urine Glucose (UA) TNP Urine Ketones TNP Urine Blood TNP Urine Nitrite TNP Urine Bilirubin TNP Urine Urobilinogen TNP Ur Leukocyte Esterase TNP Urine Microscopic RBC TNP Urine Microscopic WBC TNP Ur Squamous Epith Cells TNP Urine Bacteria TNP Hyaline Casts TNP Ur Culture Indicated? TNP Vancomycin Trough 09/22/16 09/22/16 09/23/16 16:34 21:54 05:58 Hgb 8.3 L 7.6 L Hct 25.7 L 23.8 L ESR POC Glucose 254 H C-Reactive Protein Urine Color Urine Clarity Urine pH Ur Specific [place]lett Urine Protein Urine Glucose (UA) Urine Ketones Urine Blood Urine Nitrite Urine Bilirubin Urine Urobilinogen Ur Leukocyte Esterase Urine Microscopic RBC Urine Microscopic WBC Ur Squamous Epith Cells Urine Bacteria Hyaline Casts Ur Culture Indicated? Vancomycin Trough Cultures: Serology 09/22/16 Range/Units 14:57 Urine Color TNP Urine Clarity TNP Urine pH TNP Ur Specific [place]lett TNP Urine Protein TNP Urine Glucose (UA) TNP Urine Ketones TNP Urine Blood TNP Urine Nitrite TNP Urine Bilirubin TNP Urine Urobilinogen TNP Ur Leukocyte Esterase TNP Urine Microscopic RBC TNP Urine Microscopic WBC TNP Ur Squamous Epith Cells TNP Urine Bacteria TNP Hyaline Casts TNP Ur Culture Indicated? TNP - Impressions Impressions Femur X-Ray 09/22/16 18:14 IMPRESSION: Postop findings D/ / Logan Cho / Logan Cho Interpreting Provider: Logan Cho Femur X-Ray 09/22/16 18:45 IMPRESSION: Intraprocedural fluoroscopic spot images as above. See separate procedure report for more information. D/ /22/2016 19:23:11 Elian Aiken MD / iris Interpreting Provider: Elian Aiken MD Fluoroscopy 09/22/16 18:45 IMPRESSION: Intraprocedural fluoroscopic spot images as above. See separate procedure report for more information. D/ /22/2016 19:23:11 Elian Aiken MD / iris Interpreting Provider: Elian Aiken MD Exam - Constitutional Vitals: Temp Pulse Resp BP Pulse Ox 97.8 F 94 20 136/67 95 09/22/16 20:47 09/23/16 07:00 09/23/16 07:00 09/23/16 07:45 09/23/16 07:00 General appearance: cooperative, no acute distress, obese, no febrile - Head Head exam: Present: atraumatic, normal inspection, normocephalic - Eye Eye exam: Present: PERRL, conjuntiva pink - ENT ENT exam: Present: mucous membranes moist, normal oropharynx - Neck Neck exam: Present: normal inspection. Absent: lymphadenopathy, tenderness, thyromegaly - Respiratory Respiratory exam: Absent: accessory muscle use, respiratory distress Additional comments: course breath sounds bilaterally - Cardiovascular Cardiovascular exam: Present: RRR, +S1, +S2 - GI/Abdominal GI/Abdominal exam: Present: normal bowel sounds, soft. Absent: guarding, rebound - Extremities Exam Extremities exam: Present: tenderness. Absent: pedal edema Additional comments: right lateral distal femur incison C/D/I, no surrounding erythema or proximal streaking, SEAN drain in place with serosanguineous fluid - Neurological Exam Neurological exam: Present: alert, oriented X3. Absent: altered, motor sensory deficit - Psychiatric Psychiatric exam: Present: normal affect, normal mood. Absent: anxious - Skin Skin exam: Present: dry, intact, warm Additional comments: right lateral distal femur incison C/D/I, no surrounding erythema or proximal streaking Consult Discharge Plan - Plan Referrals: Tracie Castelan, PLANT SAFETY ENGINEER [Primary Care Provider] - - Attending Attestation I examined this patient and my medical decision-making was reviewed with the Resident Physician. I agree with the documented findings, disposition and treatment plan as described except to the extent set forth below.
[2016-09-23] MEDS: Metoprolol XL (24 HR) Succ 25 MG TAB.ER.24H PO SCH (09:56)
[2016-09-23] MEDS: BuPROPion XL (24 HR) 150 MG TABLET PO SCH (09:57)
[2016-09-23] MEDS: Gabapentin 300 MG CAPSULE PO SCH ×3 (09:57→20:26)
[2016-09-23] MEDS: Aspirin 81 MG TAB.CHEW PO SCH (09:57)
[2016-09-23] MEDS: Magnesium Oxide 400 MG TABLET PO SCH (09:57)
[2016-09-23] MEDS: Insulin LISPRO 300 UNITS/3 ML VIAL SQ SCH ×4 (09:59→22:41)
[2016-09-23] MEDS: ceFAZolin 2,000 MG in D5% in Water 100 ML IVPB SCH ×3 (10:02→23:58)
[2016-09-23] MEDS: Budesonide/Formoterol 160/4.5 MDI IH SCH ×2 (10:52→21:18)
--- NOTE | 2016-09-23 12:18 | Orthopedics Progress Note ---
Date of Encounter: 09/23/16 Time of Encounter: 12:16 - Assessment and Plan (1) Wound infection following procedure Current Visit: Yes Status: Acute POD#1 - Right Upper Leg I&D with wound closure and SEAN drain placement - 09/22/16 Deep wound cultures collected 09/22/16 are pending Repeat blood cultures collected 09/22/16 results are pending Blood cultures collected 09/20/16 revealed MSSA SEAN Drain: Approximately bloody fluid. New Pressure dressings applied. NWB to RLE In Tscope brace at all times, no knee ROM or flexion. ICE and elevate as tolerated. XRAYS 09/22/16 - Postoperative changes are noted along the lateral distal femur. A plate and multiple screws stabilizing comminuted fracture. Compared to an examination from September 17, fracture fragment alignment is stable to slightly improved. Patient is also status post total knee replacement. No new fractures are noted. Lateral soft tissues surgical clips and air density are noted. Infectious disease Recommendations: Continue Cefazolin 2g IV q8h for 4 weeks. 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 Will need PICC line placement and KYRA prior to discharge to evaluate for endocarditis. Duration of antibiotics depends on clinical course. Continue to monitor labs for drug toxicity and dose adjust antibiotics accordingly Subjective Principal diagnosis: Right Thigh - Wound Infection Interval history: POD#1 - Right Upper Leg I&D with wound closure and SEAN drain placement - 09/22/16 Deep wound cultures collected 09/22/16 are pending Repeat blood cultures collected 09/22/16 results are pending Blood cultures collected 09/20/16 revealed MSSA Patient was started on cefepime on 09/20/16 and azithromycin and vancomycin were added on 09/21/16 after patient spiked a fever 103.1 F and lactic acid level was 2.9 whiel on Cefepime. (Patient reports allergy to penicillins which causes a rash) Infectious disease Recommendations: Continue Cefazolin 2g IV q8h for 4 weeks. 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 Will need PICC line placement and KYRA prior to discharge to evaluate for endocarditis. Duration of antibiotics depends on clinical course. Continue to monitor labs for drug toxicity and dose adjust antibiotics accordingly Objective Vital signs: Vital Signs Temp Pulse Resp BP Pulse Ox 09/23/16 10:53 18 95 09/23/16 07:45 136/67 09/23/16 07:00 94 20 95 09/23/16 04:27 16 94 09/22/16 22:28 12 94 09/22/16 20:47 97.8 F 84 112/68 93 09/22/16 20:16 98.3 F 80 20 115/66 94 09/22/16 20:06 80 20 120/70 95 09/22/16 19:56 82 18 117/66 97 09/22/16 19:46 98.1 F 78 16 126/60 94 09/22/16 19:36 80 18 120/63 98 09/22/16 19:26 84 20 125/64 98 09/22/16 19:16 98.1 F 98 18 157/87 98 09/22/16 16:42 18 96 09/22/16 16:00 97.9 F 81 15 124/64 95 Intake and Output 09/22/16 09/23/16 09/23/16 23:59 07:59 15:59 Intake Total 200 / 200 340 / 340 240 / 240 Output Total 110 / 110 280 / 280 Balance 90 / 90 60 / 60 240 / 240 Intake: IV Fluids 200 / 200 100 / 100 Ofirmev 1,000 mg/100 ml 1 100 / 100 ,000 mg In 100 ml @ 400 mls/hr IVPB ONCE ONE Rx#: [id number] Maxipime 2,000 MG In 100 / 100 Dextrose 5% (Minibag+) 100 ML 100 ML @ 200 mls/ hr IVPB Q12H [facility] Rx#: [id number] Ancef 2,000 MG In 100 / 100 Dextrose 5% 100 ML @ 200 mls/hr IVPB Q8HR [facility] Rx#: [id number] Oral 240 / 240 240 / 240 Output: Urine 250 / 250 Estimated Blood Loss 100 / 100 Wound Drainage 30 / 30 Right Thigh 30 / 30 Other: Meal SNA[employer]OMAT[employer] Breakfast Percent of Meal Consumed 100% 60% Weight 88.2 kg Blood Glucose* 170 214 225 - Labs CBC & BMP: 09/23/16 05:58 09/22/16 04:49 Labs: Abnormal lab results WBC 13.1 K/mcL (4.3-11.1) H 09/22/16 04:49 RBC 3.05 M/mcL (3.82-4.97) L 09/22/16 04:49 Hgb 7.6 g/dL (11.5-15.4) L 09/23/16 05:58 Hct 23.8 % (35.3-44.9) L 09/23/16 05:58 MCH 27.5 pg (28.0-33.3) L 09/22/16 04:49 RDW 16.0 % (11.5-14.5) H 09/22/16 04:49 Neutrophils # 12.0 K/mcL (1.6-8.9) H 09/22/16 04:49 Nucleated RBCs/100 WBC 0.5 /100 WBC (0) H 09/20/16 22:37 Immature Plt Fraction 6.4 % (1.1-6.1) H 09/20/16 22:37 ESR 93 mm/hr (0-15) H 09/22/16 12:29 Sodium 134 mEq/L (136-145) L 09/22/16 04:49 Glucose 280 mg/dL (70-99) H 09/22/16 04:49 POC Glucose 254 (58-89) H 09/22/16 16:34 Calcium 8.0 mg/dL (8.6-10.8) L 09/22/16 04:49 C-Reactive Protein 272 mg/L (Less than 5) H 09/22/16 12:29 Staphylococcus sp PCR DETECTED (Not Detect) A 09/20/16 22:37 Staph aureus (PCR) DETECTED (Not Detect) A 09/20/16 22:37 Consult Discharge Plan - Plan Referrals: Tracie Castelan, CANDY COOKER HELPER [Primary Care Provider] -
[2016-09-23 17:56] LABS: Acinetobacter baumannii by PCR Not Detected (Not Detect); Candida albicans by PCR Not Detected (Not Detect); Candida glabrata by PCR Not Detected (Not Detect); Enterococcus by PCR Not Detected (Not Detect); Escherichia coli by PCR Not Detected (Not Detect); Klebsiella oxytoca by PCR Not Detected (Not Detect); Klebsiella pneumoniae by PCR Not Detected (Not Detect); Pseudomonas aeruginosa by PCR Not Detected (Not Detect); Serratia marcescens by PCR Not Detected (Not Detect); Staphylococcus aureus by PCR ***DETECTED*** (Not Detect); Streptococcus agalactiae(B)PCR Not Detected (Not Detect); Streptococcus by PCR Not Detected (Not Detect); Streptococcus pneumoniae PCR Not Detected (Not Detect); Streptococcus pyogenes (A) PCR Not Detected (Not Detect); blaKPC Carbapenem-Resist Gene Not Detected (Not Detect); mecA Methicillin-Resist Gene Not Detected (Not Detect); vanA/B Vancomycin-Resist Genes Not Detected (Not Detect)
[2016-09-23 17:57] LABS: Candida krusei by PCR Not Detected (Not Detect); Candida parapsilosis by PCR Not Detected (Not Detect); Candida tropicalis by PCR Not Detected (Not Detect)
--- NOTE | 2016-09-23 18:39 | Internal Med Progress Note ---
Date of Encounter: 09/23/16 Time of Encounter: 18:34 - Assessment and plan (1) Sepsis Current Visit: No Status: Acute Qualifiers: Sepsis type: sepsis due to unspecified organism Qualified Code(s): A41.9 - Sepsis, unspecified organism (2) Bacteremia Current Visit: Yes Status: Acute (3) Pneumonia Current Visit: No Status: Acute Qualifiers: Pneumonia type: due to unspecified organism Laterality: bilateral Lung location: unspecified part of lung Qualified Code(s): J18.9 - Pneumonia, unspecified organism (4) Urinary tract infection Current Visit: No Status: Acute Qualifiers: Urinary tract infection type: acute cystitis Hematuria presence: with hematuria Qualified Code(s): N30.01 - Acute cystitis with hematuria (5) Wound infection following procedure Current Visit: Yes Status: Acute (6) Diabetes Current Visit: No Status: Chronic Qualifiers: Diabetes mellitus type: type 2 Diabetes mellitus complication status: without complication Diabetes mellitus termination clerk insulin use: with penitentiary use Qualified Code(s): E11.9 - Type 2 diabetes mellitus without complications ; Z79.4 - long term care phlebotomist (current) use of insulin (7) Anemia, posthemorrhagic, acute Current Visit: No Status: Acute (8) Atrial fibrillation Current Visit: No Status: Acute Qualifiers: Atrial fibrillation type: unspecified Qualified Code(s): I48.91 - Unspecified atrial fibrillation (9) S/P ORIF (open reduction internal fixation) fracture Current Visit: Yes Status: Acute (10) DVT prophylaxis Current Visit: No Status: Acute - Subjective Interval history: Ms. Chen is a 61 year old female who had been recently here for ORIF of right distal femur fracture 09/17 and was sent to SNF for rehab who presents with acute hypoxia. She had also been found to have fallen several times per report - patient reports falling because her right brace has been cumbersome. At the SNF, she was found to be hypoxic in the 70-80s on RA along with a temp of 102. In the UA, UA with pyuria but she denies overt UTI symptoms. CTA in the ED demonstrated multi-focal infiltrates and broncholitis changes suspicious for infectious PNA causing respiratory failure. Problem list: #1 right femur fracture/postoperative wound infection. I&D performed by Dr. Swanson cultures pending. #2 MSSA bacteremia. Infectious disease has recommended Ancef 2 g every 8 IV for 4 weeks plus rifampin daily for 1 week per recommendation of surgery. Ordered PICC line #3 multifocal pneumonia question septic emboli requesting KYRA consult cardiology #4 UTI based on positive leukocyte and UA however cultures are negative #5 diabetes sugars are uncontrolled Levemir increased from 5 units at night to 15 units at night continue following blood sugars #6 anemia suspect post op acute blood loss anemia however hemoglobin only 7.6 Hemoccult and iron studies ordered if goes down any further we will transfuse check CBC CMP daily Disposition: Will discuss with care team about appropriate placement considering she will need Ancef 3 times a day - Constitutional Vitals: Temp Pulse Resp BP Pulse Ox 97.8 F 90 16 122/57 96 09/23/16 16:00 09/23/16 16:00 09/23/16 16:00 09/23/16 16:00 09/23/16 16:00 General appearance: Present: A&O X 3 - Head Head exam: Present: atraumatic, normocephalic - Eye Eye exam: Present: PERRL, conjuntiva pink, sclera anicteric Pupils: Present: PERRL - Neck Neck exam general surgery: Present: supple, trachea midline. Absent: lymphadenopathy - Respiratory Respiratory exam: Present: CTAB. Absent: accessory muscle use, rales, rhonchi, wheezes - Cardiovascular Cardiovascular exam: Present: RRR, +S1, +S2. Absent: diastolic murmur, gallop, rubs, systolic murmur - GI/Abdominal GI/Abdominal exam: Present: normal bowel sounds, soft, no peritoneal signs. Absent: distended, tenderness - Extremities Exam Extremities exam: Present: warm, radial pulses palpable and symmetrical. Absent : calf tenderness, cyanotic, pedal edema Additional comments: Right-sided examination per surgery - Neurological Exam Neurological exam: Present: CN II-XII intact, oriented X3, no focal deficits. Absent: pronater drift, facial droop, speech deficit - Skin Skin exam: Present: dry, intact Internal Medicine: Result - Labs CBC & Chem 7: 09/23/16 05:58 09/22/16 04:49 Labs: Short CBC 09/22/16 09/23/16 Range/Units 21:54 05:58 Hgb 8.3 L 7.6 L (11.5-15.4) g/dL Hct 25.7 L 23.8 L (35.3-44.9) % - Impressions Impressions Femur X-Ray 09/22/16 18:14 IMPRESSION: Postop findings D/ / Logan Cho / Logan Cho Interpreting Provider: Logan Cho Femur X-Ray 09/22/16 18:45 IMPRESSION: Intraprocedural fluoroscopic spot images as above. See separate procedure report for more information. D/ : / 09/22/2016 19:23:11 Elian Aiken MD / iris Interpreting Provider: Elian Aiken MD Fluoroscopy 09/22/16 18:45 IMPRESSION: Intraprocedural fluoroscopic spot images as above. See separate procedure report for more information. D/ : / 09/22/2016 19:23:11 Elian Aiken MD / iris Interpreting Provider: Elian Aiken MD Consult Discharge Plan - Plan Referrals: Tracie Castelan, CAREER SERVICES COORDINATOR [Primary Care Provider] -
[2016-09-23] MEDS: Insulin DETEMIR 100 UNIT/ML X5UNITS SQ SCH (20:26)
[2016-09-24] MEDS: Ipratropium/Albuterol Neb 3 ML IH SCH ×4 (02:55→23:28)
[2016-09-24] MEDS: *HR* Enoxaparin 40 MG/0.4 ML SYRINGE SQ SCH (05:44)
[2016-09-24] MEDS: MethylPREDNISolone 40 MG/ML VIAL IVP SCH ×2 (05:44→16:53)
--- NOTE | 2016-09-24 08:05 | Infectious Disease Progress No ---
Date of Encounter: 09/24/16 Time of Encounter: 08:02 - Assessment and Plan (1) Sepsis Current Visit: No Status: Acute Since admission she has met two SIRS criteria of temperature 100.6 F and tachycardia HR 105. Labs on admission revealed a WBC 13.2 with left shift, initial lactic acid 1.0 Patient was started on cefepime on 09/20/16 and azithromycin and vancomycin were added on 09/21/16 after patient spiked a fever 103.1 F and lactic acid level was 2.9 while on Cefepime. (Patient reports allergy to penicillins which causes a rash) POD #2 s/p Irrigation and debridement right femur and SEAN drain placement by Dr. Fabian Deep wound cultures collected 09/22/16 show no growth to date Repeat blood cultures collected 09/22/16 results revealed gram-positive cocci Recommendations: Continue Cefazolin 2g IV q8h for 4 weeks. Will add Rifampin prior to discharge given intraoperative findings/ hardware infection. Will need PICC line placement prior to discharge Anticipate KYRA on 09/25/16 to evaluate for endocarditis Duration of antibiotics depends on clinical course. Continue to monitor labs for drug toxicity and dose adjust antibiotics accordingly Qualifiers: Sepsis type: sepsis due to unspecified organism Qualified Code(s): A41.9 - Sepsis, unspecified organism (2) Bacteremia Current Visit: Yes Status: Acute Blood cultures collected 09/20/16 revealed MSSA Blood cultures collected 09/22/16 revealed gram positive cocci Repeat blood cultures today. Continue Cefazolin 2g IV q8h for 4 weeks. Consider Rifampin given possible hardware infection. Will need PICC line placement prior to discharge Anticipate KYRA on 09/25/16 to evaluate for endocarditis (3) Hospital-acquired pneumonia Current Visit: Yes Status: Acute Shortness of breath, hypoxia in the 70s to 80s on room air and temperature 102 F. Patient reports nonproductive cough for the past 3 weeks prior to surgery 09/17 CT chest revealed bilateral multifocal parenchymal disease which includes areas of tree in bud nodularity and bandlike densities/nodular areas of consolidation within both lower lobes. Finding is suspicious representing an infectious/ inflammatory process. Minimally prominent lymph nodes and subcarinal and left hilar regions. Urine legionella and pneumococcus antigens pending (4) Postoperative wound infection Current Visit: Yes Status: Acute s/p ORIF of right distal femur fracture 09/17/16 s/p Irrigation and debridement right femur and SEAN drain placement on 09/22/[address] Fabian Qualifiers: Encounter type: initial encounter Qualified Code(s): T81.4XXA - Infection following a procedure, initial encounter (5) Fracture of distal femur Current Visit: No Status: Acute s/p ORIF of right distal femur fracture 09/17/16 Qualifiers: Encounter type: subsequent encounter Fracture type: closed Fracture morphology: unspecified fracture morphology Laterality: right Fracture healing: with malunion Qualified Code(s): S72.401P - Unspecified fracture of lower end of right femur, subsequent encounter for closed fracture with malunion (6) Diabetes Current Visit: No Status: Chronic Continue management per primary team Qualifiers: Diabetes mellitus type: type 2 Diabetes mellitus complication status: without complication Diabetes mellitus long-term insulin use: with long-term use Qualified Code(s): E11.9 - Type 2 diabetes mellitus without complications ; Z79.4 - termite helper (current) use of insulin (7) Chronic anemia Current Visit: No Status: Chronic Acute vs chronic blood loss anemia. Continue to monitor - Subjective Interval history: Patient seen and examined. No acute events overnight. Patient is POD #2 s/p Irrigation and debridement right femur and SEAN drain placement by Dr. Fabian. Patient denies fever, chills, CP, worsening SOB, abdominal pain, N/V/D, or bleeding from incision site. Infect Dis PN-Objective Data - Labs CBC & Chem 7: 09/24/16 07:36 09/24/16 07:36 Labs: Laboratory Results - last 24 hr 09/22/16 09/22/16 09/23/16 12:29 20:44 07:38 POC Glucose 170 H 214 H A. baumannii (PCR) Not Detected Elise albicans (PCR) Not Detected C. glabrata (PCR) Not Detected C. krusei (PCR) Not Detected C. parapsilosis (PCR) Not Detected C. tropicalis (PCR) Not Detected Enterobacteriac sp PCR Not Detected E. cloacae complex PCR Not Detected Enterococcus sp PCR Not Detected E. coli (PCR) Not Detected H. influenzae (PCR) Not Detected Klebsiella oxytoca PCR Not Detected Klebsiella pneumoniae Not Detected List. monocytogenes PCR Not Detected N. meningitidis (PCR) Not Detected Proteus species (PCR) Not Detected Serratia marcescens PCR Not Detected Staphylococcus sp PCR DETECTED A Staph aureus (PCR) DETECTED A mecA-Methicil Res Gene Not Detected Streptococcus sp PCR Not Detected Group A Strep DNA Not Detected Group B Strep (PCR) Not Detected Strep pneumoniae (PCR) Not Detected P. aeruginosa (PCR) Not Detected Arnel/B-Vanco Res Genes Not Detected KPC (blaKPC) Detect PCR Not Detected Specimen Rejected 09/23/16 09/23/16 09/23/16 11:05 11:29 16:34 POC Glucose 225 H 202 H A. baumannii (PCR) Elise albicans (PCR) C. glabrata (PCR) C. krusei (PCR) C. parapsilosis (PCR) C. tropicalis (PCR) Enterobacteriac sp PCR E. cloacae complex PCR Enterococcus sp PCR E. coli (PCR) H. influenzae (PCR) Klebsiella oxytoca PCR Klebsiella pneumoniae List. monocytogenes PCR N. meningitidis (PCR) Proteus species (PCR) Serratia marcescens PCR Staphylococcus sp PCR Staph aureus (PCR) mecA-Methicil Res Gene Streptococcus sp PCR Group A Strep DNA Group B Strep (PCR) Strep pneumoniae (PCR) P. aeruginosa (PCR) Arnel/B-Vanco Res Genes KPC (blaKPC) Detect PCR Specimen Rejected Labelling 09/23/16 22:12 POC Glucose 219 H A. baumannii (PCR) Elise albicans (PCR) C. glabrata (PCR) C. krusei (PCR) C. parapsilosis (PCR) C. tropicalis (PCR) Enterobacteriac sp PCR E. cloacae complex PCR Enterococcus sp PCR E. coli (PCR) H. influenzae (PCR) Klebsiella oxytoca PCR Klebsiella pneumoniae List. monocytogenes PCR N. meningitidis (PCR) Proteus species (PCR) Serratia marcescens PCR Staphylococcus sp PCR Staph aureus (PCR) mecA-Methicil Res Gene Streptococcus sp PCR Group A Strep DNA Group B Strep (PCR) Strep pneumoniae (PCR) P. aeruginosa (PCR) Arnel/B-Vanco Res Genes KPC (blaKPC) Detect PCR Specimen Rejected Cultures: Cultures 09/22/16 11:49 Blood Culture - Preliminary Peripheral Venipuncture No growth. 09/22/16 18:45 Wound Culture - Preliminary Right Leg No growth. 09/22/16 12:29 Blood Culture - Preliminary Peripheral Venipuncture Gram Positive Cocci 09/22/16 14:15 Wound Culture - Preliminary Right Leg No growth. Serology 09/22/16 09/22/16 Range/Units 14:57 12:29 Urine Color TNP Urine Clarity TNP Urine pH TNP Ur Specific Adams TNP Urine Protein TNP Urine Glucose (UA) TNP Urine Ketones TNP Urine Blood TNP Urine Nitrite TNP Urine Bilirubin TNP Urine Urobilinogen TNP Ur Leukocyte Esterase TNP Urine Microscopic RBC TNP Urine Microscopic WBC TNP Ur Squamous Epith Cells TNP Urine Bacteria TNP Hyaline Casts TNP Ur Culture Indicated? TNP A. baumannii (PCR) Not Detected (Not Detect) Elise albicans (PCR) Not Detected (Not Detect) C. glabrata (PCR) Not Detected (Not Detect) C. krusei (PCR) Not Detected (Not Detect) C. parapsilosis (PCR) Not Detected (Not Detect) C. tropicalis (PCR) Not Detected (Not Detect) Enterobacteriac sp PCR Not Detected (Not Detect) E. cloacae complex PCR Not Detected (Not Detect) Enterococcus sp PCR Not Detected (Not Detect) E. coli (PCR) Not Detected (Not Detect) H. influenzae (PCR) Not Detected (Not Detect) Klebsiella oxytoca PCR Not Detected (Not Detect) Klebsiella pneumoniae Not Detected (Not Detect) List. monocytogenes PCR Not Detected (Not Detect) N. meningitidis (PCR) Not Detected (Not Detect) Proteus species (PCR) Not Detected (Not Detect) Serratia marcescens PCR Not Detected (Not Detect) Staphylococcus sp PCR DETECTED A (Not Detect) Staph aureus (PCR) DETECTED A (Not Detect) mecA-Methicil Res Gene Not Detected (Not Detect) Streptococcus sp PCR Not Detected (Not Detect) Group A Strep DNA Not Detected (Not Detect) Group B Strep (PCR) Not Detected (Not Detect) Strep pneumoniae (PCR) Not Detected (Not Detect) P. aeruginosa (PCR) Not Detected (Not Detect) Arnel/B-Vanco Res Genes Not Detected (Not Detect) KPC (blaKPC) Detect PCR Not Detected (Not Detect) - Impressions Impressions Femur X-Ray 09/22/16 18:45 IMPRESSION: Intraprocedural fluoroscopic spot images as above. See separate procedure report for more information. D/ : / 09/22/2016 19:23:11 Elian Aiken MD / iris Interpreting Provider: Elian Aiken MD Fluoroscopy 09/22/16 18:45 IMPRESSION: Intraprocedural fluoroscopic spot images as above. See separate procedure report for more information. D/ / 09/22/2016 19:23:11 Elian Aiken MD / iris Interpreting Provider: Elian Aiken MD Exam - Constitutional Vitals: Temp Pulse Resp BP Pulse Ox 98.9 F 81 16 129/70 98 09/24/16 06:00 09/24/16 06:00 09/24/16 06:00 09/24/16 06:00 09/24/16 06:00 General appearance: no acute distress, obese, no febrile - Head Head exam: Present: atraumatic, normal inspection, normocephalic - Eye Eye exam: Present: PERRL, conjuntiva pink - ENT ENT exam: Present: mucous membranes moist, normal oropharynx - Neck Neck exam: Present: normal inspection. Absent: lymphadenopathy, tenderness, thyromegaly - Respiratory Respiratory exam: Present: CTAB. Absent: rhonchi, wheezes - Cardiovascular Cardiovascular exam: Present: RRR, +S1, +S2 Additional comments: Symmetric expansion - GI/Abdominal GI/Abdominal exam: Present: normal bowel sounds, soft. Absent: distended, guarding, rebound - Extremities Exam Additional comments: right lateral distal femur incison C/D/I, no surrounding erythema or proximal streaking, SEAN drain in place with serosanguineous fluid - Neurological Exam Neurological exam: Present: alert, oriented X3. Absent: altered - Psychiatric Psychiatric exam: Present: normal affect, normal mood - Skin Additional comments: right lateral distal femur incison C/D/I, no surrounding erythema or proximal streaking Consult Discharge Plan - Plan Referrals: Tracie Castelan, MACHINE PULLER OVER [Primary Care Provider] - - Attending Attestation I examined this patient and my medical decision-making was reviewed with the Resident Physician. I agree with the documented findings, disposition and treatment plan as described except to the extent set forth below.
[2016-09-24 08:34] LABS: Hemoglobin A1C 5.7 %
[2016-09-24 08:41] LABS: Basophils % 0.1 %; Eosinophils % 0.1 %; Hematocrit 26.1 % (35.3-44.9); Hemoglobin 8.1 g/dL (11.5-15.4); Immature Granulocytes % 1.9 % (0-4); Lymphocytes # 1.1 K/mcL (0.6-4.6); Lymphocytes % 7.7 %; Mean Corpuscular Hemoglobin 27.2 pg (28.0-33.3); Mean Corpuscular Volume 87.6 fL (83.0-100.0); Mean Platelet Volume 11.7 fL (9.4-12.4); Monocytes # 0.7 K/mcL (0.0-1.3); Monocytes % 5.4 %; Neutrophils # 11.6 K/mcL (1.6-8.9); Nucleated Red Blood Cells 0.1 /100 WBC (0); Platelet Count 309 K/mcL (140-400); Red Blood Count 2.98 M/mcL (3.82-4.97); Segmented Neutrophils % 84.8 %
[2016-09-24] MEDS: clonazePAM 1 MG TABLET PO SCH ×3 (09:16→20:52)
[2016-09-24] MEDS: Metoprolol XL (24 HR) Succ 25 MG TAB.ER.24H PO SCH (09:16)
[2016-09-24] MEDS: BuPROPion XL (24 HR) 150 MG TABLET PO SCH (09:17)
[2016-09-24] MEDS: Gabapentin 300 MG CAPSULE PO SCH ×3 (09:17→20:51)
[2016-09-24] MEDS: Aspirin 81 MG TAB.CHEW PO SCH (09:17)
[2016-09-24] MEDS: Magnesium Oxide 400 MG TABLET PO SCH (09:17)
[2016-09-24] MEDS: ceFAZolin 2,000 MG in D5% in Water 100 ML IVPB SCH ×3 (09:20→23:35)
[2016-09-24] MEDS: Insulin LISPRO 300 UNITS/3 ML VIAL SQ SCH ×4 (09:22→20:52)
[2016-09-24 09:46] LABS: % Iron Saturation 22 % (15-50); Alanine Aminotransferase 33 Units/L (0-55); Albumin/Globulin Ratio 0.5 (1.1-2.2); Alkaline Phosphatase 117 Units/L (38-126); Aspartate Amino Transferase 37 Units/L (5-34); BUN/Creatinine Ratio 25 (6-26); Bilirubin,Total 0.3 mg/dL (0.2-1.2); Blood Urea Nitrogen 20 mg/dL (7-20); Calcium 8.5 mg/dL (8.6-10.8); Carbon Dioxide 27 mEq/L (19-29); Chloride 103 mEq/L (98-109); Glucose 114 mg/dL (70-99); Iron 41 mcg/dL (50-170); Osmolality,Calculated 289 (280-300); Potassium 3.6 mEq/L (3.5-4.5); Sodium 138 mEq/L (136-145); Transferrin 133 mg/dL (180-382); eGFR For African Americans > 60 (> 60); eGFR For Non-African Americans > 60 (> 60)
[2016-09-24] MEDS: Budesonide/Formoterol 160/4.5 MDI IH SCH ×2 (11:15→23:28)
[2016-09-24] MEDS: *HR* OxyCODONE Immed Rel 5 MG TABLET PO PRN ×2 (14:43→20:54)
--- NOTE | 2016-09-24 18:49 | Internal Med Progress Note ---
Date of Encounter: 09/24/16 Time of Encounter: 18:48 - Assessment and plan (1) Sepsis Current Visit: Yes Status: Acute Qualifiers: Sepsis type: sepsis due to unspecified organism Qualified Code(s): A41.9 - Sepsis, unspecified organism (2) Bacteremia Current Visit: Yes Status: Acute (3) Pneumonia Current Visit: Yes Status: Acute Qualifiers: Pneumonia type: due to unspecified organism Laterality: bilateral Lung location: unspecified part of lung Qualified Code(s): J18.9 - Pneumonia, unspecified organism (4) Urinary tract infection Current Visit: Yes Status: Acute Qualifiers: Urinary tract infection type: acute cystitis Hematuria presence: with hematuria Qualified Code(s): N30.01 - Acute cystitis with hematuria (5) Wound infection following procedure Current Visit: Yes Status: Acute (6) Diabetes Current Visit: Yes Status: Chronic Qualifiers: Diabetes mellitus type: type 2 Diabetes mellitus complication status: without complication Diabetes mellitus intermediate manager insulin use: with intermediate manager use Qualified Code(s): E11.9 - Type 2 diabetes mellitus without complications ; 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 Chen is a 61 year old female who had been recently here for ORIF of right distal femur fracture 09/17 and was sent to SNF for rehab who presents with acute hypoxia. She had also been found to have fallen several times per report - patient reports falling because her right brace has been cumbersome. At the SNF, she was found to be hypoxic in the 70-80s on RA along with a temp of 102. In the UA, UA with pyuria but she denies overt UTI symptoms. CTA in the ED demonstrated multi-focal infiltrates and broncholitis changes suspicious for infectious PNA causing respiratory failure. Problem list: #1 right femur fracture/postoperative wound infection. I&D performed by Dr. Swanson cultures pending. #2 MSSA bacteremia. Infectious disease has recommended Ancef 2 g every 8 IV for 4 weeks plus rifampin daily for 1 week per recommendation of surgery. Ordered PICC line #3 multifocal pneumonia question septic emboli requesting KYRA consult cardiology #4 UTI based on positive leukocyte and UA however cultures are negative #5 diabetes sugars are uncontrolled Levemir increased from 5 units at night to 15 units at night continue following blood sugars #6 anemia suspect post op acute blood loss anemia however hemoglobin only 7.6 Hemoccult and iron studies ordered if goes down any further we will transfuse check CBC CMP daily Disposition: Will discuss with care team about appropriate placement considering she will need Ancef 3 times a day - Constitutional Vitals: Temp Pulse Resp BP Pulse Ox 97.8 F 87 12 119/72 98 09/24/16 16:00 09/24/16 16:00 09/24/16 16:11 09/24/16 16:00 09/24/16 16:11 General appearance: Present: A&O X 3 - Head Head exam: Present: atraumatic, normocephalic - Eye Eye exam: Present: PERRL, conjuntiva pink, sclera anicteric Pupils: Present: PERRL - Neck Neck exam general surgery: Present: supple, trachea midline. Absent: lymphadenopathy - Respiratory Respiratory exam: Present: CTAB. Absent: accessory muscle use, rales, rhonchi, wheezes - Cardiovascular Cardiovascular exam: Present: RRR, +S1, +S2. Absent: diastolic murmur, gallop, rubs, systolic murmur - GI/Abdominal GI/Abdominal exam: Present: normal bowel sounds, soft, no peritoneal signs. Absent: distended, tenderness - Extremities Exam Extremities exam: Present: warm, radial pulses palpable and symmetrical. Absent : calf tenderness, cyanotic, pedal edema - Neurological Exam Neurological exam: Present: CN II-XII intact, oriented X3, no focal deficits. Absent: pronater drift, facial droop, speech deficit - Skin Skin exam: Present: dry, intact Internal Medicine: Result - Labs CBC & Chem 7: 09/24/16 07:36 09/24/16 07:36 Labs: Short CBC 09/24/16 09/24/16 Range/Units 07:36 07:36 WBC 13.7 H (4.3-11.1) K/mcL Hgb TNP 8.1 L Hct TNP 26.1 L Plt Count 309 (140-400) K/mcL Neutrophils # 11.6 H (1.6-8.9) K/mcL BMP 09/24/16 07:36 Sodium 138 Potassium 3.6 Chloride 103 Carbon Dioxide 27 BUN 20 Creatinine 0.79 Glucose 114 H Calcium 8.5 L Liver Function 09/24/16 Range/Units 07:36 Total Bilirubin 0.3 (0.2-1.2) mg/dL AST 37 H (5-34) Units/L ALT 33 (0-55) Units/L Alkaline Phosphatase 117 (38-126) Units/L Albumin 2.0 L (3.5-5.0) g/dL Consult Discharge Plan - Plan Referrals: Tracie Castelan, MARKETING ANALYTICS MANAGER [Primary Care Provider] -
[2016-09-24] MEDS: Insulin DETEMIR 100 UNIT/ML X5UNITS SQ SCH (20:52)
[2016-09-25] MEDS: Ipratropium/Albuterol Neb 3 ML IH SCH ×5 (03:22→22:53)
[2016-09-25 04:00] LABS: Basophils % 0.1 %; Hemoglobin 7.5 g/dL (11.5-15.4); Immature Granulocytes % 4.6 % (0-4); Lymphocytes # 1.7 K/mcL (0.6-4.6); Lymphocytes % 11.4 %; Mean Corpuscular HGB Conc 31.3 g/dL (31.6-35.5); Mean Corpuscular Hemoglobin 27.5 pg (28.0-33.3); Mean Corpuscular Volume 87.9 fL (83.0-100.0); Mean Platelet Volume 11.2 fL (9.4-12.4); Monocytes # 0.9 K/mcL (0.0-1.3); Neutrophils # 11.8 K/mcL (1.6-8.9); Nucleated Red Blood Cells 0.2 /100 WBC (0); Platelet Count 336 K/mcL (140-400); Red Blood Count 2.73 M/mcL (3.82-4.97); Red Cell Distribution Width 16.1 % (11.5-14.5); Segmented Neutrophils % 77.9 %
[2016-09-25 04:15] LABS: Alanine Aminotransferase 22 Units/L (0-55); Albumin/Globulin Ratio 0.5 (1.1-2.2); Alkaline Phosphatase 108 Units/L (38-126); Aspartate Amino Transferase 25 Units/L (5-34); BUN/Creatinine Ratio 28 (6-26); Blood Urea Nitrogen 20 mg/dL (7-20); Calcium 8.3 mg/dL (8.6-10.8); Carbon Dioxide 25 mEq/L (19-29); Chloride 102 mEq/L (98-109); Globulin 3.7 g/dL (2.4-3.5); Glucose 165 mg/dL (70-99); Osmolality,Calculated 288 (280-300); Potassium 3.6 mEq/L (3.5-4.5); Sodium 136 mEq/L (136-145); Total Protein 5.6 g/dL (6.0-8.3); eGFR For African Americans > 60 (> 60); eGFR For Non-African Americans > 60 (> 60)
[2016-09-25 04:21] LABS: Albumin 1.9 g/dL (3.5-5.0); Bilirubin,Total < 0.3 mg/dL (0.2-1.2)
[2016-09-25] MEDS: *HR* Enoxaparin 40 MG/0.4 ML SYRINGE SQ SCH (05:23)
[2016-09-25] MEDS: MethylPREDNISolone 40 MG/ML VIAL IVP SCH ×2 (05:23→18:45)
--- NOTE | 2016-09-25 08:20 | Infectious Disease Progress No ---
Date of Encounter: 09/25/16 Time of Encounter: 08:20 - Assessment and Plan (1) Sepsis Current Visit: Yes Status: Acute Since admission she has met two SIRS criteria of temperature 100.6 F and tachycardia HR 105. Labs on admission revealed a WBC 13.2 with left shift, initial lactic acid 1.0 Patient was started on cefepime on 09/20/16 and azithromycin and vancomycin were added on 09/21/16 after patient spiked a fever 103.1 F and lactic acid level was 2.9 while on Cefepime. (Patient reports allergy to penicillins which causes a rash) S/p Irrigation and debridement right femur and SEAN drain placement by Dr. Fabian on 09/22/16 Deep wound cultures collected 09/22/16 show no growth to date Repeat blood cultures collected 09/22/16 results revealed staph aureus Repeat blood cultures collected 09/24/16 results are pending Recommendations: Continue Cefazolin 2g IV q8h for 4 weeks. Will add Rifampin prior to discharge given intraoperative findings/ hardware infection. PICC line was placed 09/24/16. Anticipate KYRA on 09/25/16 to evaluate for endocarditis Duration of antibiotics depends on clinical course. Continue to monitor labs for drug toxicity and dose adjust antibiotics accordingly Qualifiers: Sepsis type: sepsis due to unspecified organism Qualified Code(s): A41.9 - Sepsis, unspecified organism (2) Bacteremia Current Visit: Yes Status: Acute Blood cultures collected 09/20/16 revealed MSSA Repeat blood cultures collected 09/22/16 results revealed staph aureus Repeat blood cultures collected 09/24/16 results are pending Continue Cefazolin 2g IV q8h for 4 weeks. Consider Rifampin given possible hardware infection. PICC line was placed 09/24/16. Anticipate KYRA on 09/25/16 to evaluate for endocarditis (3) Hospital-acquired pneumonia Current Visit: Yes Status: Acute Shortness of breath, hypoxia in the 70s to 80s on room air and temperature 102 F. Patient reports nonproductive cough for the past 3 weeks prior to surgery 09/17 CT chest revealed bilateral multifocal parenchymal disease which includes areas of tree in bud nodularity and bandlike densities/nodular areas of consolidation within both lower lobes. Finding is suspicious representing an infectious/ inflammatory process. Minimally prominent lymph nodes and subcarinal and left hilar regions. 09/25/16 chest x-ray reveals discoid atelectasis at the right lung base. No acute cardiopulmonary disease. Urine legionella and pneumococcus antigens pending (4) Postoperative wound infection Current Visit: Yes Status: Acute s/p ORIF of right distal femur fracture 09/17/16 s/p Irrigation and debridement right femur and SEAN drain placement on 09/22/[address] Fabian Qualifiers: Encounter type: initial encounter Qualified Code(s): T81.4XXA - Infection following a procedure, initial encounter (5) Fracture of distal femur Current Visit: No Status: Acute s/p ORIF of right distal femur fracture 09/17/16 Qualifiers: Encounter type: subsequent encounter Fracture type: closed Fracture morphology: unspecified fracture morphology Laterality: right Fracture healing: with malunion Qualified Code(s): S72.401P - Unspecified fracture of lower end of right femur, subsequent encounter for closed fracture with malunion (6) Diabetes Current Visit: Yes Status: Chronic Continue management per primary team Qualifiers: Diabetes mellitus type: type 2 Diabetes mellitus complication status: without complication Diabetes mellitus snf insulin use: with snf use Qualified Code(s): E11.9 - Type 2 diabetes mellitus without complications ; Z79.4 - correction (current) use of insulin (7) Chronic anemia Current Visit: No Status: Chronic Acute vs chronic blood loss anemia. Continue to monitor - Subjective Interval history: Patient seen and examined. No acute events overnight. Patient is POD #3 s/p Irrigation and debridement right femur and SEAN drain placement by Dr. Fabian. Patient is scheduled for KYRA today. Patient denies fever, chills, CP, worsening SOB, abdominal pain, N/V/D, or bleeding from incision site. PICC line was placed 09/24/16. Infect Dis PN-Objective Data - Labs CBC & Chem 7: 09/25/16 03:50 09/25/16 03:50 Labs: Laboratory Results - last 24 hr 09/24/16 09/24/16 09/24/16 07:36 07:36 07:36 WBC 13.7 H RBC 2.98 L Hgb TNP 8.1 L Hct TNP 26.1 L MCV 87.6 MCH 27.2 L MCHC 31.0 L RDW 16.0 H Plt Count 309 MPV 11.7 Immature Gran % 1.9 Seg Neutrophils % 84.8 Lymphocytes % 7.7 Monocytes % 5.4 Eosinophils % 0.1 Basophils % 0.1 Neutrophils # 11.6 H Lymphocytes # 1.1 Monocytes # 0.7 Eosinophils # 0.0 Basophils # 0.0 Nucleated RBCs/100 WBC 0.1 H Sodium 138 Potassium 3.6 Chloride 103 Carbon Dioxide 27 BUN 20 Creatinine 0.79 Est GFR ( Amer) > 60 Est GFR (Non-Af Amer) > 60 BUN/Creatinine Ratio 25 Glucose 114 H POC Glucose Est Mean Plasma Glucose Hemoglobin A1c Calculated Osmolality 289 Calcium 8.5 L Iron 41 L % Saturation 22 Transferrin 133 L Total Bilirubin 0.3 AST 37 H ALT 33 Alkaline Phosphatase 117 Serum Total Protein 6.0 Albumin 2.0 L Globulin 4.0 H Albumin/Globulin Ratio 0.5 L 09/24/16 09/24/16 09/24/16 07:36 17:02 20:39 WBC RBC Hgb Hct MCV MCH MCHC RDW Plt Count MPV Immature Gran % Seg Neutrophils % Lymphocytes % Monocytes % Eosinophils % Basophils % Neutrophils # Lymphocytes # Monocytes # Eosinophils # Basophils # Nucleated RBCs/100 WBC Sodium Potassium Chloride Carbon Dioxide BUN Creatinine Est GFR ( Amer) Est GFR (Non-Af Amer) BUN/Creatinine Ratio Glucose POC Glucose 182 H 180 H Est Mean Plasma Glucose 117 Hemoglobin A1c 5.7 H Calculated Osmolality Calcium Iron % Saturation Transferrin Total Bilirubin AST ALT Alkaline Phosphatase Serum Total Protein Albumin Globulin Albumin/Globulin Ratio 09/25/16 09/25/16 03:50 03:50 WBC 15.1 H RBC 2.73 L Hgb 7.5 L Hct 24.0 L MCV 87.9 MCH 27.5 L MCHC 31.3 L RDW 16.1 H Plt Count 336 MPV 11.2 Immature Gran % 4.6 H Seg Neutrophils % 77.9 Lymphocytes % 11.4 Monocytes % 6.0 Eosinophils % 0.0 Basophils % 0.1 Neutrophils # 11.8 H Lymphocytes # 1.7 Monocytes # 0.9 Eosinophils # 0.0 Basophils # 0.0 Nucleated RBCs/100 WBC 0.2 H Sodium 136 Potassium 3.6 Chloride 102 Carbon Dioxide 25 BUN 20 Creatinine 0.72 Est GFR ( Amer) > 60 Est GFR (Non-Af Amer) > 60 BUN/Creatinine Ratio 28 H Glucose 165 H POC Glucose Est Mean Plasma Glucose Hemoglobin A1c Calculated Osmolality 288 Calcium 8.3 L Iron % Saturation Transferrin Total Bilirubin < 0.3 AST 25 ALT 22 Alkaline Phosphatase 108 Serum Total Protein 5.6 L Albumin 1.9 L Globulin 3.7 H Albumin/Globulin Ratio 0.5 L Cultures: Cultures 09/22/16 18:45 Anaerobic Culture - Preliminary Right Leg At this time, no anaerobic growth is present. The culture will be finalized after 5 days of incubation. 09/22/16 12:29 Blood Culture - Final Peripheral Venipuncture Staphylococcus aureus 09/22/16 18:45 Wound Culture - Final Right Leg No growth. 09/22/16 14:15 Wound Culture - Final Right Leg No growth. 09/22/16 11:49 Blood Culture - Preliminary Peripheral Venipuncture No growth. Serology 09/22/16 09/22/16 Range/Units 14:57 12:29 Urine Color TNP Urine Clarity TNP Urine pH TNP Ur Specific Carefree TNP Urine Protein TNP Urine Glucose (UA) TNP Urine Ketones TNP Urine Blood TNP Urine Nitrite TNP Urine Bilirubin TNP Urine Urobilinogen TNP Ur Leukocyte Esterase TNP Urine Microscopic RBC TNP Urine Microscopic WBC TNP Ur Squamous Epith Cells TNP Urine Bacteria TNP Hyaline Casts TNP Ur Culture Indicated? TNP A. baumannii (PCR) Not Detected (Not Detect) Elise albicans (PCR) Not Detected (Not Detect) C. glabrata (PCR) Not Detected (Not Detect) C. krusei (PCR) Not Detected (Not Detect) C. parapsilosis (PCR) Not Detected (Not Detect) C. tropicalis (PCR) Not Detected (Not Detect) Enterobacteriac sp PCR Not Detected (Not Detect) E. cloacae complex PCR Not Detected (Not Detect) Enterococcus sp PCR Not Detected (Not Detect) E. coli (PCR) Not Detected (Not Detect) H. influenzae (PCR) Not Detected (Not Detect) Klebsiella oxytoca PCR Not Detected (Not Detect) Klebsiella pneumoniae Not Detected (Not Detect) List. monocytogenes PCR Not Detected (Not Detect) N. meningitidis (PCR) Not Detected (Not Detect) Proteus species (PCR) Not Detected (Not Detect) Serratia marcescens PCR Not Detected (Not Detect) Staphylococcus sp PCR DETECTED A (Not Detect) Staph aureus (PCR) DETECTED A (Not Detect) mecA-Methicil Res Gene Not Detected (Not Detect) Streptococcus sp PCR Not Detected (Not Detect) Group A Strep DNA Not Detected (Not Detect) Group B Strep (PCR) Not Detected (Not Detect) Strep pneumoniae (PCR) Not Detected (Not Detect) P. aeruginosa (PCR) Not Detected (Not Detect) Arnel/B-Vanco Res Genes Not Detected (Not Detect) KPC (blaKPC) Detect PCR Not Detected (Not Detect) - Impressions Impressions Chest X-Ray 09/25/16 04:00 IMPRESSION: Discoid atelectasis at the right lung base. No acute cardiopulmonary disease. D/ / Tom Crews MD / Tom Crews MD Interpreting Provider: Tom Crews MD Exam - Constitutional Vitals: Temp Pulse Resp BP Pulse Ox 98.5 F 82 17 110/98 99 09/25/16 07:00 09/25/16 07:00 09/25/16 07:00 09/25/16 07:00 09/25/16 03:22 General appearance: cooperative, no acute distress, obese, no febrile - Head Head exam: Present: atraumatic, normal inspection - Eye Eye exam: Present: PERRL, conjuntiva pink - ENT ENT exam: Present: mucous membranes moist, normal oropharynx - Neck Neck exam: Present: full ROM, normal inspection. Absent: lymphadenopathy, tenderness - Respiratory Respiratory exam: Present: wheezes (Expiratory). Absent: decreased breath sounds, rales, rhonchi - Cardiovascular Cardiovascular exam: Present: RRR. Absent: +S1, +S2 - GI/Abdominal GI/Abdominal exam: Present: normal bowel sounds, soft. Absent: guarding, rebound - Extremities Exam Additional comments: right lateral distal femur incison C/D/I, no surrounding erythema or proximal streaking, SEAN drain in place with serosanguineous fluid - Neurological Exam Neurological exam: Present: alert, oriented X3. Absent: altered - Psychiatric Psychiatric exam: Present: normal affect, normal mood - Skin Additional comments: right lateral distal femur incison C/D/I, no surrounding erythema or proximal streaking Consult Discharge Plan - Plan Referrals: Diamond Licea, PAC [Physician Safety Coordinator] - 10/02/16 3:00 pm Tracie Castelan CNP [Primary Care Provider] - 10/01/16 2:00 pm - Attending Attestation I examined this patient and my medical decision-making was reviewed with the Resident Physician. I agree with the documented findings, disposition and treatment plan as described except to the extent set forth below.
[2016-09-25] MEDS: ceFAZolin 2,000 MG in D5% in Water 100 ML IVPB SCH ×2 (09:23→18:45)
[2016-09-25] MEDS ORDERED: 0.9 % Sodium Chloride 500 ML IVC ONE (09:57)
[2016-09-25] MEDS ORDERED: Tetracaine/Benzocaine/Butamben 200MG/SPRAY (100SPY/BOT) MM ONE (09:57)
[2016-09-25] MEDS: *HR* FentaNYL (PF) 100 MCG/2 ML VIAL IVP PRN ×3 (10:30→10:40)
[2016-09-25] MEDS: *HR* Midazolam HCl 5 MG/5 ML VIAL IVP PRN ×3 (10:30→10:40)
[2016-09-25] MEDS: Budesonide/Formoterol 160/4.5 MDI IH SCH ×3 (10:51→22:53)
--- NOTE | 2016-09-25 11:26 | Orthopedics Progress Note ---
Date of Encounter: 09/25/16 Time of Encounter: 12:00 - Assessment and Plan (1) Wound infection following procedure Current Visit: Yes Status: Acute POD#3 - Right Upper Leg I&D with wound closure and SEAN drain placement - 09/22/16 Deep wound cultures collected 09/22/16 show no growth to date Repeat blood cultures collected 09/22/16 results revealed staph aureus Repeat blood cultures collected 09/24/16 results are pending Blood cultures collected 09/20/16 revealed MSSA SEAN Drain: Removed 09/23/16 without difficulty, minimal blood noted. New Pressure dressings applied. NWB to RLE In Tscope brace at all times, no knee ROM or flexion. ICE and elevate as tolerated. XRAYS 09/22/16 - Postoperative changes are noted along the lateral distal femur. A plate and multiple screws stabilizing comminuted fracture. Compared to an examination from September 17, fracture fragment alignment is stable to slightly improved. Patient is also status post total knee replacement. No new fractures are noted. Lateral soft tissues surgical clips and air density are noted. Problem list: #1 right femur fracture/postoperative wound infection. I&D performed by Dr. Swanson cultures pending. #2 MSSA bacteremia. Infectious disease has recommended Ancef 2 g every 8 IV for 4 weeks plus rifampin daily for 1 week per recommendation of surgery. Ordered PICC line #3 multifocal pneumonia question septic emboli requesting KYRA consult cardiology #4 UTI based on positive leukocyte and UA however cultures are negative #5 diabetes sugars are uncontrolled Levemir increased from 5 units at night to 15 units at night continue following blood sugars #6 anemia suspect post op acute blood loss anemia however hemoglobin only 7.6 Hemoccult and iron studies ordered if goes down any further we will transfuse check CBC CMP daily Disposition: Will discuss with care team about appropriate placement considering she will need Ancef 3 times a day Infectious disease Recommendations: Continue Cefazolin 2g IV q8h for 4 weeks. Will add Rifampin prior to discharge given intraoperative findings/ hardware infection. PICC line was placed 09/24/16. Anticipate KYRA on 09/25/16 to evaluate for endocarditis Duration of antibiotics depends on clinical course. Continue to monitor labs for drug toxicity and dose adjust antibiotics accordingly Subjective Principal diagnosis: Right Thigh - Wound Infection Interval history: POD#3 - Right Upper Leg I&D with wound closure and SEAN drain placement - 09/22/16 - Deep Thigh wound cultures collected 09/22/16 show no growth to date Repeat blood cultures collected 09/22/16 results revealed staph aureus Repeat blood cultures collected 09/24/16 results are pending Blood cultures collected 09/20/16 revealed MSSA Patient was started on cefepime on 09/20/16 and azithromycin and vancomycin were added on 09/21/16 after patient spiked a fever 103.1 F and lactic acid level was 2.9 whiel on Cefepime. (Patient reports allergy to penicillins which causes a rash) Objective Vital signs: Vital Signs Temp Pulse Resp BP Pulse Ox 09/25/16 10:11 98.0 F 72 12 122/86 97 09/25/16 07:00 98.5 F 82 17 110/98 09/25/16 03:22 17 99 09/24/16 23:28 16 99 09/24/16 23:24 98.4 F 76 18 151/79 100 09/24/16 22:00 80 17 112/63 99 09/24/16 16:11 12 98 09/24/16 16:00 97.7 F 70 16 123/57 97 Intake and Output 09/24/16 09/25/16 09/25/16 23:59 07:59 15:59 Intake Total 540 / 540 100 / 100 143 / 143 Output Total 300 / 300 Balance 240 / 240 100 / 100 143 / 143 Intake: IV Fluids 100 / 100 100 / 100 143 / 143 0.9 % Sodium Chloride 500 143 / 143 ML @ 150 mls/hr IVC . Q3H20M ONE Rx#:[id number] Ancef 2,000 MG In 100 / 100 100 / 100 Dextrose 5% 100 ML @ 200 mls/hr IVPB Q8HR RAMÓN Rx#: [id number] Oral 440 / 440 Output: Urine 300 / 300 Other: Meal snack Percent of Meal Consumed 100% Weight 86.3 kg 86.183 kg Blood Glucose* 182 114 Patient Weight 09/25/16 23:59 Weight 86.183 kg Incision: clean and dry - Labs CBC & BMP: 09/25/16 03:50 09/25/16 03:50 Labs: Abnormal lab results WBC 15.1 K/mcL (4.3-11.1) H 09/25/16 03:50 RBC 2.73 M/mcL (3.82-4.97) L 09/25/16 03:50 Hgb 7.5 g/dL (11.5-15.4) L 09/25/16 03:50 Hct 24.0 % (35.3-44.9) L 09/25/16 03:50 MCH 27.5 pg (28.0-33.3) L 09/25/16 03:50 MCHC 31.3 g/dL (31.6-35.5) L 09/25/16 03:50 RDW 16.1 % (11.5-14.5) H 09/25/16 03:50 Immature Gran % 4.6 % (0-4) H 09/25/16 03:50 Neutrophils # 11.8 K/mcL (1.6-8.9) H 09/25/16 03:50 Nucleated RBCs/100 WBC 0.2 /100 WBC (0) H 09/25/16 03:50 Immature Plt Fraction 6.4 % (1.1-6.1) H 09/20/16 22:37 ESR 93 mm/hr (0-15) H 09/22/16 12:29 BUN/Creatinine Ratio 28 (6-26) H 09/25/16 03:50 Glucose 165 mg/dL (70-99) H 09/25/16 03:50 POC Glucose 180 (58-89) H 09/24/16 20:39 Hemoglobin A1c 5.7 % (-5.6) H 09/24/16 07:36 Calcium 8.3 mg/dL (8.6-10.8) L 09/25/16 03:50 Iron 41 mcg/dL (50-170) L 09/24/16 07:36 Transferrin 133 mg/dL (180-382) L 09/24/16 07:36 C-Reactive Protein 272 mg/L (Less than 5) H 09/22/16 12:29 Serum Total Protein 5.6 g/dL (6.0-8.3) L 09/25/16 03:50 Albumin 1.9 g/dL (3.5-5.0) L 09/25/16 03:50 Globulin 3.7 g/dL (2.4-3.5) H 09/25/16 03:50 Albumin/Globulin Ratio 0.5 (1.1-2.2) L 09/25/16 03:50 Staphylococcus sp PCR DETECTED (Not Detect) A 09/22/16 12:29 Staph aureus (PCR) DETECTED (Not Detect) A 09/22/16 12:29 Consult Discharge Plan - Plan Referrals: Diamond Licea, PAC [Physician Corporate Wellness Coordinator] - 10/02/16 3:00 pm Tracie Castelan, GARAGE MANAGER [Primary Care Provider] - 10/01/16 2:00 pm
[2016-09-25] MEDS: Insulin LISPRO 300 UNITS/3 ML VIAL SQ SCH ×4 (13:06→20:45)
[2016-09-25] MEDS: Aspirin 81 MG TAB.CHEW PO SCH (15:33)
[2016-09-25] MEDS: clonazePAM 1 MG TABLET PO SCH ×3 (15:33→20:44)
[2016-09-25] MEDS: Magnesium Oxide 400 MG TABLET PO SCH (15:34)
[2016-09-25] MEDS: Gabapentin 300 MG CAPSULE PO SCH ×3 (15:34→20:43)
[2016-09-25] MEDS: *HR* OxyCODONE Immed Rel 5 MG TABLET PO PRN (15:35)
[2016-09-25] MEDS: BuPROPion XL (24 HR) 150 MG TABLET PO SCH (15:35)
[2016-09-25] MEDS: Metoprolol XL (24 HR) Succ 25 MG TAB.ER.24H PO SCH (15:35)
--- NOTE | 2016-09-25 18:02 | Internal Med Progress Note ---
Date of Encounter: 09/25/16 Time of Encounter: 17:55 - Assessment and plan (1) Sepsis Current Visit: Yes Status: Acute Qualifiers: Sepsis type: sepsis due to unspecified organism Qualified Code(s): A41.9 - Sepsis, unspecified organism (2) Bacteremia Current Visit: Yes Status: Acute (3) Pneumonia Current Visit: Yes Status: Acute Qualifiers: Pneumonia type: due to unspecified organism Laterality: bilateral Lung location: unspecified part of lung Qualified Code(s): J18.9 - Pneumonia, unspecified organism (4) Urinary tract infection Current Visit: Yes Status: Acute Qualifiers: Urinary tract infection type: acute cystitis Hematuria presence: with hematuria Qualified Code(s): N30.01 - Acute cystitis with hematuria (5) Wound infection following procedure Current Visit: Yes Status: Acute (6) Diabetes Current Visit: Yes Status: Chronic Qualifiers: Diabetes mellitus type: type 2 Diabetes mellitus complication status: without complication Diabetes mellitus terminal computer operator insulin use: with terminal computer operator use Qualified Code(s): E11.9 - Type 2 diabetes mellitus without complications ; Z79.4 - terminal operator (current) use of insulin (7) Anemia, posthemorrhagic, acute Current Visit: No Status: Acute (8) Atrial fibrillation Current Visit: Yes Status: Acute Qualifiers: Atrial fibrillation type: unspecified Qualified Code(s): I48.91 - Unspecified atrial fibrillation (9) S/P ORIF (open reduction internal fixation) fracture Current Visit: Yes Status: Acute (10) DVT prophylaxis Current Visit: Yes Status: Acute - Subjective Interval history: Ms. Chen is a 61 year old female who had been recently here for ORIF of right distal femur fracture 09/17 and was sent to SNF for rehab who presents with acute hypoxia. She had also been found to have fallen several times per report - patient reports falling because her right brace has been cumbersome. At the SNF, she was found to be hypoxic in the 70-80s on RA along with a temp of 102. In the UA, UA with pyuria but she denies overt UTI symptoms. CTA in the ED demonstrated multi-focal infiltrates and broncholitis changes suspicious for infectious PNA causing respiratory failure. Problem list: #1 right femur fracture/postoperative wound infection. I&D performed by Dr. Swanson cultures no growth. WBC count has gone up to 15,000.. #2 MSSA bacteremia. Infectious disease has recommended Ancef 2 g every 8 IV for 4 weeks plus rifampin daily . PICC line cannot be place until cultures are negative. Right now patient has a peripheral. We will check with the infectious disease if rifampin would be by mouth and in such case patient can go without PICC line. #3 multifocal pneumonia question septic emboli requesting KYRA was done today and it showed no vegetation. EF is 65 normal LV systolic function and moderate mitral regurgitation #4 UTI based on positive leukocyte and UA however cultures are negative #5 diabetes sugars are uncontrolled Levemir increased from 5 units at night to 15 units at night continue following blood sugars. Blood sugars are now much better. #6 anemia suspect post op acute blood loss anemia however hemoglobin only 7.6 Hemoccult and iron studies ordered if goes down any further we will transfuse check CBC CMP daily Disposition: Will discuss with care team about appropriate placement considering she will need Ancef 3 times a day. Most of the workup is completed and awaiting infectious disease to clear her once her bacteremia has resolved. - Constitutional Vitals: Temp Pulse Resp BP Pulse Ox 98.0 F 80 18 109/54 100 09/25/16 10:11 09/25/16 15:43 09/25/16 16:06 09/25/16 15:43 09/25/16 16:06 General appearance: Present: A&O X 3 - Head Head exam: Present: atraumatic, normocephalic - Eye Eye exam: Present: PERRL, conjuntiva pink, sclera anicteric Pupils: Present: PERRL - Neck Neck exam general surgery: Present: supple, trachea midline. Absent: lymphadenopathy - Respiratory Respiratory exam: Present: CTAB. Absent: accessory muscle use, rales, rhonchi, wheezes - Cardiovascular Cardiovascular exam: Present: RRR, +S1, +S2. Absent: diastolic murmur, gallop, rubs, systolic murmur - GI/Abdominal GI/Abdominal exam: Present: normal bowel sounds, soft, no peritoneal signs. Absent: distended, tenderness - Extremities Exam Extremities exam: Present: warm, radial pulses palpable and symmetrical. Absent : calf tenderness, cyanotic, pedal edema - Neurological Exam Neurological exam: Present: CN II-XII intact, oriented X3, no focal deficits. Absent: pronater drift, facial droop, speech deficit - Skin Skin exam: Present: dry, intact Internal Medicine: Result - Labs CBC & Chem 7: 09/25/16 03:50 09/25/16 03:50 Labs: Short CBC 09/25/16 Range/Units 03:50 WBC 15.1 H (4.3-11.1) K/mcL Hgb 7.5 L (11.5-15.4) g/dL Hct 24.0 L (35.3-44.9) % Plt Count 336 (140-400) K/mcL Neutrophils # 11.8 H (1.6-8.9) K/mcL BMP 09/25/16 03:50 Sodium 136 Potassium 3.6 Chloride 102 Carbon Dioxide 25 BUN 20 Creatinine 0.72 Glucose 165 H Calcium 8.3 L Liver Function 09/25/16 Range/Units 03:50 Total Bilirubin < 0.3 (0.2-1.2) mg/dL AST 25 (5-34) Units/L ALT 22 (0-55) Units/L Alkaline Phosphatase 108 (38-126) Units/L Albumin 1.9 L (3.5-5.0) g/dL - Impressions Impressions Chest X-Ray 09/25/16 04:00 IMPRESSION: Discoid atelectasis at the right lung base. No acute cardiopulmonary disease. D/ / Tom Crews MD / Tom Crews MD Interpreting Provider: Tom Crews MD Consult Discharge Plan - Plan Referrals: Diamond Licea, PAC [Physician Crossing Watchman] - 10/02/16 3:00 pm Tracie Castelan ASSISTANT CASE MANAGER [Primary Care Provider] - 10/01/16 2:00 pm
[2016-09-25] MEDS: Insulin DETEMIR 100 UNIT/ML X5UNITS SQ SCH (20:44)
[2016-09-26] MEDS: ceFAZolin 2,000 MG in D5% in Water 100 ML IVPB SCH ×3 (00:04→18:12)
[2016-09-26 02:37] LABS: Bilirubin,Urine Negative (Negative); Blood,Urine Negative (Negative); Clarity,Urine Clear (Clear); Color,Urine Yellow (Yellow); Glucose,Urine (UA) Normal (Normal); Ketones,Urine Negative (Negative); Leukocyte Esterase,Urine Negative (Negative); Nitrite,Urine Negative (Negative); PH,Urine 6.5 pH Units (5.0-8.0); Protein,Urine 30 mg/dL (Neg-Trace); Specific Gravity,Urine 1.026 (1.010-1.025); Urobilinogen,Urine Normal (Normal)
[2016-09-26] MEDS: *HR* OxyCODONE Immed Rel 5 MG TABLET PO PRN ×3 (02:38→19:59)
[2016-09-26 02:40] LABS: Bacteria,Urine None Seen per hpf (None-Few); Hyaline Casts,Urine None Seen per lpf (None-Few); Squamous Epithelial Cell,Urine Moderate per lpf (None-Few)
[2016-09-26 03:50] LABS: Basophils % 0.1 %; Hematocrit 21.8 % (35.3-44.9); Hemoglobin 6.9 g/dL (11.5-15.4); Immature Granulocytes % 4.8 % (0-4); Lymphocytes # 1.4 K/mcL (0.6-4.6); Lymphocytes % 8.9 %; Mean Corpuscular HGB Conc 31.7 g/dL (31.6-35.5); Mean Corpuscular Hemoglobin 28.2 pg (28.0-33.3); Mean Platelet Volume 11.1 fL (9.4-12.4); Monocytes # 0.7 K/mcL (0.0-1.3); Monocytes % 4.6 %; Neutrophils # 12.7 K/mcL (1.6-8.9); Nucleated Red Blood Cells 0.3 /100 WBC (0); Platelet Count 341 K/mcL (140-400); Red Blood Count 2.45 M/mcL (3.82-4.97); Red Cell Distribution Width 16.1 % (11.5-14.5); Segmented Neutrophils % 81.6 %
[2016-09-26] MEDS: Ipratropium/Albuterol Neb 3 ML IH SCH ×4 (03:54→21:54)
[2016-09-26 04:17] LABS: Alanine Aminotransferase 15 Units/L (0-55); Albumin/Globulin Ratio 0.6 (1.1-2.2); Alkaline Phosphatase 98 Units/L (38-126); Aspartate Amino Transferase 20 Units/L (5-34); BUN/Creatinine Ratio 27 (6-26); Bilirubin,Total 0.3 mg/dL (0.2-1.2); Blood Urea Nitrogen 21 mg/dL (7-20); Carbon Dioxide 29 mEq/L (19-29); Chloride 102 mEq/L (98-109); Globulin 3.4 g/dL (2.4-3.5); Glucose 145 mg/dL (70-99); Osmolality,Calculated 288 (280-300); Potassium 3.9 mEq/L (3.5-4.5); Sodium 136 mEq/L (136-145); Total Protein 5.3 g/dL (6.0-8.3); eGFR For African Americans > 60 (> 60); eGFR For Non-African Americans > 60 (> 60)
[2016-09-26 04:19] LABS: Albumin 1.9 g/dL (3.5-5.0)
[2016-09-26] MEDS: *HR* Enoxaparin 40 MG/0.4 ML SYRINGE SQ SCH (05:12)
[2016-09-26] MEDS: MethylPREDNISolone 40 MG/ML VIAL IVP SCH (05:12)
--- NOTE | 2016-09-26 08:44 | Orthopedics Progress Note ---
Date of Encounter: 09/26/16 Time of Encounter: 08:43 Subjective Principal diagnosis: Right Thigh - Wound Infection Interval history: Patient was seen this morning doing well without complaints. Patient sitting in a chair states that she feels better this morning Afebrile vital signs stable. Operative extremity: Neurovascularly intact Dressing clean dry and intact Calves nontender Brace intact Assessment and plan: Continue with postoperative care as per medical team, cultures right leg negative growth to date Objective Vital signs: Vital Signs Temp Pulse Resp BP Pulse Ox 09/26/16 04:56 98.1 F 81 16 125/65 91 09/26/16 03:54 17 94 09/25/16 22:53 16 100 09/25/16 21:50 81 18 127/67 100 09/25/16 16:06 18 100 09/25/16 15:53 90 09/25/16 15:43 80 20 109/54 90 09/25/16 11:00 74 15 125/63 96 09/25/16 10:11 98.0 F 72 12 122/86 97 Intake and Output 09/25/16 09/26/16 09/26/16 23:59 07:59 15:59 Intake Total 100 / 100 100 / 100 Balance 100 / 100 100 / 100 Intake: IV Fluids 100 / 100 Ancef 2,000 MG In 100 / 100 Dextrose 5% 100 ML @ 200 mls/hr IVPB Q8HR [facility] Rx#: [id number] Oral 0 / 0 100 / 100 Other: Stool Size Large Stool Consistency formed # Voids 0 1 # Bowel Movements 1 Weight 86.8 kg Blood Glucose* 119 Patient Weight 09/26/16 23:59 Weight 86.8 kg - Labs CBC & BMP: 09/26/16 03:35 09/26/16 03:35 Labs: Abnormal lab results WBC 15.6 K/mcL (4.3-11.1) H 09/26/16 03:35 RBC 2.45 M/mcL (3.82-4.97) L 09/26/16 03:35 Hgb 6.9 g/dL (11.5-15.4) L 09/26/16 03:35 Hct 21.8 % (35.3-44.9) L 09/26/16 03:35 RDW 16.1 % (11.5-14.5) H 09/26/16 03:35 Immature Gran % 4.8 % (0-4) H 09/26/16 03:35 Neutrophils # 12.7 K/mcL (1.6-8.9) H 09/26/16 03:35 Nucleated RBCs/100 WBC 0.3 /100 WBC (0) H 09/26/16 03:35 Immature Plt Fraction 6.4 % (1.1-6.1) H 09/20/16 22:37 ESR 93 mm/hr (0-15) H 09/22/16 12:29 BUN 21 mg/dL (7-20) H 09/26/16 03:35 BUN/Creatinine Ratio 27 (6-26) H 09/26/16 03:35 Glucose 145 mg/dL (70-99) H 09/26/16 03:35 POC Glucose 180 (58-89) H 09/24/16 20:39 Hemoglobin A1c 5.7 % (-5.6) H 09/24/16 07:36 Calcium 8.0 mg/dL (8.6-10.8) L 09/26/16 03:35 Iron 41 mcg/dL (50-170) L 09/24/16 07:36 Transferrin 133 mg/dL (180-382) L 09/24/16 07:36 C-Reactive Protein 272 mg/L (Less than 5) H 09/22/16 12:29 Serum Total Protein 5.3 g/dL (6.0-8.3) L 09/26/16 03:35 Albumin 1.9 g/dL (3.5-5.0) L 09/26/16 03:35 Albumin/Globulin Ratio 0.6 (1.1-2.2) L 09/26/16 03:35 Ur Specific [place] 1.026 (1.010-1.025) H 09/26/16 02:25 Urine Protein 30 mg/dL (Neg-Trace) H 09/26/16 02:25 Urine Microscopic RBC 5-15 per hpf (0-3) H 09/26/16 02:25 Urine Microscopic WBC 3-5 per hpf (0-3) H 09/26/16 02:25 Ur Squamous Epith Cells Moderate per lpf (None-Few) H 09/26/16 02:25 Staphylococcus sp PCR DETECTED (Not Detect) A 09/22/16 12:29 Staph aureus (PCR) DETECTED (Not Detect) A 09/22/16 12:29 Consult Discharge Plan - Plan Referrals: Diamond Licea PAC [Physician Abalone Fisherman] - 10/02/16 3:00 pm Tracie Castelan CARDIAC CATHETERIZATION TECHNICIAN [Primary Care Provider] - 10/01/16 2:00 pm
[2016-09-26] MEDS: Insulin LISPRO 300 UNITS/3 ML VIAL SQ SCH ×3 (09:01→18:12)
[2016-09-26] MEDS: Gabapentin 300 MG CAPSULE PO SCH ×3 (09:02→19:58)
[2016-09-26] MEDS: Aspirin 81 MG TAB.CHEW PO SCH (09:02)
[2016-09-26] MEDS: Magnesium Oxide 400 MG TABLET PO SCH (09:02)
[2016-09-26] MEDS: clonazePAM 1 MG TABLET PO SCH ×3 (09:02→20:02)
[2016-09-26] MEDS: BuPROPion XL (24 HR) 150 MG TABLET PO SCH (09:03)
[2016-09-26] MEDS: Metoprolol XL (24 HR) Succ 25 MG TAB.ER.24H PO SCH (09:03)
--- NOTE | 2016-09-26 09:07 | Infectious Disease Progress No ---
Date of Encounter: 09/26/16 Time of Encounter: 09:06 - Assessment and Plan (1) Sepsis Current Visit: Yes Status: Acute Since admission she has met two SIRS criteria of temperature 100.6 F and tachycardia HR 105. Labs on admission revealed a WBC 13.2 with left shift, initial lactic acid 1.0 Patient was started on cefepime on 09/20/16 and azithromycin and vancomycin were added on 09/21/16 after patient spiked a fever 103.1 F and lactic acid level was 2.9 while on Cefepime. (Patient reports allergy to penicillins which causes a rash) S/p Irrigation and debridement right femur and SEAN drain placement by Dr. Fabian on 09/22/16 Deep wound cultures collected 09/22/16 show no growth to date Repeat blood cultures collected 09/22/16 results revealed staph aureus Repeat blood cultures collected 09/24/16 reveal no growth to date KYRA reveals no valvular vegetations or signs of endocarditis Recommendations: Continue Cefazolin 2g IV q8h for 4 weeks. Will add Rifampin prior to discharge given intraoperative findings/ hardware infection. PICC line was placed 09/24/16. Duration of antibiotics depends on clinical course. Continue to monitor labs for drug toxicity and dose adjust antibiotics accordingly Qualifiers: Sepsis type: sepsis due to unspecified organism Qualified Code(s): A41.9 - Sepsis, unspecified organism (2) Bacteremia Current Visit: Yes Status: Acute Blood cultures collected 09/20/16 revealed MSSA Repeat blood cultures collected 09/22/16 results revealed staph aureus Repeat blood cultures collected 09/24/16 reveal no growth to date KYRA reveals no valvular vegetations or signs of endocarditis Continue Cefazolin 2g IV q8h for 4 weeks. Consider Rifampin given possible hardware infection. PICC line was placed 09/24/16. (3) Hospital-acquired pneumonia Current Visit: Yes Status: Acute Shortness of breath, hypoxia in the 70s to 80s on room air and temperature 102 F. Patient reports nonproductive cough for the past 3 weeks prior to surgery 09/17 CT chest revealed bilateral multifocal parenchymal disease which includes areas of tree in bud nodularity and bandlike densities/nodular areas of consolidation within both lower lobes. Finding is suspicious representing an infectious/ inflammatory process. Minimally prominent lymph nodes and subcarinal and left hilar regions. 09/25/16 chest x-ray reveals discoid atelectasis at the right lung base. No acute cardiopulmonary disease. Urine legionella and pneumococcus antigens negative (4) Postoperative wound infection Current Visit: Yes Status: Acute s/p ORIF of right distal femur fracture 09/17/16 s/p Irrigation and debridement right femur and SEAN drain placement on 09/22/[address] Fabian Qualifiers: Encounter type: initial encounter Qualified Code(s): T81.4XXA - Infection following a procedure, initial encounter (5) Fracture of distal femur Current Visit: No Status: Acute s/p ORIF of right distal femur fracture 09/17/16 Qualifiers: Encounter type: subsequent encounter Fracture type: closed Fracture morphology: unspecified fracture morphology Laterality: right Fracture healing: with malunion Qualified Code(s): S72.401P - Unspecified fracture of lower end of right femur, subsequent encounter for closed fracture with malunion (6) Diabetes Current Visit: Yes Status: Chronic Continue management per primary team Qualifiers: Diabetes mellitus type: type 2 Diabetes mellitus complication status: without complication Diabetes mellitus fpc insulin use: with termite renewal inspector use Qualified Code(s): E11.9 - Type 2 diabetes mellitus without complications ; Z79.4 - petroleum terminal plant operator (current) use of insulin (7) Chronic anemia Current Visit: No Status: Chronic 2 units of PRBCs ordered. Continue management per primary team. - Subjective Interval history: Patient seen and examined. No acute events overnight. Patient is POD #4 s/p Irrigation and debridement right femur and SEAN drain placement by Dr. Fabian. Patient denies fever, chills, CP, worsening SOB, abdominal pain, N/V/D, or bleeding from incision site. PICC line was placed 09/24/16. Infect Dis PN-Objective Data - Labs CBC & Chem 7: 09/26/16 03:35 09/26/16 03:35 Labs: Laboratory Results - last 24 hr 09/26/16 09/26/16 09/26/16 02:25 03:35 03:35 WBC 15.6 H RBC 2.45 L Hgb 6.9 L Hct 21.8 L MCV 89.0 MCH 28.2 MCHC 31.7 RDW 16.1 H Plt Count 341 MPV 11.1 Immature Gran % 4.8 H Seg Neutrophils % 81.6 Lymphocytes % 8.9 Monocytes % 4.6 Eosinophils % 0.0 Basophils % 0.1 Neutrophils # 12.7 H Lymphocytes # 1.4 Monocytes # 0.7 Eosinophils # 0.0 Basophils # 0.0 Nucleated RBCs/100 WBC 0.3 H Sodium 136 Potassium 3.9 Chloride 102 Carbon Dioxide 29 BUN 21 H Creatinine 0.77 Est GFR ( Amer) > 60 Est GFR (Non-Af Amer) > 60 BUN/Creatinine Ratio 27 H Glucose 145 H Calculated Osmolality 288 Calcium 8.0 L Total Bilirubin 0.3 AST 20 ALT 15 Alkaline Phosphatase 98 Serum Total Protein 5.3 L Albumin 1.9 L Globulin 3.4 Albumin/Globulin Ratio 0.6 L Urine Color Yellow Urine Clarity Clear Urine pH 6.5 Ur Specific [place] 1.026 H Urine Protein 30 H Urine Glucose (UA) Normal Urine Ketones Negative Urine Blood Negative Urine Nitrite Negative Urine Bilirubin Negative Urine Urobilinogen Normal Ur Leukocyte Esterase Negative Urine Microscopic RBC 5-15 H Urine Microscopic WBC 3-5 H Ur Squamous Epith Cells Moderate H Urine Bacteria None Seen Hyaline Casts None Seen Ur Culture Indicated? NO Cultures: Cultures 09/24/16 09:55 Blood Culture - Preliminary Peripheral Venipuncture No growth. 09/22/16 18:45 Anaerobic Culture - Preliminary Right Leg At this time, no anaerobic growth is present. The culture will be finalized after 5 days of incubation. 09/22/16 12:29 Blood Culture - Final Peripheral Venipuncture Staphylococcus aureus 09/22/16 18:45 Wound Culture - Final Right Leg No growth. 09/22/16 14:15 Wound Culture - Final Right Leg No growth. 09/22/16 11:49 Blood Culture - Preliminary Peripheral Venipuncture No growth. Serology 09/26/16 09/22/16 09/22/16 Range/Units 02:25 14:57 12:29 Urine Color Yellow TNP Urine Clarity Clear TNP Urine pH 6.5 TNP Ur Specific [place] 1.026 H TNP Urine Protein 30 H TNP Urine Glucose (UA) Normal TNP Urine Ketones Negative TNP Urine Blood Negative TNP Urine Nitrite Negative TNP Urine Bilirubin Negative TNP Urine Urobilinogen Normal TNP Ur Leukocyte Esterase Negative TNP Urine Microscopic RBC 5-15 H TNP Urine Microscopic WBC 3-5 H TNP Ur Squamous Epith Cells Moderate H TNP Urine Bacteria None Seen TNP Hyaline Casts None Seen TNP Ur Culture Indicated? NO TNP A. baumannii (PCR) Not Detected (Not Detect) Elise albicans (PCR) Not Detected (Not Detect) C. glabrata (PCR) Not Detected (Not Detect) C. krusei (PCR) Not Detected (Not Detect) C. parapsilosis (PCR) Not Detected (Not Detect) C. tropicalis (PCR) Not Detected (Not Detect) Enterobacteriac sp PCR Not Detected (Not Detect) E. cloacae complex PCR Not Detected (Not Detect) Enterococcus sp PCR Not Detected (Not Detect) E. coli (PCR) Not Detected (Not Detect) H. influenzae (PCR) Not Detected (Not Detect) Klebsiella oxytoca PCR Not Detected (Not Detect) Klebsiella pneumoniae Not Detected (Not Detect) List. monocytogenes PCR Not Detected (Not Detect) N. meningitidis (PCR) Not Detected (Not Detect) Proteus species (PCR) Not Detected (Not Detect) Serratia marcescens PCR Not Detected (Not Detect) Staphylococcus sp PCR DETECTED A (Not Detect) Staph aureus (PCR) DETECTED A (Not Detect) mecA-Methicil Res Gene Not Detected (Not Detect) Streptococcus sp PCR Not Detected (Not Detect) Group A Strep DNA Not Detected (Not Detect) Group B Strep (PCR) Not Detected (Not Detect) Strep pneumoniae (PCR) Not Detected (Not Detect) P. aeruginosa (PCR) Not Detected (Not Detect) Arnel/B-Vanco Res Genes Not Detected (Not Detect) KPC (blaKPC) Detect PCR Not Detected (Not Detect) Exam - Constitutional Vitals: Temp Pulse Resp BP Pulse Ox 98.4 F 84 16 129/67 96 09/26/16 08:50 09/26/16 08:50 09/26/16 08:50 09/26/16 08:50 09/26/16 08:50 General appearance: no acute distress, obese, no febrile - Head Head exam: Present: atraumatic, normal inspection, normocephalic - Eye Eye exam: Present: PERRL, conjuntiva pink - ENT ENT exam: Present: mucous membranes moist, normal oropharynx - Neck Neck exam: Present: full ROM, normal inspection - Respiratory Respiratory exam: Present: CTAB. Absent: rales, rhonchi - Cardiovascular Cardiovascular exam: Present: RRR, +S1, +S2 - GI/Abdominal GI/Abdominal exam: Present: normal bowel sounds, soft. Absent: guarding, rebound - Extremities Exam Extremities exam: Present: normal inspection. Absent: pedal edema, tenderness - Neurological Exam Neurological exam: Present: alert, oriented X3. Absent: altered, motor sensory deficit - Psychiatric Psychiatric exam: Present: normal affect, normal mood - Skin Skin exam: Present: dry, warm. Absent: rash Consult Discharge Plan - Plan Referrals: Diamond Licea PAC [Physician Livestock Caretaker] - 10/02/16 3:00 pm Tracie Castelan RESEARCH MANAGEMENT ASSOCIATE [Primary Care Provider] - 10/01/16 2:00 pm - Attending Attestation I examined this patient and my medical decision-making was reviewed with the Resident Physician. I agree with the documented findings, disposition and treatment plan as described except to the extent set forth below. continue cefazolin through 11/03/16 start rifampin weekly labs including weekly cbc, cmp, esr, crp follow up in clinic in 2 weeks
[2016-09-26] MEDS ORDERED: Furosemide 40 MG/4 ML VIAL IVP STA (09:29)
[2016-09-26] MEDS: Budesonide/Formoterol 160/4.5 MDI IH SCH ×2 (11:17→21:54)
[2016-09-26] MEDS ORDERED: 0.9 % Sodium Chloride 250 ML ONE ×2 (14:43→21:38)
[2016-09-26] MEDS: predniSONE 20 MG TABLET PO SCH (18:13)
[2016-09-26] MEDS: rifAMPin 150 MG CAPSULE PO SCH (18:14)
--- NOTE | 2016-09-26 18:19 | Internal Med Progress Note ---
Date of Encounter: 09/26/16 Time of Encounter: 18:18 - Assessment and plan (1) Sepsis Current Visit: Yes Status: Acute Qualifiers: Sepsis type: sepsis due to unspecified organism Qualified Code(s): A41.9 - Sepsis, unspecified organism (2) Bacteremia Current Visit: Yes Status: Acute (3) Pneumonia Current Visit: Yes Status: Acute Qualifiers: Pneumonia type: due to unspecified organism Laterality: bilateral Lung location: unspecified part of lung Qualified Code(s): J18.9 - Pneumonia, unspecified organism (4) Urinary tract infection Current Visit: Yes Status: Acute Qualifiers: Urinary tract infection type: acute cystitis Hematuria presence: with hematuria Qualified Code(s): N30.01 - Acute cystitis with hematuria (5) Wound infection following procedure Current Visit: Yes Status: Acute (6) Diabetes Current Visit: Yes Status: Chronic Qualifiers: Diabetes mellitus type: type 2 Diabetes mellitus complication status: without complication Diabetes mellitus adjunct faculty for medical terminology insulin use: with adjunct faculty for medical terminology use Qualified Code(s): E11.9 - Type 2 diabetes mellitus without complications ; Z79.4 - vermin exterminator (current) use of insulin (7) Anemia, posthemorrhagic, acute Current Visit: No Status: Acute (8) Atrial fibrillation Current Visit: Yes Status: Acute Qualifiers: Atrial fibrillation type: unspecified Qualified Code(s): I48.91 - Unspecified atrial fibrillation (9) S/P ORIF (open reduction internal fixation) fracture Current Visit: Yes Status: Acute (10) DVT prophylaxis Current Visit: Yes Status: Acute - Subjective Interval history: Ms. Chen is a 61 year old female who had been recently here for ORIF of right distal femur fracture 09/17 and was sent to SNF for rehab who presents with acute hypoxia. She had also been found to have fallen several times per report - patient reports falling because her right brace has been cumbersome. At the SNF, she was found to be hypoxic in the 70-80s on RA along with a temp of 102. In the UA, UA with pyuria but she denies overt UTI symptoms. CTA in the ED demonstrated multi-focal infiltrates and broncholitis changes suspicious for infectious PNA causing respiratory failure. Problem list: #1 right femur fracture/postoperative wound infection. I&D performed by Dr. Swanson cultures no growth. WBC count has gone up to 15,000.. #2 MSSA bacteremia. Infectious disease has recommended Ancef 2 g every 8 IV for 4 weeks plus rifampin daily . PICC line cannot be place until cultures are negative. Right now patient has a peripheral. We will check with the infectious disease if rifampin would be by mouth and in such case patient can go without PICC line. #3 multifocal pneumonia question septic emboli requesting KYRA was done today and it showed no vegetation. EF is 65 normal LV systolic function and moderate mitral regurgitation #4 UTI based on positive leukocyte and UA however cultures are negative #5 diabetes sugars are uncontrolled Levemir increased from 5 units at night to 15 units at night continue following blood sugars. Blood sugars are now much better. #6 anemia suspect post op acute blood loss anemia however hemoglobin only 7.6 Hemoccult and iron studies ordered if goes down any further we will transfuse check CBC CMP daily Disposition: Will discuss with care team about appropriate placement considering she will need Ancef 3 times a day. Most of the workup is completed and awaiting infectious disease to clear her once her bacteremia has resolved. - Constitutional Vitals: Temp Pulse Resp BP Pulse Ox 98.2 F 87 22 120/66 99 09/26/16 18:08 09/26/16 18:08 09/26/16 18:08 09/26/16 18:08 09/26/16 18:08 General appearance: Present: A&O X 3 - Head Head exam: Present: atraumatic, normocephalic - Eye Eye exam: Present: PERRL, conjuntiva pink, sclera anicteric Pupils: Present: PERRL - Neck Neck exam general surgery: Present: supple, trachea midline. Absent: lymphadenopathy - Respiratory Respiratory exam: Present: CTAB. Absent: accessory muscle use, rales, rhonchi, wheezes - Cardiovascular Cardiovascular exam: Present: RRR, +S1, +S2. Absent: diastolic murmur, gallop, rubs, systolic murmur - GI/Abdominal GI/Abdominal exam: Present: normal bowel sounds, soft, no peritoneal signs. Absent: distended, tenderness - Extremities Exam Extremities exam: Present: warm, radial pulses palpable and symmetrical. Absent : calf tenderness, cyanotic, pedal edema - Neurological Exam Neurological exam: Present: CN II-XII intact, oriented X3, no focal deficits. Absent: pronater drift, facial droop, speech deficit - Skin Skin exam: Present: dry, intact Internal Medicine: Result - Labs CBC & Chem 7: 09/26/16 03:35 09/26/16 03:35 Labs: Short CBC 09/26/16 Range/Units 03:35 WBC 15.6 H (4.3-11.1) K/mcL Hgb 6.9 L (11.5-15.4) g/dL Hct 21.8 L (35.3-44.9) % Plt Count 341 (140-400) K/mcL Neutrophils # 12.7 H (1.6-8.9) K/mcL BMP 09/26/16 03:35 Sodium 136 Potassium 3.9 Chloride 102 Carbon Dioxide 29 BUN 21 H Creatinine 0.77 Glucose 145 H Calcium 8.0 L Liver Function 09/26/16 Range/Units 03:35 Total Bilirubin 0.3 (0.2-1.2) mg/dL AST 20 (5-34) Units/L ALT 15 (0-55) Units/L Alkaline Phosphatase 98 (38-126) Units/L Albumin 1.9 L (3.5-5.0) g/dL Urine 09/26/16 Range/Units 02:25 Urine Color Yellow (Yellow) Urine Clarity Clear (Clear) Urine pH 6.5 (5.0-8.0) pH Units Ur Specific [place] 1.026 H (1.010-1.025) Urine Protein 30 H (Neg-Trace) mg/dL Urine Glucose (UA) Normal (Normal) mg/dL Consult Discharge Plan - Plan Referrals: Diamond Licea PAC [Physician Turning Machine Operator Helper] - 10/02/16 3:00 pm Tracie Castelan MANAGER READING [Primary Care Provider] - 10/01/16 2:00 pm
[2016-09-26] MEDS: Insulin DETEMIR 100 UNIT/ML X5UNITS SQ SCH (20:49)
[2016-09-27] MEDS: *HR* OxyCODONE Immed Rel 5 MG TABLET PO PRN ×3 (02:43→21:52)
[2016-09-27] MEDS: Insulin LISPRO 300 UNITS/3 ML VIAL SQ SCH ×5 (02:46→22:05)
[2016-09-27] MEDS: Ipratropium/Albuterol Neb 3 ML IH SCH ×4 (03:42→21:27)
[2016-09-27 04:20] LABS: Hematocrit 29.4 % (35.3-44.9); Mean Corpuscular Volume 87.8 fL (83.0-100.0); Mean Platelet Volume 10.7 fL (9.4-12.4); Nucleated Red Blood Cells 0.3 /100 WBC (0); Platelet Count 374 K/mcL (140-400); Red Blood Count 3.35 M/mcL (3.82-4.97); Red Cell Distribution Width 15.9 % (11.5-14.5)
[2016-09-27 04:22] LABS: Hemoglobin 9.7 g/dL (11.5-15.4)
[2016-09-27 04:32] LABS: Alanine Aminotransferase 12 Units/L (0-55); Albumin 2.1 g/dL (3.5-5.0); Albumin/Globulin Ratio 0.6 (1.1-2.2); Alkaline Phosphatase 105 Units/L (38-126); Aspartate Amino Transferase 19 Units/L (5-34); BUN/Creatinine Ratio 28 (6-26); Blood Urea Nitrogen 21 mg/dL (7-20); Calcium 8.3 mg/dL (8.6-10.8); Carbon Dioxide 33 mEq/L (19-29); Chloride 98 mEq/L (98-109); Globulin 3.4 g/dL (2.4-3.5); Glucose 119 mg/dL (70-99); Osmolality,Calculated 286 (280-300); Potassium 3.9 mEq/L (3.5-4.5); Sodium 136 mEq/L (136-145); Total Protein 5.5 g/dL (6.0-8.3); eGFR For African Americans > 60 (> 60); eGFR For Non-African Americans > 60 (> 60)
[2016-09-27 04:33] LABS: Bilirubin,Total 0.8 mg/dL (0.2-1.2)
[2016-09-27] MEDS: ceFAZolin 2,000 MG in D5% in Water 100 ML IVPB SCH ×3 (04:34→17:12)
[2016-09-27 04:59] LABS: Lymphocytes # 2.2 K/mcL (0.6-4.6); Neutrophils # 15.7 K/mcL (1.6-8.9); Platelet Estimate Normal (Normal)
[2016-09-27 05:00] LABS: Large Platelets Present (Not Present); Polychromasia 1+ (Not Present)
[2016-09-27] MEDS: *HR* Enoxaparin 40 MG/0.4 ML SYRINGE SQ SCH (06:01)
[2016-09-27] MEDS: clonazePAM 1 MG TABLET PO SCH ×3 (09:50→21:51)
[2016-09-27] MEDS: Magnesium Oxide 400 MG TABLET PO SCH (09:51)
[2016-09-27] MEDS: predniSONE 20 MG TABLET PO SCH ×2 (09:51→17:13)
[2016-09-27] MEDS: Gabapentin 300 MG CAPSULE PO SCH ×3 (09:51→21:51)
[2016-09-27] MEDS: rifAMPin 150 MG CAPSULE PO SCH ×2 (09:51→17:12)
[2016-09-27] MEDS: Metoprolol XL (24 HR) Succ 25 MG TAB.ER.24H PO SCH (09:51)
[2016-09-27] MEDS: BuPROPion XL (24 HR) 150 MG TABLET PO SCH (09:51)
[2016-09-27] MEDS: Aspirin 81 MG TAB.CHEW PO SCH (09:52)
--- NOTE | 2016-09-27 10:25 | Internal Med Progress Note ---
Date of Encounter: 09/27/16 Time of Encounter: 10:23 - Assessment and plan (1) Sepsis Current Visit: Yes Status: Acute Qualifiers: Sepsis type: sepsis due to unspecified organism Qualified Code(s): A41.9 - Sepsis, unspecified organism (2) Bacteremia Current Visit: Yes Status: Acute (3) Pneumonia Current Visit: Yes Status: Acute Qualifiers: Pneumonia type: due to unspecified organism Laterality: bilateral Lung location: unspecified part of lung Qualified Code(s): J18.9 - Pneumonia, unspecified organism (4) Urinary tract infection Current Visit: Yes Status: Acute Qualifiers: Urinary tract infection type: acute cystitis Hematuria presence: with hematuria Qualified Code(s): N30.01 - Acute cystitis with hematuria (5) Wound infection following procedure Current Visit: Yes Status: Acute (6) Diabetes Current Visit: Yes Status: Chronic Qualifiers: Diabetes mellitus type: type 2 Diabetes mellitus complication status: without complication Diabetes mellitus extermination supervisor insulin use: with extermination supervisor use Qualified Code(s): E11.9 - Type 2 diabetes mellitus without complications ; Z79.4 - termite control representative (current) use of insulin (7) Anemia, posthemorrhagic, acute Current Visit: No Status: Acute (8) Atrial fibrillation Current Visit: Yes Status: Acute Qualifiers: Atrial fibrillation type: unspecified Qualified Code(s): I48.91 - Unspecified atrial fibrillation (9) S/P ORIF (open reduction internal fixation) fracture Current Visit: Yes Status: Acute (10) DVT prophylaxis Current Visit: Yes Status: Acute - Subjective Interval history: Ms. Chen is a 61 year old female who had been recently here for ORIF of right distal femur fracture 09/17 and was sent to SNF for rehab who presents with acute hypoxia. She had also been found to have fallen several times per report - patient reports falling because her right brace has been cumbersome. At the SNF, she was found to be hypoxic in the 70-80s on RA along with a temp of 102. In the UA, UA with pyuria but she denies overt UTI symptoms. CTA in the ED demonstrated multi-focal infiltrates and broncholitis changes suspicious for infectious PNA causing respiratory failure. Problem list: #1 right femur fracture/postoperative wound infection. I&D performed by Dr. Swanson cultures no growth. WBC count has gone up to 15,000.. #2 MSSA bacteremia. Infectious disease has recommended Ancef 2 g every 8 IV for 4 weeks plus rifampin daily . PICC line cannot be place until cultures are negative. Right now patient has a peripheral. We will check with the infectious disease if rifampin would be by mouth and in such case patient can go without PICC line. #3 multifocal pneumonia question septic emboli requesting KYRA was done today and it showed no vegetation. EF is 65 normal LV systolic function and moderate mitral regurgitation #4 UTI based on positive leukocyte and UA however cultures are negative #5 diabetes sugars are uncontrolled Levemir increased from 5 units at night to 15 units at night continue following blood sugars. Blood sugars are now much better. #6 anemia suspect post op acute blood loss anemia however hemoglobin only 7.6 Hemoccult and iron studies ordered if goes down any further we will transfuse check CBC CMP daily Disposition: Will discuss with care team about appropriate placement considering she will need Ancef 3 times a day. Most of the workup is completed and awaiting infectious disease to clear her once her bacteremia has resolved. 09/27 no change. White cell count is up however patient is on steroids. Yesterday's switch from IV steroids to oral and today we will taper it down to see if it affects her white count. Clinically she does not seem in sepsis anymore. Infectious diseases on the case. Awaiting culture report. Blood cultures drawn on 09/24 are to this date are negative - Constitutional Vitals: Temp Pulse Resp BP Pulse Ox 98.2 F 80 14 117/67 90 09/27/16 07:14 09/27/16 07:14 09/27/16 07:14 09/27/16 07:14 09/27/16 07:14 General appearance: Present: A&O X 3 - Head Head exam: Present: atraumatic, normocephalic - Eye Eye exam: Present: PERRL, conjuntiva pink, sclera anicteric Pupils: Present: PERRL - Neck Neck exam general surgery: Present: supple, trachea midline. Absent: lymphadenopathy - Respiratory Respiratory exam: Present: CTAB. Absent: accessory muscle use, rales, rhonchi, wheezes - Cardiovascular Cardiovascular exam: Present: RRR, +S1, +S2. Absent: diastolic murmur, gallop, rubs, systolic murmur - GI/Abdominal GI/Abdominal exam: Present: normal bowel sounds, soft, no peritoneal signs. Absent: distended, tenderness - Extremities Exam Extremities exam: Present: warm, radial pulses palpable and symmetrical. Absent : calf tenderness, cyanotic, pedal edema - Neurological Exam Neurological exam: Present: CN II-XII intact, oriented X3, no focal deficits. Absent: pronater drift, facial droop, speech deficit - Skin Skin exam: Present: dry, intact Internal Medicine: Result - Labs CBC & Chem 7: 09/27/16 04:05 09/27/16 04:05 Labs: Short CBC 09/27/16 Range/Units 04:05 WBC 18.3 H (4.3-11.1) K/mcL Hgb 9.7 L D (11.5-15.4) g/dL Hct 29.4 L (35.3-44.9) % Plt Count 374 (140-400) K/mcL Neutrophils # 15.7 H (1.6-8.9) K/mcL BMP 09/27/16 04:05 Sodium 136 Potassium 3.9 Chloride 98 Carbon Dioxide 33 H BUN 21 H Creatinine 0.74 Glucose 119 H Calcium 8.3 L Liver Function 09/27/16 Range/Units 04:05 Total Bilirubin 0.8 D (0.2-1.2) mg/dL AST 19 (5-34) Units/L ALT 12 (0-55) Units/L Alkaline Phosphatase 105 (38-126) Units/L Albumin 2.1 L (3.5-5.0) g/dL Consult Discharge Plan - Plan Referrals: Diamond Licea PAC [Physician Leadership Development Consultant] - 10/02/16 3:00 pm Tracie Castelan SURGICAL PROCESSOR [Primary Care Provider] - 10/01/16 2:00 pm
[2016-09-27] MEDS: Budesonide/Formoterol 160/4.5 MDI IH SCH ×2 (11:23→21:27)
[2016-09-27] MEDS: Insulin DETEMIR 100 UNIT/ML X5UNITS SQ SCH (22:05)
[2016-09-28] MEDS: ceFAZolin 2,000 MG in D5% in Water 100 ML IVPB SCH ×3 (02:38→16:05)
[2016-09-28] MEDS: Ipratropium/Albuterol Neb 3 ML IH SCH ×4 (04:37→21:04)
[2016-09-28] MEDS: *HR* Enoxaparin 40 MG/0.4 ML SYRINGE SQ SCH (06:50)
[2016-09-28 07:44] LABS: Basophils % 0.3 %; Eosinophils % 0.1 %; Hemoglobin 10.2 g/dL (11.5-15.4); Immature Granulocytes % 3.9 % (0-4); Lymphocytes # 2.5 K/mcL (0.6-4.6); Lymphocytes % 16.5 %; Mean Corpuscular HGB Conc 31.9 g/dL (31.6-35.5); Mean Corpuscular Hemoglobin 28.3 pg (28.0-33.3); Mean Corpuscular Volume 88.6 fL (83.0-100.0); Monocytes # 0.8 K/mcL (0.0-1.3); Monocytes % 5.5 %; Nucleated Red Blood Cells 0.2 /100 WBC (0); Platelet Count 437 K/mcL (140-400); Red Blood Count 3.61 M/mcL (3.82-4.97); Red Cell Distribution Width 16.6 % (11.5-14.5); Segmented Neutrophils % 73.7 %
[2016-09-28 07:57] LABS: Alanine Aminotransferase 9 Units/L (0-55); Albumin 2.1 g/dL (3.5-5.0); Albumin/Globulin Ratio 0.6 (1.1-2.2); Alkaline Phosphatase 102 Units/L (38-126); Aspartate Amino Transferase 22 Units/L (5-34); BUN/Creatinine Ratio 28 (6-26); Bilirubin,Total 0.6 mg/dL (0.2-1.2); Blood Urea Nitrogen 18 mg/dL (7-20); Calcium 8.1 mg/dL (8.6-10.8); Carbon Dioxide 31 mEq/L (19-29); Chloride 102 mEq/L (98-109); Globulin 3.5 g/dL (2.4-3.5); Glucose 97 mg/dL (70-99); Osmolality,Calculated 292 (280-300); Potassium 4.5 mEq/L (3.5-4.5); Total Protein 5.6 g/dL (6.0-8.3); eGFR For African Americans > 60 (> 60); eGFR For Non-African Americans > 60 (> 60)
[2016-09-28 07:58] LABS: Sodium 140 mEq/L (136-145)
[2016-09-28] MEDS: clonazePAM 1 MG TABLET PO SCH ×3 (09:19→20:21)
[2016-09-28] MEDS: BuPROPion XL (24 HR) 150 MG TABLET PO SCH (09:19)
[2016-09-28] MEDS: rifAMPin 150 MG CAPSULE PO SCH ×2 (09:19→16:05)
[2016-09-28] MEDS: predniSONE 20 MG TABLET PO SCH ×2 (09:20→16:05)
[2016-09-28] MEDS: Magnesium Oxide 400 MG TABLET PO SCH (09:20)
[2016-09-28] MEDS: Aspirin 81 MG TAB.CHEW PO SCH (09:20)
[2016-09-28] MEDS: Gabapentin 300 MG CAPSULE PO SCH ×3 (09:20→20:21)
[2016-09-28] MEDS: Metoprolol XL (24 HR) Succ 25 MG TAB.ER.24H PO SCH (09:20)
[2016-09-28] MEDS: Insulin LISPRO 300 UNITS/3 ML VIAL SQ SCH ×4 (09:21→22:43)
[2016-09-28] MEDS: Budesonide/Formoterol 160/4.5 MDI IH SCH ×2 (10:50→21:03)
--- NOTE | 2016-09-28 11:56 | Internal Med Progress Note ---
Date of Encounter: 09/28/16 Time of Encounter: 11:56 - Assessment and plan (1) Sepsis Current Visit: Yes Status: Acute Qualifiers: Sepsis type: sepsis due to unspecified organism Qualified Code(s): A41.9 - Sepsis, unspecified organism (2) Bacteremia Current Visit: Yes Status: Acute (3) Pneumonia Current Visit: Yes Status: Acute Qualifiers: Pneumonia type: due to unspecified organism Laterality: bilateral Lung location: unspecified part of lung Qualified Code(s): J18.9 - Pneumonia, unspecified organism (4) Urinary tract infection Current Visit: Yes Status: Acute Qualifiers: Urinary tract infection type: acute cystitis Hematuria presence: with hematuria Qualified Code(s): N30.01 - Acute cystitis with hematuria (5) Wound infection following procedure Current Visit: Yes Status: Acute (6) Diabetes Current Visit: Yes Status: Chronic Qualifiers: Diabetes mellitus type: type 2 Diabetes mellitus complication status: without complication 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 insulin use: with termite control technician use Qualified Code(s): E11.9 - Type 2 diabetes mellitus without complications ; Z79.4 - marine oil terminal superintendent (current) use of insulin (7) Anemia, posthemorrhagic, acute Current Visit: No Status: Acute (8) Atrial fibrillation Current Visit: Yes Status: Acute Qualifiers: Atrial fibrillation type: unspecified Qualified Code(s): I48.91 - Unspecified atrial fibrillation (9) S/P ORIF (open reduction internal fixation) fracture Current Visit: Yes Status: Acute (10) DVT prophylaxis Current Visit: Yes Status: Acute - Subjective Interval history: Ms. Chen is a 61 year old female who had been recently here for ORIF of right distal femur fracture 09/17 and was sent to SNF for rehab who presents with acute hypoxia. She had also been found to have fallen several times per report - patient reports falling because her right brace has been cumbersome. At the SNF, she was found to be hypoxic in the 70-80s on RA along with a temp of 102. In the UA, UA with pyuria but she denies overt UTI symptoms. CTA in the ED demonstrated multi-focal infiltrates and broncholitis changes suspicious for infectious PNA causing respiratory failure. Problem list: #1 right femur fracture/postoperative wound infection. I&D performed by Dr. Swanson cultures no growth. WBC count has gone up to 15,000.. #2 MSSA bacteremia. Infectious disease has recommended Ancef 2 g every 8 IV for 4 weeks plus rifampin daily . PICC line cannot be place until cultures are negative. Right now patient has a peripheral. We will check with the infectious disease if rifampin would be by mouth and in such case patient can go without PICC line. #3 multifocal pneumonia question septic emboli requesting KYRA was done today and it showed no vegetation. EF is 65 normal LV systolic function and moderate mitral regurgitation #4 UTI based on positive leukocyte and UA however cultures are negative #5 diabetes sugars are uncontrolled Levemir increased from 5 units at night to 15 units at night continue following blood sugars. Blood sugars are now much better. #6 anemia suspect post op acute blood loss anemia however hemoglobin only 7.6 Hemoccult and iron studies ordered if goes down any further we will transfuse check CBC CMP daily Disposition: Will discuss with care team about appropriate placement considering she will need Ancef 3 times a day. Most of the workup is completed and awaiting infectious disease to clear her once her bacteremia has resolved. 09/27 no change. White cell count is up however patient is on steroids. Yesterday's switch from IV steroids to oral and today we will taper it down to see if it affects her white count. Clinically she does not seem in sepsis anymore. Infectious diseases on the case. Awaiting culture report. Blood cultures drawn on 09/24 are to this date are negative - Constitutional Vitals: Temp Pulse Resp BP Pulse Ox 98.5 F 81 18 108/50 96 09/28/16 11:05 09/28/16 11:05 09/28/16 11:05 09/28/16 11:05 09/28/16 11:05 General appearance: Present: A&O X 3 - Head Head exam: Present: atraumatic, normocephalic - Eye Eye exam: Present: PERRL, conjuntiva pink, sclera anicteric Pupils: Present: PERRL - Neck Neck exam general surgery: Present: supple, trachea midline. Absent: lymphadenopathy - Respiratory Respiratory exam: Present: CTAB. Absent: accessory muscle use, rales, rhonchi, wheezes - Cardiovascular Cardiovascular exam: Present: RRR, +S1, +S2. Absent: diastolic murmur, gallop, rubs, systolic murmur - GI/Abdominal GI/Abdominal exam: Present: normal bowel sounds, soft, no peritoneal signs. Absent: distended, tenderness - Extremities Exam Extremities exam: Present: warm, radial pulses palpable and symmetrical. Absent : calf tenderness, cyanotic, pedal edema - Neurological Exam Neurological exam: Present: CN II-XII intact, oriented X3, no focal deficits. Absent: pronater drift, facial droop, speech deficit - Skin Skin exam: Present: dry, intact Internal Medicine: Result - Labs CBC & Chem 7: 09/28/16 06:45 09/28/16 06:45 Labs: Short CBC 09/28/16 Range/Units 06:45 WBC 15.0 H (4.3-11.1) K/mcL Hgb 10.2 L (11.5-15.4) g/dL Hct 32.0 L (35.3-44.9) % Plt Count 437 H (140-400) K/mcL Neutrophils # 11.0 H (1.6-8.9) K/mcL BMP 09/28/16 06:45 Sodium 140 Potassium 4.5 Chloride 102 Carbon Dioxide 31 H BUN 18 Creatinine 0.64 Glucose 97 Calcium 8.1 L Liver Function 09/28/16 Range/Units 06:45 Total Bilirubin 0.6 (0.2-1.2) mg/dL AST 22 (5-34) Units/L ALT 9 (0-55) Units/L Alkaline Phosphatase 102 (38-126) Units/L Albumin 2.1 L (3.5-5.0) g/dL Consult Discharge Plan - Plan Referrals: Diamond Licea PAC [Physician Appeals Coordinator] - 10/02/16 3:00 pm Tracie Castelan [employer]ANGER [Primary Care Provider] - 10/01/16 2:00 pm
[2016-09-28] MEDS: *HR* OxyCODONE Immed Rel 5 MG TABLET PO PRN ×2 (14:25→19:33)
[2016-09-28] MEDS: Insulin DETEMIR 100 UNIT/ML X5UNITS SQ SCH (22:44)
[2016-09-29] MEDS: Ipratropium/Albuterol Neb 3 ML IH SCH ×3 (03:58→16:07)
[2016-09-29] MEDS: *HR* Enoxaparin 40 MG/0.4 ML SYRINGE SQ SCH (05:57)
[2016-09-29] MEDS: ceFAZolin 2,000 MG in D5% in Water 100 ML IVPB SCH (05:57)
--- NOTE | 2016-09-29 08:13 | Infectious Disease Progress No ---
Date of Encounter: 09/29/16 Time of Encounter: 08:12 - Assessment and Plan (1) Sepsis Current Visit: Yes Status: Acute Since admission she has met two SIRS criteria of temperature 100.6 F and tachycardia HR 105. Labs on admission revealed a WBC 13.2 with left shift, initial lactic acid 1.0 Patient was started on cefepime on 09/20/16 and azithromycin and vancomycin were added on 09/21/16 after patient spiked a fever 103.1 F and lactic acid level was 2.9 while on Cefepime. (Patient reports allergy to penicillins which causes a rash) S/p Irrigation and debridement right femur and SEAN drain placement by Dr. Fabian on 09/22/16 Deep wound cultures collected 09/22/16 show no growth to date Repeat blood cultures collected 09/22/16 results revealed staph aureus Repeat blood cultures collected 09/24/16 reveal no growth to date KYRA reveals no valvular vegetations or signs of endocarditis Recommendations: Continue Rifampin PO and Cefazolin 2g IV q8h through 11/03/16. PICC line was placed 09/24/16. Continue to monitor labs for drug toxicity and dose adjust antibiotics accordingly Monitor weekly labs including weekly cbc, cmp, esr, crp Follow up in clinic with Dr. Irizarry in 2 weeks Qualifiers: Sepsis type: sepsis due to unspecified organism Qualified Code(s): A41.9 - Sepsis, unspecified organism (2) Bacteremia Current Visit: Yes Status: Acute Blood cultures collected 09/20/16 revealed MSSA Repeat blood cultures collected 09/22/16 results revealed staph aureus Repeat blood cultures collected 09/24/16 reveal no growth to date KYRA reveals no valvular vegetations or signs of endocarditis PICC line was placed 09/24/16. Continue Cefazolin and Rocephin until 11/03/16 (3) Hospital-acquired pneumonia Current Visit: Yes Status: Acute Shortness of breath, hypoxia in the 70s to 80s on room air and temperature 102 F. Patient reports nonproductive cough for the past 3 weeks prior to surgery 09/17 CT chest revealed bilateral multifocal parenchymal disease which includes areas of tree in bud nodularity and bandlike densities/nodular areas of consolidation within both lower lobes. Finding is suspicious representing an infectious/ inflammatory process. Minimally prominent lymph nodes and subcarinal and left hilar regions. 09/25/16 chest x-ray reveals discoid atelectasis at the right lung base. No acute cardiopulmonary disease. Urine legionella and pneumococcus antigens negative (4) Postoperative wound infection Current Visit: Yes Status: Acute s/p ORIF of right distal femur fracture 09/17/16 s/p Irrigation and debridement right femur and SEAN drain placement on 09/22/[address] Fabian Continued Ancef and rifampin until 11/03/16 Qualifiers: Encounter type: subsequent encounter Qualified Code(s): T81.4XXD - Infection following a procedure, subsequent encounter (5) Fracture of distal femur Current Visit: No Status: Acute s/p ORIF of right distal femur fracture 09/17/16 Qualifiers: Encounter type: subsequent encounter Fracture type: closed Fracture morphology: unspecified fracture morphology Laterality: right Fracture healing: with malunion Qualified Code(s): S72.401P - Unspecified fracture of lower end of right femur, subsequent encounter for closed fracture with malunion (6) Diabetes Current Visit: Yes Status: Chronic Continue management per primary team Qualifiers: Diabetes mellitus type: type 2 Diabetes mellitus complication status: without complication Diabetes mellitus local intermodal truck driver insulin use: with local intermodal truck driver use Qualified Code(s): E11.9 - Type 2 diabetes mellitus without complications ; Z79.4 - skilled nursing (current) use of insulin (7) Chronic anemia Current Visit: No Status: Chronic Improved after 2 units of PRBCs transfusion. Continue management per primary team. - Subjective Interval history: Patient seen and examined. No acute events overnight. Patient is POD #7 s/p Irrigation and debridement right femur and SEAN drain placement by Dr. Fabian. Patient denies fever, chills, CP, worsening SOB, abdominal pain, N/V/D, or bleeding from incision site. PICC line was placed 09/24/16. Infect Dis PN-Objective Data - Labs CBC & Chem 7: 09/29/16 14:57 09/28/16 06:45 Labs: Laboratory Results - last 24 hr 09/27/16 09/27/16 09/27/16 07:20 11:13 16:01 POC Glucose 118 H 119 H 146 H 09/28/16 09/28/16 09/28/16 07:02 11:09 15:50 POC Glucose 94 H 107 H 195 H 09/28/16 19:59 POC Glucose 182 H Cultures: Cultures 09/22/16 11:49 Blood Culture - Final Peripheral Venipuncture No growth. 09/22/16 18:45 Anaerobic Culture - Final Right Leg No anaerobes were recovered. 09/24/16 10:33 Blood Culture - Preliminary Peripheral Venipuncture No growth. 09/26/16 Unknown Legionella Antigen - Final Urine,Clean Catch Streptococcus pneumoniae Antigen (M - Final 09/24/16 09:55 Blood Culture - Preliminary Peripheral Venipuncture No growth. 09/22/16 12:29 Blood Culture - Final Peripheral Venipuncture Staphylococcus aureus 09/22/16 18:45 Wound Culture - Final Right Leg No growth. 09/22/16 14:15 Wound Culture - Final Right Leg No growth. Serology 09/26/16 09/26/16 09/22/16 Range/Units 14:39 02:25 14:57 Urine Color Yellow TNP Urine Clarity Clear TNP Urine pH 6.5 TNP Ur Specific Lockhart 1.026 H TNP Urine Protein 30 H TNP Urine Glucose (UA) Normal TNP Urine Ketones Negative TNP Urine Blood Negative TNP Urine Nitrite Negative TNP Urine Bilirubin Negative TNP Urine Urobilinogen Normal TNP Ur Leukocyte Esterase Negative TNP Urine Microscopic RBC 5-15 H TNP Urine Microscopic WBC 3-5 H TNP Ur Squamous Epith Cells Moderate H TNP Urine Bacteria None Seen TNP Hyaline Casts None Seen TNP Ur Culture Indicated? NO TNP Stool Occult Blood Negative (Negative) A. baumannii (PCR) (Not Detect) Elise albicans (PCR) (Not Detect) C. glabrata (PCR) (Not Detect) C. krusei (PCR) (Not Detect) C. parapsilosis (PCR) (Not Detect) C. tropicalis (PCR) (Not Detect) Enterobacteriac sp PCR (Not Detect) E. cloacae complex PCR (Not Detect) Enterococcus sp PCR (Not Detect) E. coli (PCR) (Not Detect) H. influenzae (PCR) (Not Detect) Klebsiella oxytoca PCR (Not Detect) Klebsiella pneumoniae (Not Detect) List. monocytogenes PCR (Not Detect) N. meningitidis (PCR) (Not Detect) Proteus species (PCR) (Not Detect) Serratia marcescens PCR (Not Detect) Staphylococcus sp PCR (Not Detect) Staph aureus (PCR) (Not Detect) mecA-Methicil Res Gene (Not Detect) Streptococcus sp PCR (Not Detect) Group A Strep DNA (Not Detect) Group B Strep (PCR) (Not Detect) Strep pneumoniae (PCR) (Not Detect) P. aeruginosa (PCR) (Not Detect) Arnel/B-Vanco Res Genes (Not Detect) KPC (blaKPC) Detect PCR (Not Detect) 09/22/16 Range/Units 12:29 Urine Color Urine Clarity Urine pH Ur Specific Lockhart Urine Protein Urine Glucose (UA) Urine Ketones Urine Blood Urine Nitrite Urine Bilirubin Urine Urobilinogen Ur Leukocyte Esterase Urine Microscopic RBC Urine Microscopic WBC Ur Squamous Epith Cells Urine Bacteria Hyaline Casts Ur Culture Indicated? Stool Occult Blood (Negative) A. baumannii (PCR) Not Detected (Not Detect) Elise albicans (PCR) Not Detected (Not Detect) C. glabrata (PCR) Not Detected (Not Detect) C. krusei (PCR) Not Detected (Not Detect) C. parapsilosis (PCR) Not Detected (Not Detect) C. tropicalis (PCR) Not Detected (Not Detect) Enterobacteriac sp PCR Not Detected (Not Detect) E. cloacae complex PCR Not Detected (Not Detect) Enterococcus sp PCR Not Detected (Not Detect) E. coli (PCR) Not Detected (Not Detect) H. influenzae (PCR) Not Detected (Not Detect) Klebsiella oxytoca PCR Not Detected (Not Detect) Klebsiella pneumoniae Not Detected (Not Detect) List. monocytogenes PCR Not Detected (Not Detect) N. meningitidis (PCR) Not Detected (Not Detect) Proteus species (PCR) Not Detected (Not Detect) Serratia marcescens PCR Not Detected (Not Detect) Staphylococcus sp PCR DETECTED A (Not Detect) Staph aureus (PCR) DETECTED A (Not Detect) mecA-Methicil Res Gene Not Detected (Not Detect) Streptococcus sp PCR Not Detected (Not Detect) Group A Strep DNA Not Detected (Not Detect) Group B Strep (PCR) Not Detected (Not Detect) Strep pneumoniae (PCR) Not Detected (Not Detect) P. aeruginosa (PCR) Not Detected (Not Detect) Arnel/B-Vanco Res Genes Not Detected (Not Detect) KPC (blaKPC) Detect PCR Not Detected (Not Detect) Exam - Constitutional Vitals: Temp Pulse Resp BP Pulse Ox 98.5 F 81 16 119/70 97 09/29/16 07:38 09/29/16 07:38 09/29/16 07:38 09/29/16 07:38 09/29/16 07:38 General appearance: cooperative, no acute distress, obese, no febrile - Head Head exam: Present: atraumatic, normal inspection, normocephalic - Eye Eye exam: Present: PERRL, conjuntiva pink - ENT ENT exam: Present: mucous membranes moist, normal oropharynx - Neck Neck exam: Present: full ROM, normal inspection - Respiratory Respiratory exam: Present: CTAB. Absent: accessory muscle use, decreased breath sounds, respiratory distress, rhonchi, wheezes - Cardiovascular Cardiovascular exam: Present: RRR, +S1, +S2 - GI/Abdominal GI/Abdominal exam: Present: normal bowel sounds, soft. Absent: guarding, rebound - Extremities Exam Additional comments: right lateral distal femur incison C/D/I, no surrounding erythema or proximal streaking, SEAN drain in place with serosanguineous fluid - Neurological Exam Neurological exam: Present: alert, oriented X3. Absent: altered - Psychiatric Psychiatric exam: Present: normal affect, normal mood - Skin Additional comments: right lateral distal femur incison C/D/I, no surrounding erythema or proximal streaking Consult Discharge Plan - Plan Referrals: Diamond Licea PAC [Physician Pie Dough Roller] - 10/02/16 3:00 pm Tracie Castelan CNP [Primary Care Provider] - 10/01/16 2:00 pm - Attending Attestation I examined this patient and my medical decision-making was reviewed with the Resident Physician. I agree with the documented findings, disposition and treatment plan as described except to the extent set forth below.
--- NOTE | 2016-09-29 08:37 | Orthopedics Progress Note ---
Date of Encounter: 09/29/16 Time of Encounter: 08:00 - Assessment and Plan (1) Postoperative wound infection Current Visit: Yes Status: Acute Continue with postoperative care as per medical team, cultures right leg negative growth to date New honeycomb dressing to be applied today in anticipation of discharge. CBC ordered for today in anticipation of discharge. Brace to be adjusted by bracing team following dressing change. Patient to keep outpatient follow up with [facility] following discharge. Qualifiers: Encounter type: subsequent encounter Qualified Code(s): T81.4XXD - Infection following a procedure, subsequent encounter (2) S/P ORIF (open reduction internal fixation) fracture Current Visit: Yes Status: Acute Subjective Principal diagnosis: Right Thigh - Wound Infection Interval history: POD# 7 Irrigation and debridement right femur performed 09/22/[address] Fabian for infection right femur status post open reduction internal fixation. Patient was seen this morning doing well without complaints. Patient sitting in chair with brace around ankle. Afebrile vital signs stable. Operative extremity: -Neurovascularly intact -Dressing noted to have increased drainage at site of SEAN drain removed last week. Serosanguinous in appearance. No erythema, induration, or fluctuance noted to the area. -Calves nontender -Brace reapplied. Assessment and plan: Continue with postoperative care as per medical team, cultures right leg negative growth to date New honeycomb dressing to be applied today in anticipation of discharge. CBC ordered for today in anticipation of discharge. Brace to be adjusted by bracing team following dressing change. Patient to keep outpatient follow up with [facility] following discharge. Objective Vital signs: Vital Signs Temp Pulse Resp BP Pulse Ox 09/29/16 07:38 98.5 F 81 16 119/70 97 09/29/16 05:02 98.4 F 73 15 129/76 90 09/29/16 04:01 12 99 09/28/16 21:07 14 96 09/28/16 21:00 98.2 F 71 19 122/56 94 09/28/16 19:33 79 09/28/16 15:49 16 99 09/28/16 15:47 99.8 F H 83 16 97/75 95 09/28/16 11:05 98.5 F 81 18 108/50 96 Intake and Output 09/28/16 09/29/16 09/29/16 23:59 07:59 15:59 Intake Total 220 / 220 Balance 220 / 220 Intake: IV Fluids 100 / 100 Ancef 2,000 MG In 100 / 100 Dextrose 5% 100 ML @ 200 mls/hr IVPB Q8HR [facility] Rx#: [id number] Oral 120 / 120 Other: Percent of Meal Consumed 85% Stool Size Moderate Stool Consistency soft formed Stool Color Brown # Voids 1 Blood Glucose* 182 83 - Labs CBC & BMP: 09/28/16 06:45 09/28/16 06:45 Labs: Abnormal lab results WBC 15.0 K/mcL (4.3-11.1) H 09/28/16 06:45 RBC 3.61 M/mcL (3.82-4.97) L 09/28/16 06:45 Hgb 10.2 g/dL (11.5-15.4) L 09/28/16 06:45 Hct 32.0 % (35.3-44.9) L 09/28/16 06:45 RDW 16.6 % (11.5-14.5) H 09/28/16 06:45 Plt Count 437 K/mcL (140-400) H 09/28/16 06:45 Myelocytes % 2.0 % (0) H 09/27/16 04:05 Neutrophils # 11.0 K/mcL (1.6-8.9) H 09/28/16 06:45 Nucleated RBCs/100 WBC 0.2 /100 WBC (0) H 09/28/16 06:45 Large Platelets Present (Not Present) A 09/27/16 04:05 Immature Plt Fraction 6.4 % (1.1-6.1) H 09/20/16 22:37 Polychromasia 1+ (Not Present) A 09/27/16 04:05 ESR 93 mm/hr (0-15) H 09/22/16 12:29 Carbon Dioxide 31 mEq/L (19-29) H 09/28/16 06:45 BUN/Creatinine Ratio 28 (6-26) H 09/28/16 06:45 Hemoglobin A1c 5.7 % (-5.6) H 09/24/16 07:36 Calcium 8.1 mg/dL (8.6-10.8) L 09/28/16 06:45 Iron 41 mcg/dL (50-170) L 09/24/16 07:36 Transferrin 133 mg/dL (180-382) L 09/24/16 07:36 C-Reactive Protein 272 mg/L (Less than 5) H 09/22/16 12:29 Serum Total Protein 5.6 g/dL (6.0-8.3) L 09/28/16 06:45 Albumin 2.1 g/dL (3.5-5.0) L 09/28/16 06:45 Albumin/Globulin Ratio 0.6 (1.1-2.2) L 09/28/16 06:45 Vitamin B12 1633 pg/mL (213-816) H 09/26/16 09:47 Ur Specific [place] 1.026 (1.010-1.025) H 09/26/16 02:25 Urine Protein 30 mg/dL (Neg-Trace) H 09/26/16 02:25 Urine Microscopic RBC 5-15 per hpf (0-3) H 09/26/16 02:25 Urine Microscopic WBC 3-5 per hpf (0-3) H 09/26/16 02:25 Ur Squamous Epith Cells Moderate per lpf (None-Few) H 09/26/16 02:25 Staphylococcus sp PCR DETECTED (Not Detect) A 09/22/16 12:29 Staph aureus (PCR) DETECTED (Not Detect) A 09/22/16 12:29 Consult Discharge Plan - Plan Referrals: Diamond Licea, PAC [Physician Lacquer Mixer] - 10/02/16 3:00 pm Tracie Castelan CORE ASSEMBLY SUPERVISOR [Primary Care Provider] - 10/01/16 2:00 pm
[2016-09-29] MEDS: rifAMPin 150 MG CAPSULE PO SCH ×2 (09:26→16:53)
[2016-09-29] MEDS: Insulin LISPRO 300 UNITS/3 ML VIAL SQ SCH ×3 (09:26→16:54)
[2016-09-29] MEDS: Metoprolol XL (24 HR) Succ 25 MG TAB.ER.24H PO SCH (09:26)
[2016-09-29] MEDS: clonazePAM 1 MG TABLET PO SCH ×2 (09:26→16:53)
[2016-09-29] MEDS: Aspirin 81 MG TAB.CHEW PO SCH (09:26)
[2016-09-29] MEDS: Magnesium Oxide 400 MG TABLET PO SCH (09:26)
[2016-09-29] MEDS: predniSONE 20 MG TABLET PO SCH (09:26)
[2016-09-29] MEDS: BuPROPion XL (24 HR) 150 MG TABLET PO SCH (09:27)
[2016-09-29] MEDS: Gabapentin 300 MG CAPSULE PO SCH ×2 (09:27→16:53)
[2016-09-29] MEDS: Budesonide/Formoterol 160/4.5 MDI IH SCH (10:52)
[2016-09-29] MEDS ORDERED: ceFAZolin 2,000 MG in D5% in Water 100 ML IVPB SCH (14:00)
[2016-09-29 15:00] LABS: Basophils % 0.1 %; Eosinophils % 0.2 %; Hematocrit 32.3 % (35.3-44.9); Hemoglobin 10.1 g/dL (11.5-15.4); Immature Granulocytes % 1.9 % (0-4); Immature Platelets 4.9 % (1.1-6.1); Lymphocytes # 0.8 K/mcL (0.6-4.6); Mean Corpuscular HGB Conc 31.3 g/dL (31.6-35.5); Mean Corpuscular Hemoglobin 28.5 pg (28.0-33.3); Mean Corpuscular Volume 91.2 fL (83.0-100.0); Mean Platelet Volume 10.9 fL (9.4-12.4); Monocytes # 0.7 K/mcL (0.0-1.3); Monocytes % 4.7 %; Neutrophils # 12.1 K/mcL (1.6-8.9); Platelet Count 394 K/mcL (140-400); Red Blood Count 3.54 M/mcL (3.82-4.97); Red Cell Distribution Width 17.2 % (11.5-14.5); Segmented Neutrophils % 87.1 %
[2016-09-29 16:05] VITALS: BP 110/65
--- NOTE | 2016-09-29 16:42 | Discharge Summary ---
Date of Encounter: 09/29/16 Time of Encounter: 16:38 - Discharge Diagnosis (1) Sepsis Priority: Primary Status: Acute Qualifiers: Sepsis type: sepsis due to unspecified organism Qualified Code(s): A41.9 - Sepsis, unspecified organism (2) Bacteremia Priority: Primary Status: Acute (3) Pneumonia Priority: Primary Status: Acute Qualifiers: Pneumonia type: due to unspecified organism Laterality: bilateral Lung location: unspecified part of lung Qualified Code(s): J18.9 - Pneumonia, unspecified organism (4) Urinary tract infection Priority: Primary Status: Acute Qualifiers: Urinary tract infection type: acute cystitis Hematuria presence: with hematuria Qualified Code(s): N30.01 - Acute cystitis with hematuria (5) Wound infection following procedure Priority: Primary Status: Acute (6) Diabetes Priority: Secondary Status: Chronic Qualifiers: Diabetes mellitus type: type 2 Diabetes mellitus complication status: without complication Diabetes mellitus technician terminal and repeater insulin use: with longterm use Qualified Code(s): E11.9 - Type 2 diabetes mellitus without complications ; Z79.4 - terminal make up operator (current) use of insulin (7) Anemia, posthemorrhagic, acute Priority: Secondary Status: Acute (8) Atrial fibrillation Priority: Secondary Status: Acute Qualifiers: Atrial fibrillation type: unspecified Qualified Code(s): I48.91 - Unspecified atrial fibrillation (9) S/P ORIF (open reduction internal fixation) fracture Priority: Secondary Status: Acute (10) DVT prophylaxis Priority: Secondary Status: Acute - Discharge Medications Prescriptions: OxyCODONE Immed Rel [Roxicodone 5 MG] 5 mg PO Q6HR PRN #15 tab PRN Reason: Pain CeFAZolin Pre 2,000 MG/100 ML [Ancef Premix 2,000 MG/100 ML] 0 mg IV TID 42 Days Home Medications: Citalopram [CeleXA] 20 mg PO DAILY 02/06/15 [History] Albuterol Sulfate [Albuterol Inhaler] 2 - 4 puff IH Q4HR PRN #1 hfa.aer.ad 03/09 [Rx] Alendronate Sodium [Fosamax] 70 mg PO QWEEK 07/07/16 [History] Fluticasone/Salmeterol [Advair 500-50 Diskus] 1 puff IH BID 07/07/16 [History] Levothyroxine [Synthroid] 100 mcg PO DAILY 07/07/16 [History] Omeprazole 20 mg PO DAILY 07/07/16 [History] Aspirin 81 mg PO DAILY tab.chew 08/01/16 [Rx] Docusate [Colace] 100 mg PO BID PRN #0 capsule 08/01/16 [Rx] Metoprolol XL (24 HR) Succ [Toprol Xl] 25 mg PO DAILY tab.er.24h 08/01/16 [Rx] GuaiFENesin ER [Mucinex] 1,200 mg PO BID #20 tbbp.12hr 09/15/16 [Rx] Ferrous Sulfate [Iron] 325 mg PO BID 09/16/16 [History] Magnesium Oxide [Mgo] 400 mg PO DAILY 09/16/16 [History] Gabapentin [Neurontin] 300 mg PO TID #21 09/19/16 [Rx] clonazePAM [Klonopin] 1 mg PO TID #21 tab 09/19/16 [Rx] Acetaminophen [Tylenol] 650 mg PO Q6HR PRN tab 09/29/16 [Rx] BuPROPion XL (24 HR) [Wellbutrin Xl] 300 mg PO QAM 09/29/16 [Rx] CeFAZolin Pre 2,000 MG/100 ML [Ancef Premix 2,000 MG/100 ML] 0 mg IV TID 42 Days 09/29/16 [Rx] Enoxaparin [Lovenox] 40 mg SQ 0600 09/29/16 [Rx] Insulin DETEMIR [Levemir] 15 unit SQ HS 09/29/16 [Rx] Ipratropium/Albuterol Neb [Duoneb] 3 ml IH BID inh 09/29/16 [Rx] OxyCODONE Immed Rel [Roxicodone 5 MG] 5 mg PO Q6HR PRN #15 tab 09/29/16 [Rx] predniSONE [PredniSONE] 40 mg PO DAILY tab 09/29/16 [Rx] rifAMPin [Rifadin] 300 mg PO BIDAC 42 Days 09/29/16 [Rx] Allergies/Adverse Reactions: 3 Allergy/AdvReac Type Severity Reaction Status Date / Time codeine Allergy Swelling Verified 07/27/16 06:34 of Lip/Tongue/Throat Medroxyprogesterone Allergy Swelling Verified 07/27/16 06:34 [From Provera] of Lip/Tongue/Throat Penicillins Allergy Rash Verified 07/27/16 06:34 Date of admission: 09/21/16 02:14 Primary care physician: Tracie Castelan CNP Consults: 09/22/16 09:36 Consult to Medical Device [CONS] Routine Reason for SW Consult: Return to SNF for rehab 09/22/16 11:35 Consult to Infectious Diseases [CONS] Routine Consulting Provider: Infectious [facility] [place] Reason for Consult: Sepsis, further abx management Call Completed: Yes 09/22/16 20:39 Consult to Occupational Therapy [CONS] Routine Comment: Evaluate, develop and implement POC Reason for Consult: postop care Consult to Orthopedic Navigator [CONS] [CONS] Routine Consult to Physical Therapy [CONS] Routine Comment: Evaluate, develop and implement POC Reason for Consult: NB rle no knee bending brace at all times RT Post Op Consult [CONS] Routine 09/23/16 18:32 Consult to PICC team [Consult to Invasive Line Access Team] [CONS] Routine Reason for Consult: PICC line for IV antibiotics for 4 weeks Line Type: PICC Time Notified: 18:33 Call Completed: No 09/24/16 11:02 Consult to Invasive Line Access Team [CONS] Routine Reason for Consult: poor access, home atb Line Type: EPIV Discharging clinician: Hollie Garcia Anticipated date of discharge: 09/29/16 - Patient Status Disposition: Transfer SNF Condition: Fair Overall status at discharge: patient is progressing back to baseline - Discharge Instructions Follow Up With: Diamond Licea PAC [Physician Company Dancer] - 10/02/16 3:00 pm Tracie Castelan CNP [Primary Care Provider] - 10/01/16 2:00 pm - Diet and Activity Activity: as per physical therapy Diet: advance to your usual diet, diabetic diet, low fat, low cholesterol, low salt diet Hospital course: Ms. Chen is a 61 year old female who had been recently here for ORIF of right distal femur fracture 09/17 and was sent to SNF for rehab who presents with acute hypoxia. She had also been found to have fallen several times per report - patient reports falling because her right brace has been cumbersome. At the SNF, she was found to be hypoxic in the 70-80s on RA along with a temp of 102. In the UA, UA with pyuria but she denies overt UTI symptoms. CTA in the ED demonstrated multi-focal infiltrates and broncholitis changes suspicious for infectious PNA causing respiratory failure. Problem list: #1 right femur fracture/postoperative wound infection. I&D performed by Dr. Swanson cultures no growth. WBC count is 13 coming down. #2 MSSA bacteremia. Infectious disease has recommended Ancef 2 g every 8 IV for 4 weeks plus rifampin daily 6 weeks. Her blood cultures were negative for 6 days now. #3 multifocal pneumonia question septic emboli requesting KYRA was done and it showed no vegetation. EF is 65 normal LV systolic function and moderate MR #4 UTI based on positive leukocyte and UA however cultures are negative #5 diabetes sugars are controlled with Levemir and sliding scale #6 anemia suspect post op acute blood loss anemia however hemoglobin only 7.6 but is stable and last few days. Hemoccult test was negative. Disposition: She has a PICC line and she will go to assisted for 6 weeks of her IV antibiotics including Ancef and add by mouth rifampin. She will continue to follow with her family doctor and infectious disease. She will continue to follow up with her orthopedic surgeon. - Time Spent with Patient Total time spent providing and/or coordinating discharge services: Greater than 30 minutes - Constitutional Vitals: Temp Pulse Resp BP Pulse Ox 99.2 F 77 16 110/65 95 09/29/16 16:03 09/29/16 16:03 09/29/16 16:03 09/29/16 16:03 09/29/16 16:03 General appearance: Present: A&O X 3 - Head Head exam: Present: atraumatic, normocephalic - Eye Eye exam: Present: PERRL, conjuntiva pink, sclera anicteric Pupils: Present: PERRL - Neck Neck exam general surgery: Present: supple, trachea midline. Absent: lymphadenopathy - Respiratory Respiratory exam: Present: CTAB. Absent: accessory muscle use, rales, rhonchi, wheezes - Cardiovascular Cardiovascular exam: Present: RRR, +S1, +S2. Absent: diastolic murmur, gallop, rubs, systolic murmur - GI/Abdominal GI/Abdominal exam: Present: normal bowel sounds, soft, no peritoneal signs. Absent: distended, tenderness - Extremities Exam Extremities exam: Present: warm, radial pulses palpable and symmetrical. Absent : calf tenderness, cyanotic, pedal edema Additional comments: Hip examination and wound examination per surgery - Neurological Exam Neurological exam: Present: CN II-XII intact, oriented X3, no focal deficits. Absent: pronater drift, facial droop, speech deficit - Skin Skin exam: Present: dry, intact
--- NOTE | 2016-09-29 17:12 | Physician Discharge Referral ---
ExtendedCare Referral Info Transfer To: snf Provider in Charge: anushka Provider in Charge after Transfer: PCP Institutional Level of Care: Skilled - Diagnosis (1) Sepsis Status: Acute (2) Bacteremia Status: Acute (3) Pneumonia Status: Acute (4) Urinary tract infection Status: Acute (5) Wound infection following procedure Status: Acute (6) Diabetes Status: Chronic (7) Anemia, posthemorrhagic, acute Status: Acute (8) Atrial fibrillation Status: Acute (9) S/P ORIF (open reduction internal fixation) fracture Status: Acute (10) DVT prophylaxis Status: Acute - Transfer Medications Prescriptions: OxyCODONE Immed Rel [Roxicodone 5 MG] 5 mg PO Q6HR PRN #15 tab PRN Reason: Pain CeFAZolin Pre 2,000 MG/100 ML [Ancef Premix 2,000 MG/100 ML] 0 mg IV TID 42 Days Home Medications: Citalopram [CeleXA] 20 mg PO DAILY 02/06/15 [History] Albuterol Sulfate [Albuterol Inhaler] 2 - 4 puff IH Q4HR PRN #1 hfa.aer.ad 03/09 [Rx] Alendronate Sodium [Fosamax] 70 mg PO QWEEK 07/07/16 [History] Fluticasone/Salmeterol [Advair 500-50 Diskus] 1 puff IH BID 07/07/16 [History] Levothyroxine [Synthroid] 100 mcg PO DAILY 07/07/16 [History] Omeprazole 20 mg PO DAILY 07/07/16 [History] Aspirin 81 mg PO DAILY tab.chew 08/01/16 [Rx] Docusate [Colace] 100 mg PO BID PRN #0 capsule 08/01/16 [Rx] Metoprolol XL (24 HR) Succ [Toprol Xl] 25 mg PO DAILY tab.er.24h 08/01/16 [Rx] GuaiFENesin ER [Mucinex] 1,200 mg PO BID #20 tbbp.12hr 09/15/16 [Rx] Ferrous Sulfate [Iron] 325 mg PO BID 09/16/16 [History] Magnesium Oxide [Mgo] 400 mg PO DAILY 09/16/16 [History] Gabapentin [Neurontin] 300 mg PO TID #21 09/19/16 [Rx] clonazePAM [Klonopin] 1 mg PO TID #21 tab 09/19/16 [Rx] Acetaminophen [Tylenol] 650 mg PO Q6HR PRN tab 09/29/16 [Rx] BuPROPion XL (24 HR) [Wellbutrin Xl] 300 mg PO QAM 09/29/16 [Rx] CeFAZolin Pre 2,000 MG/100 ML [Ancef Premix 2,000 MG/100 ML] 0 mg IV TID 42 Days 09/29/16 [Rx] Enoxaparin [Lovenox] 40 mg SQ 0600 09/29/16 [Rx] Insulin DETEMIR [Levemir] 15 unit SQ HS 09/29/16 [Rx] Ipratropium/Albuterol Neb [Duoneb] 3 ml IH BID inh 09/29/16 [Rx] OxyCODONE Immed Rel [Roxicodone 5 MG] 5 mg PO Q6HR PRN #15 tab 09/29/16 [Rx] predniSONE [PredniSONE] 40 mg PO DAILY tab 09/29/16 [Rx] rifAMPin [Rifadin] 300 mg PO BIDAC 42 Days 09/29/16 [Rx] Allergies/Adverse Reactions: 3 Allergy/AdvReac Type Severity Reaction Status Date / Time codeine Allergy Swelling Verified 07/27/16 06:34 of Lip/Tongue/Throat Medroxyprogesterone Allergy Swelling Verified 07/27/16 06:34 [From Provera] of Lip/Tongue/Throat Penicillins Allergy Rash Verified 07/27/16 06:34 - Respiratory Orders Smoking Cessation: Smoking cessation has been advised. For more information, call the [place] Tobacco Quit Line at 2-378-EPAH-NOW. - Lab Orders Lab Orders: CBC, Josue 17 - Advance Directives Code Status: Full Code - History and Physical History/Physical reviewed & approved w/add comments: Yes please see my discharge summary - Mobility Orders Ambulate - Rehabiliation Orders Rehab Potential: Good Rehab Orders: ROM Exercises, Evaluation for Physical Therapy, Evaluation for Occupational Therapy - Treatments Skin tear care topically daily PRN per policy, May check for fecal impaction rectally daily PRN CERTIFICATION: I certify that the transfer of the above named patient to an Extended Care Facility is necessary for the continuing treatment of the diagnosis listed. The above information is true and accurate reflection of patient's current condition. Confidential - Redisclosure prohibited without a patient's written consent.
[2016-09-30] MEDS ORDERED: predniSONE 20 MG TABLET PO SCH (09:00)
== END 2016-09-29 18:20 | DRG 871 ==
LOC: 2NENU 21:58 → EMEROO 21:58 → 2NENU 09-21 02:32
PROVIDERS: ADMIT Internal Medicine Hematology & Oncology; ATTEND Internal Medicine

== ENCOUNTER 2016-12-02 15:27 | Observation (INO) ==
--- NOTE | 2016-12-02 15:56 | Emergency Department Note ---
Disposition Clinical Impression: Swelling of right knee joint Right knee pain Qualifiers: Chronicity: acute Qualified Code(s): M25.561 - Pain in right knee Disposition: Admitted As Inpatient Condition: Fair Referrals: Tracie Castelan CNP [Primary Care Provider] - Forms: ED Satisfaction Letter Time of Disposition: 15:57 Extremity Problem HPI - General Chief complaint: ED Extremity Problem,Nontraumatic Stated complaint: Right knee pain Time Seen by Provider: 12/02/16 15:39 Source: patient Limitations: no limitations Nursing Notes Reviewed: Yes Vital Signs Reviewed: Yes - History of Present Illness HPI Narrative: Nontoxic appearing 61-year-old female presents for right knee pain, redness, and swelling. She states that 4 years ago she had a total knee replacement performed by Dr. Walker. She states that approximately 4 months ago, she fell and broke her right femur. She subsequently in the interim developed bacteremia which required IV antibiotics. She had been followed by infectious disease here at this facility. She states that she has recently been switched over to oral antibiotics. She states that 2 days ago, she noted it began to notice worsening pain in the right knee. She denies any new slipped, tripped, fall, or injury that could have accounted for this pain. She denies any fever or chills, nausea, vomiting, abdominal pain, diarrhea, or any other complaints at this time. Pt Subjective Complaint: joint swelling, joint paint Onset (ago): day(s) (2) Consistency: Worsening Injury Location: right, knee Pain Scale: 10 Quality: sharp Improves with: nothing Worsens with: range of motion, weight bearing, walking, palpation Associated symptoms: Reports: denies other symptoms - Related Data Home Medications Medication Instructions Recorded Confirmed Citalopram [CeleXA] 20 mg PO DAILY 02/06/15 09/21/16 Alendronate Sodium [Fosamax] 70 mg PO QWEEK 07/07/16 09/21/16 Fluticasone/Salmeterol [Advair 1 puff IH BID 07/07/16 09/21/16 500-50 Diskus] Levothyroxine [Synthroid] 100 mcg PO DAILY 07/07/16 09/21/16 Omeprazole 20 mg PO DAILY 07/07/16 09/21/16 Ferrous Sulfate [Iron] 325 mg PO BID 09/16/16 09/21/16 Magnesium Oxide [Mgo] 400 mg PO DAILY 09/16/16 09/21/16 Previous Rx's Medication Instructions Recorded Albuterol Sulfate [Albuterol 2 - 4 puff IH Q4HR PRN #1 03/09/15 Inhaler] hfa.aer.ad Aspirin 81 mg PO DAILY tab.chew 08/01/16 Docusate [Colace] 100 mg PO BID PRN #0 capsule 08/01/16 Metoprolol XL (24 HR) Succ [Toprol 25 mg PO DAILY tab.er.24h 08/01/16 Xl] GuaiFENesin ER [Mucinex] 1,200 mg PO BID #20 tbbp.12hr 09/15/16 Gabapentin [Neurontin] 300 mg PO TID #21 09/19/16 clonazePAM [Klonopin] 1 mg PO TID #21 tab 09/19/16 Acetaminophen [Tylenol] 650 mg PO Q6HR PRN tab 09/29/16 BuPROPion XL (24 HR) [Wellbutrin 300 mg PO QAM 09/29/16 Xl] CeFAZolin Pre 2,000 MG/100 ML 0 mg IV TID 42 Days bag 09/29/16 [Ancef Premix 2,000 MG/100 ML] Enoxaparin [Lovenox] 40 mg SQ 0600 09/29/16 Insulin DETEMIR [Levemir] 15 unit SQ HS 09/29/16 Ipratropium/Albuterol Neb [Duoneb] 3 ml IH BID inh 09/29/16 OxyCODONE Immed Rel [Roxicodone 5 5 mg PO Q6HR PRN #15 tab 09/29/16 MG] predniSONE [PredniSONE] 40 mg PO DAILY tab 09/29/16 rifAMPin [Rifadin] 300 mg PO BIDAC 42 Days 09/29/16 Allergies Allergy/AdvReac Type Severity Reaction Status Date / Time codeine Allergy Swelling Verified 12/02/16 15:36 of Lip/Tongue/Throat Medroxyprogesterone Allergy Swelling Verified 12/02/16 15:36 [From Provera] of Lip/Tongue/Throat meloxicam [From Mobic] Allergy Rash Verified 12/02/16 15:36 Penicillins Allergy Rash Verified 12/02/16 15:36 All systems ED: reviewed and negative except as stated. Constitutional: Denies: fever, chills, weakness, weight change Eyes: Denies: eye pain, eye discharge, vision change ENT ED: Denies: ear pain, throat pain, dental pain, hearing loss, epistaxis, congestion, dysphagia Cardiovascular: Denies: chest pain, palpitations, dyspnea on exertion, edema, syncope Respiratory: Denies: cough, dyspnea, wheezes, hemoptysis, stridor Gastrointestinal: Denies: abdominal pain, nausea, vomiting, diarrhea, constipation, hematemesis, melena, hematochezia Genitourinary: Denies: dysuria, frequency, hematuria, discharge Musculoskeletal: Reports: as per HPI, arthralgia (Right knee pain). Denies: back pain, neck pain, myalgia Integumentary: Denies: rash, abrasion, lesions Neurological: Denies: headache, weakness, numbness, paresthesias, confusion, abnormal gait, vertigo Psychiatric: Denies: anxiety, depression, suicidal thoughts, homicidal thoughts , auditory hallucinations, visual hallucinations Endocrine: Denies: fatigue Hematological/Lymphatic: Denies: easy bleeding, easy bruising Allergic/Immunologic: Denies: facial swelling, urticaria Past Medical History - Past Medical History Attestation: Yes The following information was validated with the patient. Source: patient, nursing notes reviewed Medical history: Reports: arthritis, asthma, fibromyalgia, osteoporosis, thyroid disease Surgical history: Reports: cholecystectomy, orthopedic, other, JULIANNA/BSO, thyroidectomy Psychiatric history: Reports: anxiety, depression FAMILY NURSE PRACTITIONER history: Reports: no FAMILY NURSE PRACTITIONER history - Social History Smoking Status: Never smoker Smokeless Tobacco Status: No Alcohol use: Reports: none Drug use: Reports: none Physical Exam - General Limitations: no limitations General appearance: alert, in no apparent distress - Head Head exam: atraumatic, normocephalic, normal inspection - Eye Eye exam: Present: normal appearance, PERRL, EOMI. Absent: nystagmus - ENT ENT exam: mucous membranes moist - Neck Neck exam: Present: normal inspection, full ROM, trachea midline - Chest Chest inspection: Present: normal inspection, symmetric chest wall rise - Respiratory Respiratory exam: Present: normal lung sounds bilaterally. Absent: respiratory distress, wheezes, stridor, accessory muscle use, prolonged expiratory phase - Cardiovascular Cardiovascular exam: Present: regular rate, normal rhythm, normal heart sounds - Abdominal Exam Abdominal exam: Present: soft, Non-Tender, normal bowel sounds - Expanded Lower Extremity Exam Hip/Pelvis exam: Present: normal inspection, full ROM Upper leg exam: Present: normal inspection, full ROM Knee exam: Present: tenderness (right knee), swelling (Moderate, right knee), erythema (Moderate degree of erythema. The entire knee is warm to the touch.), pain with valgus, pain with varus, knee extension intact. Absent: full ROM ( Range of motion limited by pain, right knee), abrasion, laceration, ecchymosis, deformity, crepitus, dislocation, effusion Lower leg exam: Present: normal inspection, full ROM Ankle exam: Present: normal inspection, full ROM Foot/toe exam: Present: normal inspection, full ROM Neurovascular/Tendon exam: Present: normal capillary refill. Absent: pulse deficit, tendon deficit, extremity cold to touch Gait: observed and limited by pain - Neurological Exam Neurological exam: Present: alert, oriented X3 - Psychiatric Psychiatric exam: Present: normal affect, normal mood - Skin Skin exam: Present: warm, dry, intact, normal color Course - Reevaluation(s) Reevaluation #1: 61-year-old who comes in complaining of a painful red me that has gotten progressively worse. Patient had been on IV antibiotics switched over to orals now has worsening swelling and pain. Consultation obtained from orthopedics Doug on her admitted and they will see her in consult. Her white count is normal her sedimentation rate and CRP are elevated. Time: 17:11 - Consultations Consultation #1: Discussed with , admit to medicine and consult. Time: 17:10 Consultation #2: Discussed with Dr. Dela Cruz admit. Time: 17:17 Vital Signs Temperature 98.6 F 12/02/16 15:33 Pulse Rate 82 12/02/16 15:33 Respiratory Rate 16 12/02/16 15:33 Blood Pressure 108/52 12/02/16 15:33 O2 Sat by Pulse Oximetry 91 12/02/16 15:33 Temperature 98.6 F 12/02/16 16:26 Pulse Rate 71 12/02/16 16:26 Respiratory Rate 16 12/02/16 16:26 Blood Pressure 111/71 12/02/16 16:26 O2 Sat by Pulse Oximetry 96 12/02/16 16:26 Oxygen Delivery Oxygen Delivery Room Air Extremity Problem, Nontraumati - Medical Records Medical records reviewed: Yes I reviewed the patient's medical records. - Lab Data Result diagrams: 12/02/16 16:09 12/02/16 16:09 Lab Results 12/02/16 12/02/16 12/02/16 Range/Units 16:09 16:09 16:09 WBC 8.0 (4.3-11.1) K/mcL RBC 4.03 (3.82-4.97) M/mcL Hgb 12.0 (11.5-15.4) g/dL Hct 37.1 (35.3-44.9) % MCV 92.1 (83.0-100.0) fL MCH 29.8 (28.0-33.3) pg MCHC 32.3 (31.6-35.5) g/dL RDW 14.9 H (11.5-14.5) % Plt Count 247 (140-400) K/mcL MPV 10.7 (9.4-12.4) fL Immature Gran % 0.2 (0-4) % Seg Neutrophils % 47.0 % Lymphocytes % 35.3 % Monocytes % 10.0 % Eosinophils % 6.4 % Basophils % 1.1 % Neutrophils # 3.8 (1.6-8.9) K/mcL Lymphocytes # 2.8 (0.6-4.6) K/mcL Monocytes # 0.8 (0.0-1.3) K/mcL Eosinophils # 0.5 (0.0-0.6) K/mcL Basophils # 0.1 (0.0-0.2) K/mcL ESR 37 H (0-15) mm/hr Sodium 140 (136-145) mEq/L Potassium 4.6 H (3.5-4.5) mEq/L Chloride 107 (98-109) mEq/L Carbon Dioxide 24 (19-29) mEq/L BUN 18 (7-20) mg/dL Creatinine 0.95 (0.57-1.11) mg/dL Est GFR ( Amer) > 60 (> 60) Est GFR (Non-Af Amer) 60 (> 60) BUN/Creatinine Ratio 19 (6-26) Glucose 85 (70-99) mg/dL Calculated Osmolality 291 (280-300) Lactic Acid (0.5-2.2) mmol/L Uric Acid 4.4 (2.6-6.0) mg/dL Calcium 9.0 (8.6-10.8) mg/dL C-Reactive Protein 5 H (Less than 5) mg/L 12/02/16 Range/Units 16:09 WBC (4.3-11.1) K/mcL RBC (3.82-4.97) M/mcL Hgb (11.5-15.4) g/dL Hct (35.3-44.9) % MCV (83.0-100.0) fL MCH (28.0-33.3) pg MCHC (31.6-35.5) g/dL RDW (11.5-14.5) % Plt Count (140-400) K/mcL MPV (9.4-12.4) fL Immature Gran % (0-4) % Seg Neutrophils % % Lymphocytes % % Monocytes % % Eosinophils % % Basophils % % Neutrophils # (1.6-8.9) K/mcL Lymphocytes # (0.6-4.6) K/mcL Monocytes # (0.0-1.3) K/mcL Eosinophils # (0.0-0.6) K/mcL Basophils # (0.0-0.2) K/mcL ESR (0-15) mm/hr Sodium (136-145) mEq/L Potassium (3.5-4.5) mEq/L Chloride (98-109) mEq/L Carbon Dioxide (19-29) mEq/L BUN (7-20) mg/dL Creatinine (0.57-1.11) mg/dL Est GFR ( Amer) (> 60) Est GFR (Non-Af Amer) (> 60) BUN/Creatinine Ratio (6-26) Glucose (70-99) mg/dL Calculated Osmolality (280-300) Lactic Acid 0.8 (0.5-2.2) mmol/L Uric Acid (2.6-6.0) mg/dL Calcium (8.6-10.8) mg/dL C-Reactive Protein (Less than 5) mg/L S.B.A.R. - S.B.A.R. Situation: Demographics, MOA Background: Presenting Complaint, Relevant PMH, Meds, & Allergies Assessment: Vital Signs, Course and respsone to treatment, Exam Concerns, Patient/Family Expectation, Pertinant Lab Results, Outstanding Labs Recommendation: Barrier(s) to disposition, Recommendation based on pending studies, treatments, or consults Cecilia Report Given to: Dr. Sonido Brooks Repor Time: 15:57 Attestation Statement - Attestation Attestation: For this encounter, I have reviewed the BATTERY INSPECTOR or PA documentation, treatment plan, and medical decision making; and I have had face to face time with this patient. 61-year-old who is 4 years status post knee replacement. Or months ago had a fall developed some redness swelling. Patient has been on IV antibiotics and was switched to by mouth antibiotics with worsening redness and swelling. knee is warm to touch significant pain and tenderness with motion. We'll obtain lab work including sedimentation rate cultures also obtained x-ray. Consultation with orthopedics.
[2016-12-02 16:24] LABS: Basophils # 0.1 K/mcL (0.0-0.2); Basophils % 1.1 %; Eosinophils # 0.5 K/mcL (0.0-0.6); Eosinophils % 6.4 %; Hematocrit 37.1 % (35.3-44.9); Immature Granulocytes % 0.2 % (0-4); Lymphocytes # 2.8 K/mcL (0.6-4.6); Lymphocytes % 35.3 %; Mean Corpuscular HGB Conc 32.3 g/dL (31.6-35.5); Mean Corpuscular Hemoglobin 29.8 pg (28.0-33.3); Mean Corpuscular Volume 92.1 fL (83.0-100.0); Mean Platelet Volume 10.7 fL (9.4-12.4); Monocytes # 0.8 K/mcL (0.0-1.3); Neutrophils # 3.8 K/mcL (1.6-8.9); Platelet Count 247 K/mcL (140-400); Red Blood Count 4.03 M/mcL (3.82-4.97); Red Cell Distribution Width 14.9 % (11.5-14.5)
[2016-12-02 16:37] LABS: BUN/Creatinine Ratio 19 (6-26); Blood Urea Nitrogen 18 mg/dL (7-20); C-Reactive Protein 5 mg/L (Less than 5); Carbon Dioxide 24 mEq/L (19-29); Chloride 107 mEq/L (98-109); Glucose 85 mg/dL (70-99); Osmolality,Calculated 291 (280-300); Potassium 4.6 mEq/L (3.5-4.5); Sodium 140 mEq/L (136-145); Uric Acid 4.4 mg/dL (2.6-6.0); eGFR For African Americans > 60 (> 60); eGFR For Non-African Americans 60 (> 60)
--- NOTE | 2016-12-02 18:21 | Orthopedic Consult Note ---
Date of Encounter: 12/02/16 Time of Encounter: 18:00 Assessment and Plan (1) Right knee pain Current Visit: Yes Status: Chronic Patient to wear hinged knee brace ONLY with ambulation. It is to be removed while at rest. Patient presented to ED without walker - she is to use walker with ambulation. Pain control as needed as per Hospitalist. Patient being admitted per and patient request for per patient pain control. Patient to keep follow up with ID and [facility] as scheduled. Thank you for this consultation. Qualifiers: Chronicity: chronic Qualified Code(s): M25.561 - Pain in right knee; G89.29 - Other chronic pain; G89.29 - Other chronic pain (2) Status post total right knee replacement Current Visit: Yes Status: Chronic (3) S/P ORIF (open reduction internal fixation) fracture Current Visit: Yes Status: Chronic History of Present Illness Chief complaint: right knee pain HPI: Ms. Chen is a 61 year old female presenting to ED for right knee pain. She is s s/p right TKR 06/2013. She recently on 09/17/16 underwent right open reduction internal fixation of femoral shaft fracture for displaced right distal third femoral shaft fracture comminuted after sustaining a mechanical fall. Patient then developed post operative infection of MSSA and bacteremia and has been seen by Infectious disease since. She states she was seen by Saba Naranjo CNP with ID this morning and per patient "all labs were normal but my knee hurts bad and I just can't take it". Patient admits that she took [place] this morning which she states "it just like eating candy, it does nothing ". She presents to ED with hinged knee brace. Patient reveals she has been wearing this brace at all times including while sleeping and has not removed it per patient almost never since being applied. This brace was prescribed by Dr. Fabian and applied on 11/19/16. She denies any falls or injuries otherwise since her last appt with Dr. Fabian. She states that she believes something is wrong with her knee replacement as she states it feels like her knee is "giving out when I walk" even while wearing said brace. On exam patient is lying comfortably in ED cot. She is alert and oriented x 3. She has knee brace applied to right knee. This provider removed brace for knee inspection. Incisions to anterior knee and lateral thigh are clean, dry, and intact with no evidence of complication. Knee has dull erythema to lateral aspect and at distal portion of ORIF incision. This has a skin indentation corresponding to brace hinge. No ecchymosis, further erythema, or petechiae noted. Knee is warm to touch in all areas. Skin is dry and intact with no fluctuance or induration. Patient is tender to palpation of medial proximal tibia and lateral distal femur. Patient expresses calf tenderness to palpation though no warmth or erythema noted to right calf. ROM is intact with continued noted flexion contracture documented by Dr. Fabian at last OV. Patient is neurovascularly intact with respect to b/l lower extremities. XR/XR knee RT limited 1-2V IMPRESSION: Partial interval healing of comminuted, angulated distal femoral shaft fracture status post ORIF. Hardware is intact. Subtle lucency upper L3 representing prominent intraosseous vessel, however, a fracture cannot be excluded in this setting remote correlate short point areas. Subcutaneous soft tissue edema of the distal thigh, and right knee, nonspecific. D/ / Ilan Lacey MD / Ilan Lacey MD Interpreting Provider: Ilan Lacey MD Case discussed with Dr. Fabian. Xrays appear stable from last exam with Dr. Fabian with no acute changes. Patient to wear hinged knee brace ONLY with ambulation. It is to be removed while at rest. Patient presented to ED without walker - she is to use walker with ambulation. Pain control as needed as per Hospitalist. Patient being admitted per and patient request for per patient pain control. Patient to keep follow up with ID and Ortho as scheduled. Thank you for this consultation. Past Med Surg Social Fam HX - Past Medical History Medical history: arthritis, asthma, fibromyalgia, osteoporosis, thyroid disease Psychiatric history: anxiety, depression - Past Surgical History Surgical History: cholecystectomy, orthopedic, other, JULIANNA/BSO, thyroidectomy - Social History Smoking Status: Never smoker Smokeless Tobacco Status: No Alcohol use: none Drug use: none - Family History Father Family Member Ethnicity: Non- Living Status: Hx Family Cardiac Disorders: Yes (NC, Stroke) Hx Family Respiratory Disorders: Yes Hx Family Cancer: Yes (Lung/Metastatic) Hx Family GI Disorders: No Hx Family Endocrine Disorder: Yes (DM) Hx Family Neuromuscular Disorders: No Hx Family Neurologic Disorders: No Hx Family HEENT Disorders: No Hx Family Autoimmune Disorders: No Mother Family Member Ethnicity: Non- Living Status: Hx Family Cardiac Disorders: Yes (CHF) Hx Family Respiratory Disorders: No Hx Family Cancer: No Hx Family GI Disorders: No Hx Family Endocrine Disorder: Yes (DM) Hx Family Neuromuscular Disorders: No Hx Family Neurologic Disorders: No Hx Family HEENT Disorders: No Hx Family Autoimmune Disorders: No Brother Family Member Ethnicity: Non- Living Status: Still Living Hx Family Cardiac Disorders: Yes (HD) Hx Family Endocrine Disorder: Yes (DM) Sister Family Member Ethnicity: Non- Living Status: Still Living Medications and Allergies Citalopram [CeleXA] 20 mg PO DAILY 02/06/15 [History] Fluticasone/Salmeterol [Advair 500-50 Diskus] 1 puff IH BID 07/07/16 [History] Levothyroxine [Synthroid] 100 mcg PO QAM 07/07/16 [History] Omeprazole 20 mg PO DAILY 07/07/16 [History] Aspirin 81 mg PO DAILY tab.chew 08/01/16 [Rx] Ferrous Sulfate [Iron] 325 mg PO BID 09/16/16 [History] Magnesium Oxide [Mgo] 400 mg PO DAILY 09/16/16 [History] Gabapentin [Neurontin] 300 mg PO TID #21 09/19/16 [Rx] clonazePAM [Klonopin] 1 mg PO TID #21 tab 09/19/16 [Rx] BuPROPion XL (24 HR) [Wellbutrin Xl] 300 mg PO QAM 09/29/16 [Rx] Acetaminophen [Tylenol] 650 mg PO Q6HR PRN 12/02/16 [History] Albuterol Sulfate [Albuterol Inhaler] 2 puff IH Q4HR PRN 12/02/16 [History] Buspirone HCl [Buspar] 20 mg PO BID 12/02/16 [History] Celecoxib [Celebrex] 200 mg PO BID 12/02/16 [History] Cyclobenzaprine [Flexeril] 10 mg PO TID PRN 12/02/16 [History] Diclofenac Sodium [Voltaren] 1 appl TP QID PRN 12/02/16 [History] Docusate [Colace] 100 mg PO DAILY PRN 12/02/16 [History] Fexofenadine HCl [Allergy Relief] 180 mg PO DAILY 12/02/16 [History] HYDROcodone/Acet 5/325 mg [[place] 5-325 mg] 1 tab PO BID PRN 12/02/16 [History] Ipratropium/Albuterol Neb [Duoneb] 3 ml IH QID 12/02/16 [History] Ketotifen Fumarate [Zaditor] 1 drop OP BID 12/02/16 [History] Lactose-Reduced Food [Boost High Protein] 237 ml PO BID 12/02/16 [History] Metoprolol XL (24 HR) Succ [Toprol Xl] 12.5 mg PO DAILY 12/02/16 [History] cephALEXin [Keflex] 500 g PO Q6H 12/02/16 [History] 3 Allergy/AdvReac Type Severity Reaction Status Date / Time codeine Allergy Swelling Verified 12/02/16 15:36 of Lip/Tongue/Throat Medroxyprogesterone Allergy Swelling Verified 12/02/16 15:36 [From Provera] of Lip/Tongue/Throat meloxicam [From Mobic] Allergy Rash Verified 12/02/16 15:36 Penicillins Allergy Rash Verified 12/02/16 15:36 All Systems Reviewed: A 10-system review of systems was performed and is negative for pertinent findings except as documented above in the HPI. Physical Exam - Constitutional Vitals: Temp Pulse Resp BP Pulse Ox 98.3 F 69 16 115/65 95 12/02/16 17:58 12/02/16 17:58 12/02/16 17:58 12/02/16 17:58 12/02/16 17:58 Results - Labs Result Diagrams: 12/02/16 16:09 12/02/16 16:09 Labs: Abnormal lab results RDW 14.9 % (11.5-14.5) H 12/02/16 16:09 ESR 37 mm/hr (0-15) H 12/02/16 16:09 Potassium 4.6 mEq/L (3.5-4.5) H 12/02/16 16:09 C-Reactive Protein 5 mg/L (Less than 5) H 12/02/16 16:09 All other labs normal. Consult Discharge Plan - Plan Referrals: Tracie Castelan, OBSERVATORY DIRECTOR [Primary Care Provider] -
--- NOTE | 2016-12-02 18:57 | Internal Med History&Physical ---
Date of Encounter: 12/02/16 Time of Encounter: 18:56 Assessment and Plan (1) Intractable neuropathic pain of knee Current visit: Yes Status: Acute Patient with prior history of knee replacement from severe arthritis now complaining of swelling of the right knee and intractable pain, orthopedic surgery has been consulted, for now we will manage pain and appreciate PT/OT input, weight bearing as tolerated with knee brace Qualifiers: Laterality: right Qualified Code(s): G57.91 - Unspecified mononeuropathy of right lower limb (2) Hyperkalemia Current visit: Yes Status: Acute etiology most likely related to cellular shift, no need for urgent intervention , well follow BMP (3) Hypothyroidism Current visit: Yes Status: Chronic Continue home Synthroid dose Qualifiers: Hypothyroidism type: acquired Qualified Code(s): E03.9 - Hypothyroidism, unspecified (4) Paroxysmal a-fib Current visit: Yes Status: Chronic Currently in sinus, continue metoprolol and aspirin (5) Neuropathic pain Current visit: Yes Status: Chronic Continuing gabapentin (6) Depression Current visit: Yes Status: Chronic Continue home medications Qualifiers: Depression Type: major depressive disorder Major depression recurrence: recurrent Active/Remission status: in partial remission Qualified Code(s): F33.41 - Major depressive disorder, recurrent, in partial remission (7) Anxiety Current visit: Yes Status: Chronic Continue home medications Internal Medicine - H&P: HPI Chief complaint: right knee pain Admitted From: Emergency Dept Plans for Post Hospital Care: Home History of present illness: Ms. Chen is a 61 year old female with a history of right total knee replacement about 4 years ago who comes in with intractable right knee pain. She reports being in the usual state of health until about 2 days ago when she began experiencing intermittent sharp/stabbing right knee pain, the pain was 10/ 10 in severity, non radiating, associated with knee swelling and redness. The pain was worse with movement and ambulation. She was trying to manage at home but yesterday the pain worsened prompting her to come in today for further evaluation. She denies fever, chills, general malaise. No nausea, vomiting, change in urinary or bowel habits. She has not experienced any recent falls or trauma except 4 months ago when she had a fall with right femur fracture. She developed MSSA bacteremia in 09/2016 and was on IV antibiotics but currently has been on oral antibiotics and has infectious disease followup. Past Med Surg Social Fam HX - Past Medical History Medical history: arthritis, asthma, fibromyalgia, osteoporosis, thyroid disease Psychiatric history: anxiety, depression - Past Surgical History Surgical History: cholecystectomy, orthopedic, other, JULIANNA/BSO, thyroidectomy - Social History Smoking Status: Never smoker Smokeless Tobacco Status: No Alcohol use: none Drug use: none - Family History Father Family Member Ethnicity: Non- Living Status: Hx Family Cardiac Disorders: Yes ([place], Stroke) Hx Family Respiratory Disorders: Yes Hx Family Cancer: Yes (Lung/Metastatic) Hx Family GI Disorders: No Hx Family Endocrine Disorder: Yes (DM) Hx Family Neuromuscular Disorders: No Hx Family Neurologic Disorders: No Hx Family HEENT Disorders: No Hx Family Autoimmune Disorders: No Mother Family Member Ethnicity: Non- Living Status: Hx Family Cardiac Disorders: Yes (CHF) Hx Family Respiratory Disorders: No Hx Family Cancer: No Hx Family GI Disorders: No Hx Family Endocrine Disorder: Yes (DM) Hx Family Neuromuscular Disorders: No Hx Family Neurologic Disorders: No Hx Family HEENT Disorders: No Hx Family Autoimmune Disorders: No Brother Family Member Ethnicity: Non- Living Status: Still Living Hx Family Cardiac Disorders: Yes (HD) Hx Family Endocrine Disorder: Yes (DM) Sister Family Member Ethnicity: Non- Living Status: Still Living Internal Medicine - H&P: Meds Citalopram [CeleXA] 20 mg PO DAILY 02/06/15 [History] Fluticasone/Salmeterol [Advair 500-50 Diskus] 1 puff IH BID 07/07/16 [History] Levothyroxine [Synthroid] 100 mcg PO QAM 07/07/16 [History] Omeprazole 20 mg PO DAILY 07/07/16 [History] Aspirin 81 mg PO DAILY tab.chew 08/01/16 [Rx] Ferrous Sulfate [Iron] 325 mg PO BID 09/16/16 [History] Magnesium Oxide [Mgo] 400 mg PO DAILY 09/16/16 [History] Gabapentin [Neurontin] 300 mg PO TID #21 09/19/16 [Rx] clonazePAM [Klonopin] 1 mg PO TID #21 tab 09/19/16 [Rx] BuPROPion XL (24 HR) [Wellbutrin Xl] 300 mg PO QAM 09/29/16 [Rx] Acetaminophen [Tylenol] 650 mg PO Q6HR PRN 12/02/16 [History] Albuterol Sulfate [Albuterol Inhaler] 2 puff IH Q4HR PRN 12/02/16 [History] Buspirone HCl [Buspar] 20 mg PO BID 12/02/16 [History] Celecoxib [Celebrex] 200 mg PO BID 12/02/16 [History] Cyclobenzaprine [Flexeril] 10 mg PO TID PRN 12/02/16 [History] Diclofenac Sodium [Voltaren] 1 appl TP QID PRN 12/02/16 [History] Docusate [Colace] 100 mg PO DAILY PRN 12/02/16 [History] Fexofenadine HCl [Allergy Relief] 180 mg PO DAILY 12/02/16 [History] HYDROcodone/Acet 5/325 mg [Redmond 5-325 mg] 1 tab PO BID PRN 12/02/16 [History] Ipratropium/Albuterol Neb [Duoneb] 3 ml IH QID 12/02/16 [History] Ketotifen Fumarate [Zaditor] 1 drop OP BID 12/02/16 [History] Lactose-Reduced Food [Boost High Protein] 237 ml PO BID 12/02/16 [History] Metoprolol XL (24 HR) Succ [Toprol Xl] 12.5 mg PO DAILY 12/02/16 [History] cephALEXin [Keflex] 500 g PO Q6H 12/02/16 [History] 3 Allergy/AdvReac Type Severity Reaction Status Date / Time codeine Allergy Swelling Verified 12/02/16 15:36 of Lip/Tongue/Throat Medroxyprogesterone Allergy Swelling Verified 12/02/16 15:36 [From Provera] of Lip/Tongue/Throat meloxicam [From Mobic] Allergy Rash Verified 12/02/16 15:36 Penicillins Allergy Rash Verified 12/02/16 15:36 All Systems PM: A 10-system review of systems was performed and is negative for pertinent findings except as documented above in the HPI. - Constitutional Vitals: Temp Pulse Resp BP Pulse Ox 98.0 F 69 15 106/68 96 12/02/16 18:45 12/02/16 18:45 12/02/16 18:45 12/02/16 18:45 12/02/16 18:45 GENERAL: Adult female, lying in bed, Alert, not in obvious pain or distress HEENT: NC/AT, EOMI, PERRLA, anicteric sclera, normal conjunctiva, supple, clear nares, moist mucous membranes, RESP: Lungs are clear to auscultation bilaterally, reduced AE from poor effort , no crackles or wheeze CARDIO: Normal heart sounds with RRR, no murmurs, no JVD, no ankle edema GI: Soft, full, no tenderness, no organomegaly felt, normal bowel sounds heard MUSCULOSKELETAL: Grossly normal movements bilaterally, right knee with effusion , tender to touch, no redness noticed, NEUROLOGIC: CN 2-12 intact grossly. No gross motor/sensory deficit appreciated, PSYCHIATRY: AAO x 3. Mood is fair SKIN: right knee scar, BUE hypopigmented areas Internal Med - H&P Results - Labs CBC & Chem 7: 12/02/16 16:09 12/02/16 16:09 - Diagnostic Studies Other Images Status: image reviewed by me (knee imaging)
[2016-12-02] MEDS ORDERED: Naloxone 0.4 MG/ML INJ IVP PRN (19:14)
[2016-12-02] MEDS ORDERED: Acetaminophen 325 MG TABLET PO PRN (19:14)
[2016-12-02] MEDS ORDERED: (Diclofenac Sodium [Voltaren] 1 APPL) TP PRN (19:17)
[2016-12-02] MEDS ORDERED: cephALEXin 500 MG CAPSULE PO SCH (19:30)
[2016-12-02] MEDS: *HR* OxyCODONE Immed Rel 5 MG TABLET PO PRN ×2 (20:29→22:16)
[2016-12-02] MEDS: clonazePAM 1 MG TABLET PO SCH (20:30)
[2016-12-02] MEDS: Gabapentin 300 MG CAPSULE PO SCH (20:30)
[2016-12-02] MEDS: cephALEXin 500 MG CAPSULE PO SCH (20:35)
[2016-12-03] MEDS: cephALEXin 500 MG CAPSULE PO SCH ×4 (02:48→20:43)
[2016-12-03] MEDS: *HR* OxyCODONE Immed Rel 5 MG TABLET PO PRN ×4 (02:51→18:45)
[2016-12-03] MEDS: Loratadine 10 MG TABLET PO SCH (08:01)
[2016-12-03] MEDS: Metoprolol XL (24 HR) Succ 25 MG TAB.ER.24H PO SCH (08:01)
[2016-12-03] MEDS: BuPROPion XL (24 HR) 150 MG TABLET PO SCH (08:01)
[2016-12-03] MEDS: clonazePAM 1 MG TABLET PO SCH ×3 (08:01→20:43)
[2016-12-03] MEDS: Gabapentin 300 MG CAPSULE PO SCH ×3 (08:01→20:43)
[2016-12-03] MEDS: Aspirin 81 MG TAB.CHEW PO SCH (08:01)
[2016-12-03] MEDS: Albuterol 2.5 MG/3 ML NEBULIZER IH PRN ×3 (09:14→15:57)
--- NOTE | 2016-12-03 14:01 | Orthopedics Progress Note ---
Date of Encounter: 12/03/16 Time of Encounter: 12:00 - Assessment and Plan (1) Right knee pain Current Visit: Yes Status: Chronic Patient to wear hinged knee brace ONLY with ambulation. It is to be removed while at rest. Patient presented to ED without walker - she is to use walker with ambulation. Pain control as needed as per Hospitalist. Recommend adding Lidocaine patch for local pain control. Patient being admitted per and patient request for per patient pain control. Patient to keep follow up with ID and [facility] as scheduled. Patient is to be taking antibiotics per infectious disease. Last note from ID reveals patient taking Rifampin 300mg BID and Keflex 500mg q 6 hr. Qualifiers: Chronicity: chronic Qualified Code(s): M25.561 - Pain in right knee; G89.29 - Other chronic pain; G89.29 - Other chronic pain (2) Status post total right knee replacement Current Visit: Yes Status: Chronic (3) S/P ORIF (open reduction internal fixation) fracture Current Visit: Yes Status: Chronic Subjective Principal diagnosis: right knee pain Interval history: Ms. Chen is a 61 year old female presenting to ED for right knee pain. She is s s/p right TKR 06/2013. She recently on 09/17/16 underwent right open reduction internal fixation of femoral shaft fracture for displaced right distal third femoral shaft fracture comminuted after sustaining a mechanical fall. Patient then developed post operative infection of MSSA and bacteremia and has been seen by Infectious disease since. She is resting comfortably in bed with numerous reading material on the bed. She states she still has pain however now localizes it to lateral aspect of knee at distal incision. She relates that she doesn't understand why she is still having pain - "Shouldn't I be pain free now since it is healed?". This provider attempted to explain tissue healing process, her altered anatomy and anticipated healing process. Informed patient that her fracture is not fully healed yet and she is likely to continue to have pain intermittently and with long periods of ambulation. She continues to ask if she has a problem with her knee implant stating that she is concerned when she fell "4 months ago" that she might have damaged her implant. Informed patient that was possible however given her complication with the fracture and infection that she has multiple problems occurring in that extremity and more healing time is likely necessary. On exam patient is comfortable in bed with no complaints of pain. Knee appears unchanged in examination from yesterday though skin is less erythematous and not irriated. No evidence of drainage or incision problem at this time. Patient is neurovascularly intact. Given her history and patient's difficulty grasping anticipated recovery course and instructions will encourage close follow up outpatient with [facility] and home health if patient unwilling or unqualified to go to inpatient rehab. Patient states she does not wish to go to inpatient rehab as she states "they don't treat me the way I want to be treated". Recommend adding Lidocaine patch for local pain control. Objective Vital signs: Vital Signs Temp Pulse Resp BP Pulse Ox 12/03/16 11:39 98.3 F 72 16 117/78 92 12/03/16 09:25 15 96 12/03/16 07:34 98.5 F 76 17 108/54 95 12/03/16 04:12 98.1 F 73 15 108/67 94 12/03/16 00:07 98.1 F 72 17 113/67 94 12/02/16 18:45 98.0 F 69 15 106/68 96 12/02/16 17:58 98.3 F 69 16 115/65 95 Intake and Output 12/02/16 12/03/16 12/03/16 23:59 07:59 15:59 Intake Total 250 / 250 Output Total 400 / 400 Balance -150 / -150 Intake: Oral 250 / 250 Output: Urine 400 / 400 Other: Meal Lunch Percent of Meal Consumed 100% # Voids 1 Weight 81.817 kg 81.788 kg Patient Weight 12/03/16 23:59 Weight 81.788 kg - Labs CBC & BMP: 12/02/16 16:09 12/02/16 16:09 Labs: Abnormal lab results RDW 14.9 % (11.5-14.5) H 12/02/16 16:09 ESR 37 mm/hr (0-15) H 12/02/16 16:09 Potassium 4.6 mEq/L (3.5-4.5) H 12/02/16 16:09 C-Reactive Protein 5 mg/L (Less than 5) H 12/02/16 16:09 Consult Discharge Plan - Plan Referrals: rTacie Castelan CNP [Primary Care Provider] -
--- NOTE | 2016-12-03 18:51 | Internal Med Progress Note ---
Date of Encounter: 12/03/16 Time of Encounter: 18:49 - Assessment and plan (1) Intractable neuropathic pain of knee Current Visit: Yes Status: Acute Assessment and plan: History of prior knee replacement Severe arthritis Has constant pain. Evaluated by orthopedics. We will follow the recommendations. Likely home in next 1-2 days. Qualifiers: Laterality: right Qualified Code(s): G57.91 - Unspecified mononeuropathy of right lower limb (2) Hypothyroidism Current Visit: Yes Status: Chronic Assessment and plan: Other replacement therapy. Qualifiers: Hypothyroidism type: acquired Qualified Code(s): E03.9 - Hypothyroidism, unspecified (3) Wound infection following procedure Current Visit: No Status: Acute Assessment and plan: Infectious diseases on the board and orthopedics is in communication with them - Subjective Interval history: Patient seen and examined. Chart reviewed. Patient is lying in a bed. Patient still complains of occasional pain in her right knee. Orthopedics informed - Constitutional Vitals: Temp Pulse Resp BP Pulse Ox 98.5 F 73 15 111/63 96 12/03/16 15:19 12/03/16 15:19 12/03/16 16:30 12/03/16 15:19 12/03/16 16:30 General appearance: Present: A&O X 3, pleasant, no acute distress, answers questions appropriately - Head Head exam: Present: atraumatic, normocephalic - Eye Eye exam: Present: PERRL, conjuntiva pink, sclera anicteric Pupils: Present: PERRL - Neck Neck exam general surgery: Present: supple, trachea midline. Absent: lymphadenopathy - Respiratory Respiratory exam: Present: CTAB. Absent: accessory muscle use, rales, rhonchi, wheezes - Cardiovascular Cardiovascular exam: Present: RRR, +S1, +S2. Absent: diastolic murmur, gallop, rubs, systolic murmur - GI/Abdominal GI/Abdominal exam: Present: normal bowel sounds, soft, no peritoneal signs. Absent: distended, tenderness - Extremities Exam Extremities exam: Present: warm, radial pulses palpable and symmetrical. Absent : calf tenderness, cyanotic, pedal edema - Neurological Exam Neurological exam: Present: CN II-XII intact, oriented X3, no focal deficits. Absent: pronater drift, facial droop, speech deficit - Skin Skin exam: Present: dry, intact Internal Medicine: Result - Labs CBC & Chem 7: 12/02/16 16:09 12/02/16 16:09 Consult Discharge Plan - Plan Referrals: Tracie Castelan CNP [Primary Care Provider] -
[2016-12-04] MEDS: *HR* OxyCODONE Immed Rel 5 MG TABLET PO PRN ×4 (02:01→20:00)
[2016-12-04] MEDS: cephALEXin 500 MG CAPSULE PO SCH ×4 (02:02→21:16)
[2016-12-04] MEDS: Albuterol 2.5 MG/3 ML NEBULIZER IH PRN (03:38)
[2016-12-04 06:28] LABS: Basophils # 0.1 K/mcL (0.0-0.2); Basophils % 0.8 %; Eosinophils # 0.5 K/mcL (0.0-0.6); Eosinophils % 6.5 %; Hematocrit 34.8 % (35.3-44.9); Hemoglobin 11.2 g/dL (11.5-15.4); Immature Granulocytes % 0.4 % (0-4); Lymphocytes # 2.7 K/mcL (0.6-4.6); Lymphocytes % 32.3 %; Mean Corpuscular HGB Conc 32.2 g/dL (31.6-35.5); Mean Corpuscular Hemoglobin 29.4 pg (28.0-33.3); Mean Corpuscular Volume 91.3 fL (83.0-100.0); Monocytes # 0.9 K/mcL (0.0-1.3); Monocytes % 10.6 %; Neutrophils # 4.1 K/mcL (1.6-8.9); Platelet Count 239 K/mcL (140-400); Red Blood Count 3.81 M/mcL (3.82-4.97); Red Cell Distribution Width 14.9 % (11.5-14.5); Segmented Neutrophils % 49.4 %
[2016-12-04 06:39] LABS: Alanine Aminotransferase 20 Units/L (0-55); Albumin 2.9 g/dL (3.5-5.0); Albumin/Globulin Ratio 0.7 (1.1-2.2); Alkaline Phosphatase 146 Units/L (38-126); Aspartate Amino Transferase 26 Units/L (5-34); BUN/Creatinine Ratio 21 (6-26); Blood Urea Nitrogen 21 mg/dL (7-20); Calcium 8.8 mg/dL (8.6-10.8); Carbon Dioxide 26 mEq/L (19-29); Chloride 105 mEq/L (98-109); Glucose 101 mg/dL (70-99); Osmolality,Calculated 291 (280-300); Sodium 139 mEq/L (136-145); Total Protein 6.9 g/dL (6.0-8.3); eGFR For African Americans > 60 (> 60); eGFR For Non-African Americans 57 (> 60)
[2016-12-04 06:41] LABS: Bilirubin,Total < 0.2 mg/dL (0.2-1.2)
[2016-12-04] MEDS: Loratadine 10 MG TABLET PO SCH (09:05)
[2016-12-04] MEDS: Metoprolol XL (24 HR) Succ 25 MG TAB.ER.24H PO SCH (09:05)
[2016-12-04] MEDS: Gabapentin 300 MG CAPSULE PO SCH ×3 (09:05→20:00)
[2016-12-04] MEDS: clonazePAM 1 MG TABLET PO SCH ×3 (09:06→20:00)
[2016-12-04] MEDS: Aspirin 81 MG TAB.CHEW PO SCH (09:06)
[2016-12-04] MEDS: BuPROPion XL (24 HR) 150 MG TABLET PO SCH (09:06)
--- NOTE | 2016-12-04 14:00 | Orthopedics Progress Note ---
Date of Encounter: 12/04/16 Time of Encounter: 13:59 Subjective Principal diagnosis: right knee pain Interval history: Patient seen today well known to me status post open reduction internal fixation of periprosthetic right femur fracture. Patient probably pain across the front of the knee and catching. This is not unusual following this type of traumatic injury. On physical exam her incision is well-healed no drainage no significant erythema. Patient will continue with her therapy. Follow-up in the office one week after discharge. Objective Vital signs: Vital Signs Temp Pulse Resp BP Pulse Ox 12/04/16 12:12 98.1 F 74 15 135/80 96 12/04/16 06:41 98.6 F 86 14 113/75 94 12/04/16 04:04 98.7 F 88 18 102/75 93 12/04/16 03:39 18 94 12/03/16 23:07 98.7 F 74 17 107/68 93 12/03/16 18:46 98.4 F 78 18 102/60 94 12/03/16 16:30 15 96 12/03/16 15:19 98.5 F 73 14 111/63 95 Intake and Output 12/03/16 12/04/16 12/04/16 23:59 07:59 15:59 Intake Total 0 / 0 0 / 0 360 / 360 Output Total 0 / 0 0 / 0 450 / 450 Balance 0 / 0 0 / 0 -90 / -90 Intake: Oral 0 / 0 0 / 0 360 / 360 Output: Urine 0 / 0 0 / 0 450 / 450 Other: Meal Dinner Breakfast Percent of Meal Consumed 85% 100% Stool Size Moderate Stool Consistency formed Stool Characteristics Normal for Patient Stool Color Brown # Voids 2 # Bowel Movements 1 - Labs CBC & BMP: 12/04/16 05:33 12/04/16 05:33 Labs: Abnormal lab results RBC 3.81 M/mcL (3.82-4.97) L 12/04/16 05:33 Hgb 11.2 g/dL (11.5-15.4) L 12/04/16 05:33 Hct 34.8 % (35.3-44.9) L 12/04/16 05:33 RDW 14.9 % (11.5-14.5) H 12/04/16 05:33 ESR 37 mm/hr (0-15) H 12/02/16 16:09 BUN 21 mg/dL (7-20) H 12/04/16 05:33 Est GFR (Non-Af Amer) 57 (> 60) L 12/04/16 05:33 Glucose 101 mg/dL (70-99) H 12/04/16 05:33 Total Bilirubin < 0.2 mg/dL (0.2-1.2) L 12/04/16 05:33 Alkaline Phosphatase 146 Units/L (38-126) H 12/04/16 05:33 C-Reactive Protein 5 mg/L (Less than 5) H 12/02/16 16:09 Albumin 2.9 g/dL (3.5-5.0) L 12/04/16 05:33 Globulin 4.0 g/dL (2.4-3.5) H 12/04/16 05:33 Albumin/Globulin Ratio 0.7 (1.1-2.2) L 12/04/16 05:33 Consult Discharge Plan - Plan Referrals: Tracie Castelan, [employer] [facility] [Primary Care Provider] -
--- NOTE | 2016-12-04 17:48 | Internal Med Progress Note ---
Date of Encounter: 12/04/16 Time of Encounter: 17:46 - Assessment and plan (1) Intractable neuropathic pain of knee Current Visit: Yes Status: Acute Assessment and plan: History of prior knee replacement Severe arthritis Has constant pain. Evaluated by orthopedics. We will follow the recommendations. Likely home in next 1-2 days. 12/04/2016. Patient still complains of occasional pain. Patient was seen by orthopedics. Patient is presently on IV pain medication. Plan: Home tomorrow. Qualifiers: Laterality: right Qualified Code(s): G57.91 - Unspecified mononeuropathy of right lower limb (2) Hypothyroidism Current Visit: Yes Status: Chronic Assessment and plan: Other replacement therapy. Qualifiers: Hypothyroidism type: acquired Qualified Code(s): E03.9 - Hypothyroidism, unspecified (3) Wound infection following procedure Current Visit: No Status: Acute Assessment and plan: Infectious diseases on the board and orthopedics is in communication with them - Subjective Interval history: Patient seen and examined. Chart reviewed. Patient is lying in a bed. Patient still complains of occasional pain in her right knee. Orthopedics informed 12/04/2016. Patient seen and examined. Chart reviewed. Patient is comfortably lying in bed. Patient still complains of occasional pain. Orthopedics surgery input appreciated. - Constitutional Vitals: Temp Pulse Resp BP Pulse Ox 98.2 F 83 16 109/71 94 12/04/16 14:49 12/04/16 14:49 12/04/16 14:49 12/04/16 14:49 12/04/16 14:49 General appearance: Present: A&O X 3, pleasant, no acute distress, answers questions appropriately - Head Head exam: Present: atraumatic, normocephalic - Eye Eye exam: Present: PERRL, conjuntiva pink, sclera anicteric Pupils: Present: PERRL - Neck Neck exam general surgery: Present: supple, trachea midline. Absent: lymphadenopathy - Respiratory Respiratory exam: Present: CTAB. Absent: accessory muscle use, rales, rhonchi, wheezes - Cardiovascular Cardiovascular exam: Present: RRR, +S1, +S2. Absent: diastolic murmur, gallop, rubs, systolic murmur - GI/Abdominal GI/Abdominal exam: Present: normal bowel sounds, soft, no peritoneal signs. Absent: distended, tenderness - Extremities Exam Extremities exam: Present: warm, radial pulses palpable and symmetrical. Absent : calf tenderness, cyanotic, pedal edema - Neurological Exam Neurological exam: Present: CN II-XII intact, oriented X3, no focal deficits. Absent: pronater drift, facial droop, speech deficit - Skin Skin exam: Present: dry, intact Internal Medicine: Result - Labs CBC & Chem 7: 12/04/16 05:33 12/04/16 05:33 Labs: Short CBC 12/04/16 Range/Units 05:33 WBC 8.3 (4.3-11.1) K/mcL Hgb 11.2 L (11.5-15.4) g/dL Hct 34.8 L (35.3-44.9) % Plt Count 239 (140-400) K/mcL Neutrophils # 4.1 (1.6-8.9) K/mcL BMP 12/04/16 05:33 Sodium 139 Potassium 4.0 Chloride 105 Carbon Dioxide 26 BUN 21 H Creatinine 0.99 Glucose 101 H Calcium 8.8 Liver Function 12/04/16 Range/Units 05:33 Total Bilirubin < 0.2 L (0.2-1.2) mg/dL AST 26 (5-34) Units/L ALT 20 (0-55) Units/L Alkaline Phosphatase 146 H (38-126) Units/L Albumin 2.9 L (3.5-5.0) g/dL Consult Discharge Plan - Plan Referrals: Tracie Castelan, [facility] [Primary Care Provider] -
[2016-12-05] MEDS: cephALEXin 500 MG CAPSULE PO SCH ×4 (03:45→21:40)
[2016-12-05] MEDS: *HR* OxyCODONE Immed Rel 5 MG TABLET PO PRN ×2 (03:45→20:45)
[2016-12-05] MEDS: Albuterol 2.5 MG/3 ML NEBULIZER IH PRN ×2 (04:27→20:09)
[2016-12-05 06:09] LABS: Alanine Aminotransferase 19 Units/L (0-55); Albumin/Globulin Ratio 0.7 (1.1-2.2); Alkaline Phosphatase 151 Units/L (38-126); Aspartate Amino Transferase 22 Units/L (5-34); BUN/Creatinine Ratio 17 (6-26); Bilirubin,Total 0.2 mg/dL (0.2-1.2); Blood Urea Nitrogen 16 mg/dL (7-20); Calcium 8.7 mg/dL (8.6-10.8); Carbon Dioxide 26 mEq/L (19-29); Chloride 100 mEq/L (98-109); Globulin 4.2 g/dL (2.4-3.5); Glucose 151 mg/dL (70-99); Osmolality,Calculated 286 (280-300); Potassium 3.4 mEq/L (3.5-4.5); Sodium 136 mEq/L (136-145); Total Protein 7.2 g/dL (6.0-8.3); eGFR For African Americans > 60 (> 60); eGFR For Non-African Americans > 60 (> 60)
--- NOTE | 2016-12-05 07:58 | Internal Med Progress Note ---
Date of Encounter: 12/05/16 Time of Encounter: 07:56 - Assessment and plan (1) Intractable neuropathic pain of knee Current Visit: Yes Status: Acute Assessment and plan: History of prior knee replacement Severe arthritis Has constant pain. Evaluated by orthopedics. We will follow the recommendations. Likely home in next 1-2 days. 12/04/2016. Patient still complains of occasional pain. Patient was seen by orthopedics. Patient is presently on IV pain medication. Plan: Home tomorrow. 12/05/2016. Patient denies any knee pain. There was a concern regarding elevated body temperature this morning. Noted that her oral temperature was 101 degrees Fahrenheit. Objective temperature was 98 degrees Fahrenheit. Patient just had her coffee. Patient denies any knee pain. I discussed with the patient at length. Patient prefers to stay for 1 day as she does not have a ride available till tomorrow morning. Qualifiers: Laterality: right Qualified Code(s): G57.91 - Unspecified mononeuropathy of right lower limb (2) Hypothyroidism Current Visit: Yes Status: Chronic Assessment and plan: Other replacement therapy. Qualifiers: Hypothyroidism type: acquired Qualified Code(s): E03.9 - Hypothyroidism, unspecified (3) Wound infection following procedure Current Visit: No Status: Acute Assessment and plan: Infectious diseases on the board and orthopedics is in communication with them - Subjective Interval history: Patient seen and examined. Chart reviewed. Patient is lying in a bed. Patient still complains of occasional pain in her right knee. Orthopedics informed 12/04/2016. Patient seen and examined. Chart reviewed. Patient is comfortably lying in bed. Patient still complains of occasional pain. Orthopedics surgery input appreciated. 12/05/2016. Patient seen and examined. Chart reviewed. Apparently there was a concern regarding fever. He should not just had her coffee. Oral temperature was 101 degrees Fahrenheit Axiillary temperature was 98 degrees Fahrenheit. Patient denies any knee joint pain. - Constitutional Vitals: Temp Pulse Resp BP Pulse Ox 102.6 F H 99 14 120/71 95 12/05/16 07:03 12/05/16 07:03 12/05/16 07:03 12/05/16 07:03 12/05/16 07:03 General appearance: Present: A&O X 3, pleasant, no acute distress, answers questions appropriately - Head Head exam: Present: atraumatic, normocephalic - Eye Eye exam: Present: PERRL, conjuntiva pink, sclera anicteric Pupils: Present: PERRL - Neck Neck exam general surgery: Present: supple, trachea midline. Absent: lymphadenopathy - Respiratory Respiratory exam: Present: CTAB. Absent: accessory muscle use, rales, rhonchi, wheezes - Cardiovascular Cardiovascular exam: Present: RRR, +S1, +S2. Absent: diastolic murmur, gallop, rubs, systolic murmur - GI/Abdominal GI/Abdominal exam: Present: normal bowel sounds, soft, no peritoneal signs. Absent: distended, tenderness - Extremities Exam Extremities exam: Present: warm, radial pulses palpable and symmetrical. Absent : calf tenderness, cyanotic, pedal edema - Neurological Exam Neurological exam: Present: CN II-XII intact, oriented X3, no focal deficits. Absent: pronater drift, facial droop, speech deficit - Skin Skin exam: Present: dry, intact Internal Medicine: Result - Labs CBC & Chem 7: 12/04/16 05:33 12/05/16 05:24 Labs: BMP 12/05/16 05:24 Sodium 136 Potassium 3.4 L Chloride 100 Carbon Dioxide 26 BUN 16 Creatinine 0.93 Glucose 151 H Calcium 8.7 Liver Function 12/05/16 Range/Units 05:24 Total Bilirubin 0.2 (0.2-1.2) mg/dL AST 22 (5-34) Units/L ALT 19 (0-55) Units/L Alkaline Phosphatase 151 H (38-126) Units/L Albumin 3.0 L (3.5-5.0) g/dL Consult Discharge Plan - Plan Referrals: Tracie Castelan, [employer] [Primary Care Provider] -
[2016-12-05] MEDS: BuPROPion XL (24 HR) 150 MG TABLET PO SCH (08:28)
[2016-12-05] MEDS: Gabapentin 300 MG CAPSULE PO SCH ×3 (08:28→21:40)
[2016-12-05] MEDS: clonazePAM 1 MG TABLET PO SCH ×3 (08:28→21:40)
[2016-12-05] MEDS: Metoprolol XL (24 HR) Succ 25 MG TAB.ER.24H PO SCH (08:28)
[2016-12-05] MEDS: Aspirin 81 MG TAB.CHEW PO SCH (08:29)
[2016-12-05] MEDS: Loratadine 10 MG TABLET PO SCH (08:29)
[2016-12-05 09:13] LABS: Basophils # 0.1 K/mcL (0.0-0.2); Basophils % 0.5 %; Eosinophils # 0.5 K/mcL (0.0-0.6); Eosinophils % 3.8 %; Hematocrit 33.3 % (35.3-44.9); Hemoglobin 10.9 g/dL (11.5-15.4); Immature Granulocytes % 0.5 % (0-4); Immature Platelets 4.8 % (1.1-6.1); Lymphocytes # 1.9 K/mcL (0.6-4.6); Lymphocytes % 14.8 %; Mean Corpuscular HGB Conc 32.7 g/dL (31.6-35.5); Mean Corpuscular Hemoglobin 29.8 pg (28.0-33.3); Mean Platelet Volume 10.5 fL (9.4-12.4); Monocytes # 0.8 K/mcL (0.0-1.3); Neutrophils # 9.6 K/mcL (1.6-8.9); Platelet Count 214 K/mcL (140-400); Red Blood Count 3.66 M/mcL (3.82-4.97); Red Cell Distribution Width 14.6 % (11.5-14.5); Segmented Neutrophils % 74.4 %
[2016-12-06] MEDS: cephALEXin 500 MG CAPSULE PO SCH ×2 (03:31→09:40)
[2016-12-06] MEDS: *HR* OxyCODONE Immed Rel 5 MG TABLET PO PRN ×2 (04:02→09:40)
[2016-12-06 04:53] VITALS: BP 109/57
--- NOTE | 2016-12-06 07:23 | Orthopedics Progress Note ---
Date of Encounter: 12/06/16 Time of Encounter: 07:22 Subjective Principal diagnosis: right knee pain Interval history: Patient seen this morning, patient was sitting up with her brace on putting socks on apparently doing well. We discussed that treatment of her replacement will be evaluated after the fractures completely healed. Patient appears to understand. She will be followed up as an outpatient. Objective Vital signs: Vital Signs Temp Pulse Resp BP Pulse Ox 12/06/16 04:51 98.2 F 80 16 109/57 95 12/05/16 20:10 19 93 12/05/16 19:08 98.6 F 76 14 113/75 92 12/05/16 15:24 98.2 F 78 14 96/56 95 12/05/16 11:32 98.8 F 80 16 115/73 92 Intake and Output 12/05/16 12/05/16 12/06/16 15:59 23:59 07:59 Intake Total 120 / 120 120 / 120 0 / 0 Output Total 0 / 0 0 / 0 Balance 120 / 120 120 / 120 0 / 0 Intake: Oral 120 / 120 120 / 120 0 / 0 Output: Urine 0 / 0 0 / 0 Other: Meal Breakfast Dinner Percent of Meal Consumed 25% 5% Stool Size Small Stool Consistency formed Stool Characteristics Normal for Patient Stool Color Brown # Voids 2 1 # Bowel Movements 1 0 Weight 82.3 kg Patient Weight 12/06/16 23:59 Weight 82.3 kg - Labs CBC & BMP: 12/05/16 09:05 12/05/16 05:24 Labs: Abnormal lab results WBC 12.9 K/mcL (4.3-11.1) H D 12/05/16 09:05 RBC 3.66 M/mcL (3.82-4.97) L 12/05/16 09:05 Hgb 10.9 g/dL (11.5-15.4) L 12/05/16 09:05 Hct 33.3 % (35.3-44.9) L 12/05/16 09:05 RDW 14.6 % (11.5-14.5) H 12/05/16 09:05 Neutrophils # 9.6 K/mcL (1.6-8.9) H 12/05/16 09:05 ESR 37 mm/hr (0-15) H 12/02/16 16:09 Potassium 3.4 mEq/L (3.5-4.5) L 12/05/16 05:24 Glucose 151 mg/dL (70-99) H 12/05/16 05:24 Alkaline Phosphatase 151 Units/L (38-126) H 12/05/16 05:24 C-Reactive Protein 5 mg/L (Less than 5) H 12/02/16 16:09 Albumin 3.0 g/dL (3.5-5.0) L 12/05/16 05:24 Globulin 4.2 g/dL (2.4-3.5) H 12/05/16 05:24 Albumin/Globulin Ratio 0.7 (1.1-2.2) L 12/05/16 05:24 Consult Discharge Plan - Plan Referrals: Tracie Castelan CNP [Primary Care Provider] - 12/10/16 2:00 pm
--- NOTE | 2016-12-06 09:27 | Discharge Summary ---
Date of Encounter: 12/06/16 Time of Encounter: 09:24 - Discharge Diagnosis (1) Intractable neuropathic pain of knee Priority: Primary Status: Acute Qualifiers: Laterality: right Qualified Code(s): G57.91 - Unspecified mononeuropathy of right lower limb (2) Hypothyroidism Priority: Secondary Status: Chronic Qualifiers: Hypothyroidism type: acquired Qualified Code(s): E03.9 - Hypothyroidism, unspecified (3) Wound infection following procedure Priority: Secondary Status: Acute - Discharge Medications Prescriptions: OxyCODONE Immed Rel [Roxicodone 5 MG] 5 mg PO Q4HR PRN #7 tablet PRN Reason: Moderate Pain Home Medications: Citalopram [CeleXA] 20 mg PO DAILY 02/06/15 [History] Fluticasone/Salmeterol [Advair 500-50 Diskus] 1 puff IH BID 07/07/16 [History] Levothyroxine [Synthroid] 100 mcg PO QAM 07/07/16 [History] Omeprazole 20 mg PO DAILY 07/07/16 [History] Aspirin 81 mg PO DAILY tab.chew 08/01/16 [Rx] Ferrous Sulfate [Iron] 325 mg PO BID 09/16/16 [History] Magnesium Oxide [Mgo] 400 mg PO DAILY 09/16/16 [History] Gabapentin [Neurontin] 300 mg PO TID #21 09/19/16 [Rx] clonazePAM [Klonopin] 1 mg PO TID #21 tab 09/19/16 [Rx] BuPROPion XL (24 HR) [Wellbutrin Xl] 300 mg PO QAM 09/29/16 [Rx] Acetaminophen [Tylenol] 650 mg PO Q6HR PRN 12/02/16 [History] Albuterol Sulfate [Albuterol Inhaler] 2 puff IH Q4HR PRN 12/02/16 [History] Buspirone HCl [Buspar] 20 mg PO BID 12/02/16 [History] Celecoxib [Celebrex] 200 mg PO BID 12/02/16 [History] Cyclobenzaprine [Flexeril] 10 mg PO TID PRN 12/02/16 [History] Diclofenac Sodium [Voltaren] 1 appl TP QID PRN 12/02/16 [History] Docusate [Colace] 100 mg PO DAILY PRN 12/02/16 [History] Fexofenadine HCl [Allergy Relief] 180 mg PO DAILY 12/02/16 [History] HYDROcodone/Acet 5/325 mg [[place] 5-325 mg] 1 tab PO BID PRN 12/02/16 [History] Ipratropium/Albuterol Neb [Duoneb] 3 ml IH QID 12/02/16 [History] Ketotifen Fumarate [Zaditor] 1 drop OP BID 12/02/16 [History] Lactose-Reduced Food [Boost High Protein] 237 ml PO BID 12/02/16 [History] Metoprolol XL (24 HR) Succ [Toprol Xl] 12.5 mg PO DAILY 12/02/16 [History] cephALEXin [Keflex] 500 g PO Q6H 12/02/16 [History] OxyCODONE Immed Rel [Roxicodone 5 MG] 5 mg PO Q4HR PRN #7 tablet 12/06/16 [Rx] Allergies/Adverse Reactions: 3 Allergy/AdvReac Type Severity Reaction Status Date / Time codeine Allergy Swelling Verified 12/02/16 15:36 of Lip/Tongue/Throat Medroxyprogesterone Allergy Swelling Verified 12/02/16 15:36 [From Provera] of Lip/Tongue/Throat meloxicam [From Mobic] Allergy Rash Verified 12/02/16 15:36 Penicillins Allergy Rash Verified 12/02/16 15:36 Date of admission: 12/02/16 17:21 Primary care physician: Tracie Castelan CNP Consults: 12/02/16 20:08 Consult to Physical Therapy [CONS] Routine Comment: Evaluate, develop and implement POC Reason for Consult: Pls assist with mgt, thanks OT [Consult to Occupational Therapy] [CONS] Routine Comment: Evaluate, develop and implement POC Reason for Consult: Pls assist with mgt, thanks Discharging clinician: Lino Nguyen - Patient Status Disposition: Home, Self-Care Condition: Fair Functional capacity at discharge: uses cane/walker Overall status at discharge: patient is progressing back to baseline - Discharge Instructions Follow Up With: Tracie Castelan CNP [Primary Care Provider] - 12/10/16 2:00 pm Romain Fabian MD [Partnered Physician] - Rufina Irizarry MD [Partnered Physician] - - Diet and Activity Activity: as per physical therapy, increase activity as tolerated Diet: low fat, low cholesterol, low salt diet Interval History: Ms. Chen is a 61 year old female with a history of right total knee replacement about 4 years ago who comes in with intractable right knee pain. She reports being in the usual state of health until about 2 days ago when she began experiencing intermittent sharp/stabbing right knee pain, the pain was 10/ 10 in severity, non radiating, associated with knee swelling and redness. The pain was worse with movement and ambulation. She was trying to manage at home but yesterday the pain worsened prompting her to come in today for further evaluation. She denies fever, chills, general malaise. No nausea, vomiting, change in urinary or bowel habits. She has not experienced any recent falls or trauma except 4 months ago when she had a fall with right femur fracture. She developed MSSA bacteremia in 09/2016 and was on IV antibiotics but currently has been on oral antibiotics and has infectious disease followup Hospital course: Patient was hospitalized. She was evaluated by orthopedics. Neurological examination of the knee did not show any physical abnormality. Orthopedics recommended pain management. Patient underwent radiological examination. Neurological examination of the knee did not reveal any abnormality. Plan: Continue pain management. Home today. Follow-up with orthopedics in 1-2 weeks. Follow-up with primary care in 1-2 weeks. Patient to see infectious disease clinic in 1-2 weeks. I have given a printed prescription of her narcotic pain pills for her altogether count was 7. All questions answered to time of discharge. Patient does not have any questions, concerns, update or recommendations. - Time Spent with Patient Total time spent providing and/or coordinating discharge services: - Constitutional Vitals: Temp Pulse Resp BP Pulse Ox 98.2 F 80 16 109/57 95 12/06/16 04:51 12/06/16 04:51 12/06/16 04:51 12/06/16 04:51 12/06/16 04:51 General appearance: Present: A&O X 3, pleasant, no acute distress, answers questions appropriately - Head Head exam: Present: atraumatic, normocephalic - Eye Eye exam: Present: PERRL, conjuntiva pink, sclera anicteric Pupils: Present: PERRL - Neck Neck exam general surgery: Present: supple, trachea midline. Absent: lymphadenopathy - Respiratory Respiratory exam: Present: CTAB. Absent: accessory muscle use, rales, rhonchi, wheezes - Cardiovascular Cardiovascular exam: Present: RRR, +S1, +S2. Absent: diastolic murmur, gallop, rubs, systolic murmur - GI/Abdominal GI/Abdominal exam: Present: normal bowel sounds, soft, no peritoneal signs. Absent: distended, tenderness - Extremities Exam Extremities exam: Present: warm, radial pulses palpable and symmetrical. Absent : calf tenderness, cyanotic, pedal edema - Neurological Exam Neurological exam: Present: CN II-XII intact, oriented X3, no focal deficits. Absent: pronater drift, facial droop, speech deficit - Skin Skin exam: Present: dry, intact
[2016-12-06] MEDS: Metoprolol XL (24 HR) Succ 25 MG TAB.ER.24H PO SCH (09:39)
[2016-12-06] MEDS: BuPROPion XL (24 HR) 150 MG TABLET PO SCH (09:40)
[2016-12-06] MEDS: clonazePAM 1 MG TABLET PO SCH (09:40)
[2016-12-06] MEDS: Gabapentin 300 MG CAPSULE PO SCH (09:40)
[2016-12-06] MEDS: Loratadine 10 MG TABLET PO SCH (09:41)
[2016-12-06] MEDS: Aspirin 81 MG TAB.CHEW PO SCH (09:41)
== END 2016-12-06 12:05 | disposition home or self-care (01) ==
LOC: EMEROO 15:27 → 3ANU 15:27
PROVIDERS: ADMIT Internal Medicine; ATTEND Internal Medicine

== ENCOUNTER 2018-02-21 08:54 | Inpatient (IN) ==
[2018-02-21] MEDS ORDERED: Gabapentin 300 MG CAPSULE PO STA (09:20)
[2018-02-21] MEDS ORDERED: BuPROPion XL (24 HR) 150 MG TABLET PO STA (09:20)
[2018-02-21] MEDS ORDERED: clonazePAM 0.5 MG TABLET PO STA (09:20)
[2018-02-21] MEDS ORDERED: Metoprolol XL (24 HR) Succ 25 MG TAB.ER.24H PO STA (09:20)
--- NOTE | 2018-02-21 09:27 | Emergency Department Note ---
Disposition Clinical Impression: Acute electrocardiogram changes, Hyperthyroidism UTI (urinary tract infection) Qualifiers: Urinary tract infection type: acute cystitis Hematuria presence: without hematuria Qualified Code(s): N30.00 - Acute cystitis without hematuria Sepsis Qualifiers: Sepsis type: sepsis due to unspecified organism Qualified Code(s): A41.9 - Seps is, unspecified organism Disposition: Admitted As Inpatient Condition: Fair Time of Disposition: 10:30 General Adult HPI - General Chief complaint: ED General Medical Stated complaint: unknow medication ingestion Time Seen by Provider: 02/21/18 08:59 Source: patient, family Limitations: altered mental status Nursing Notes Reviewed: Yes Vital Signs Reviewed: Yes - History of Present Illness HPI Narrative: 62-year-old female presents from home with bedside for evaluation. 6 days ago, patient dropped her pill organizer spilling pills all over the floor. Since then, she is not taken any of her medications as she was unsure what the pills were what medication, when she should be taking them, and she suspects she may have mixed some of her pets medications and with hers when she spilled them. Patient states she has not slept very well in 4 days. She took 4 medications this morning which included her Tylenol arthritis, vitamin D, her iron supplemen t, and some other medicine that she is not sure of. PMH: Fibromyalgia, hypothyroidism, asthma, arthritis, anxiety, depression Surgical history: Cholecystectomy, thyroidectomy, JULIANNA, BSO, orthopedic surgeries ROS: Positive: As above Negative: Chest pains, palpitations, abdominal pain, trauma, confusion, cough, dysuria Pain Scale: 8 - Related Data Home Medications Medication Instructions Recorded Confirmed RX: Citalopram [CeleXA] 20 mg PO DAILY 02/06/15 02/21/18 RX: Fluticasone/Salmeterol [Advair 1 puff IH BID 07/07/16 02/21/18 500-50 Diskus] RX: Omeprazole 20 mg PO DAILY 07/07/16 02/21/18 RX: Ferrous Sulfate [Iron] 325 mg PO BID 09/16/16 02/21/18 RX: Albuterol Sulfate [Albuterol 2 puff IH Q4HR PRN 12/02/16 02/21/18 Inhaler] RX: Buspirone HCl [Buspar] 20 mg PO BID 12/02/16 02/21/18 RX: Cyclobenzaprine [Flexeril] 10 mg PO TID PRN 12/02/16 02/21/18 RX: Docusate [Colace] 100 mg PO DAILY PRN 12/02/16 02/21/18 RX: Ipratropium/Albuterol Neb 3 ml IH QID PRN 12/02/16 02/21/18 [Duoneb] RX: Ketotifen Fumarate [Zaditor] 1 drop OP BID PRN 12/02/16 02/21/18 RX: Lactose-Reduced Food [Boost 1 bottle PO BID 12/02/16 02/21/18 High Protein] RX: Metoprolol XL (24 HR) Succ 12.5 mg PO DAILY 12/02/16 02/21/18 [Toprol Xl] Acetaminophen [Tylenol Arthritis] 1,300 mg PO Q8H PRN 02/21/18 02/21/18 Acetaminophen [Tylenol] 1,000 mg PO Q6HR PRN 02/21/18 02/21/18 Cholecalciferol (D-3) [Vitamin D] 5,000 unit PO DAILY 02/21/18 02/21/18 Diclofenac Sodium [Voltaren] 1 appl TP DAILY 02/21/18 02/21/18 DiphenhydraMINE [Benadryl] 25 mg PO Q8HR PRN 02/21/18 02/21/18 Diphenhydramine HCl [Nighttime 50 mg PO HS PRN 02/21/18 02/21/18 Sleep Aid] Gluc/Juan C-MSM#1/C/Johnny/Cody/Bor 2 tab PO DAILY 02/21/18 02/21/18 [Osteo Bi-Flex Caplet] Guaifenesin [Mucinex] 600 mg PO BID PRN 02/21/18 02/21/18 Levothyroxine Sodium [Levoxyl] 125 mcg PO QAM 02/21/18 02/21/18 Montelukast [Singulair] 10 mg PO DAILY 02/21/18 02/21/18 Multivitamin/Folic Acid/Biotin 3 tab PO DAILY 02/21/18 02/21/18 [Hair, Skin and Nails Tablet] Pregabalin [Lyrica] 50 mg PO BID 02/21/18 02/21/18 RX: Celecoxib [Celebrex] 100 mg PO DAILY 02/21/18 02/21/18 RX: Fluticasone Propionate Nasal 1 spray NS DAILY PRN 02/21/18 02/21/18 [Flonase] Sodium Chloride [Saline Nasal Mist] 1 spray NS BID PRN 02/21/18 02/21/18 Soy Isofla/Blk Cohosh/Mag Bark 155 mg PO DAILY 02/21/18 02/21/18 [[place]roven 155 mg Capsule] Previous Rx's Medication Instructions Recorded RX: Aspirin 81 mg PO DAILY tab.chew 08/01/16 RX: clonazePAM [Klonopin] 1 mg PO TID #21 tab 09/19/16 RX: BuPROPion XL (24 HR) 300 mg PO QAM 09/29/16 [Wellbutrin Xl] RX: HYDROcodone/Acet 5/325 mg 1 tab PO Q6H PRN 3 Days #12 tab 10/27/17 [[place] 5-325 mg] Cetirizine HCl [Zyrtec] 10 mg PO DAILY #30 tablet 02/18/18 Allergies Allergy/AdvReac Type Severity Reaction Status Date / Time codeine Allergy Swelling Verified 02/21/18 08:58 of Lip/Tongue/Throat Medroxyprogesterone Allergy Swelling Verified 02/21/18 08:58 [From Provera] of Lip/Tongue/Throat meloxicam [From Mobic] Allergy Rash Verified 02/21/18 08:58 Penicillins Allergy Rash Verified 02/21/18 08:58 All systems ED: reviewed and negative except as stated. Review of Systems: As Per HPI Past Medical History - Past Medical History Medical history: Reports: arthritis, asthma, fibromyalgia, osteoporosis, thyroid disease Surgical history: Reports: cholecystectomy, orthopedic, other, JULIANNA/BSO, thyroidectomy Psychiatric history: Reports: anxiety, depression [employer] history: Reports: no [employer] history - Social History Smoking Status: Former smoker Smokeless Tobacco Status: No Alcohol use: Reports: none Drug use: Reports: none Physical Exam Vital Signs Reviewed General: Patient is alert, oriented. She appears anxious and is tearful. She is unable to sit still which, per patient, is her baseline. Head: atraumatic, normocephalic Eye: normal appearance, PERRL, EOMI, no scleral icterus, no conjunctival injection ENT: mucous membranes moist, normal external ear exam Neck: normal inspection, trachea midline, full ROM Chest: normal inspection, symmetric chest rise Respiratory: Good respiratory effort. Bilateral breath sounds are clear without wheezing, crackles, or rhonchi. Cardiovascular: Regular rate and rhythm. No clicks, rubs, gallops, or murmors. Normal heart sounds. No pedal edema or pretibial swelling. Abdomen: Bowel sounds present normoactive. Abdomen is soft, nondistended, and nontender. No guarding or rebound. Musculoskeletal: Spontaneously moving all extremities. Skin: warm, dry, intact. Neuro: GCS 15. Alert and oriented 4. No focal neurologic deficits observed. Psych: Patient's affect is appropriate for situation. - General Limitations: altered mental status General appearance: alert Course Course Narrative: Concern for patient's thyroid status. We will check TSH and basic labs. She is tachycardic on intake. We will check EKG. She is febrile on intake, will check chest x-ray and urinalysis. After EKG, provide patient with her morning doses of Wellbutrin, Neurontin, Klonopin, metoprolol. The patient is SIRS (+) by temperature and heart rate and respiratory rate. Checking lactate and potential source of infection. Patient is tearful. Appears anxious. She repeatedly apologizes for coming in. With each apology, she was reassured and it was reiterated that our goal here is to help her; we make no judgments. Tylenol not given as patient took tylenol just prior to arrival. She has an allergy to NSAID. TSH low; hyperthyroid Thyroid storm clinically unlikely. EKG has 1mm ST depressions in inferior and septal leads Troponin normal. CXR no acute changes per radiology read. UA concerning for UTI. Blood culture pending. IV Cipro; prior Urine culture grew E.Coli with multiple sensitivities; allergy to PCN. 1L IVF; patient not currently hypotensive. I discussed the above with the patient. She is agreeable for admission for urosepsis, EKG changes. I discussed the above with the admitting hospitalist who agrees to accept the patient for continued evaluation and monitoring for urosepsis, EKG changes, hyperthyroid. EKG#1 EKG dated and 09:30 interpreted as sinus rhythm with rate of 95. CA 161, QRS 93, QTc 450. Normal axis. [address] depression in inferior lateral leads and in septal leads. This is new compared to previous EKG dated 08/25/2009. EKG #2 Repeat EKG at 10:39 interpreted as sinus rhythm with rate of 92. CA 156, QRS 93, QTc 440. 0.5-[address] depression persists as an EKG above. No acute ischemic changes compared to EKG #1. Chest X-Ray 02/21/18 09:28 IMPRESSION: No acute pneumonia. D/ / 02/21/2018 10:02:18 Herman Marsh MD / billy Interpreting Provider: Herman Marsh MD Vital Signs Temperature 100.6 F H 02/21/18 08:59 Pulse Rate 140 02/21/18 08:59 Respiratory Rate 20 02/21/18 08:59 Blood Pressure 148/80 02/21/18 08:59 O2 Sat by Pulse Oximetry 95 02/21/18 08:59 Temperature 98.8 F 02/21/18 10:37 Pulse Rate 88 02/21/18 10:37 Respiratory Rate 19 02/21/18 10:37 Blood Pressure 116/65 02/21/18 10:37 O2 Sat by Pulse Oximetry 98 02/21/18 10:37 Oxygen Delivery Oxygen Delivery Room Air Medical Decision Making - Lab Data Result diagrams: 02/21/18 09:29 02/21/18 09:29 Lab Results 02/21/18 02/21/18 02/21/18 Range/Units 09:29 09:29 09:29 WBC 10.9 (4.3-11.1) K/mcL RBC 4.23 (3.82-4.97) M/mcL Hgb 11.3 L (11.5-15.4) g/dL Hct 35.4 (35.3-44.9) % MCV 83.7 (83.0-100.0) fL MCH 26.7 L (28.0-33.3) pg MCHC 31.9 (31.6-35.5) g/dL RDW 15.6 H (11.5-14.5) % Plt Count 340 (140-400) K/mcL MPV 10.9 (9.4-12.4) fL Immature Gran % 0.3 (0-4) % Seg Neutrophils % 72.5 % Lymphocytes % 15.3 % Monocytes % 9.8 % Eosinophils % 1.3 % Basophils % 0.8 % Neutrophils # 7.9 (1.6-8.9) K/mcL Lymphocytes # 1.7 (0.6-4.6) K/mcL Monocytes # 1.1 (0.0-1.3) K/mcL Eosinophils # 0.1 (0.0-0.6) K/mcL Basophils # 0.1 (0.0-0.2) K/mcL Sodium 139 (136-145) mEq/L Potassium 3.6 (3.5-5.1) mEq/L Chloride 107 (98-107) mEq/L Carbon Dioxide 21 L (23-29) mEq/L BUN 16 (8-23) mg/dL Creatinine 0.88 (0.60-1.20) mg/dL Est GFR ( Amer) > 60 (> 60) Est GFR (Non-Af Amer) > 60 (> 60) BUN/Creatinine Ratio 18 (6-26) Glucose 109 H (70-105) mg/dL Calculated Osmolality 290 (280-300) Calcium 9.5 (8.6-10.3) mg/dL Troponin I < 0.03 (< 0.04) ng/mL TSH 0.165 L (0.340-5.600) mcIU/mL Ur Specimen Adequacy Urine Color (Yellow) Urine Clarity (Clear) Urine pH (5.0-8.0) pH Units Ur Specific [place] (1.010-1.025) Urine Protein (Neg-Trace) mg/dL Urine Glucose (UA) (Normal) mg/dL Urine Ketones (Negative) mg/dL Urine Blood (Negative) Urine Nitrite (Negative) Urine Bilirubin (Negative) Urine Urobilinogen (Normal) mg/dL Ur Leukocyte Esterase (Negative) Urine Microscopic RBC (0-3) per hpf Urine Microscopic WBC (0-3) per hpf Ur Squamous Epith Cells (None-Few) per lpf Urine Bacteria (None-Few) per hpf Hyaline Casts (None-Few) per lpf Ur Culture Indicated? (NO) 02/21/18 Range/Units 09:55 WBC (4.3-11.1) K/mcL RBC (3.82-4.97) M/mcL Hgb (11.5-15.4) g/dL Hct (35.3-44.9) % MCV (83.0-100.0) fL MCH (28.0-33.3) pg MCHC (31.6-35.5) g/dL RDW (11.5-14.5) % Plt Count (140-400) K/mcL MPV (9.4-12.4) fL Immature Gran % (0-4) % Seg Neutrophils % % Lymphocytes % % Monocytes % % Eosinophils % % Basophils % % Neutrophils # (1.6-8.9) K/mcL Lymphocytes # (0.6-4.6) K/mcL Monocytes # (0.0-1.3) K/mcL Eosinophils # (0.0-0.6) K/mcL Basophils # (0.0-0.2) K/mcL Sodium (136-145) mEq/L Potassium (3.5-5.1) mEq/L Chloride (98-107) mEq/L Carbon Dioxide (23-29) mEq/L BUN (8-23) mg/dL Creatinine (0.60-1.20) mg/dL Est GFR ( Amer) (> 60) Est GFR (Non-Af Amer) (> 60) BUN/Creatinine Ratio (6-26) Glucose (70-105) mg/dL Calculated Osmolality (280-300) Calcium (8.6-10.3) mg/dL Troponin I (< 0.04) ng/mL TSH (0.340-5.600) mcIU/mL Ur Specimen Adequacy See below A Urine Color Yellow (Yellow) Urine Clarity Hazy A (Clear) Urine pH 5.5 (5.0-8.0) pH Units Ur Specific [place] 1.026 H (1.010-1.025) Urine Protein 30 H (Neg-Trace) mg/dL Urine Glucose (UA) Normal (Normal) mg/dL Urine Ketones 40 H (Negative) mg/dL Urine Blood Moderate H (Negative) Urine Nitrite Positive A (Negative) Urine Bilirubin Negative (Negative) Urine Urobilinogen Normal (Normal) mg/dL Ur Leukocyte Esterase Moderate H (Negative) Urine Microscopic RBC 15-30 H (0-3) per hpf Urine Microscopic WBC TNTC H (0-3) per hpf Ur Squamous Epith Cells Many H (None-Few) per lpf Urine Bacteria Many H (None-Few) per hpf Hyaline Casts None Seen (None-Few) per lpf Ur Culture Indicated? NO. A (NO) Attestation Statement - Attestation Attestation: Resident Attestation: I examined this patient and my medical decision making was reviewed with the Resident Physician. I agree with the documented findings, disposition and treatment plan as described except to the extent set forth below. We independently had [id number] contact with the patient. Patient presents from home with . Patient dropped her pill organizer and has been not taking any of her medications since this time. Patient is overall very anxious. She is concerned about messing up her medications further. She is concerned about the cost of her medications. She has not been able to take significant care of herself as her is estranged and is not there on a full-time basis. The patient was attempted to have reassurance that what medications to take. Patient overall is not mentally able to handle more than one simple task at a time due to her anxiety at this point. The patient has not showered secondary to her overall symptoms for quite some time. At this time I do have significant concerns about her being able to take care of herself with intermittent supervision by her does not currently live with her. Patient will undergo further evaluation for generalized weakness. Patient is very anxious, however, neurologically intact, regular rhythm, clear to auscultation bilaterally, abdomen soft nontender palpation without guarding or rebound,or peripheral edema. Patient does have palpitations from previous knee surgery without signs of acute infection. Full range of motion without overlying erythema.
[2018-02-21 09:39] LABS: Basophils # 0.1 K/mcL (0.0-0.2); Basophils % 0.8 %; Eosinophils # 0.1 K/mcL (0.0-0.6); Eosinophils % 1.3 %; Hematocrit 35.4 % (35.3-44.9); Hemoglobin 11.3 g/dL (11.5-15.4); Immature Granulocytes % 0.3 % (0-4); Lymphocytes # 1.7 K/mcL (0.6-4.6); Lymphocytes % 15.3 %; Mean Corpuscular HGB Conc 31.9 g/dL (31.6-35.5); Mean Corpuscular Hemoglobin 26.7 pg (28.0-33.3); Mean Corpuscular Volume 83.7 fL (83.0-100.0); Mean Platelet Volume 10.9 fL (9.4-12.4); Monocytes # 1.1 K/mcL (0.0-1.3); Monocytes % 9.8 %; Neutrophils # 7.9 K/mcL (1.6-8.9); Platelet Count 340 K/mcL (140-400); Red Blood Count 4.23 M/mcL (3.82-4.97); Red Cell Distribution Width 15.6 % (11.5-14.5); Segmented Neutrophils % 72.5 %
[2018-02-21 09:59] LABS: BUN/Creatinine Ratio 18 (6-26); Blood Urea Nitrogen 16 mg/dL (8-23); Calcium 9.5 mg/dL (8.6-10.3); Carbon Dioxide 21 mEq/L (23-29); Chloride 107 mEq/L (98-107); Glucose 109 mg/dL (70-105); Osmolality,Calculated 290 (280-300); Potassium 3.6 mEq/L (3.5-5.1); Sodium 139 mEq/L (136-145); eGFR For Non-African Americans > 60 (> 60)
[2018-02-21 10:04] LABS: Bilirubin,Urine Negative (Negative); Blood,Urine Moderate (Negative); Color,Urine Yellow (Yellow); Glucose,Urine (UA) Normal (Normal); Ketones,Urine 40 mg/dL (Negative); Leukocyte Esterase,Urine Moderate (Negative); Nitrite,Urine Positive (Negative); PH,Urine 5.5 pH Units (5.0-8.0); Protein,Urine 30 mg/dL (Neg-Trace); Specific Gravity,Urine 1.026 (1.010-1.025); Urobilinogen,Urine Normal (Normal)
[2018-02-21 10:06] LABS: Bacteria,Urine Many per hpf (None-Few); Hyaline Casts,Urine None Seen per lpf (None-Few); RBC,Urine 15-30 per hpf (0-3); Squamous Epithelial Cell,Urine Many per lpf (None-Few); WBC,Urine TNTC per hpf (0-3)
[2018-02-21 10:07] LABS: Clarity,Urine Hazy (Clear)
[2018-02-21 10:12] LABS: Thyroid Stimulating Hormone 0.165 mcIU/mL (0.340-5.600)
[2018-02-21] MEDS ORDERED: 0.9 % Sodium Chloride 1,000 ML IVC ONE (10:26)
[2018-02-21] MEDS ORDERED: Naloxone 0.4 MG/ML INJ IVP PRN (10:39)
[2018-02-21] MEDS ORDERED: Ipratropium/Albuterol Neb 3 ML IH PRN (10:44)
--- NOTE | 2018-02-21 10:48 | Internal Med History&Physical ---
Date of Encounter: 02/21/18 Time of Encounter: 10:48 Internal Medicine - H&P: HPI Chief complaint: lethargy. mental cloudyness Admitted From: Home Plans for Post Hospital Care: Home History of present illness: Ms. Sarabia is a 62 year old female PMH of Hypothyroid s/p thyroidectomy, anxiety, depression, asthma and gastric bypass surgery. Patient present to the ED due to generalized weakness and mental cloudiness. She reports that for the past 6 days she has not been able to take her medications, because she dropped them and them was concerned about taking them not knowing which pill was which. Reports that after not been able to take her medications she has been feeling very anxious, and has not been able to sleep well for the past 6 days, also reports that she has very poor po intake for the same period of time. denies fever/chills, but reports that she has been having urinary urgency, dysuria, and urinary frequency. Denies abdominal pain, shortness of breath, reports nausea, but denies vomiting episode. Denies heat or cold intolerance. In the ED patient found to have a low grade fever and a UTI for which the hospitalist was called for management. Past Med Surg Social Fam HX - Past Medical History Medical history: arthritis, asthma, fibromyalgia, osteoporosis, thyroid disease Additional medical history: Pneumonia Psychiatric history: anxiety, depression - Past Surgical History Surgical History: cholecystectomy, orthopedic, other, JULIANNA/BSO, thyroidectomy Additional surgical history: right femur fx. RTKR - Social History Smoking Status: Former smoker Smokeless Tobacco Status: No Alcohol use: none Drug use: none - Family History Father Family Member Ethnicity: Non- Living Status: Hx Family Cardiac Disorders: Yes (LA, Stroke) Hx Family Respiratory Disorders: Yes Hx Family Cancer: Yes (Lung/Metastatic) Hx Family GI Disorders: No Hx Family Endocrine Disorder: Yes (DM) Hx Family Neuromuscular Disorders: No Hx Family Neurologic Disorders: No Hx Family HEENT Disorders: No Hx Family Autoimmune Disorders: No Mother Family Member Ethnicity: Non- Living Status: Hx Family Cardiac Disorders: Yes (CHF) Hx Family Respiratory Disorders: No Hx Family Cancer: No Hx Family GI Disorders: No Hx Family Endocrine Disorder: Yes (DM) Hx Family Neuromuscular Disorders: No Hx Family Neurologic Disorders: No Hx Family HEENT Disorders: No Hx Family Autoimmune Disorders: No Brother Family Member Ethnicity: Non- Living Status: Still Living Hx Family Cardiac Disorders: Yes (HD) Hx Family Endocrine Disorder: Yes (DM) Sister Family Member Ethnicity: Non- Living Status: Still Living Internal Medicine - H&P: Meds Citalopram [CeleXA] 20 mg PO DAILY 02/06/15 [History] Fluticasone/Salmeterol [Advair 500-50 Diskus] 1 puff IH BID 07/07/16 [History] Levothyroxine [Synthroid] 100 mcg PO QAM 07/07/16 [History] Omeprazole 20 mg PO DAILY 07/07/16 [History] Aspirin 81 mg PO DAILY tab.chew 08/01/16 [Rx] Ferrous Sulfate [Iron] 325 mg PO BID 09/16/16 [History] Magnesium Oxide [Mgo] 400 mg PO DAILY 09/16/16 [History] Gabapentin [Neurontin] 300 mg PO TID #21 09/19/16 [Rx] clonazePAM [Klonopin] 1 mg PO TID #21 tab 09/19/16 [Rx] BuPROPion XL (24 HR) [Wellbutrin Xl] 300 mg PO QAM 09/29/16 [Rx] Acetaminophen [Tylenol] 650 mg PO Q6HR PRN 12/02/16 [History] Albuterol Sulfate [Albuterol Inhaler] 2 puff IH Q4HR PRN 12/02/16 [History] Buspirone HCl [Buspar] 20 mg PO BID 12/02/16 [History] Celecoxib [Celebrex] 200 mg PO BID 12/02/16 [History] Cyclobenzaprine [Flexeril] 10 mg PO TID PRN 12/02/16 [History] Docusate [Colace] 100 mg PO DAILY PRN 12/02/16 [History] Fexofenadine HCl [Allergy Relief] 180 mg PO DAILY 12/02/16 [History] Ipratropium/Albuterol Neb [Duoneb] 3 ml IH QID 12/02/16 [History] Ketotifen Fumarate [Zaditor] 1 drop OP BID 12/02/16 [History] Lactose-Reduced Food [Boost High Protein] 237 ml PO BID 12/02/16 [History] Metoprolol XL (24 HR) Succ [Toprol Xl] 12.5 mg PO DAILY 12/02/16 [History] HYDROcodone/Acet 5/325 mg [[place] 5-325 mg] 1 tab PO Q6H PRN 3 Days #12 tab 10/27/17 [Rx] Cetirizine HCl [Zyrtec] 10 mg PO DAILY #30 tablet 02/18/18 [Rx] Sodium Chloride [Saline Nasal Mist] 1 spray NS BID #1 bottle 02/18/18 [Rx] Allergy/AdvReac Type Severity Reaction Status Date / Time codeine Allergy Swelling Verified 02/21/18 08:58 of Lip/Tongue/Throat Medroxyprogesterone Allergy Swelling Verified 02/21/18 08:58 [From Provera] of Lip/Tongue/Throat meloxicam [From Mobic] Allergy Rash Verified 02/21/18 08:58 Penicillins Allergy Rash Verified 02/21/18 08:58 All Systems PM: A 10-system review of systems was performed and is negative for pertinent findings except as documented above in the HPI. - Constitutional Constitutional: no chills, no fever(s), no falls, no weakness - EENT Eyes: no blurry vision Nose, mouth and throat: no bleeding gums - Breasts Breasts: no pain - Cardiovascular Cardiovascular ROS IM: no chest pain, no diaphoresis, no dyspnea, no dyspnea on exertion, no edema, no irregular heart rhythm, no lightheadedness, no orthopnea, no palpitations, no paroxysmal nocturnal dyspnea - Respiratory Respiratory: no cough, no dyspnea, no wheezing - Gastrointestinal Gastrointestinal: loose stools, nausea, no abdominal pain, no constipation, no diarrhea, no hematemesis, no vomiting - Genitourinary Genitourinary: dysuria, hot flashes, nocturia, urinary frequency, urinary hesitancy, urinary urgency, no urinary incontinence - Musculoskeletal Musculoskeletal ROS IM: no muscle weakness - Integumentary Integumentary IM: no rash - Neurological Neurological ROS: no headache(s), no lack of coordination, no memory loss, no weakness - Psychiatric Psychiatric: anxiety, no depression, no irritability - Endocrine Endocrine IM: fatigue, no cold intolerance, no heat intolerance, no polyphagia, no polyuria - Hematologic/Lymphatic Hematologic/Lymphatic: no lymphadenopathy - Allergic/Immunologic Allergic/Immunologic: wheezing Additional comments: Rest of the review of system negative - Constitutional Vitals: Temp Pulse Resp BP Pulse Ox 98.8 F 88 19 116/65 98 02/21/18 10:37 02/21/18 10:37 02/21/18 10:37 02/21/18 10:37 02/21/18 10:37 Exam: Vitals: Reviewed. General: Alert and oriented x3. In mild distress due to anxiety, generalized weakness Skin: poor skin turgor, dry oral mucosa, no rash, no lesions. HEENT: EOM, pupils equal, round and reactive. Cardiovascular: RRR, Normal S1 & S2, no rubs, murmurs or gallops. Lungs: CTA b/l, no wheezes or crackles. Abdomen: Obese, Soft, non-tender, no rigidity. NABS in all 4 quadrants. healed post surgical scar. Extremities: No deformity, no edema or tenderness, no joint swelling or clubbing. Neurological: Normal cognition and motor skills. Rest of the physical exam is non contributory Internal Med - H&P Results - Labs CBC & Chem 7: 02/21/18 09:29 02/21/18 09:29 Labs: Short CBC 02/21/18 Range/Units 09:29 WBC 10.9 (4.3-11.1) K/mcL Hgb 11.3 L (11.5-15.4) g/dL Hct 35.4 (35.3-44.9) % Plt Count 340 (140-400) K/mcL Neutrophils # 7.9 (1.6-8.9) K/mcL BMP 02/21/18 09:29 Sodium 139 Potassium 3.6 Chloride 107 Carbon Dioxide 21 L BUN 16 Creatinine 0.88 Glucose 109 H Calcium 9.5 Cardiac Enzymes 02/21/18 Range/Units 09:29 Troponin I < 0.03 (< 0.04) ng/mL Urine 02/21/18 Range/Units 09:55 Urine Color Yellow (Yellow) Urine Clarity Hazy A (Clear) Urine pH 5.5 (5.0-8.0) pH Units Ur Specific [place] 1.026 H (1.010-1.025) Urine Protein 30 H (Neg-Trace) mg/dL Urine Glucose (UA) Normal (Normal) mg/dL - Impressions ITS Impressions Chest X-Ray 02/21/18 09:28 IMPRESSION: No acute pneumonia. D/ / 02/21/2018 10:02:18 Herman Marsh MD / [email or web address] Interpreting Provider: Herman Marsh MD - Diagnostic Studies Chest x-ray Status: image reviewed by me (No acute abnormalities. ) - Assessment and plan (1) Urinary tract infection Current Visit: Yes Status: Acute Assessment and plan: patient with urinary symptoms, plus generalized weak and mild lethargy. will start patient on empiric antibiotics. started on ciprofloxacin 400mg/IV BID blood culture sent. Qualifiers: Urinary tract infection type: acute cystitis Hematuria presence: with hematuria Qualified Code(s): N30.01 - Acute cystitis with hematuria (2) Anxiety Current Visit: No Status: Chronic Assessment and plan: will resume patient home medication. on clonazepam 1mg/PO TID when necessary. (3) Depression Current Visit: No Status: Chronic Assessment and plan: Not suicidal or homicidal ideation. Continue Buspirone 15 mg by mouth twice a day. Qualifiers: Depression Type: major depressive disorder Major depression recurrence: recurrent Active/Remission status: in partial remission Qualified Code(s): F33.41 - Major depressive disorder, recurrent, in partial remission (4) Hypothyroidism Current Visit: No Status: Chronic Assessment and plan: Presenting with suppressed THS and elevated T4. on levothyroxyne 100 mcg/PO daily. Hold levothyroxine. patient needs adjustment on levothyroxine dose. started on metoprolol 12.5mg/PO daily as patient tachycardic on presentation. Qualifiers: Hypothyroidism type: acquired Qualified Code(s): E03.9 - Hypothyroidism, unspecified (5) Neuropathic pain Current Visit: No Status: Chronic Assessment and plan: Will resume gabapentin 300mg/PO TID. (6) Asthma Current Visit: Yes Status: Chronic Assessment and plan: Not an acute exacerbation. Patient started on bronchodilators every 4 hours when necessary. Qualifiers: Asthma severity: unspecified severity Asthma complication type: unspecified Qualified Code(s): J45.909 - Unspecified asthma, uncomplicated (7) DVT prophylaxis Current Visit: Yes Status: Acute Assessment and plan: patient started on heparin SubQ (8) Dehydration Current Visit: Yes Status: Acute Assessment and plan: mildly dehydrated. patient reports poor po intake for the past 6 days. started on gentle IV hydration with 0.45%NS@75mls/hr x1 bag. - Time Spent With Patient Total time spent is greater than 50% in coordination of care (as documented) at patient's floor/unit and/or counseling patient: Greater than 35 minutes (50)
[2018-02-21 11:09] LABS: Magnesium 1.9 mg/dL (1.6-2.6); Phosphorous 2.7 mg/dL (2.7-4.5)
[2018-02-21 11:29] LABS: Triiodothyronine (T3) Free 2.58 pg/mL (2.50-3.90)
[2018-02-21] MEDS: Gabapentin 300 MG CAPSULE PO SCH ×2 (13:53→21:20)
[2018-02-21] MEDS: traMADol 50 MG TABLET PO PRN ×2 (13:53→21:19)
[2018-02-21] MEDS: *HR* Heparin 5,000 UNIT/ML VIAL SQ SCH ×2 (13:54→21:20)
[2018-02-21] MEDS: clonazePAM 1 MG TABLET PO PRN (21:19)
[2018-02-21] MEDS: Budesonide/Formoterol 80/4.5 MDI IH SCH (22:57)
[2018-02-22] MEDS: *HR* Heparin 5,000 UNIT/ML VIAL SQ SCH ×3 (05:21→20:56)
[2018-02-22] MEDS: Budesonide/Formoterol 80/4.5 MDI IH SCH ×2 (07:39→20:19)
[2018-02-22] MEDS: Aspirin Enteric Coated 81 MG Tablet PO SCH (08:07)
[2018-02-22] MEDS: Metoprolol XL (24 HR) Succ 25 MG TAB.ER.24H PO SCH (08:07)
[2018-02-22] MEDS: Gabapentin 300 MG CAPSULE PO SCH ×3 (08:07→20:56)
[2018-02-22] MEDS: traMADol 50 MG TABLET PO PRN (08:18)
[2018-02-22] MEDS ORDERED: SUMAtriptan succinate 50 MG TABLET PO ONE (11:56)
[2018-02-22] MEDS ORDERED: Ipratropium/Albuterol Neb 3 ML IH PRN (11:58)
--- NOTE | 2018-02-22 12:08 | Internal Med Progress Note ---
Hospitalist Progress Note - Encounter Date of Encounter: 02/22/18 Time of Encounter: 09:35 - Subjective Interval History: Patient says she is feeling better from yesterday. She says she is able to tolerate consuming solids and liquids. Denies any nausea or vomiting. Denies any back pain. Denies any abdominal pain. Denies any dysuria or hematuria. S he says her numbness and tingling from her neuropathy is stable. Denies any shortness of breath, fever, or chest pain. Denies any tachycardia or palpitations. Denies any diaphoresis. - Exam Vitals: Temp Pulse Resp BP Pulse Ox 97.9 F 93 20 150/65 95 02/22/18 11:52 02/22/18 11:52 02/22/18 11:52 02/22/18 11:52 02/22/18 11:52 Exam: General Adult Exam GENERAL APPEARANCE: Well developed, well nourished, alert and cooperative, and appears to be in no acute distress. HEAD: normocephalic. NECK: Neck supple, non-tender without lymphadenopathy, masses or thyromegaly. CARDIAC: Normal S1 and S2. No S3, S4 or murmurs. Rhythm is regular. There is no peripheral edema, cyanosis or pallor. Extremities are warm and well perfused. Capillary refill is less than 2 seconds. No carotid bruits. LUNGS: Clear to auscultation and percussion without rales, rhonchi, wheezing or diminished breath sounds. ABDOMEN: Positive bowel sounds. Soft, nondistended, nontender. No guarding or rebound. No masses. MUSKULOSKELETAL: Adequately aligned spine. ROM intact spine and extremities. No joint erythema or tenderness. Normal muscular development. Normal gait. BACK: Examination of the spine reveals normal gait and posture, no spinal deformity, symmetry of spinal muscles, without tenderness, decreased range of motion or muscular spasm. No CVA tenderness bilaterally. EXTREMITIES: No significant deformity or joint abnormality. No edema. Peripheral pulses intact. No varicosities. PSYCH: No pressure speech. Good eye contact. Good affect. Alert and oriented 3. No agitation. - Time Spent with Patient Total time spent is greater than 50% in coordination of care (as documented) at patient's floor/unit and/or counseling patient: Internal Medicine: Result - Labs CBC & Chem 7: 02/21/18 09:29 02/21/18 09:29 Labs: Cardiac Enzymes 02/21/18 02/21/18 Range/Units 15:54 22:35 Troponin I < 0.03 < 0.03 (< 0.04) ng/mL Consult Discharge Plan - Plan Referrals: Tracie Castelan, HUGH [Primary Care Provider] -
[2018-02-22] MEDS ORDERED: clonazePAM 1 MG TABLET PO SCH (12:15)
--- NOTE | 2018-02-22 12:17 | Internal Med Progress Note ---
<Petr Hickey - Last Filed: 02/22/18 12:15> Date of Encounter: 02/22/18 Time of Encounter: 09:30 - Assessment and plan (1) Urinary tract infection Current Visit: Yes Status: Acute Assessment and plan: On day 2 of ciprofloxacin 400 mg IV twice a day. Blood cultures are still pending. Qualifiers: Urinary tract infection type: acute cystitis Hematuria presence: with hematuria Qualified Code(s): N30.01 - Acute cystitis with hematuria (2) Anxiety Current Visit: No Status: Chronic Assessment and plan: Clonazepam 1 mg by mouth 3 times a day when necessary. (3) Depression Current Visit: No Status: Chronic Assessment and plan: Restarted home medication of Wellbutrin. Continue with addition of buspirone. Qualifiers: Depression Type: major depressive disorder Major depression recurrence: recurrent Active/Remission status: in partial remission Qualified Code(s): F33.41 - Major depressive disorder, recurrent, in partial remission (4) Dehydration Current Visit: Yes Status: Resolved Assessment and plan: Patient able to tolerate consuming liquids. We will discontinue her IV fluids for now. (5) Asthma Current Visit: Yes Status: Chronic Assessment and plan: Bronchodilators every 4 hours when necessary. Qualifiers: Asthma severity: unspecified severity Asthma complication type: unspecified Qualified Code(s): J45.909 - Unspecified asthma, uncomplicated (6) Hypothyroidism Current Visit: No Status: Chronic Assessment and plan: Total T4 was elevated with a suppressed TSH. Levothyroxine on dose on hold for now. Patient not exhibiting any clinical signs of hyperthyroidism. Continue metoprolol 12.5 mg by mouth daily for tachycardia. Qualifiers: Hypothyroidism type: acquired Qualified Code(s): E03.9 - Hypothyroidism, unspecified (7) Neuropathic pain Current Visit: No Status: Chronic Assessment and plan: Continue gabapentin 300 mg by mouth 3 times a day. (8) Migraines Current Visit: Yes Status: Acute Assessment and plan: Gave a one-time dose of Imitrex. Qualifiers: Intractability: not intractable Qualified Code(s): G43.909 - Migraine, unspecified, not intractable, without status migrainosus (9) DVT prophylaxis Current Visit: Yes Status: Acute Assessment and plan: Heparin subcutaneously. - Subjective Interval history: Patient says she is feeling better from yesterday. Says she is able to tolerate solid and liquid intake. Denies any nausea or vomiting. Denies any back pain. Denies any abdominal pain. Denies any dysuria or hematuria. She says her numbness and tingling from her neuropathy is stable. Denies any shortness of breath, fever, chest pain, tachycardia, palpitations, or diaphoresis. - Constitutional Vitals: Temp Pulse Resp BP Pulse Ox 97.9 F 93 20 150/65 95 02/22/18 11:52 02/22/18 11:52 02/22/18 11:52 02/22/18 11:52 02/22/18 11:52 General appearance: Present: A&O X 3, pleasant, no acute distress, answers questions appropriately - Respiratory Respiratory exam: Present: CTAB. Absent: accessory muscle use, rales, rhonchi, wheezes - Cardiovascular Cardiovascular exam: Present: RRR, +S1, +S2. Absent: diastolic murmur, gallop, rubs, systolic murmur - GI/Abdominal GI/Abdominal exam: Present: normal bowel sounds, soft, no peritoneal signs. Absent: distended, tenderness - Extremities Exam Extremities exam: Present: warm, radial pulses palpable and symmetrical. Absent: calf tenderness, cyanotic, pedal edema - Back Exam Back exam: Absent: CVA tenderness (L), CVA tenderness (R), tenderness - Psychiatric Psychiatric exam: Present: normal affect, normal mood. Absent: agitated, anxious, depressed, flat affect Internal Medicine: Result - Labs CBC & Chem 7: 02/21/18 09:29 02/21/18 09:29 Labs: Cardiac Enzymes 02/21/18 02/21/18 Range/Units 15:54 22:35 Troponin I < 0.03 < 0.03 (< 0.04) ng/mL Consult Discharge Plan - Plan Referrals: Tracie Castelan CNP [Primary Care Provider] - <Alma Delia Cook - Last Filed: 02/22/18 14:44> Date of Encounter: 02/22/18 - Constitutional Vitals: Temp Pulse Resp BP Pulse Ox 97.9 F 93 20 150/65 95 02/22/18 11:52 02/22/18 11:52 02/22/18 11:52 02/22/18 11:52 02/22/18 11:52 Internal Medicine: Result - Labs CBC & Chem 7: 02/21/18 09:29 02/21/18 09:29 Labs: Cardiac Enzymes 02/21/18 02/21/18 Range/Units 15:54 22:35 Troponin I < 0.03 < 0.03 (< 0.04) ng/mL - Attending Attestation I examined this patient and my medical decision-making was reviewed with the Resident Physician Dr. Hickey . I agree with the documented findings, disposition and treatment plan as described except to the extent set forth below. Ms. Sarabia is a 62 year old female PMH of Hypothyroid s/p thyroidectomy, anxiety, depression, asthma and gastric bypass surgery. Patient present to the ED due to generalized weakness and confusion. She denies fever/chills, but r eports that she has been having urinary urgency, dysuria, and urinary frequency. In the ED patient found to have a low grade fever and a UTI . Patient was admitted in the hospital and placed on empirical antibiotic Rocephin. Patient stated her symptoms slightly improved. Gen: A, A, O x 3 Chest: Diminished BS b/l Heart: S1S2+ RRR No murmurs Back: No CVA tenderness a/p 1. Acute UTI Cont Rocephin waiting on urine cx repeat urine cx since earlier sample contaminated with too many epithelial cells IV hydration Patient does need to stay in the hospital more than 2 midnights due to her complex medical problems. So we will change her to full admission today. I did review my colleague Dr. Castillo H & P including HPI, PMH, PSH, FH, SH, and ROS no changes noticed
[2018-02-22] MEDS: Cholecalciferol (D-3) 1,000 UNIT TABLET PO SCH (12:40)
[2018-02-22] MEDS: Celecoxib 100 MG CAPSULE PO SCH (12:42)
[2018-02-22] MEDS: BuPROPion XL (24 HR) 150 MG TABLET PO SCH (12:42)
[2018-02-22] MEDS: Loratadine 10 MG TABLET PO SCH (12:42)
[2018-02-22] MEDS: clonazePAM 1 MG TABLET PO PRN (15:23)
--- NOTE | 2018-02-22 17:42 | Electrocardiograph Report ---
[place] [id number] Test Date: 2018-02-21 Pat Name: Fanta Sarabia Department: EXAM6 Room: 3B64 Gender: F Pump Attendant: : 1955 Requested By: Donald Toth Order Number: [id number] Reading MD: Aide Rodriguez Measurements Intervals [place] Rate: 92 P: 73 [place]: 154 QRS: 47 QRSD: 98 T: 17 QT: 361 QTc: 447 Interpretive Statements Sinus rhythm Consider left atrial enlargement Minimal ST depression, diffuse leads Electronically Signed On 02-22-2018 17:41:12 EST by Aide Rodriguez
--- NOTE | 2018-02-22 19:57 | Electrocardiograph Report ---
[place] [id number] Test Date: 2018-02-21 Pat Name: Fanta Sarabia Department: EXAM6 Room: 3B64 Gender: F Mig Welder: : 1955 Requested By: Donald Toth Order Number: [id number] Reading MD: Aide Rodriguez Measurements Intervals [place] Rate: 95 P: 80 [place]: 161 QRS: 70 QRSD: 93 T: 36 QT: 358 QTc: 450 Interpretive Statements Sinus rhythm Atrial premature complex Minimal ST depression, diffuse leads Electronically Signed On 02-22-2018 19:55:49 EST by Aide Rodriguez
[2018-02-22] MEDS ORDERED: Melatonin 3 MG TABLET PO ONE (22:32)
[2018-02-23] MEDS: traMADol 50 MG TABLET PO PRN (02:23)
[2018-02-23] MEDS: *HR* Heparin 5,000 UNIT/ML VIAL SQ SCH ×3 (06:17→23:06)
[2018-02-23] MEDS ORDERED: Artificial Tears SOLN 15 ML BOTTLE BOTH EYES ONE (07:04)
[2018-02-23] MEDS: Budesonide/Formoterol 80/4.5 MDI IH SCH ×2 (07:37→22:27)
[2018-02-23] MEDS ORDERED: Lidocaine -MPF 1% 5 ML AMPUL INFILT ONE (07:46)
[2018-02-23] MEDS: Metoprolol XL (24 HR) Succ 25 MG TAB.ER.24H PO SCH (09:35)
[2018-02-23] MEDS: BuPROPion XL (24 HR) 150 MG TABLET PO SCH (09:35)
[2018-02-23] MEDS: Celecoxib 100 MG CAPSULE PO SCH (09:35)
[2018-02-23] MEDS: Loratadine 10 MG TABLET PO SCH (09:35)
[2018-02-23] MEDS: Cholecalciferol (D-3) 1,000 UNIT TABLET PO SCH (09:36)
[2018-02-23] MEDS: Aspirin Enteric Coated 81 MG Tablet PO SCH (09:36)
[2018-02-23] MEDS: Gabapentin 300 MG CAPSULE PO SCH ×3 (09:36→19:54)
[2018-02-23] MEDS: clonazePAM 1 MG TABLET PO PRN (09:43)
--- NOTE | 2018-02-23 11:35 | Internal Med Progress Note ---
<Petr Hickey - Last Filed: 02/23/18 11:31> Date of Encounter: 02/23/18 Time of Encounter: 10:45 - Assessment and plan (1) Urinary tract infection Current Visit: Yes Status: Acute Assessment and plan: On day 3 of ciprofloxacin 400 mg IV twice a day. Blood and urine cultures are still pending. Qualifiers: Urinary tract infection type: acute cystitis Hematuria presence: without hematuria Qualified Code(s): N30.00 - Acute cystitis without hematuria (2) Anxiety Current Visit: No Status: Chronic Assessment and plan: Clonazepam 1 mg by mouth 3 times a day when necessary. (3) Depression Current Visit: No Status: Chronic Assessment and plan: Restarted home medication of Wellbutrin. Continue with addition of buspirone. Qualifiers: Depression Type: major depressive disorder Major depression recurrence: recurrent Active/Remission status: in partial remission Qualified Code(s): F33.41 - Major depressive disorder, recurrent, in partial remission (4) Asthma Current Visit: Yes Status: Chronic Assessment and plan: Bronchodilators every 4 hours when necessary. Qualifiers: Asthma severity: unspecified severity Asthma complication type: unspecified Qualified Code(s): J45.909 - Unspecified asthma, uncomplicated (5) Hypothyroidism Current Visit: No Status: Chronic Assessment and plan: Total T4 was elevated with a suppressed TSH. Levothyroxine on dose on hold for now. Patient not exhibiting any clinical signs of hyperthyroidism. Continue metoprolol 12.5 mg by mouth daily for tachycardia. Qualifiers: Hypothyroidism type: acquired Qualified Code(s): E03.9 - Hypothyroidism, unspecified (6) Neuropathic pain Current Visit: No Status: Chronic (7) DVT prophylaxis Current Visit: Yes Status: Acute Assessment and plan: Heparin subcutaneously. - Subjective Interval history: Patient says she is feeling much better from yesterday. Says she is able to tolerate solid and liquid intake. Denies any nausea or vomiting. Denies any back pain. Denies any abdominal pain. Denies any dysuria or hematuria. She says her numbness and tingling from her neuropathy is stable. Denies any s hortness of breath, fever, chest pain, tachycardia, palpitations, or diaphoresis. She does admit to some minor wheezing in the morning today. - Constitutional Vitals: Temp Pulse Resp BP Pulse Ox 97.7 F 79 16 121/64 98 02/23/18 06:55 02/23/18 06:55 02/23/18 07:37 02/23/18 06:55 02/23/18 07:37 General appearance: Present: A&O X 3, pleasant, no acute distress, answers questions appropriately - Respiratory Respiratory exam: Present: CTAB. Absent: accessory muscle use, rales, rhonchi, wheezes - Cardiovascular Cardiovascular exam: Present: RRR, +S1, +S2. Absent: diastolic murmur, gallop, rubs, systolic murmur - GI/Abdominal GI/Abdominal exam: Present: normal bowel sounds, soft, no peritoneal signs. Absent: distended, tenderness - Extremities Exam Extremities exam: Present: warm, radial pulses palpable and symmetrical. Absent: calf tenderness, cyanotic, pedal edema Internal Medicine: Result - Labs CBC & Chem 7: 02/21/18 09:29 02/21/18 09:29 Consult Discharge Plan - Plan Referrals: Romain Fabian MD [Partnered Physician] - 04/20/18 9:30 am Tracie Castelan CNP [Primary Care Provider] - 03/03/18 2:00 pm <Alma Delia Cook - Last Filed: 02/23/18 13:25> Date of Encounter: 02/23/18 - Constitutional Vitals: Temp Pulse Resp BP Pulse Ox 98.0 F 82 16 122/68 95 02/23/18 11:34 02/23/18 11:34 02/23/18 11:34 02/23/18 11:34 02/23/18 11:34 Internal Medicine: Result - Labs CBC & Chem 7: 02/21/18 09:29 02/21/18 09:29 - Attending Attestation I examined this patient and my medical decision-making was reviewed with the Resident Physician Dr. Hickey . I agree with the documented findings, disposition and treatment plan as described except to the extent set forth below. Ms. Sarabia is a 62 year old female PMH of Hypothyroid s/p thyroidectomy, anxiety, depression, asthma and gastric bypass surgery. Patient present to the ED due to generalized weakness and confusion. She denies fever/chills, but reports that she has been having urinary urgency, dysuria, and urinary frequency. In the ED patient found to have a low grade fever and a UTI . Patient was admitted in the hospital and placed on empirical antibiotic Rocephin. Patient stated her symptoms slightly improved. Still feels very weak and lethargic. c/o supra pubic discomfort. Gen: A, A, O x 3 Chest: Diminished BS b/l Heart: S1S2+ RRR No murmurs Back: No CVA tenderness a/p 1. Acute UTI Cont Rocephin waiting on urine cx 2. Hyperthyroidism due to excess intake of Levothyroixine.. TSH suppressed, Total T4 slightly elevated, however free T3 and T4 are WNL recommend to hold Levothyroxine for now
[2018-02-23] MEDS ORDERED: Ondansetron 4 MG/2 ML VIAL IVP PRN (19:33)
[2018-02-24] MEDS: *HR* Heparin 5,000 UNIT/ML VIAL SQ SCH (06:02)
[2018-02-24] MEDS: Cholecalciferol (D-3) 1,000 UNIT TABLET PO SCH (08:26)
[2018-02-24] MEDS: BuPROPion XL (24 HR) 150 MG TABLET PO SCH (08:26)
[2018-02-24] MEDS: Gabapentin 300 MG CAPSULE PO SCH (08:27)
[2018-02-24] MEDS: Metoprolol XL (24 HR) Succ 25 MG TAB.ER.24H PO SCH (08:27)
[2018-02-24] MEDS: Celecoxib 100 MG CAPSULE PO SCH (08:28)
[2018-02-24] MEDS: Aspirin Enteric Coated 81 MG Tablet PO SCH (08:28)
[2018-02-24] MEDS: Loratadine 10 MG TABLET PO SCH (08:28)
[2018-02-24] MEDS: clonazePAM 1 MG TABLET PO PRN (08:30)
[2018-02-24] MEDS: Budesonide/Formoterol 80/4.5 MDI IH SCH (11:13)
--- NOTE | 2018-02-24 11:42 | Discharge Summary ---
- NOTES TO OUTPATIENT PROVIDER Notes to Outpatient Provider: Follow up with PCP in one week. We stopped your levothyroxine since your TSH was very low and total T4 was high. You need to go for f/u TSH, T3 and T4 through your PCP in 4 weeks. Orders not resulted at time of discharge: Pending orders 02/21/18 10:36 Culture,Blood [BC] Stat Date of Encounter: 02/24/18 Time of Encounter: 11:41 - Discharge Diagnosis (1) Urinary tract infection Priority: Primary Status: Acute Qualifiers: Urinary tract infection type: acute cystitis Hematuria presence: without hematuria Qualified Code(s): N30.00 - Acute cystitis without hematuria (2) Hypothyroidism Priority: Secondary Status: Chronic Qualifiers: Hypothyroidism type: acquired Qualified Code(s): E03.9 - Hypothyroidism, unspecified (3) Neuropathic pain Priority: Secondary Status: Chronic (4) Depression Priority: Secondary Status: Chronic Qualifiers: Depression Type: major depressive disorder Major depression recurrence: recurrent Active/Remission status: in partial remission Qualified Code(s): F33.41 - Major depressive disorder, recurrent, in partial remission (5) Anxiety Priority: Secondary Status: Chronic (6) Asthma Priority: Secondary Status: Chronic Qualifiers: Asthma severity: unspecified severity Asthma complication type: unspecified Qualified Code(s): J45.909 - Unspecified asthma, uncomplicated (7) DVT prophylaxis Priority: Secondary Status: Acute (8) Dehydration Priority: Secondary Status: Resolved Hospital course: Ms. Sarabia is a 62 year old female PMH of Hypothyroid s/p thyroidectomy, anxiety, depression, asthma and gastric bypass surgery. Patient present to the ED due to generalized weakness and confusion. She denies fever/chills, but reports that she has been having urinary urgency, dysuria, and urinary frequency. In the ED patient found to have a low grade fever and a UTI . Patient was admitted in the hospital and placed on empirical antibiotic Ciprofloxacin. Her blood culture came back as no growth. Patient symptoms started improving slowly. Initially she was so dehydrated which improved with IV hydration here. She also happen to have significantly low TSH and elevated T4, so held her Levothyroixine and recommend to go for f/y thyroid function tests in 4 weeks. - Time Spent with Patient Total time spent providing and/or coordinating discharge services: - Discharge Medications Home Medications: Citalopram [CeleXA] 20 mg PO DAILY 02/06/15 [History] Fluticasone/Salmeterol [Advair 500-50 Diskus] 1 puff IH BID 07/07/16 [History] Omeprazole 20 mg PO DAILY 07/07/16 [History] Aspirin 81 mg PO DAILY tab.chew 08/01/16 [Rx] Ferrous Sulfate [Iron] 325 mg PO BID 09/16/16 [History] clonazePAM [Klonopin] 1 mg PO TID #21 tab 09/19/16 [Rx] BuPROPion XL (24 HR) [Wellbutrin Xl] 300 mg PO QAM 09/29/16 [Rx] Albuterol Sulfate [Albuterol Inhaler] 2 puff IH Q4HR PRN 12/02/16 [History] Buspirone HCl [Buspar] 20 mg PO BID 12/02/16 [History] Cyclobenzaprine [Flexeril] 10 mg PO TID PRN 12/02/16 [History] Docusate [Colace] 100 mg PO DAILY PRN 12/02/16 [History] Ipratropium/Albuterol Neb [Duoneb] 3 ml IH QID PRN 12/02/16 [History] Ketotifen Fumarate [Zaditor] 1 drop OP BID PRN 12/02/16 [History] Lactose-Reduced Food [Boost High Protein] 1 bottle PO BID 12/02/16 [History] Metoprolol XL (24 HR) Succ [Toprol Xl] 12.5 mg PO DAILY 12/02/16 [History] HYDROcodone/Acet 5/325 mg [[place] 5-325 mg] 1 tab PO Q6H PRN 3 Days #12 tab 10/27/17 [Rx] Cetirizine HCl [Zyrtec] 10 mg PO DAILY #30 tablet 02/18/18 [Rx] Acetaminophen [Tylenol Arthritis] 1,300 mg PO Q8H PRN 02/21/18 [History] Acetaminophen [Tylenol] 1,000 mg PO Q6HR PRN 02/21/18 [History] Celecoxib [Celebrex] 100 mg PO DAILY 02/21/18 [History] Cholecalciferol (D-3) [Vitamin D] 5,000 unit PO DAILY 02/21/18 [History] Diclofenac Sodium [Voltaren] 1 appl TP DAILY 02/21/18 [History] DiphenhydraMINE [Benadryl] 25 mg PO Q8HR PRN 02/21/18 [History] Diphenhydramine HCl [Nighttime Sleep Aid] 50 mg PO HS PRN 02/21/18 [History] Fluticasone Propionate Nasal [Flonase] 1 spray NS DAILY PRN 02/21/18 [History] Gluc/Juan C-MSM#1/C/Johnny/Cody/Bor [Osteo Bi-Flex Caplet] 2 tab PO DAILY 02/21/18 [History] Guaifenesin [Mucinex] 600 mg PO BID PRN 02/21/18 [History] Levothyroxine Sodium [Levoxyl] 125 mcg PO QAM 02/21/18 [History] Montelukast [Singulair] 10 mg PO DAILY 02/21/18 [History] Multivitamin/Folic Acid/Biotin [Hair, Skin and Nails Tablet] 3 tab PO DAILY 02/21/18 [History] Pregabalin [Lyrica] 50 mg PO BID 02/21/18 [History] Sodium Chloride [Saline Nasal Mist] 1 spray NS BID PRN 02/21/18 [History] Soy Isofla/Blk Coh[place]/Mag Bark [[place]ro[place] 155 mg Capsule] 155 mg PO DAILY 02/21/18 [History] Allergies/Adverse Reactions: Allergy/AdvReac Type Severity Reaction Status Date / Time codeine Allergy Swelling Verified 02/21/18 08:58 of Lip/Tongue/Throat Medroxyprogesterone Allergy Swelling Verified 02/21/18 08:58 [From Provera] of Lip/Tongue/Throat meloxicam [From Mobic] Allergy Rash Verified 02/21/18 08:58 Penicillins Allergy Rash Verified 02/21/18 08:58 Date of admission: 02/22/18 12:48 Primary care physician: Tracie Castelan CNP Consults: 02/23/18 07:46 Consult to Invasive Line Access Team [CONS] Routine Reason for Consult: Picc Line Insertion Line Type: EPIV PICC line indications: Limited vascular access 02/23/18 10:48 Consult to Invasive Line Access Team [CONS] Routine Reason for Consult: limited vascular access Line Type: EPIV - Constitutional Vitals: Temp Pulse Resp BP Pulse Ox 98.3 F 69 16 101/67 97 02/24/18 07:34 02/24/18 07:34 02/24/18 07:34 02/24/18 07:34 02/24/18 07:34 General appearance: Present: A&O X 3, pleasant, no acute distress, answers questions appropriately Exam: Gen: Alert, awake, Oriented to time,place and person Chest: Diminished breath sounds B/L, No wheezing, No crackles, No rales Heart: S1S2+ RRR No murmurs Abd: Soft, NT, BS +, No organomegaly Ext: No edema, pulses are palpable, No calf tenderness Neuro : Benign findings Skin: No rash. - Patient Status Disposition: Home, Self-Care Condition: Good Overall status at discharge: patient is back to baseline - Discharge Instructions Follow Up With: Romain Fabian MD [Partnered Physician] - 04/20/18 9:30 am Tracie Castelan CNP [Primary Care Provider] - 03/03/18 2:00 pm - Diet and Activity Activity: increase activity as tolerated Diet: low salt diet
[2018-02-24 11:52] VITALS: BP 127/64
== END 2018-02-24 12:49 | disposition home or self-care (01) | DRG 690 ==
LOC: EMEROOARM 08:54 → 3BNU 08:54 → SUATTDRO 11:22
PROVIDERS: ADMIT Internal Medicine; ATTEND Family Medicine

== ENCOUNTER 2018-10-29 04:05 | Inpatient (IN) ==
[2018-10-29] MEDS ORDERED: Ondansetron 4 MG/2 ML VIAL IVP ONE (04:37)
[2018-10-29] MEDS ORDERED: Morphine Sulfate 2 MG/ML SYRINGE IVP ONE ×2 (04:37→07:35)
[2018-10-29] MEDS ORDERED: Isovue-370 500 ML BOTTLE IVP ONE (04:40)
[2018-10-29 05:54] LABS: Basophils # 0.1 K/mcL (0.0-0.2); Basophils % 1.1 %; Eosinophils # 0.2 K/mcL (0.0-0.6); Eosinophils % 1.7 %; Hemoglobin 12.6 g/dL (11.5-15.4); Immature Granulocytes % 0.4 % (0-4); Lymphocytes % 25.1 %; Mean Corpuscular HGB Conc 30.7 g/dL (31.6-35.5); Mean Corpuscular Hemoglobin 27.9 pg (28.0-33.3); Mean Corpuscular Volume 90.9 fL (83.0-100.0); Mean Platelet Volume 10.8 fL (9.4-12.4); Monocytes # 1.3 K/mcL (0.0-1.3); Monocytes % 10.6 %; Neutrophils # 7.3 K/mcL (1.6-8.9); Platelet Count 311 K/mcL (140-400); Red Blood Count 4.51 M/mcL (3.82-4.97); Red Cell Distribution Width 17.3 % (11.5-14.5); Segmented Neutrophils % 61.1 %; White Blood Count 11.9 K/mcL (4.3-11.1)
[2018-10-29 06:06] LABS: Alanine Aminotransferase 13 Units/L (7-52); Albumin 3.9 g/dL (3.5-5.7); Albumin/Globulin Ratio 1.2 (1.1-2.2); Alkaline Phosphatase 81 Units/L (34-104); Aspartate Amino Transferase 21 Units/L (13-39); BUN/Creatinine Ratio 14 (6-26); Bilirubin,Total 0.4 mg/dL (0.3-1.0); Blood Urea Nitrogen 15 mg/dL (8-23); Carbon Dioxide 27 mEq/L (23-29); Chloride 105 mEq/L (98-107); Globulin 3.2 g/dL (2.4-3.5); Glucose 91 mg/dL (70-105); Osmolality,Calculated 290 (280-300); Potassium 3.9 mEq/L (3.5-5.1); Sodium 140 mEq/L (136-145); Total Protein 7.1 g/dL (6.4-8.9); eGFR For African Americans > 60 (> 60); eGFR For Non-African Americans 52 (> 60)
[2018-10-29 06:17] LABS: INR 0.9; Prothrombin Time 10.7 Seconds (9.4-12.1)
[2018-10-29 06:20] LABS: Activated Partial Thrombo Time 31.6 Seconds (26.0-36.0)
--- NOTE | 2018-10-29 07:05 | Emergency Department Note ---
Disposition Clinical Impression: Closed traumatic nondisplaced fracture of rib Ribs, multiple fractures Qualifiers: Encounter type: initial encounter Fracture type: closed Laterality: left Qualified Code(s): S22.42XA - Multiple fractures of ribs, left side, initial encounter for closed fracture Nasal bone fracture Qualifiers: Encounter type: initial encounter Fracture type: closed Qualified Code(s): S02.2XXA - Fracture of nasal bones, initial encounter for closed fracture Fall Qualifiers: Encounter type: initial encounter Qualified Code(s): W19.XXXA - Unspecified fall, initial encounter Contusion Qualifiers: Encounter type: initial encounter Contusion area: head Contusion of head detail: scalp Qualified Code(s): S00.03XA - Contusion of scalp, initial encounter Disposition: Still a Patient Condition: Fair Instructions: Fall Prevention for Older Adults (ED) Reasons to Return/Additional Instructions: Please return for worsening concerns or complaints. He uses an spirometer as directed but a minimum 10- 15 times per hour Pain medication as directed return for worse concerns or complaints. You decided that he did not want to be admitted or observed. Prescriptions: HYDROcodone/Acet 5/325 mg [[place] 5-325 mg] 1 tab PO Q4H PRN 3 Days #12 tab PRN Reason: Pain Prescription Printed Referrals: Tracie Castelan CNP [Primary Care Provider] - Forms: ED Satisfaction Letter Time of Disposition: 07:22 Fall HPI - General Chief Complaint: ED Fall Stated Complaint: SoB Time Seen by Provider: 10/29/18 04:27 Source: patient Mode of arrival: EMS Limitations: no limitations Nursing Notes Reviewed: Yes Vital Signs Reviewed: Yes - History of Present Illness HPI Narrative: 63-year-old female patient with a history of multiple falls presents after falling proximal nc 3 days prior on her face has multiple facial contusions with complaint of left-sided rib pain. Patient has been with a deep breath. Pain is 6-7 out of 10 Pt Subjective Complaint: fall Onset (ago): day(s) (3) Fall From: standing Fall Witnessed: no Place Fall Occurred: home Loss of Consciousness: none Prolonged Down Time?: no Symptoms Prior to Fall: none Context: tripped/slipped Location of injury: head, face Severity: moderate Severity scale (1-10): 5 Quality: sharp Associated symptoms (after fall): Denies: numbness, weakness, shortness of breath, abdominal pain, hematuria - Related Data Home Medications Medication Instructions Recorded Confirmed Citalopram [CeleXA] 20 mg PO DAILY 02/06/15 07/30/18 Fluticasone/Salmeterol [Advair 1 puff IH BID 07/07/16 07/30/18 500-50 Diskus] Omeprazole 20 mg PO DAILY 07/07/16 07/30/18 Ferrous Sulfate [Iron] 325 mg PO DAILY 09/16/16 07/30/18 Albuterol Sulfate [Proventil 2 puff IH Q4HR PRN 12/02/16 07/30/18 Inhaler] Buspirone HCl [Buspar] 20 mg PO BID 12/02/16 07/30/18 Docusate [Colace] 100 mg PO DAILY PRN 12/02/16 07/30/18 Ipratropium/Albuterol Neb [Duoneb] 3 ml IH QID PRN 12/02/16 07/30/18 Metoprolol XL (24 HR) Succ [Toprol 12.5 mg PO DAILY 12/02/16 07/30/18 Xl] Celecoxib [Celebrex] 100 mg PO DAILY 02/21/18 07/30/18 Cholecalciferol (D-3) [Vitamin D] 5,000 unit PO DAILY 02/21/18 07/30/18 Fluticasone Propionate Nasal 1 spray NS DAILY PRN 02/21/18 07/30/18 [Flonase] Gluc/Juan C-MSM#1/C/Johnny/Cody/Bor 2 tab PO DAILY 02/21/18 07/30/18 [Osteo Bi-Flex Caplet] Montelukast [Singulair] 10 mg PO DAILY 02/21/18 07/30/18 Multivitamin/Folic Acid/Biotin 3 tab PO DAILY 02/21/18 07/30/18 [Hair, Skin and Nails Tablet] Pregabalin [Lyrica] 50 mg PO BID 02/21/18 07/30/18 Levothyroxine Sodium [Euthyrox] 125 mcg PO DAILY 03/01/18 07/30/18 Loratadine [Claritin] 10 mg PO DAILY 03/01/18 07/30/18 Magnesium Oxide [Magnesium] 400 mg PO DAILY 03/01/18 07/30/18 Zoledronic Acid (Reclast) [Reclast 5 mg IV [id number] 03/01/18 07/30/18 Premix 5 MG/100 ML] Aspirin [Lo-Dose Aspirin EC] 81 mg PO DAILY 03/24/18 07/30/18 Previous Rx's Medication Instructions Recorded clonazePAM [Klonopin] 1 mg PO TID #21 tab 09/19/16 BuPROPion XL (24 HR) [Wellbutrin 300 mg PO QAM 09/29/16 Xl] Diclofenac Sodium [Voltaren] 1 appl TP BID #1 gel..gram. 07/20/18 Azithromycin [Azithromycin 6-Tab 250 mg PO PER PKG DI #6 tab 07/30/18 Pack] cephALEXin [Keflex] 500 mg PO BID #10 capsule 07/30/18 Nitrofurantoin (BID) [Macrobid] 100 mg PO BID #20 capsule 09/11/18 HYDROcodone/Acet 5/325 mg [[place] 1 tab PO Q4H PRN 3 Days #12 tab 10/29/18 5-325 mg] Allergies Allergy/AdvReac Type Severity Reaction Status Date / Time alendronate sodium Allergy Rash Verified 05/29/18 11:33 codeine Allergy Swelling Verified 05/29/18 11:33 of Lip/Tongue/Throat Medroxyprogesterone Allergy Swelling Verified 05/29/18 11:33 [From Provera] of Lip/Tongue/Throat meloxicam [From Mobic] Allergy Rash Verified 05/29/18 11:33 Penicillins Allergy Rash Verified 05/29/18 11:33 All systems ED: reviewed and negative except as stated. Constitutional: Denies: fever, chills, weakness, weight change Eyes: Denies: eye pain, eye discharge, vision change ENT ED: Denies: ear pain, throat pain, dental pain, hearing loss, epistaxis, congestion, dysphagia Cardiovascular: Denies: chest pain, palpitations, dyspnea on exertion, edema, syncope Respiratory: Denies: cough, dyspnea, wheezes, hemoptysis, stridor Gastrointestinal: Denies: abdominal pain, nausea, vomiting, diarrhea, constipation, hematemesis, melena, hematochezia Genitourinary: Denies: dysuria, frequency, hematuria, discharge Musculoskeletal: Reports: other (Rib pain). Denies: back pain, neck pain, arthralgia, myalgia Integumentary: Denies: rash, abrasion, lesions Neurological: Denies: headache, weakness, numbness, paresthesias, confusion, abnormal gait, vertigo Psychiatric: Denies: anxiety, depression, suicidal thoughts, homicidal thoughts, auditory hallucinations, visual hallucinations Endocrine: Denies: fatigue Hematological/Lymphatic: Denies: easy bleeding, easy bruising Fall PMH - Past Medical History Medical history: Reports: asthma, COPD Surgical history: Reports: cholecystectomy, orthopedic, other, JULIANNA/BSO, thyroidectomy Psychiatric history: Reports: anxiety, depression FREIGHT FORWARDER history: Reports: no FREIGHT FORWARDER history - Social History Smoking Status: Never smoker Alcohol use: Reports: none Drug use: Reports: none Physical Exam - General Limitations: no limitations General appearance: alert - Head Head exam: normocephalic, normal inspection, other (Facial contusion) - Eye Eye exam: Present: normal appearance, PERRL, EOMI - ENT ENT exam: normal exam, normal oropharynx, mucous membranes moist - Neck Neck exam: Present: normal inspection, full ROM, trachea midline - Chest Chest inspection: Present: normal inspection, symmetric chest wall rise, tenderness (Left sided ribs) - Respiratory Respiratory exam: Present: normal lung sounds bilaterally. Absent: respiratory distress, wheezes - Cardiovascular Cardiovascular exam: Present: regular rate, normal rhythm, normal heart sounds - Abdominal Exam Abdominal exam: Present: soft, Non-Tender, normal bowel sounds. Absent: tenderness, distention, guarding, rebound, rigidity - Extremities Exam Extremities exam: Present: normal inspection, full ROM. Absent: tenderness, pedal edema - Expanded Lower Extremity Exam Hip/Pelvis exam: Present: normal inspection, full ROM. Absent: tenderness, swelling Upper leg exam: Present: normal inspection, full ROM. Absent: tenderness, swelling Knee exam: Present: normal inspection, full ROM. Absent: tenderness, swelling Lower leg exam: Present: normal inspection, full ROM. Absent: tenderness, swelling Ankle exam: Present: normal inspection, full ROM. Absent: tenderness, swelling Foot/toe exam: Present: normal inspection, full ROM. Absent: tenderness, swelling Neurovascular/Tendon exam: Present: normal capillary refill. Absent: motor deficit, sensory deficit, tendon deficit - Back Exam Back exam: Present: normal inspection, full ROM. Absent: tenderness, CVA tenderness (R), CVA tenderness (L) - Neurological Exam Neurological exam: Present: alert, oriented X3, CN II-XII intact - Psychiatric Psychiatric exam: Present: normal affect, normal mood. Absent: depressed - Skin Skin exam: Present: warm, dry, intact, normal color Course Course Narrative: Patient was placed in exam room. H&P. Nurse notes reviewed. Patient did have a CT scan of her head and face as well cervical spine. No acute fracture dislocation were seen except for a nondisplaced fracture of the nasal bone. CT scan of chest and pelvis demonstrated multiple left-sided nondisplaced rib fractures ribs 4,5,6,7,8 and possibly 9. Vital Signs Temperature 98.5 F 10/29/18 04:12 Pulse Rate 73 10/29/18 04:12 Respiratory Rate 18 10/29/18 04:12 Blood Pressure 122/64 10/29/18 04:12 O2 Sat by Pulse Oximetry 98 10/29/18 04:12 Temperature 98.5 F 10/29/18 04:12 Pulse Rate 73 10/29/18 04:12 Respiratory Rate 18 10/29/18 04:12 Blood Pressure 122/64 10/29/18 04:12 O2 Sat by Pulse Oximetry 98 10/29/18 04:12 Oxygen Delivery Oxygen Delivery Room Air Fall - MDM Narrative Medical decision making narrative: I advised her that she could be admitted for further observation and treatment and possibly obtain a nerve block for pain control. I am going to re-medicate her. I am concerned about her going home alone however she states adamantly she does not want to stay. Patient will be to observe here in the emergency department mental health social worker will be consulted if necessary and Dr. Gil will reevaluate the situation. - Medical Records Medical records reviewed: Yes I reviewed the patient's medical records. - Lab Data Lab results reviewed: Yes I reviewed the patient's lab results. Result diagrams: 10/29/18 05:00 10/29/18 05:00 Lab Results 10/29/18 10/29/18 10/29/18 Range/Units 05:00 05:00 05:00 WBC 11.9 H (4.3-11.1) K/mcL RBC 4.51 (3.82-4.97) M/mcL Hgb 12.6 (11.5-15.4) g/dL Hct 41.0 (35.3-44.9) % MCV 90.9 (83.0-100.0) fL MCH 27.9 L (28.0-33.3) pg MCHC 30.7 L (31.6-35.5) g/dL RDW 17.3 H (11.5-14.5) % Plt Count 311 (140-400) K/mcL MPV 10.8 (9.4-12.4) fL Immature Gran % 0.4 (0-4) % Seg Neutrophils % 61.1 % Lymphocytes % 25.1 % Monocytes % 10.6 % Eosinophils % 1.7 % Basophils % 1.1 % Neutrophils # 7.3 (1.6-8.9) K/mcL Lymphocytes # 3.0 (0.6-4.6) K/mcL Monocytes # 1.3 (0.0-1.3) K/mcL Eosinophils # 0.2 (0.0-0.6) K/mcL Basophils # 0.1 (0.0-0.2) K/mcL PT 10.7 (9.4-12.1) Seconds INR 0.9 APTT 31.6 (26.0-36.0) Seconds Sodium 140 (136-145) mEq/L Potassium 3.9 (3.5-5.1) mEq/L Chloride 105 (98-107) mEq/L Carbon Dioxide 27 (23-29) mEq/L BUN 15 (8-23) mg/dL Creatinine 1.07 (0.60-1.20) mg/dL Est GFR ( Amer) > 60 (> 60) Est GFR (Non-Af Amer) 52 L (> 60) BUN/Creatinine Ratio 14 (6-26) Glucose 91 (70-105) mg/dL Calculated Osmolality 290 (280-300) Calcium 9.0 (8.6-10.3) mg/dL Total Bilirubin 0.4 (0.3-1.0) mg/dL AST 21 (13-39) Units/L ALT 13 (7-52) Units/L Alkaline Phosphatase 81 (34-104) Units/L Serum Total Protein 7.1 (6.4-8.9) g/dL Albumin 3.9 (3.5-5.7) g/dL Globulin 3.2 (2.4-3.5) g/dL Albumin/Globulin Ratio 1.2 (1.1-2.2) - Radiology Data Radiology results reviewed: Yes I reviewed the patient's radiology results. Chest X-Ray 10/29/18 06:00 IMPRESSION: Possible lower left rib fracture. Small left effusion. No pneumothorax. Mild interstitial prominence may reflect edema. D/ / Ren Simpson / Ren Simpson Interpreting Provider: Ren Simpson Head CT 10/29/18 06:01 IMPRESSION: Frontal scalp swelling. No underlying displaced calvarial fracture or acute intracranial abnormality. Acute on chronic paranasal sinusitis. Trace left mastoid effusion, presumably sterile. D/ / Ren Simpson / Ren Simpson Interpreting Provider: Ren Simpson Face CT 10/29/18 06:04 IMPRESSION: Nondisplaced left nasal bone fracture. Intact nasal septum. Forehead soft tissue swelling. D/ / Ren Simpson / Ren Simpson Interpreting Provider: Ren Simpson Cervical Spine CT 10/29/18 06:07 IMPRESSION: No acute fracture or subluxation. Status post C3-C7 anterior fusion with multilevel posterior laminectomies. No evidence of hardware complication. D/ / Ren Simpson / Ren Simpson Interpreting Provider: Ren Simpson Chest/Abdomen/Pelvis CTA 10/29/18 06:11 IMPRESSION: Nondisplaced left 5th-8th and possibly 9th rib fractures, unchanged. No underlying pneumothorax. Tiny left pleural effusion, new. Decreasing pulmonary opacities which may reflect resolving contusions and/or traumatic aspiration sequela. No evidence of an acute aortic syndrome. No evidence of solid organ injury or urinary bladder rupture. Nonobstructive left nephrolithiasis. D/ / Ren Simpson / Ren Simpson Interpreting Provider: Ren Simpson
[2018-10-29] MEDS ORDERED: *HR* HYDROcodone/Acet 5/325 mg TABLET PO ONE (07:59)
--- NOTE | 2018-10-29 08:02 | Emergency Department Note ---
Disposition Clinical Impression: Closed traumatic nondisplaced fracture of rib Ribs, multiple fractures Qualifiers: Encounter type: initial encounter Fracture type: closed Laterality: left Qualified Code(s): S22.42XA - Multiple fractures of ribs, left side, initial encounter for closed fracture Nasal bone fracture Qualifiers: Encounter type: initial encounter Fracture type: closed Qualified Code(s): S02.2XXA - Fracture of nasal bones, initial encounter for closed fracture Fall Qualifiers: Encounter type: initial encounter Qualified Code(s): W19.XXXA - Unspecified fall, initial encounter Contusion Qualifiers: Encounter type: initial encounter Contusion area: head Contusion of head detail: scalp Qualified Code(s): S00.03XA - Contusion of scalp, initial encounter Disposition: Admitted As Inpatient Condition: Fair Instructions: Fall Prevention for Older Adults (ED) Reasons to Return/Additional Instructions: Please return for worsening concerns or complaints. He uses an spirometer as directed but a minimum 10- 15 times per hour Pain medication as directed return for worse concerns or complaints. You decided that he did not want to be admitted or observed. Prescriptions: HYDROcodone/Acet 5/325 mg [Rice 5-325 mg] 1 tab PO Q4H PRN 3 Days #12 tab PRN Reason: Pain Prescription Printed Referrals: Tracie Castelan CNP [Primary Care Provider] - Forms: ED Satisfaction Letter Time of Disposition: 08:27 General Adult HPI - General Chief complaint: ED Fall Stated complaint: SoB Time Seen by Provider: 10/29/18 04:27 Source: patient Mode of arrival: EMS Limitations: no limitations Nursing Notes Reviewed: Yes Vital Signs Reviewed: Yes - History of Present Illness Pain Scale: 5 - Related Data Home Medications Medication Instructions Recorded Confirmed Citalopram [CeleXA] 20 mg PO DAILY 02/06/15 07/30/18 Fluticasone/Salmeterol [Advair 1 puff IH BID 07/07/16 07/30/18 500-50 Diskus] Omeprazole 20 mg PO DAILY 07/07/16 07/30/18 Ferrous Sulfate [Iron] 325 mg PO DAILY 09/16/16 07/30/18 Albuterol Sulfate [Proventil 2 puff IH Q4HR PRN 12/02/16 07/30/18 Inhaler] Buspirone HCl [Buspar] 20 mg PO BID 12/02/16 07/30/18 Docusate [Colace] 100 mg PO DAILY PRN 12/02/16 07/30/18 Ipratropium/Albuterol Neb [Duoneb] 3 ml IH QID PRN 12/02/16 07/30/18 Metoprolol XL (24 HR) Succ [Toprol 12.5 mg PO DAILY 12/02/16 07/30/18 Xl] Celecoxib [Celebrex] 100 mg PO DAILY 02/21/18 07/30/18 Cholecalciferol (D-3) [Vitamin D] 5,000 unit PO DAILY 02/21/18 07/30/18 Fluticasone Propionate Nasal 1 spray NS DAILY PRN 02/21/18 07/30/18 [Flonase] Gluc/Juan C-MSM#1/C/Johnny/Cody/Bor 2 tab PO DAILY 02/21/18 07/30/18 [Osteo Bi-Flex Caplet] Montelukast [Singulair] 10 mg PO DAILY 02/21/18 07/30/18 Multivitamin/Folic Acid/Biotin 3 tab PO DAILY 02/21/18 07/30/18 [Hair, Skin and Nails Tablet] Pregabalin [Lyrica] 50 mg PO BID 02/21/18 07/30/18 Levothyroxine Sodium [Euthyrox] 125 mcg PO DAILY 03/01/18 07/30/18 Loratadine [Claritin] 10 mg PO DAILY 03/01/18 07/30/18 Magnesium Oxide [Magnesium] 400 mg PO DAILY 03/01/18 07/30/18 Zoledronic Acid (Reclast) [Reclast 5 mg IV [id number] 03/01/18 07/30/18 Premix 5 MG/100 ML] Aspirin [Lo-Dose Aspirin EC] 81 mg PO DAILY 03/24/18 07/30/18 Previous Rx's Medication Instructions Recorded clonazePAM [Klonopin] 1 mg PO TID #21 tab 09/19/16 BuPROPion XL (24 HR) [Wellbutrin 300 mg PO QAM 09/29/16 Xl] Diclofenac Sodium [Voltaren] 1 appl TP BID #1 gel..gram. 07/20/18 Azithromycin [Azithromycin 6-Tab 250 mg PO PER PKG DI #6 tab 07/30/18 Pack] cephALEXin [Keflex] 500 mg PO BID #10 capsule 07/30/18 Nitrofurantoin (BID) [Macrobid] 100 mg PO BID #20 capsule 09/11/18 HYDROcodone/Acet 5/325 mg [Rice 1 tab PO Q4H PRN 3 Days #12 tab 10/29/18 5-325 mg] Allergies Allergy/AdvReac Type Severity Reaction Status Date / Time alendronate sodium Allergy Rash Verified 05/29/18 11:33 codeine Allergy Swelling Verified 05/29/18 11:33 of Lip/Tongue/Throat Medroxyprogesterone Allergy Swelling Verified 05/29/18 11:33 [From Provera] of Lip/Tongue/Throat meloxicam [From Mobic] Allergy Rash Verified 05/29/18 11:33 Penicillins Allergy Rash Verified 05/29/18 11:33 Constitutional: Denies: fever, chills, weakness, weight change Eyes: Denies: eye pain, eye discharge, vision change ENT ED: Denies: ear pain, throat pain, dental pain, hearing loss, epistaxis, congestion, dysphagia Cardiovascular: Denies: chest pain, palpitations, dyspnea on exertion, edema, syncope Respiratory: Denies: cough, dyspnea, wheezes, hemoptysis, stridor Gastrointestinal: Denies: abdominal pain, nausea, vomiting, diarrhea, constipation, hematemesis, melena, hematochezia Genitourinary: Denies: dysuria, frequency, hematuria, discharge Musculoskeletal: Reports: other (Rib pain). Denies: back pain, neck pain, a rthralgia, myalgia Integumentary: Denies: rash, abrasion, lesions Neurological: Denies: headache, weakness, numbness, paresthesias, confusion, abnormal gait, vertigo Psychiatric: Denies: anxiety, depression, suicidal thoughts, homicidal thoughts, auditory hallucinations, visual hallucinations Endocrine: Denies: fatigue Hematological/Lymphatic: Denies: easy bleeding, easy bruising Past Medical History - Past Medical History Medical history: Reports: asthma, COPD Surgical history: Reports: cholecystectomy, orthopedic, other, JULIANNA/BSO, thyroidectomy Psychiatric history: Reports: anxiety, depression 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 SUCCESS 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: 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: 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 - Social History Smoking Status: Never smoker Smokeless Tobacco Status: No Alcohol use: Reports: none Drug use: Reports: none Physical Exam - General Limitations: no limitations General appearance: alert Course Vital Signs Temperature 98.5 F 10/29/18 04:12 Pulse Rate 73 10/29/18 04:12 Respiratory Rate 18 10/29/18 04:12 Blood Pressure 122/64 10/29/18 04:12 O2 Sat by Pulse Oximetry 98 10/29/18 04:12 Temperature 98.5 F 10/29/18 04:12 Pulse Rate 73 10/29/18 04:12 Respiratory Rate 18 10/29/18 04:12 Blood Pressure 122/64 10/29/18 04:12 O2 Sat by Pulse Oximetry 98 10/29/18 04:12 Oxygen Delivery Oxygen Delivery Room Air Medical Decision Making - MDM Narrative Medical decision making narrative: Chest X-Ray 10/29/18 06:00 IMPRESSION: Possible lower left rib fracture. Small left effusion. No pneumothorax. Mild interstitial prominence may reflect edema. D/ / Ren Simpson / Ren Simpson Interpreting Provider: Ren Simpson Head CT 10/29/18 06:01 IMPRESSION: Frontal scalp swelling. No underlying displaced calvarial fracture or acute intracranial abnormality. Acute on chronic paranasal sinusitis. Trace left mastoid effusion, presumably sterile. D/ / Ren Simpson / Ren Simpson Interpreting Provider: Ren Simpson Face CT 10/29/18 06:04 IMPRESSION: Nondisplaced left nasal bone fracture. Intact nasal septum. Forehead soft tissue swelling. D/ / Ren Simpson / Ren Simpson Interpreting Provider: Ren Simpson Cervical Spine CT 10/29/18 06:07 IMPRESSION: No acute fracture or subluxation. Status post C3-C7 anterior fusion with multilevel posterior laminectomies. No evidence of hardware complication. D/ / Ren Simpson / Ren Simpson Interpreting Provider: Ren Simpson Chest/Abdomen/Pelvis CTA 10/29/18 06:11 IMPRESSION: Nondisplaced left 5th-8th and possibly 9th rib fractures, unchanged. No underlying pneumothorax. Tiny left pleural effusion, new. Decreasing pulmonary opacities which may reflect resolving contusions and/or traumatic aspiration sequela. No evidence of an acute aortic syndrome. No evidence of solid organ injury or urinary bladder rupture. Nonobstructive left nephrolithiasis. D/ / Ren Simpson / Ren Simpson Interpreting Provider: Ren Simpson 0800 hrs. waiting on hospitalist call back. 0815 hrs.: Spoke with hospitalist reviewed the case they have agreed to admit the patient to their service. I will also see if we get social worker involved for a consult as she may need that at home 2. She is in agreement this plan. - Lab Data Result diagrams: 10/29/18 05:00 10/29/18 05:00 Lab Results 10/29/18 10/29/18 10/29/18 Range/Units 05:00 05:00 05:00 WBC 11.9 H (4.3-11.1) K/mcL RBC 4.51 (3.82-4.97) M/mcL Hgb 12.6 (11.5-15.4) g/dL Hct 41.0 (35.3-44.9) % MCV 90.9 (83.0-100.0) fL MCH 27.9 L (28.0-33.3) pg MCHC 30.7 L (31.6-35.5) g/dL RDW 17.3 H (11.5-14.5) % Plt Count 311 (140-400) K/mcL MPV 10.8 (9.4-12.4) fL Immature Gran % 0.4 (0-4) % Seg Neutrophils % 61.1 % Lymphocytes % 25.1 % Monocytes % 10.6 % Eosinophils % 1.7 % Basophils % 1.1 % Neutrophils # 7.3 (1.6-8.9) K/mcL Lymphocytes # 3.0 (0.6-4.6) K/mcL Monocytes # 1.3 (0.0-1.3) K/mcL Eosinophils # 0.2 (0.0-0.6) K/mcL Basophils # 0.1 (0.0-0.2) K/mcL PT 10.7 (9.4-12.1) Seconds INR 0.9 APTT 31.6 (26.0-36.0) Seconds Sodium 140 (136-145) mEq/L Potassium 3.9 (3.5-5.1) mEq/L Chloride 105 (98-107) mEq/L Carbon Dioxide 27 (23-29) mEq/L BUN 15 (8-23) mg/dL Creatinine 1.07 (0.60-1.20) mg/dL Est GFR ( Amer) > 60 (> 60) Est GFR (Non-Af Amer) 52 L (> 60) BUN/Creatinine Ratio 14 (6-26) Glucose 91 (70-105) mg/dL Calculated Osmolality 290 (280-300) Calcium 9.0 (8.6-10.3) mg/dL Total Bilirubin 0.4 (0.3-1.0) mg/dL AST 21 (13-39) Units/L ALT 13 (7-52) Units/L Alkaline Phosphatase 81 (34-104) Units/L Serum Total Protein 7.1 (6.4-8.9) g/dL Albumin 3.9 (3.5-5.7) g/dL Globulin 3.2 (2.4-3.5) g/dL Albumin/Globulin Ratio 1.2 (1.1-2.2) Attestation Statement - Attestation Attestation: This documentation is done with the assistance of Dragon dictation. Despite efforts made to ensure accuracy, there may be inaccuracies in svp group director or spelling and typographical errors. Patient was a sign out of 700 hours patient had a fall 3 days ago. She had some facial trauma and some rib fractures. She really want to try to go home but she lives alone and it is difficult to control her pain here. She gets IV narcotics. With her fall risk also risk of having pneumonia since she is has difficulty with breathing for the rib fractures I think she needs come in the hospital. She is in agreement. She is current to call her ex-'s that he can come or help to care the house. Also social worker get involved when they arrive. I am Page hospitalist and admit her. She is in agreement with this plan.
[2018-10-29] MEDS ORDERED: Naloxone 0.4 MG/ML INJ IVP PRN (09:49)
--- NOTE | 2018-10-29 09:50 | Internal Med History&Physical ---
Date of Encounter: 10/29/18 Time of Encounter: 09:49 Internal Medicine - H&P: HPI Chief complaint: fall, intractable pain Admitted From: Home Plans for Post Hospital Care: Home History of present illness: Ms. Sarabia is a 63 year old female past medical history of osteoporosis and multiple orthopedic surgery, gastric bypass surgery, back surgery, hypothyroidism, diabetes, depression asthma was long-standing history of dizziness and fall came in 2 days after recent fall. She reported some dizziness before falling that she usually the case. She was told her heart rate was high before but except that no significant underlying cause were found for her dizziness she reported. She was walking about 15 minutes when she fell forward. Denies any loss of consciousness. Denies being on any blood thinner. Patient came to ER because of uncontrolled pain and difficulty with breathing. Denies any fevers chills nausea vomiting or diarrhea. Patient had workup done in ER which showed mild leukocytosis and multiple refracture nondisplaced on the left involving 50-8 and possibly ninth vertebra. Head CT without any fractures. Face CT with nondisplaced left nasal bone fracture and cervical CT without any acute fractures. Admission was requested for further pain management as her pain was not satisfactory control in ER. Patient does not know her home medications. Wants to be full code Past Med Surg Social Fam HX - Past Medical History Medical history: asthma, diabetes Additional medical history: anemia, oa, Psychiatric history: anxiety, depression - Past Surgical History Surgical History: cholecystectomy, orthopedic, other, JULIANNA/BSO, thyroidectomy Additional surgical history: gastric bypassx2, right total shoulder, left hu merous ORIF, Right rotator cuff repair, Right femur repair, Right total knee, right knee revision 03/01/18 - Social History Smoking Status: Never smoker Smokeless Tobacco Status: No Alcohol use: none Drug use: none - Family History Father Family Member Ethnicity: Non- Living Status: Hx Family Cardiac Disorders: Yes ([place], Stroke) Hx Family Respiratory Disorders: Yes Hx Family Cancer: Yes (Lung/Metastatic) Hx Family GI Disorders: No Hx Family Endocrine Disorder: Yes (DM) Hx Family Neuromuscular Disorders: No Hx Family Neurologic Disorders: No Hx Family HEENT Disorders: No Hx Family Autoimmune Disorders: No Mother Family Member Ethnicity: Non- Living Status: Hx Family Cardiac Disorders: Yes (CHF) Hx Family Respiratory Disorders: No Hx Family Cancer: No Hx Family GI Disorders: No Hx Family Endocrine Disorder: Yes (DM) Hx Family Neuromuscular Disorders: No Hx Family Neurologic Disorders: No Hx Family HEENT Disorders: No Hx Family Autoimmune Disorders: No Brother Family Member Ethnicity: Non- Living Status: Still Living Hx Family Cardiac Disorders: Yes (HD) Hx Family Endocrine Disorder: Yes (DM) Sister Family Member Ethnicity: Non- Living Status: Still Living Internal Medicine - H&P: Meds Citalopram [CeleXA] 20 mg PO DAILY 02/06/15 [History] Fluticasone/Salmeterol [Advair 500-50 Diskus] 1 puff IH BID 07/07/16 [History] Omeprazole 20 mg PO DAILY 07/07/16 [History] Ferrous Sulfate [Iron] 325 mg PO DAILY 09/16/16 [History] clonazePAM [Klonopin] 1 mg PO TID #21 tab 09/19/16 [Rx] BuPROPion XL (24 HR) [Wellbutrin Xl] 300 mg PO QAM 09/29/16 [Rx] Albuterol Sulfate [Proventil Inhaler] 2 puff IH Q4HR PRN 12/02/16 [History] Buspirone HCl [Buspar] 20 mg PO BID 12/02/16 [History] Docusate [Colace] 100 mg PO DAILY PRN 12/02/16 [History] Ipratropium/Albuterol Neb [Duoneb] 3 ml IH QID PRN 12/02/16 [History] Metoprolol XL (24 HR) Succ [Toprol Xl] 12.5 mg PO DAILY 12/02/16 [History] Celecoxib [Celebrex] 100 mg PO DAILY 02/21/18 [History] Cholecalciferol (D-3) [Vitamin D] 5,000 unit PO DAILY 02/21/18 [History] Fluticasone Propionate Nasal [Flonase] 1 spray NS DAILY PRN 02/21/18 [History] Gluc/Juan C-MSM#1/C/Johnny/Cody/Bor [Osteo Bi-Flex Caplet] 2 tab PO DAILY 02/21/18 [History] Montelukast [Singulair] 10 mg PO DAILY 02/21/18 [History] Multivitamin/Folic Acid/Biotin [Hair, Skin and Nails Tablet] 3 tab PO DAILY 02/21/18 [History] Pregabalin [Lyrica] 50 mg PO BID 02/21/18 [History] Levothyroxine Sodium [Euthyrox] 125 mcg PO DAILY 03/01/18 [History] Loratadine [Claritin] 10 mg PO DAILY 03/01/18 [History] Magnesium Oxide [Magnesium] 400 mg PO DAILY 03/01/18 [History] Zoledronic Acid (Reclast) [Reclast Premix 5 MG/100 ML] 5 mg IV [id number] 03/01/18 [History] Aspirin [Lo-Dose Aspirin EC] 81 mg PO DAILY 03/24/18 [History] Diclofenac Sodium [Voltaren] 1 appl TP BID #1 gel..gram. 07/20/18 [Rx] Azithromycin [Azithromycin 6-Tab Pack] 250 mg PO PER PKG DI #6 tab 07/30/18 [Rx] cephALEXin [Keflex] 500 mg PO BID #10 capsule 07/30/18 [Rx] Nitrofurantoin (BID) [Macrobid] 100 mg PO BID #20 capsule 09/11/18 [Rx] HYDROcodone/Acet 5/325 mg [Basye 5-325 mg] 1 tab PO Q4H PRN 3 Days #12 tab 10/29/18 [Rx] Allergy/AdvReac Type Severity Reaction Status Date / Time alendronate sodium Allergy Rash Verified 05/29/18 11:33 codeine Allergy Swelling Verified 05/29/18 11:33 of Lip/Tongue/Throat Medroxyprogesterone Allergy Swelling Verified 05/29/18 11:33 [From Provera] of Lip/Tongue/Throat meloxicam [From Mobic] Allergy Rash Verified 05/29/18 11:33 Penicillins Allergy Rash Verified 05/29/18 11:33 All Systems PM: A 10-system review of systems was performed and is negative for pertinent findings except as documented above in the HPI. - Constitutional Vitals: Temp Pulse Resp BP Pulse Ox 98.2 F 84 16 125/65 90 10/29/18 09:32 10/29/18 09:32 10/29/18 09:32 10/29/18 09:32 10/29/18 09:32 Exam: Constitutional: Vitals as noted. Conversant. No Apparent Distress. Eyes : Sclera white, conjunctiva clear, no lid lag, PEARLA. ENT : Grossly normal hearing. Oropharyngeal exam unremarkable. Moist mucus membranes. No JVD, no cervical lymphadenopathy. no thyromegaly or mass. Respiratory : Clear to auscultation bilaterally. No accessory muscle use, rales, rhonchi or wheezes Cardiovascular : RRR, +S1, +S2. no murmur, gallop, rubs. No chest wall ten derness GI/Abdominal : Soft, Non-tender, Non-distended, no peritoneal signs. no orgenomegaly or mass appreciated. no hernia. Musculoskeletal: no edema or cyanosis, pulses palpable and symmetrical in UE/LE. no calf tenderness, Lt sided chest tenderness on palpation. Neurological: AO X3, CN II-XII grossly intact, grossly normal motor and sensory exam. Skin: bruise on face, abrasion on both arm and Rt knee. Pych: anxious, AOx3. Internal Med - H&P Results - Labs CBC & Chem 7: 10/29/18 05:00 10/29/18 05:00 Labs: Short CBC 10/29/18 Range/Units 05:00 WBC 11.9 H (4.3-11.1) K/mcL Hgb 12.6 (11.5-15.4) g/dL Hct 41.0 (35.3-44.9) % Plt Count 311 (140-400) K/mcL Neutrophils # 7.3 (1.6-8.9) K/mcL BMP 10/29/18 05:00 Sodium 140 Potassium 3.9 Chloride 105 Carbon Dioxide 27 BUN 15 Creatinine 1.07 Glucose 91 Calcium 9.0 Liver Function 10/29/18 Range/Units 05:00 Total Bilirubin 0.4 (0.3-1.0) mg/dL AST 21 (13-39) Units/L ALT 13 (7-52) Units/L Alkaline Phosphatase 81 (34-104) Units/L Albumin 3.9 (3.5-5.7) g/dL - Impressions ITS Impressions Chest X-Ray 10/29/18 06:00 IMPRESSION: Possible lower left rib fracture. Small left effusion. No pneumothorax. Mild interstitial prominence may reflect edema. D/ / Ren Simpson / Ren Simpson Interpreting Provider: Ren Simpson Head CT 10/29/18 06:01 IMPRESSION: Frontal scalp swelling. No underlying displaced calvarial fracture or acute intracranial abnormality. Acute on chronic paranasal sinusitis. Trace left mastoid effusion, presumably sterile. D/ / Ren Simpson / Ren Simpson Interpreting Provider: Ren Simpson Face CT 10/29/18 06:04 IMPRESSION: Nondisplaced left nasal bone fracture. Intact nasal septum. Forehead soft tissue swelling. D/ / Ren Simpson / Ren Simpson Interpreting Provider: Ren Simpson Cervical Spine CT 10/29/18 06:07 IMPRESSION: No acute fracture or subluxation. Status post C3-C7 anterior fusion with multilevel posterior laminectomies. No evidence of hardware complication. D/ / Ren Simpson / Ren Simpson Interpreting Provider: Ren Simpson Chest/Abdomen/Pelvis CTA 10/29/18 06:11 IMPRESSION: Nondisplaced left 5th-8th and possibly 9th rib fractures, unchanged. No underlying pneumothorax. Tiny left pleural effusion, new. Decreasing pulmonary opacities which may reflect resolving contusions and/or traumatic aspiration sequela. No evidence of an acute aortic syndrome. No evidence of solid organ injury or urinary bladder rupture. Nonobstructive left nephrolithiasis. D/ / Ren Simpson / Ren Simpson Interpreting Provider: Ren Simpson - Assessment and Plan (1) Falls Current Visit: Yes Status: Acute Assessment and plan: Patient had a fall which does not appear completely mechanical. She reported some dizziness which has been ongoing for a long time. She uses cane or walker for walking usually. Patient had a Holter monitor which showed short runs of SVT consistent with paroxysmal atrial tachycardia. Possible cause of her falls. We will consult cardiology and keep patient on telemetry. Patient without any chest pain. No EKG on the chart. We will obtain an EKG. Reports of atrial fibrillation in the past as well in 2017. Patient with nondisplaced fractures of the rib on the left as well as nasal bone fracture. We will control patient's pain and a dermoid home pain regimen before discharge. We will keep patient on incentive spirometry to prevent any pneumonia. We will obtain PT and OT consultation. Qualifiers: Encounter type: initial encounter Qualified Code(s): W19.XXXA - Unspecified fall, initial encounter (2) Dizziness Current Visit: Yes Status: Acute Assessment and plan: As above (3) Closed traumatic nondisplaced fracture of rib Current Visit: Yes Status: Acute Assessment and plan: We will keep patient on pain control with oxycodone 5 every 4 and fentanyl for breakthrough pain and adjust her pain regimen depending on her needs. (4) Nasal bone fracture Current Visit: Yes Status: Acute Assessment and plan: No intervention needed. Control pain as above Qualifiers: Encounter type: initial encounter Fracture type: closed Qualified Code(s): S02.2XXA - Fracture of nasal bones, initial encounter for closed fracture (5) DVT prophylaxis Current Visit: No Status: Acute Assessment and plan: EPCD (6) Leukocytosis Current Visit: No Status: Acute Assessment and plan: Likely reactive from her fall No signs of infection. Hold off antibiotics. Qualifiers: Leukocytosis type: unspecified Qualified Code(s): D72.829 - Elevated white blood cell count, unspecified - Time Spent With Patient Total time spent is greater than 50% in coordination of care (as documented) at patient's floor/unit and/or counseling patient:
[2018-10-29] MEDS ORDERED: *HR* FentaNYL (PF) 100 MCG/2 ML VIAL IVP PRN (09:58)
--- NOTE | 2018-10-29 13:02 | Cardiology Consult Note ---
<Vince Sanford - Last Filed: 10/29/18 13:10> Date of Encounter: 10/29/18 Time of Encounter: 12:54 Assessment and Plan (1) Dizziness Current Visit: Yes Status: Acute Cardiology consulted for evaluation of dizziness with h/o atrial tachycardia. H/o atrial fibrillation seen in 2017. Last Holter monitor 09/2018 for dizziness evaluation notes no symptoms during recording. There was rare ectopy. Three runs SVT up to 13 beats long at 170 bpm seen. Note elevated HR on vitals, to be expected with pain from rib fractures. TTE 09/2018- EF 60%-65%, mild pulmonary HTN, mild aortic sclerosis without stenosis. Mild TR, mild AL. CUS was normal. Poly-pharmacy noted. Unclear if atrial tachycardia/ arrhythmias is causing dizziness. Will need further cardiac monitoring. Current telemetry being set up. Check EKG. Recommend 30 day m-cat at discharge. Out-pt f/u with cardiology will be coordinated. (2) Atrial fibrillation Current Visit: No Status: Acute Atrial fibrillation diagnosed in 2017 during hospital stay for PNA, UTI. Afib noted to be transient (less than 48hr). 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 Continue bb. Qualifiers: Atrial fibrillation type: unspecified Qualified Code(s): I48.91 - Unspec ified atrial fibrillation Discussion w patient/family: The assessment and plan as outlined above was discussed with the patient and/or family members who expressed understanding and agreement. All questions were answered. Thank you for involving us in the care of your patient. Please call with any questions. History of Present Illness Consult date: 10/29/18 Consult reason: dizziness, falls , history of atrial tachycardia Chief complaint: dizziness, fall History of present illness: Ms. Sarabia is a 63 year old female with past medical history of atrial fibrillation, DM type II now diet controlled, gastric bypass, osteoarthritis, frequents falls with dizziness, multiple fractures. She presents after falling on the side walk walking home from her significant others home. States that she was dizzy prior to the fall. Denies loss of conciousness. She is found to have multiple rib fractures and nasal bone fracture this admission. Reports h/o falls for years and multiple fractures and orthopedic surgeries. Recent work-up out-pt for dizziness including Holter, echo, and carotid US. Cardiology consulted for runs of atrial tachycardia seen on holter. Patient currently not on telemetry. Past Med Surg Social Fam HX - Past Medical History Medical history: asthma, atrial fibrillation, diabetes, osteoporosis Additional medical history: anemia, oa, Psychiatric history: anxiety, depression - Past Surgical History Surgical History: cholecystectomy, orthopedic, other, JULIANNA/BSO, thyroidectomy Additional surgical history: gastric bypassx2, right total shoulder, left hu merous ORIF, Right rotator cuff repair, Right femur repair, Right total knee, right knee revision 03/01/18 - Social History Smoking Status: Never smoker Smokeless Tobacco Status: No Alcohol use: none Drug use: none - Family History Father Family Member Ethnicity: Non- Living Status: Hx Family Cardiac Disorders: Yes ([place], Stroke) Hx Family Respiratory Disorders: Yes Hx Family Cancer: Yes (Lung/Metastatic) Hx Family GI Disorders: No Hx Family Endocrine Disorder: Yes (DM) Hx Family Neuromuscular Disorders: No Hx Family Neurologic Disorders: No Hx Family HEENT Disorders: No Hx Family Autoimmune Disorders: No Mother Family Member Ethnicity: Non- Living Status: Hx Family Cardiac Disorders: Yes (CHF) Hx Family Respiratory Disorders: No Hx Family Cancer: No Hx Family GI Disorders: No Hx Family Endocrine Disorder: Yes (DM) Hx Family Neuromuscular Disorders: No Hx Family Neurologic Disorders: No Hx Family HEENT Disorders: No Hx Family Autoimmune Disorders: No Brother Family Member Ethnicity: Non- Living Status: Still Living Hx Family Cardiac Disorders: Yes (HD) Hx Family Endocrine Disorder: Yes (DM) Sister Family Member Ethnicity: Non- Living Status: Still Living Medications and Allergies Citalopram [CeleXA] 20 mg PO DAILY 02/06/15 [History] Fluticasone/Salmeterol [Advair 500-50 Diskus] 1 puff IH BID 07/07/16 [History] Omeprazole 20 mg PO DAILY 07/07/16 [History] Ferrous Sulfate [Iron] 325 mg PO DAILY 09/16/16 [History] clonazePAM [Klonopin] 1 mg PO TID #21 tab 09/19/16 [Rx] BuPROPion XL (24 HR) [Wellbutrin Xl] 300 mg PO QAM 09/29/16 [Rx] Albuterol Sulfate [Proventil Inhaler] 2 puff IH Q4HR PRN 12/02/16 [History] Buspirone HCl [Buspar] 20 mg PO BID 12/02/16 [History] Docusate [Colace] 100 mg PO DAILY PRN 12/02/16 [History] Ipratropium/Albuterol Neb [Duoneb] 3 ml IH QID PRN 12/02/16 [History] Metoprolol XL (24 HR) Succ [Toprol Xl] 12.5 mg PO DAILY 12/02/16 [History] Celecoxib [Celebrex] 100 mg PO DAILY 02/21/18 [History] Cholecalciferol (D-3) [Vitamin D] 5,000 unit PO DAILY 02/21/18 [History] Fluticasone Propionate Nasal [Flonase] 1 spray NS DAILY PRN 02/21/18 [History] Gluc/Juan C-MSM#1/C/Johnny/Cody/Bor [Osteo Bi-Flex Caplet] 2 tab PO DAILY 02/21/18 [History] Montelukast [Singulair] 10 mg PO DAILY 02/21/18 [History] Multivitamin/Folic Acid/Biotin [Hair, Skin and Nails Tablet] 3 tab PO DAILY 02/21/18 [History] Pregabalin [Lyrica] 50 mg PO BID 02/21/18 [History] Levothyroxine Sodium [Euthyrox] 125 mcg PO DAILY 03/01/18 [History] Loratadine [Claritin] 10 mg PO DAILY 03/01/18 [History] Magnesium Oxide [Magnesium] 400 mg PO DAILY 03/01/18 [History] Zoledronic Acid (Reclast) [Reclast Premix 5 MG/100 ML] 5 mg IV [id number] 03/01/18 [History] Aspirin [Lo-Dose Aspirin EC] 81 mg PO DAILY 03/24/18 [History] Diclofenac Sodium [Voltaren] 1 appl TP BID #1 gel..gram. 07/20/18 [Rx] Azithromycin [Azithromycin 6-Tab Pack] 250 mg PO PER PKG DI #6 tab 07/30/18 [Rx] cephALEXin [Keflex] 500 mg PO BID #10 capsule 07/30/18 [Rx] Nitrofurantoin (BID) [Macrobid] 100 mg PO BID #20 capsule 09/11/18 [Rx] HYDROcodone/Acet 5/325 mg [[place] 5-325 mg] 1 tab PO Q4H PRN 3 Days #12 tab 10/29/18 [Rx] Allergy/AdvReac Type Severity Reaction Status Date / Time alendronate sodium Allergy Rash Verified 05/29/18 11:33 codeine Allergy Swelling Verified 05/29/18 11:33 of Lip/Tongue/Throat Medroxyprogesterone Allergy Swelling Verified 05/29/18 11:33 [From Provera] of Lip/Tongue/Throat meloxicam [From Mobic] Allergy Rash Verified 05/29/18 11:33 Penicillins Allergy Rash Verified 05/29/18 11:33 All Systems Review: The remainder of the systems were reviewed and are negative Physical Examination Vital Signs, Last 4 Hours Temp Pulse Resp BP Pulse Ox 10/29/18 11:32 112/66 10/29/18 10:50 98.7 F 87 16 103/66 91 10/29/18 09:32 98.2 F 84 16 125/65 90 General: Conversant, No Apparent Distress HEENT: Atraumatic, Normocephaly, Mucus Membranes Moist Neck: No JVD, Normal carotid pulses Cardiac: Reg Rate and Rhythm, Normal S1 and S2, No Murmur Lungs: Normal Breath Sounds, No Wheeze, Rales, Rhonchi Neuro: Alert and responsive, No focal deficits noted Abdomen: Soft, Non-Tender Skin: Other (multiple incision scars, multiple scabbed areas, ecchymosis on face. ) Musculoskeletal: No Chest Wall Tenderness Extremities: No Clubbing, No Cyanosis, No Edema, Normal Pulses Results 10/29/18 05:00 10/29/18 05:00 Lab Results 10/29/18 10/29/18 10/29/18 05:00 05:00 05:00 WBC 11.9 H Hgb 12.6 Hct 41.0 Plt Count 311 INR 0.9 APTT 31.6 Sodium 140 Potassium 3.9 Chloride 105 Carbon Dioxide 27 BUN 15 Creatinine 1.07 Glucose 91 Calcium 9.0 Total Bilirubin 0.4 AST 21 ALT 13 Alkaline Phosphatase 81 - Imaging and Cardiology Echo: report reviewed Holter: report reviewed Consult Discharge Plan - Plan Referrals: Tracie Castelan, SLACKLINE OPERATOR [Primary Care Provider] - (Appointment has been requested. Office will call with date and time of appointment. ) <Maycol Presley - Last Filed: 10/29/18 16:00> Date of Encounter: 10/29/18 - Attending Attestation I have personally performed a face to face evaluation on this patient. I have reviewed and agree with the care plan. History and Exam by me shows: Syncope of uncertain etiology. Brief PAT noted on previous holter, doubt this is cause of syncope. To complete workup for syncope should really have longer term monitoring, suggested loop recorder. She was more interested in an event monitor which we will order at discharge. Assessment and Plan Discussion w patient/family: The assessment and plan as outlined above was discussed with the patient and/or family members who expressed understanding and agreement. All questions were answered. Thank you for involving us in the care of your patient. Please call with any questions. History of Present Illness History of present illness: Ms. Sarabia is a 63 year old female All Systems Review: The remainder of the systems were reviewed and are negative Physical Examination Vital Signs, Last 4 Hours Temp Pulse Pulse Pulse Pulse Resp BP 10/29/18 14:29 98.2 F 85 16 135/83 10/29/18 14:28 85 81 84 BP BP BP Pulse Ox 10/29/18 14:29 92 10/29/18 14:28 135/83 137/82 115/73 Results 10/29/18 05:00 10/29/18 05:00 Lab Results 10/29/18 10/29/18 10/29/18 05:00 05:00 05:00 WBC 11.9 H Hgb 12.6 Hct 41.0 Plt Count 311 INR 0.9 APTT 31.6 Sodium 140 Potassium 3.9 Chloride 105 Carbon Dioxide 27 BUN 15 Creatinine 1.07 Glucose 91 Calcium 9.0 Total Bilirubin 0.4 AST 21 ALT 13 Alkaline Phosphatase 81
[2018-10-29] MEDS: Metoprolol XL (24 HR) Succ 25 MG TAB.ER.24H PO SCH (15:41)
[2018-10-29] MEDS: Melatonin 3 MG TABLET PO PRN (22:44)
[2018-10-30] MEDS ORDERED: Acetaminophen 325 MG TABLET PO PRN (00:34)
[2018-10-30] MEDS ORDERED: Ketorolac 15 MG/ML VIAL IVP ONE (00:37)
[2018-10-30] MEDS: Metoprolol XL (24 HR) Succ 25 MG TAB.ER.24H PO SCH (09:26)
--- NOTE | 2018-10-30 09:28 | Internal Med Progress Note ---
Hospitalist Progress Note - Encounter Date of Encounter: 10/30/18 Time of Encounter: 09:26 - Subjective Interval History: Ms. Sarabia is a 63 year old female past medical history of osteoporosis and multiple orthopedic surgery, gastric bypass surgery, back surgery, hypothyroidism, diabetes, depression asthma with long-standing history of dizziness and fall came in 2 days after recent fall. She reported some dizziness before falling. She was told her heart rate was high before but except that no significant underlying cause were found for her dizziness she reported. She was walking about 15 minutes when she fell forward. Denies any loss of consciousness. Denies being on any blood thinner. Patient came to ER because of uncontrolled pain and difficulty with breathing. Denies any fevers chills nausea vomiting or diarrhea. Patient had workup done in ER which showed mild leukocytosis and multiple refracture nondisplaced on the left involving 5th-8th ribs and possibly ninth vertebra. Head CT without any fractures. Face CT with nondisplaced left nasal bone fracture and cervical CT without any acute fractures. Admission was requested for further pain management as her pain was not satisfactory control in ER. EKG upon arrival showed atrial tachycardia ( read by machine). Cardiology was consulted. - Exam Vitals: Temp Pulse Resp BP Pulse Ox 97.7 F 117 17 110/67 91 10/30/18 07:33 10/30/18 07:33 10/30/18 07:33 10/30/18 07:33 10/30/18 07:33 Exam: Constitutional: Vitals as noted. Conversant. No Apparent Distress. Eyes : Sclera white, conjunctiva clear, no lid lag, PEARLA. ENT : Grossly normal hearing. Oropharyngeal exam unremarkable. Moist mucus membranes. No JVD, no cervical lymphadenopathy. no thyromegaly or mass. Respiratory : Clear to auscultation bilaterally. No accessory muscle use, rales, rhonchi or wheezes Cardiovascular : RRR, +S1, +S2. no murmur, gallop, rubs. No chest wall tenderness GI/Abdominal : Soft, Non-tender, Non-distended, no peritoneal signs. no orgenomegaly or mass appreciated. no hernia. Musculoskeletal: no edema or cyanosis, pulses palpable and symmetrical in UE/LE. no calf tenderness, Lt sided chest tenderness on palpation. Neurological: AO X3, CN II-XII grossly intact, grossly normal motor and sensory exam. Skin: bruise on face, abrasion on both arm and Rt knee. Pych: anxious, AOx3. - Assessment and Plan (1) Falls Current Visit: Yes Status: Acute Assessment and Plan: 10/29 Patient had a fall which does not appear completely mechanical. She reported some dizziness which has been ongoing for a long time. She uses cane or walker for walking usually. Patient had a Holter monitor which showed short runs of SVT consistent with paroxysmal atrial tachycardia. Possible cause of her falls. We will consult cardiology and keep patient on telemetry. Patient without any chest pain. No EKG on the chart. We will obtain an EKG. Reports of atrial fibrillation in the past as well in 2017. Patient with nondisplaced fractures of the rib on the left as well as nasal bone fracture. We will control patient's pain and a dermoid home pain regimen before discharge. We will keep patient on incentive spirometry to prevent any pneumonia. We will obtain PT and OT consultation. 10/30 Continue pain control, fall precaution. PT/OT recommended HH. (2) Dizziness Current Visit: Yes Status: Acute Assessment and Plan: The etiolgy was still elusive. ECHO 03/2018 showed LVEF 60-65%, mild LVDD, mild OS, TR, and PHTN. Carotid doppler unremarkable. Holter 09/2018 showed short runs of atrial tachycardia with HR about 170-190. EKG upon arrival showed atrial tachycardia with HR about 110 (machine reading). Overnight tele showed one episode of SVT( 4454-9742, 10/29/2018) lasted about one hour, initiated by one PAC, likely AVNRT or AVRT ( pt on metoprolol, could cause slow rate SVT), junctional tachycardia less likely. Pt was sleeping at that time per patient. Unclear the episode of SVT is directly related to fall or just a incidental finding. may consider increase dose of BB. Cardiology following appreciate help. (3) Closed traumatic nondisplaced fracture of rib Current Visit: Yes Status: Acute Assessment and Plan: pain control with oxycodone 5 every 4 and fentanyl for breakthrough pain Adjust her pain regimen depending on her needs. (4) Nasal bone fracture Current Visit: Yes Status: Acute Assessment and Plan: No intervention needed. Control pain as above (5) DVT prophylaxis Current Visit: No Status: Acute Assessment and Plan: EPCD (6) Leukocytosis Current Visit: No Status: Acute Assessment and Plan: Likely reactive from her fall No signs of infection. Hold off antibiotics. - Time Spent with Patient Total time spent is greater than 50% in coordination of care (as documented) at patient's floor/unit and/or counseling patient: Greater than 35 minutes Plan of Care Discussed with: patient Internal Medicine: Result - Labs CBC & Chem 7: 10/29/18 05:00 10/29/18 05:00 - ABG Interpretation ABG results: PT/INR, D-dimer PT 10.7 Seconds (9.4-12.1) 10/29/18 05:00 Consult Discharge Plan - Plan Referrals: Tracie Castelan, SAP HANA ARCHITECT [Primary Care Provider] - (Appointment has been requested. Office will call with date and time of appointment. ) (1) Falls Qualifiers: Encounter type: initial encounter Qualified Code(s): W19.XXXA - Unspecified fall, initial encounter (4) Nasal bone fracture Qualifiers: Encounter type: initial encounter Fracture type: closed Qualified Code(s): S02.2XXA - Fracture of nasal bones, initial encounter for closed fracture (6) Leukocytosis Qualifiers: Leukocytosis type: unspecified Qualified Code(s): D72.829 - Elevated white blood cell count, unspecified
[2018-10-30] MEDS: Melatonin 3 MG TABLET PO PRN (20:41)
[2018-10-31 00:52] LABS: Basophils # 0.1 K/mcL (0.0-0.2); Basophils % 0.9 %; Eosinophils # 0.6 K/mcL (0.0-0.6); Eosinophils % 5.8 %; Hematocrit 37.5 % (35.3-44.9); Hemoglobin 12.1 g/dL (11.5-15.4); Immature Granulocytes % 0.3 % (0-4); Lymphocytes # 2.1 K/mcL (0.6-4.6); Lymphocytes % 20.8 %; Mean Corpuscular HGB Conc 32.3 g/dL (31.6-35.5); Mean Corpuscular Hemoglobin 28.1 pg (28.0-33.3); Mean Corpuscular Volume 87.2 fL (83.0-100.0); Mean Platelet Volume 10.8 fL (9.4-12.4); Monocytes # 1.1 K/mcL (0.0-1.3); Monocytes % 10.3 %; Neutrophils # 6.3 K/mcL (1.6-8.9); Platelet Count 235 K/mcL (140-400); Red Cell Distribution Width 16.5 % (11.5-14.5); Segmented Neutrophils % 61.9 %; White Blood Count 10.2 K/mcL (4.3-11.1)
[2018-10-31 01:11] LABS: BUN/Creatinine Ratio 17 (6-26); Blood Urea Nitrogen 15 mg/dL (8-23); Calcium 8.1 mg/dL (8.6-10.3); Carbon Dioxide 23 mEq/L (23-29); Chloride 101 mEq/L (98-107); Glucose 80 mg/dL (70-105); Osmolality,Calculated 280 (280-300); Potassium 3.9 mEq/L (3.5-5.1); Sodium 135 mEq/L (136-145); eGFR For African Americans > 60 (> 60); eGFR For Non-African Americans > 60 (> 60)
[2018-10-31] MEDS: Metoprolol XL (24 HR) Succ 25 MG TAB.ER.24H PO SCH (08:30)
--- NOTE | 2018-10-31 10:58 | Internal Med Progress Note ---
Hospitalist Progress Note - Encounter Date of Encounter: 10/31/18 Time of Encounter: 10:55 - Subjective Interval History: Ms. Sarabia is a 63 year old female past medical history of osteoporosis and multiple orthopedic surgery, gastric bypass surgery, back surgery, hypothyroidism, diabetes, depression asthma with long-standing history of dizziness and fall came in 2 days after recent fall. She reported some dizziness before falling. She was told her heart rate was high before but except that no significant underlying cause were found for her dizziness she reported. She was walking about 15 minutes when she fell forward. Denies any loss of consciousness. Denies being on any blood thinner. Patient came to ER because of uncontrolled pain and difficulty with breathing. Denies any fevers chills nausea vomiting or diarrhea. Patient had workup done in ER which showed mild leukocytosis and multiple refracture nondisplaced on the left involving 5th-8th ribs and possibly ninth vertebra. Head CT without any fractures. Face CT with nondisplaced left nasal bone fracture and cervical CT without any acute fractures. Admission was requested for further pain management as her pain was not satisfactory control in ER. EKG upon arrival showed atrial tachycardia ( read by machine). Cardiology was consulted. Pt seen and examined in the room. denies dizziness overnight. - Exam Vitals: Temp Pulse Resp BP Pulse Ox 98.0 F 77 15 120/67 96 10/31/18 07:18 10/31/18 07:18 10/31/18 07:18 10/31/18 07:18 10/31/18 08:33 Exam: Constitutional: Vitals as noted. Conversant. No Apparent Distress. Eyes : Sclera white, conjunctiva clear, no lid lag, PEARLA. ENT : Grossly normal hearing. Oropharyngeal exam unremarkable. Moist mucus membranes. No JVD, no cervical lymphadenopathy. no thyromegaly or mass. Respiratory : Clear to auscultation bilaterally. No accessory muscle use, rales, rhonchi or wheezes Cardiovascular : RRR, +S1, +S2. no murmur, gallop, rubs. No chest wall tenderness GI/Abdominal : Soft, Non-tender, Non-distended, no peritoneal signs. no orgenomegaly or mass appreciated. no hernia. Musculoskeletal: no edema or cyanosis, pulses palpable and symmetrical in UE/LE. no calf tenderness, Lt sided chest tenderness on palpation. Neurological: AO X3, CN II-XII grossly intact, grossly normal motor and sensory exam. Skin: bruise on face, abrasion on both arm and Rt knee. Pych: anxious, AOx3. - Assessment and Plan (1) Falls Current Visit: Yes Status: Acute Assessment and Plan: 10/29 Patient had a fall which does not appear completely mechanical. She reported some dizziness which has been ongoing for a long time. She uses cane or walker for walking usually. Patient had a Holter monitor which showed short runs of SVT consistent with paroxysmal atrial tachycardia. Possible cause of her falls. We will consult cardiology and keep patient on telemetry. Patient without any chest pain. No EKG on the chart. We will obtain an EKG. Reports of atrial fibrillation in the past as well in 2017. Patient with nondisplaced fractures of the rib on the left as well as nasal bone fracture. We will control patient's pain and a dermoid home pain regimen before discharge. We will keep patient on incentive spirometry to prevent any pneumonia. We will obtain PT and OT consultation. 10/30-10/31 Continue pain control, fall precaution. PT/OT recommended HH. (2) Dizziness Current Visit: Yes Status: Acute Assessment and Plan: The etiolgy was still elusive. ECHO 03/2018 showed LVEF 60-65%, mild LVDD, mild OS, TR, and PHTN. Carotid doppler unremarkable. Holter 09/2018 showed short runs of atrial tachycardia with HR about 170-190. EKG upon arrival showed atrial tachycardia with HR about 110 (machine reading). Overnight tele showed one episode of SVT( [id number], 10/29/2018) lasted about one hour, initiated by one PAC, likely AVNRT or AVRT ( pt on metoprolol, could cause slow rate SVT), junctional tachycardia less likely. Pt was sleeping at that time per patient. Unclear the episode of SVT is directly related to fall or just a incidental finding. may consider increase dose of BB. Cardiology following appreciate help. 10/31 another episode of SVT with HR 110 was noted this morning at [id number]. Informa tion communicated with cardiology. continue monitoring. (3) Closed traumatic nondisplaced fracture of rib Current Visit: Yes Status: Acute Assessment and Plan: pain control with oxycodone 5 every 4h. Adjust her pain regimen depending on her needs. (4) Nasal bone fracture Current Visit: Yes Status: Acute Assessment and Plan: No intervention needed. Control pain as above (5) DVT prophylaxis Current Visit: No Status: Acute Assessment and Plan: EPCD (6) Leukocytosis Current Visit: No Status: Resolved DVT Prophylaxis: SCDs - Time Spent with Patient Total time spent is greater than 50% in coordination of care (as documented) at patient's floor/unit and/or counseling patient: Greater than 35 minutes Plan of Care Discussed with: patient Internal Medicine: Result - Labs CBC & Chem 7: 10/31/18 00:32 10/31/18 00:32 Labs: Short CBC 10/31/18 Range/Units 00:32 WBC 10.2 (4.3-11.1) K/mcL Hgb 12.1 (11.5-15.4) g/dL Hct 37.5 (35.3-44.9) % Plt Count 235 (140-400) K/mcL Neutrophils # 6.3 (1.6-8.9) K/mcL BMP 10/31/18 00:32 Sodium 135 L Potassium 3.9 Chloride 101 Carbon Dioxide 23 BUN 15 Creatinine 0.87 Glucose 80 Calcium 8.1 L - ABG Interpretation ABG results: PT/INR, D-dimer PT 10.7 Seconds (9.4-12.1) 10/29/18 05:00 Consult Discharge Plan - Plan Referrals: Tracie Castelan, SALES CONTRACTOR [Primary Care Provider] - (Appointment has been requested. Office will call with date and time of appointment. ) (1) Falls Qualifiers: Encounter type: initial encounter Qualified Code(s): W19.XXXA - Unspecified fall, initial encounter (4) Nasal bone fracture Qualifiers: Encounter type: initial encounter Fracture type: closed Qualified Code(s): S02.2XXA - Fracture of nasal bones, initial encounter for closed fracture (6) Leukocytosis Qualifiers: Leukocytosis type: unspecified Qualified Code(s): D72.829 - Elevated white blood cell count, unspecified
--- NOTE | 2018-10-31 11:15 | Event Note ---
Date of Encounter: 10/31/18 Time of Encounter: 10:00 - Cardiology Event Note Telemetry reviewed; few episodes PACs noted--no significant arrhythmias noted. Please refer to consult note for full recommendations. Do not suspect PACs are etiology of symptoms. 4 week event monitor recommended upon discharge, order placed. Can consider ILR in the outpatient setting of nothing seem on MCAT. No further inpt recommendations.
[2018-10-31] MEDS: Melatonin 3 MG TABLET PO PRN (21:05)
[2018-11-01 05:16] LABS: Mean Corpuscular HGB Conc 31.4 g/dL (31.6-35.5); Mean Corpuscular Hemoglobin 27.3 pg (28.0-33.3); Mean Corpuscular Volume 87.1 fL (83.0-100.0); Mean Platelet Volume 11.2 fL (9.4-12.4); Platelet Count 273 K/mcL (140-400); Red Blood Count 5.05 M/mcL (3.82-4.97); Red Cell Distribution Width 16.6 % (11.5-14.5)
[2018-11-01 05:29] LABS: BUN/Creatinine Ratio 16 (6-26); Blood Urea Nitrogen 14 mg/dL (8-23); Calcium 8.8 mg/dL (8.6-10.3); Carbon Dioxide 23 mEq/L (23-29); Chloride 98 mEq/L (98-107); Glucose 85 mg/dL (70-105); Osmolality,Calculated 278 (280-300); Sodium 134 mEq/L (136-145); eGFR For African Americans > 60 (> 60); eGFR For Non-African Americans > 60 (> 60)
[2018-11-01 05:31] LABS: Hemoglobin 13.8 g/dL (11.5-15.4)
--- NOTE | 2018-11-01 09:11 | Electrocardiograph Report ---
[place] [id number] Test Date: 2018-10-29 Pat Name: Fanta Sarabia Department: 113 Room: 3B Gender: F Biological Aide: Tate tovar : 1955 Requested By: Vince Sanford Order Number: [id number] Reading MD: Alvarado Garrison Measurements Intervals Harper Rate: 81 P: 54 VA: 166 QRS: 29 QRSD: 96 T: 15 QT: 354 QTc: 391 Interpretive Statements SINUS RHYTHM Electronically Signed On 11-01-2018 8:58:51 EDT by Alvarado Garrison
[2018-11-01] MEDS: Metoprolol XL (24 HR) Succ 25 MG TAB.ER.24H PO SCH ×2 (09:13→13:50)
--- NOTE | 2018-11-01 12:54 | Internal Med Progress Note ---
Hospitalist Progress Note - Encounter Date of Encounter: 11/01/18 Time of Encounter: 12:52 - Subjective Interval History: Ms. Sarabia is a 63 year old female past medical history of osteoporosis and multiple orthopedic surgery, gastric bypass surgery, back surgery, hypothyroidism, diabetes, depression asthma with long-standing history of dizziness and fall came in 2 days after recent fall. She reported some dizziness before falling. She was told her heart rate was high before but except that no significant underlying cause were found for her dizziness she reported. She was walking about 15 minutes when she fell forward. Denies any loss of consciousness. Denies being on any blood thinner. Patient came to ER because of uncontrolled pain and difficulty with breathing. Denies any fevers chills nausea vomiting or diarrhea. Patient had workup done in ER which showed mild leukocytosis and multiple refracture nondisplaced on the left involving 5th-8th ribs and possibly ninth vertebra. Head CT without any fractures. Face CT with nondisplaced left nasal bone fracture and cervical CT without any acute fractures. Admission was requested for further pain management as her pain was not satisfactory control in ER. EKG upon arrival showed atrial tachycardia ( read by machine). Cardiology was consulted. Pt seen and examined in the room. denies dizziness overnight. - Exam Vitals: Temp Pulse Resp BP Pulse Ox 98.1 F 78 15 126/86 95 11/01/18 11:05 11/01/18 11:05 11/01/18 11:05 11/01/18 11:05 11/01/18 11:05 Exam: Constitutional: Vitals as noted. Conversant. No Apparent Distress. Eyes : Sclera white, conjunctiva clear, no lid lag, PEARLA. ENT : Grossly normal hearing. Oropharyngeal exam unremarkable. Moist mucus membranes. No JVD, no cervical lymphadenopathy. no thyromegaly or mass. Respiratory : Clear to auscultation bilaterally. No accessory muscle use, rales, rhonchi or wheezes Cardiovascular : RRR, +S1, +S2. no murmur, gallop, rubs. No chest wall tenderness GI/Abdominal : Soft, Non-tender, Non-distended, no peritoneal signs. no orgenomegaly or mass appreciated. no hernia. Musculoskeletal: no edema or cyanosis, pulses palpable and symmetrical in UE/LE. no calf tenderness, Lt sided chest tenderness on palpation. Neurological: AO X3, CN II-XII grossly intact, grossly normal motor and sensory exam. Skin: bruise on face, abrasion on both arm and Rt knee. Pych: anxious, AOx3. - Assessment and Plan (1) Falls Current Visit: Yes Status: Acute Assessment and Plan: 10/29 Patient had a fall which does not appear completely mechanical. She reported some dizziness which has been ongoing for a long time. She uses cane or walker for walking usually. Patient had a Holter monitor which showed short runs of SVT consistent with paroxysmal atrial tachycardia. Possible cause of her falls. We will consult cardiology and keep patient on telemetry. Patient without any chest pain. No EKG on the chart. We will obtain an EKG. Reports of atrial fibrillation in the past as well in 2017. Patient with nondisplaced fractures of the rib on the left as well as nasal bone fracture. We will control patient's pain and a dermoid home pain regimen before discharge. We will keep patient on incentive spirometry to prevent any pneumonia. We will obtain PT and OT consultation. 10/30-10/31 Continue pain control, fall precaution. PT/OT recommended HH. 11/01 Metoprolol increased to 25 mg daily. Monitoring overnight, may dc in am if stable. (2) Dizziness Current Visit: Yes Status: Acute Assessment and Plan: The etiolgy was still elusive. ECHO 03/2018 showed LVEF 60-65%, mild LVDD, mild OS, TR, and PHTN. Carotid doppler unremarkable. Holter 09/2018 showed short runs of atrial tachycardia with HR about 170-190. EKG upon arrival showed atrial tachycardia with HR about 110 (machine reading). Overnight tele showed one episode of SVT( [id number], 10/29/2018) lasted about one hour, initiated by one PAC, likely AVNRT or AVRT ( pt on metoprolol, could cause slow rate SVT), junctional tachycardia less likely. Pt was sleeping at that time per patient. Unclear the episode of SVT is directly related to fall or just a incidental finding. may consider increase dose of BB. Cardiology following appreciate help. 10/31 another episode of SVT with HR 110 was noted this morning at [id number]. Information communicated with cardiology. continue monitoring. 11/01 Cardiology stated that the fall and dizziness has nothing to do with the SVT. Dose of metoprolol increased. Will monitor overnight, may dc in am if stable. (3) Closed traumatic nondisplaced fracture of rib Current Visit: Yes Status: Acute Assessment and Plan: pain control with oxycodone 5 every 4h. Adjust her pain regimen depending on her needs. (4) Nasal bone fracture Current Visit: Yes Status: Acute Assessment and Plan: No intervention needed. Control pain as above (5) DVT prophylaxis Current Visit: No Status: Acute Assessment and Plan: EPCD (6) Leukocytosis Current Visit: No Status: Resolved - Time Spent with Patient Total time spent is greater than 50% in coordination of care (as documented) at patient's floor/unit and/or counseling patient: Greater than 35 minutes Plan of Care Discussed with: patient Internal Medicine: Result - Labs CBC & Chem 7: 11/01/18 03:40 11/01/18 03:40 Labs: Short CBC 11/01/18 Range/Units 03:40 WBC 10.0 (4.3-11.1) K/mcL Hgb 13.8 D (11.5-15.4) g/dL Hct 44.0 (35.3-44.9) % Plt Count 273 (140-400) K/mcL BMP 11/01/18 03:40 Sodium 134 L Potassium 4.0 Chloride 98 Carbon Dioxide 23 BUN 14 Creatinine 0.88 Glucose 85 Calcium 8.8 - ABG Interpretation ABG results: PT/INR, D-dimer PT 10.7 Seconds (9.4-12.1) 10/29/18 05:00 Consult Discharge Plan - Plan Referrals: Tracie Castelan, DISCOUNT CLERK [Primary Care Provider] - (Appointment has been requested. Office will call with date and time of appointment. ) (1) Falls Qualifiers: Encounter type: initial encounter Qualified Code(s): W19.XXXA - Unspecified fall, initial encounter (4) Nasal bone fracture Qualifiers: Encounter type: initial encounter Fracture type: closed Qualified Code(s): S02.2XXA - Fracture of nasal bones, initial encounter for closed fracture (6) Leukocytosis Qualifiers: Leukocytosis type: unspecified Qualified Code(s): D72.829 - Elevated white blood cell count, unspecified
[2018-11-01] MEDS: Melatonin 3 MG TABLET PO PRN (20:12)
[2018-11-02] MEDS: Metoprolol XL (24 HR) Succ 25 MG TAB.ER.24H PO SCH (07:15)
[2018-11-02 07:19] LABS: Basophils # 0.1 K/mcL (0.0-0.2); Basophils % 0.8 %; Eosinophils # 0.3 K/mcL (0.0-0.6); Eosinophils % 2.9 %; Hemoglobin 13.8 g/dL (11.5-15.4); Immature Granulocytes % 0.3 % (0-4); Lymphocytes # 1.9 K/mcL (0.6-4.6); Lymphocytes % 16.9 %; Mean Corpuscular HGB Conc 32.9 g/dL (31.6-35.5); Mean Corpuscular Volume 85.4 fL (83.0-100.0); Mean Platelet Volume 11.4 fL (9.4-12.4); Monocytes # 1.1 K/mcL (0.0-1.3); Monocytes % 9.6 %; Neutrophils # 7.8 K/mcL (1.6-8.9); Platelet Count 283 K/mcL (140-400); Red Blood Count 4.92 M/mcL (3.82-4.97); Red Cell Distribution Width 15.9 % (11.5-14.5); Segmented Neutrophils % 69.5 %; White Blood Count 11.2 K/mcL (4.3-11.1)
[2018-11-02 07:37] LABS: BUN/Creatinine Ratio 14 (6-26); Blood Urea Nitrogen 12 mg/dL (8-23); Calcium 9.4 mg/dL (8.6-10.3); Carbon Dioxide 24 mEq/L (23-29); Chloride 100 mEq/L (98-107); Glucose 127 mg/dL (70-105); Osmolality,Calculated 281 (280-300); Potassium 3.8 mEq/L (3.5-5.1); Sodium 135 mEq/L (136-145); eGFR For African Americans > 60 (> 60); eGFR For Non-African Americans > 60 (> 60)
[2018-11-02 08:03] VITALS: BP 128/74
[2018-11-02] MEDS ORDERED: Haloperidol Lactate 5 MG/ML VIAL IM ONE (09:12)
[2018-11-02] MEDS ORDERED: Multivit/Ca/Min/Fe/FA 1 TAB TABLET PO SCH (09:15)
[2018-11-02] MEDS ORDERED: Magnesium Oxide 400 MG TABLET PO SCH (09:15)
[2018-11-02] MEDS ORDERED: Cholecalciferol (D-3) 1,000 UNIT (25MCG) TABLET PO SCH (09:15)
[2018-11-02] MEDS ORDERED: Pregabalin 50 MG CAPSULE PO SCH (09:15)
[2018-11-02] MEDS ORDERED: Celecoxib 100 MG CAPSULE PO SCH (09:15)
[2018-11-02] MEDS ORDERED: Loratadine 10 MG TABLET PO SCH (09:15)
[2018-11-02] MEDS ORDERED: Budesonide/Formoterol 160/4.5 1 PUFF INH IH SCH (10:00)
[2018-11-02] MEDS ORDERED: BuPROPion XL (24 HR) 150 MG TABLET PO SCH (10:00)
--- NOTE | 2018-11-02 10:38 | Physician Discharge Referral ---
Home Health/Hosp Referral Info Transfer to: Home Health Provider in Charge Post Discharge: PCP - Diagnosis (1) Falls Priority: Primary Status: Acute (2) Dizziness Priority: Primary Status: Acute (3) Closed traumatic nondisplaced fracture of rib Priority: Primary Status: Acute (4) Nasal bone fracture Priority: Primary Status: Acute (5) DVT prophylaxis Priority: Primary Status: Acute (6) Leukocytosis Priority: Primary Status: Acute - Respiratory Orders Smoking Cessation: Smoking cessation has been advised. For more information, call the [place] Tobacco Quit Line at 6-154-KJOA-NOW. - Services Needed Following services are medically necessary services: Nursing, Home Health Aide, Physical Therapy, Occupational Therapy - Transfer Medications Home Medications: Citalopram [CeleXA] 20 mg PO DAILY 02/06/15 [History] Fluticasone/Salmeterol [Advair 500-50 Diskus] 1 puff IH BID 07/07/16 [History] Omeprazole 20 mg PO DAILY 07/07/16 [History] Ferrous Sulfate [Iron] 325 mg PO DAILY 09/16/16 [History] Albuterol Sulfate [Proventil Inhaler] 2 puff IH Q4HR PRN 12/02/16 [History] Buspirone HCl [Buspar] 20 mg PO BID 12/02/16 [History] Metoprolol XL (24 HR) Succ [Toprol Xl] 12.5 mg PO DAILY 12/02/16 [History] Celecoxib [Celebrex] 100 mg PO DAILY 02/21/18 [History] Cholecalciferol (D-3) [Vitamin D] 5,000 unit PO DAILY 02/21/18 [History] Montelukast [Singulair] 10 mg PO DAILY 02/21/18 [History] Pregabalin [Lyrica] 50 mg PO BID 02/21/18 [History] Levothyroxine Sodium [Euthyrox] 125 mcg PO DAILY 03/01/18 [History] Magnesium Oxide [Magnesium] 400 mg PO DAILY 03/01/18 [History] Zoledronic Acid (Reclast) [Reclast Premix 5 MG/100 ML] 5 mg IV [id number] 03/01/18 [History] Aspirin [Lo-Dose Aspirin EC] 81 mg PO DAILY 03/24/18 [History] Bupropion HCl [Wellbutrin Xl] 300 mg PO DAILY 10/30/18 [History] Cetirizine HCl [Zyrtec] 10 mg PO DAILY 10/30/18 [History] HydrOXYzine [Atarax] 10 - 20 mg PO TID PRN 10/30/18 [History] MethylPREDNISolone [MethylPREDNISolone Dose Pack] 4 mg PO PER PKG DI 10/30/18 [History] Multivitamin [Daily Multiple Vitamin] 1 tab PO DAILY 10/30/18 [History] Allergies/Adverse Reactions: Allergy/AdvReac Type Severity Reaction Status Date / Time alendronate sodium Allergy Rash Verified 05/29/18 11:33 codeine Allergy Swelling Verified 05/29/18 11:33 of Lip/Tongue/Throat Medroxyprogesterone Allergy Swelling Verified 05/29/18 11:33 [From Provera] of Lip/Tongue/Throat meloxicam [From Mobic] Allergy Rash Verified 05/29/18 11:33 Penicillins Allergy Rash Verified 05/29/18 11:33 Certification: Further, I certify that my clinical findings support that this patient is homebound (i.e. absences from home require considerable and taxing effort and are for medical reasons or temple services or infrequently or short duration when for other reasons) because: Homebound Reason: Patient requires assistance of a person or device to safely leave home Attestation: My signature below is to certify that this patient is under my care and that I, or nurse practitioner, or a physician's management assistant working with me, has a [id number] encounter with this patient.
--- NOTE | 2018-11-02 10:41 | Discharge Summary ---
- NOTES TO OUTPATIENT PROVIDER Notes to Outpatient Provider: f/u with PCP within a week. f/u with cardiology within a month. Date of Encounter: 11/02/18 Time of Encounter: 10:39 - Discharge Diagnosis (1) Falls Priority: Primary Status: Acute Assessment and Plan: 10/29 Patient had a fall which does not appear completely mechanical. She reported some dizziness which has been ongoing for a long time. She uses cane or walker for walking usually. Patient had a Holter monitor which showed short runs of SVT consistent with paroxysmal atrial tachycardia. Possible cause of her falls. We will consult cardiology and keep patient on telemetry. Patient without any chest pain. No EKG on the chart. We will obtain an EKG. Reports of atrial fibrillation in the past as well in 2017. Patient with nondisplaced fractures of the rib on the left as well as nasal bone fracture. We will control patient's pain and a dermoid home pain regimen before discharge. We will keep patient on incentive spirometry to prevent any pneumonia. We will obtain PT and OT consultation. 10/30-10/31 Continue pain control, fall precaution. PT/OT recommended HH. 11/01 Metoprolol increased to 25 mg daily. Monitoring overnight, may dc in am if stable. Qualifiers: Encounter type: initial encounter Qualified Code(s): W19.XXXA - Unspecified fall, initial encounter (2) Dizziness Priority: Primary Status: Acute Assessment and Plan: The etiolgy was still elusive. ECHO 03/2018 showed LVEF 60-65%, mild LVDD, mild OS, TR, and PHTN. Carotid doppler unremarkable. Holter 09/2018 showed short runs of atrial tachycardia with HR about 170-190. EKG upon arrival showed atrial tachycardia with HR about 110 (machine reading). Overnight tele showed one episode of SVT( [id number], 10/29/2018) lasted about one hour, initiated by one PAC, likely AVNRT or AVRT ( pt on metoprolol, could cause slow rate SVT), junctional tachycardia less likely. Pt was sleeping at that time per patient. Unclear the episode of SVT is directly related to fall or just a incidental finding. may consider increase dose of BB. Cardiology following appreciate help. 10/31 another episode of SVT with HR 110 was noted this morning at [id number]. Information communicated with cardiology. continue monitoring. 11/01 Cardiology stated that the fall and dizziness has nothing to do with the SVT. Dose of metoprolol increased. Will monitor overnight, may dc in am if stable. (3) Closed traumatic nondisplaced fracture of rib Priority: Primary Status: Acute Assessment and Plan: pain control with oxycodone 5 every 4h. Adjust her pain regimen depending on her needs. (4) Nasal bone fracture Priority: Primary Status: Acute Qualifiers: Encounter type: initial encounter Fracture type: closed Qualified Code(s): S02.2XXA - Fracture of nasal bones, initial encounter for closed fracture (5) DVT prophylaxis Priority: Primary Status: Acute (6) Leukocytosis Priority: Primary Status: Acute Qualifiers: Leukocytosis type: unspecified Qualified Code(s): D72.829 - Elevated white blood cell count, unspecified (7) Paroxysmal SVT (supraventricular tachycardia) Priority: Primary Status: Acute Assessment and Plan: Tele showed multiple paroxysmal SVT lasted between 10-45 mins with HR 110-120. Cardiology stated this has nothing to do her syncope and fall. Dose of metoprolol was increased. Hospital course: Ms. Sarabia is a 63 year old female past medical history of osteoporosis and multiple orthopedic surgery, gastric bypass surgery, back surgery, hypothyroidism, diabetes, depression, asthma, with long-standing history of dizziness and fall came in 2 days after recent fall. She reported some dizziness before falling. She was told her heart rate was high before but except that no significant underlying cause were found for her dizziness she reported. She was walking about 15 minutes when she fell forward. Denies any loss of consciousness. Denies being on any blood thinner. Patient came to ER because of uncontrolled pain and difficulty with breathing. Denies any fevers chills nausea vomiting or diarrhea. Patient had workup done in ER which showed mild leukocytosis and multiple rib fracture non-displaced on the left involving 5th-8th ribs and possibly ninth vertebra. Head CT without any fractures. Face CT with non-displaced left nasal bone fracture and cervical CT without any acute fractures. Admission was requested for further pain management as her pain was not satisfactory control in ER. EKG upon arrival showed atrial tachycardia ( read by machine). Cardiology was consulted. Pt recently had a Holter monitor which showed short run of SVT and paroxysmal atrial tachycardia. She was on metoprolol. After admission, she was placed on tele which revealed multiple paroxysmal SVT with HR 110-120, cardiology made aware and advised SVT has nothing do with syncope and fall, A event monitor was ordered. Dose of metoprolol was increased, pt tolerated well, BP stable. PT/OT recommended home health. Pt is discharged home, pain med prescribed, f/u with PCP and cardiology as scheduled. Discharge discussed with: patient Time spent discussing smoking cessation with patient: more than 10 minutes - Time Spent with Patient Total time spent providing and/or coordinating discharge services: Time spent: Greater than 30 minutes - Discharge Medications Prescriptions: New Oxycodone HCl/Acetaminophen [Percocet 5-325 mg Tablet] 1 each PO Q6H 4 Days #16 tablet Metoprolol XL (24 HR) Succ [Toprol Xl] 25 mg PO DAILY #30 tab.er.24h Continued Citalopram [CeleXA] 20 mg PO DAILY Omeprazole 20 mg PO DAILY Fluticasone/Salmeterol [Advair 500-50 Diskus] 1 puff IH BID Ferrous Sulfate [Iron] 325 mg PO DAILY Buspirone HCl [Buspar] 20 mg PO BID Albuterol Sulfate [Proventil Inhaler] 2 puff IH Q4HR PRN PRN Reason: Shortness Of Breath Celecoxib [Celebrex] 100 mg PO DAILY Cholecalciferol (D-3) [Vitamin D] 5,000 unit PO DAILY Pregabalin [Lyrica] 50 mg PO BID Montelukast [Singulair] 10 mg PO DAILY Magnesium Oxide [Magnesium] 400 mg PO DAILY Zoledronic Acid (Reclast) [Reclast Premix 5 MG/100 ML] 5 mg IV [id number] Levothyroxine Sodium [Euthyrox] 125 mcg PO DAILY Aspirin [Lo-Dose Aspirin EC] 81 mg PO DAILY Bupropion HCl [Wellbutrin Xl] 300 mg PO DAILY Cetirizine HCl [Zyrtec] 10 mg PO DAILY HydrOXYzine [Atarax] 10 - 20 mg PO TID PRN PRN Reason: Anxiety Multivitamin [Daily Multiple Vitamin] 1 tab PO DAILY MethylPREDNISolone [MethylPREDNISolone Dose Pack] 4 mg PO PER PKG DI Discontinued Metoprolol XL (24 HR) Succ [Toprol Xl] 12.5 mg PO DAILY Home Medications: Citalopram [CeleXA] 20 mg PO DAILY 12/29/15 [History] Fluticasone/Salmeterol [Advair 500-50 Diskus] 1 puff IH BID 07/07/16 [History] Omeprazole 20 mg PO DAILY 07/07/16 [History] Ferrous Sulfate [Iron] 325 mg PO DAILY 09/16/16 [History] Albuterol Sulfate [Proventil Inhaler] 2 puff IH Q4HR PRN 12/02/16 [History] Buspirone HCl [Buspar] 20 mg PO BID 12/02/16 [History] Celecoxib [Celebrex] 100 mg PO DAILY 02/21/18 [History] Cholecalciferol (D-3) [Vitamin D] 5,000 unit PO DAILY 02/21/18 [History] Montelukast [Singulair] 10 mg PO DAILY 02/21/18 [History] Pregabalin [Lyrica] 50 mg PO BID 02/21/18 [History] Levothyroxine Sodium [Euthyrox] 125 mcg PO DAILY 03/01/18 [History] Magnesium Oxide [Magnesium] 400 mg PO DAILY 03/01/18 [History] Zoledronic Acid (Reclast) [Reclast Premix 5 MG/100 ML] 5 mg IV [id number] 03/01/18 [History] Aspirin [Lo-Dose Aspirin EC] 81 mg PO DAILY 03/24/18 [History] Bupropion HCl [Wellbutrin Xl] 300 mg PO DAILY 10/30/18 [History] Cetirizine HCl [Zyrtec] 10 mg PO DAILY 10/30/18 [History] HydrOXYzine [Atarax] 10 - 20 mg PO TID PRN 10/30/18 [History] MethylPREDNISolone [MethylPREDNISolone Dose Pack] 4 mg PO PER PKG DI 10/30/18 [History] Multivitamin [Daily Multiple Vitamin] 1 tab PO DAILY 10/30/18 [History] Metoprolol XL (24 HR) Succ [Toprol Xl] 25 mg PO DAILY #30 tab.er.24h 11/02/18 [Rx] Oxycodone HCl/Acetaminophen [Percocet 5-325 mg Tablet] 1 each PO Q6H 4 Days #16 tablet 11/02/18 [Rx] Allergies/Adverse Reactions: Allergy/AdvReac Type Severity Reaction Status Date / Time alendronate sodium Allergy Rash Verified 05/29/18 11:33 codeine Allergy Swelling Verified 05/29/18 11:33 of Lip/Tongue/Throat Medroxyprogesterone Allergy Swelling Verified 05/29/18 11:33 [From Provera] of Lip/Tongue/Throat meloxicam [From Mobic] Allergy Rash Verified 05/29/18 11:33 Penicillins Allergy Rash Verified 05/29/18 11:33 Date of admission: 10/31/18 16:33 Primary care physician: Tracie Castelan CNP Consults: 10/29/18 09:50 Consult to Fly Winder [CONS] Routine Reason for SW Consult: discharge planning 10/29/18 09:51 Consult to Occupational Therapy [CONS] Routine Comment: Evaluate, develop and implement POC Reason for Consult: improve mobility, discharge planning Does patient have active BEDREST order?: No Is patient medically & hemodynamically stable?: Yes Consult to Physical Therapy [CONS] Routine Comment: Evaluate, develop and implement POC Reason for Consult: improve mobility, discharge planning Does patient have active BEDREST order?: No Is patient medically & hemodynamically stable?: Yes 10/29/18 10:22 Consult to Cardiology [CONS] Routine Comment: Consulting Provider: Cardiology Jannette Reason for Consult: dizziness, atrial tachycardia Call Completed: Yes Anticipated date of discharge: 11/02/18 - Constitutional Vitals: Temp Pulse Resp BP Pulse Ox 98.2 F 87 17 128/74 92 11/02/18 07:56 11/02/18 07:56 11/02/18 07:56 11/02/18 08:02 11/02/18 07:56 General appearance: Present: A&O X 3 Exam: PHYSICAL EXAMINATION: GENERAL APPEARANCE: The patient is alert, oriented and in no acute distress. HEENT: Head is normocephalic. The sinuses are nontender. Pupils are equal and reactive. The nares are patent. Oropharynx clear without lesions. NECK: Supple without lymphadenopathy. HEART: Regular rate and rhythm. LUNGS: No crackles or wheezes are heard. ABDOMEN: Soft, nontender, nondistended with good bowel sounds heard. Inguinal area is normal. EXTREMITIES: Without cyanosis, clubbing or edema. NEUROLOGICAL: Gross nonfocal. SKIN: Warm and dry without any rash. - Patient Status Disposition: Home Health Service Condition: Fair Functional capacity at discharge: independent ambulation Overall status at discharge: patient is progressing back to baseline - Discharge Instructions Follow Up With: Tracie Castelan CNP [Primary Care Provider] - (Appointment has been requested. Office will call with date and time of appointment. ) - Diet and Activity Activity: increase activity as tolerated Diet: advance to your usual diet
[2018-11-03] MEDS ORDERED: Aspirin Enteric Coated 81 MG Tablet PO SCH (09:00)
== END 2018-11-02 11:51 | disposition home health service (06) | DRG 184 ==
LOC: 3BNU 04:05 → EMEROOARM 04:05 → 3BNU 09:41
PROVIDERS: ADMIT Internal Medicine; ATTEND Internal Medicine

== ENCOUNTER 2020-11-13 11:30 | Observation (INO) ==
[2020-11-13] MEDS ORDERED: 0.9 % Sodium Chloride 500 ML IVC ONE (12:10)
[2020-11-13 12:48] LABS: Hematocrit 32.1 % (35.3-44.9); Hemoglobin 10.4 g/dL (11.5-15.4); Mean Corpuscular HGB Conc 32.4 g/dL (31.6-35.5); Mean Corpuscular Hemoglobin 28.3 pg (28.0-33.3); Mean Corpuscular Volume 87.5 fL (83.0-100.0); Mean Platelet Volume 12.3 fL (9.4-12.4); Platelet Count 191 K/mcL (140-400); Red Blood Count 3.67 M/mcL (3.82-4.97); Red Cell Distribution Width 16.4 % (11.5-14.5); White Blood Count 20.9 K/mcL (4.3-11.1)
[2020-11-13 13:13] LABS: Troponin I 0.07 ng/mL (< 0.04)
[2020-11-13 13:13] LABS: Influenza A PCR Negative (Negative); Influenza B PCR Negative (Negative); Resp. Syncytial Virus PCR Negative (Negative); SARS-CoV-2 by PCR (In House) Negative (Negative)
[2020-11-13 13:14] LABS: Albumin 3.7 g/dL (3.5-5.7); Albumin/Globulin Ratio 1.1 (1.1-2.2); Bilirubin,Direct 0.1 mg/dL (0.0-0.2); Bilirubin,Indirect 0.6 mg/dL (0.0-1.0); Bilirubin,Total 0.7 mg/dL (0.3-1.0); Calcium 9.7 mg/dL (8.6-10.3); Globulin 3.5 g/dL (2.4-3.5); Potassium 4.2 mEq/L (3.5-5.1); Total Protein 7.2 g/dL (6.4-8.9)
[2020-11-13 13:30] LABS: ABG Base Excess 2 mEq/L (-2 to 3); ABG HCO3 26 mEq/L (21-27); ABG Oxygen Saturation 86 % (95-98); ABG PCO2 39 mmHg (35-45); ABG PH 7.44 pH Units (7.32-7.45); ABG PO2 49 mmHg (85-104); ABG TCO2 28 mEq/L (20-26)
[2020-11-13 13:42] LABS: Anisocytosis 1+ (Not Present); Lymphocytes # 1.9 K/mcL (0.6-4.6); Monocytes # 0.2 K/mcL (0.0-1.3); Neutrophils # 17.8 K/mcL (1.6-8.9); Platelet Estimate Normal (Normal); Toxic Granulation Present (Not Present)
[2020-11-13 13:43] LABS: Toxic Vacuolation Present (Not Present)
[2020-11-13] MEDS ORDERED: Acetaminophen 325 MG TABLET PO ONE (13:51)
[2020-11-13] MEDS ORDERED: methylPREDNISolone 125 MG/2 ML VIAL IVP ONE (13:52)
[2020-11-13 13:54] LABS: INR 2.7; Prothrombin Time 30.3 Seconds (9.4-12.1)
[2020-11-13 13:57] LABS: Activated Partial Thrombo Time 36.2 Seconds (26.0-36.0)
[2020-11-13 14:03] LABS: Bacteria,Urine Few per hpf (None-Few); Bilirubin,Urine Negative (Negative); Blood,Urine Small (Negative); Clarity,Urine Clear (Clear); Color,Urine Yellow (Yellow); Glucose,Urine (UA) Normal (Normal); Hyaline Casts,Urine Moderate per lpf (None Seen); Ketones,Urine Negative (Negative); Leukocyte Esterase,Urine Small (Negative); Mucus,Urine Few per lpf (None-Few); Nitrite,Urine Negative (Negative); PH,Urine 5.5 pH Units (5.0-8.0); Protein,Urine 70 mg/dL (Neg-Trace); RBC,Urine 15-30 per hpf (0-3); Renal Epithelial Cells,Urine Few per hpf (None-Few); Specific Gravity,Urine > 1.030 (1.010-1.025); Transitional Epi Cells,Urine Few per hpf (None-Few); Urobilinogen,Urine Normal (Normal)
[2020-11-13] MEDS ORDERED: Isovue-370 500 ML BOTTLE IVP ONE (14:13)
[2020-11-13] MEDS ORDERED: cefTRIAXone 1,000 MG in Water for inj. (sterile) 10 ML IVP ONE (15:53)
[2020-11-13] MEDS ORDERED: Morphine Sulfate 2 MG/ML SYRINGE IVP PRN (15:54)
[2020-11-13] MEDS ORDERED: Naloxone 0.4 MG/ML INJ IVP PRN (16:52)
[2020-11-13] MEDS ORDERED: Melatonin 3 MG TABLET PO PRN (16:52)
[2020-11-13] MEDS ORDERED: Perflutren Lipid Microsphere 1.3 ML in 0.9 % Sodium Chloride 8.7 ML IVP PRN (17:52)
[2020-11-13] MEDS ORDERED: 0.9 % Sodium Chloride 1,000 ML IVC SCH (18:15)
[2020-11-13] MEDS ORDERED: Morphine Sulfate 2 MG/ML SYRINGE IVP ONE (20:08)
[2020-11-13] MEDS: Apixaban 5 MG TABLET PO SCH (20:27)
[2020-11-13] MEDS ORDERED: *HR* OxyCODONE Immed Rel 5 MG TABLET PO PRN (22:02)
[2020-11-13] MEDS: Levalbuterol Neb 1.25 MG/3 ML IH SCH (23:13)
[2020-11-14 01:14] LABS: Basophils % 0.2 %; Hematocrit 30.5 % (35.3-44.9); Immature Granulocytes % 3.1 % (0-4); Lymphocytes # 0.9 K/mcL (0.6-4.6); Lymphocytes % 4.6 %; Mean Corpuscular HGB Conc 32.8 g/dL (31.6-35.5); Mean Corpuscular Hemoglobin 28.2 pg (28.0-33.3); Mean Corpuscular Volume 86.2 fL (83.0-100.0); Mean Platelet Volume 11.9 fL (9.4-12.4); Monocytes # 0.6 K/mcL (0.0-1.3); Neutrophils # 17.4 K/mcL (1.6-8.9); Platelet Count 169 K/mcL (140-400); Red Blood Count 3.54 M/mcL (3.82-4.97); Red Cell Distribution Width 16.4 % (11.5-14.5); Segmented Neutrophils % 89.1 %; White Blood Count 19.5 K/mcL (4.3-11.1)
[2020-11-14 01:34] LABS: BUN/Creatinine Ratio 22 (6-26); Blood Urea Nitrogen 24 mg/dL (8-23); Carbon Dioxide 23 mEq/L (23-29); Chloride 97 mEq/L (98-107); Glucose 220 mg/dL (70-105); Osmolality,Calculated 279 (280-300); Potassium 4.3 mEq/L (3.5-5.1); Sodium 129 mEq/L (136-145); eGFR For African Americans > 60 (> 60); eGFR For Non-African Americans 50 (> 60)
[2020-11-14 02:01] LABS: Estimated Average Glucose 131 mg/dl; Hemoglobin A1C 6.2 %
[2020-11-14] MEDS: Levalbuterol Neb 1.25 MG/3 ML IH SCH ×4 (03:45→20:19)
[2020-11-14] MEDS ORDERED: Regadenoson 0.4 MG/5 ML SYRINGE IVP ONE (05:55)
[2020-11-14] MEDS: Aspirin Enteric Coated 81 MG Tablet PO SCH (10:23)
[2020-11-14] MEDS: Apixaban 5 MG TABLET PO SCH ×2 (10:23→19:33)
[2020-11-14] MEDS: *HR* HYDROcodone/Acet 5/325 mg TABLET PO PRN (11:19)
[2020-11-14] MEDS ORDERED: traZODone 50 MG TABLET PO PRN (16:34)
[2020-11-14] MEDS ORDERED: ZOLEDRONIC ACID IV SCH (16:45)
[2020-11-14] MEDS ORDERED: [UNRECOGNIZED DRUG - OTHER] IV SCH (16:45)
[2020-11-14] MEDS: cefTRIAXone 1,000 MG in Water for inj. (sterile) 10 ML IVP SCH (17:35)
[2020-11-14] MEDS: BuPROPion SR (12 HR) 150 MG TABLET PO SCH (19:33)
[2020-11-14] MEDS: Pregabalin 50 MG CAPSULE PO SCH (19:34)
[2020-11-14] MEDS: (Cyclosporine [Restasis] 1 EACH Droperette) OP SCH (19:35)
[2020-11-14] MEDS: Budesonide/Formoterol 160/4.5 1 PUFF INH IH SCH (20:19)
[2020-11-14] MEDS: Nitroglycerin 0.4 MG TAB.SUBL SL PRN ×2 (20:31→20:44)
[2020-11-14] MEDS ORDERED: *HR* Metoprolol 5 MG/5 ML VIAL IVP ONE (21:01)
[2020-11-15] MEDS: Nitroglycerin 0.4 MG TAB.SUBL SL PRN ×3 (01:52→02:27)
[2020-11-15] MEDS: Morphine Sulfate 2 MG/ML SYRINGE IVP PRN ×3 (02:37→18:25)
[2020-11-15 03:34] LABS: Basophils % 0.1 %; Hematocrit 30.3 % (35.3-44.9); Hemoglobin 9.9 g/dL (11.5-15.4); Immature Granulocytes % 1.1 % (0-4); Lymphocytes # 1.3 K/mcL (0.6-4.6); Lymphocytes % 7.1 %; Mean Corpuscular HGB Conc 32.7 g/dL (31.6-35.5); Mean Corpuscular Hemoglobin 27.9 pg (28.0-33.3); Mean Corpuscular Volume 85.4 fL (83.0-100.0); Mean Platelet Volume 11.7 fL (9.4-12.4); Monocytes % 5.6 %; Neutrophils # 15.2 K/mcL (1.6-8.9); Platelet Count 200 K/mcL (140-400); Red Blood Count 3.55 M/mcL (3.82-4.97); Red Cell Distribution Width 16.3 % (11.5-14.5); Segmented Neutrophils % 86.1 %; White Blood Count 17.7 K/mcL (4.3-11.1)
[2020-11-15 03:49] LABS: BUN/Creatinine Ratio 21 (6-26); Blood Urea Nitrogen 21 mg/dL (8-23); Calcium 8.5 mg/dL (8.6-10.3); Carbon Dioxide 23 mEq/L (23-29); Chloride 99 mEq/L (98-107); Glucose 130 mg/dL (70-105); Osmolality,Calculated 279 (280-300); Sodium 132 mEq/L (136-145); eGFR For African Americans > 60 (> 60); eGFR For Non-African Americans 57 (> 60)
[2020-11-15] MEDS: Levalbuterol Neb 1.25 MG/3 ML IH SCH ×4 (04:15→21:19)
[2020-11-15] MEDS: Apixaban 5 MG TABLET PO SCH (07:24)
[2020-11-15] MEDS: Pregabalin 50 MG CAPSULE PO SCH ×2 (07:24→20:03)
[2020-11-15] MEDS: Aspirin Enteric Coated 81 MG Tablet PO SCH (07:25)
[2020-11-15] MEDS: Celecoxib 100 MG CAPSULE PO SCH (07:25)
[2020-11-15] MEDS: Magnesium Oxide 400 MG TABLET PO SCH (07:25)
[2020-11-15] MEDS: Metoprolol XL (24 HR) Succ 25 MG TAB.ER.24H PO SCH (07:25)
[2020-11-15] MEDS: (Cyclosporine [Restasis] 1 EACH Droperette) OP SCH ×2 (08:00→20:58)
[2020-11-15] MEDS: Budesonide/Formoterol 160/4.5 1 PUFF INH IH SCH ×2 (08:03→21:20)
[2020-11-15] MEDS: BuPROPion SR (12 HR) 150 MG TABLET PO SCH ×2 (08:14→20:04)
[2020-11-15] MEDS ORDERED: *HR* Heparin 5,000 UNIT/ML VIAL IVP PRN ×2 (10:59)
[2020-11-15] MEDS ORDERED: *HR* Heparin 5,000 UNIT/ML VIAL IVP ONE (10:59)
[2020-11-15] MEDS ORDERED: Heparin 25,000UNIT/250ML 1/2NS 25,000 UNIT/250 ML IV.SOLN IVC SCH (11:00)
[2020-11-15 12:21] LABS: Hematocrit 32.1 % (35.3-44.9); Hemoglobin 10.5 g/dL (11.5-15.4); Mean Corpuscular HGB Conc 32.7 g/dL (31.6-35.5); Mean Corpuscular Hemoglobin 28.3 pg (28.0-33.3); Mean Corpuscular Volume 86.5 fL (83.0-100.0); Mean Platelet Volume 12.1 fL (9.4-12.4); Platelet Count 204 K/mcL (140-400); Red Blood Count 3.71 M/mcL (3.82-4.97); Red Cell Distribution Width 16.4 % (11.5-14.5); White Blood Count 15.1 K/mcL (4.3-11.1)
[2020-11-15 12:32] LABS: Prothrombin Time 22.2 Seconds (9.4-12.1)
[2020-11-15 12:33] LABS: Activated Partial Thrombo Time 37.5 Seconds (26.0-36.0)
[2020-11-15 12:36] LABS: Heparin anti-factor XA UFH > 2.00 IU/mL (0.30-0.70)
[2020-11-15] MEDS: Heparin 25,000UNIT/250ML 1/2NS 25,000 UNIT/250 ML IV.SOLN IVC SCH (15:19)
[2020-11-15] MEDS: cefTRIAXone 1,000 MG in Water for inj. (sterile) 10 ML IVP SCH (18:20)
[2020-11-15] MEDS: Acetaminophen 325 MG TABLET PO PRN (18:25)
[2020-11-15] MEDS: Nystatin POWDER 30 GM BOTTLE TP SCH (20:05)
[2020-11-15] MEDS ORDERED: *HR* Metoprolol 5 MG/5 ML VIAL IVP ONE (23:52)
[2020-11-16] MEDS: *HR* HYDROcodone/Acet 5/325 mg TABLET PO PRN (00:54)
[2020-11-16] MEDS: Levalbuterol Neb 1.25 MG/3 ML IH SCH ×4 (04:07→22:14)
[2020-11-16] MEDS: Nitroglycerin 0.4 MG TAB.SUBL SL PRN ×2 (04:26→04:31)
[2020-11-16] MEDS ORDERED: *HR* Metoprolol 5 MG/5 ML VIAL IVP ONE (04:42)
[2020-11-16] MEDS ORDERED: *HR* FentaNYL (PF) 100 MCG/2 ML VIAL ONE (09:39)
[2020-11-16] MEDS ORDERED: Heparin 1,000 UNITS/500 mL 500 ML ONE (09:39)
[2020-11-16] MEDS ORDERED: 0.9 % Sodium Chloride 1,000 ML ONE (09:39)
[2020-11-16] MEDS ORDERED: *HR* Midazolam HCl 2 MG/2 ML VIAL ONE (09:39)
[2020-11-16] MEDS ORDERED: *HR* Heparin 10,000 UNIT/10 ML VIAL ONE (09:39)
[2020-11-16] MEDS ORDERED: ISOVUE-370 200 ML INFUS..BTL ONE (09:40)
[2020-11-16] MEDS ORDERED: Nitroglycerin 1,000 MCG/5 ML VIAL IV ONE (09:40)
[2020-11-16] MEDS: Budesonide/Formoterol 160/4.5 1 PUFF INH IH SCH ×2 (10:30→22:15)
[2020-11-16] MEDS: Heparin 25,000UNIT/250ML 1/2NS 25,000 UNIT/250 ML IV.SOLN IVC SCH (11:28)
[2020-11-16] MEDS: (Cyclosporine [Restasis] 1 EACH Droperette) OP SCH ×2 (11:29→21:22)
[2020-11-16] MEDS: Aspirin Enteric Coated 81 MG Tablet PO SCH (11:57)
[2020-11-16] MEDS: Celecoxib 100 MG CAPSULE PO SCH (13:20)
[2020-11-16] MEDS: Magnesium Oxide 400 MG TABLET PO SCH (13:20)
[2020-11-16] MEDS: Pregabalin 50 MG CAPSULE PO SCH ×2 (13:20→21:22)
[2020-11-16] MEDS: BuPROPion SR (12 HR) 150 MG TABLET PO SCH ×2 (13:21→21:21)
[2020-11-16] MEDS: Nystatin POWDER 30 GM BOTTLE TP SCH ×2 (13:21→21:22)
[2020-11-16] MEDS: Metoprolol XL (24 HR) Succ 25 MG TAB.ER.24H PO SCH (13:24)
[2020-11-16 15:11] LABS: Basophils % 0.2 %; Eosinophils % 0.2 %; Hematocrit 31.1 % (35.3-44.9); Immature Granulocytes % 0.4 % (0-4); Lymphocytes # 1.3 K/mcL (0.6-4.6); Lymphocytes % 9.8 %; Mean Corpuscular HGB Conc 32.2 g/dL (31.6-35.5); Mean Corpuscular Volume 87.1 fL (83.0-100.0); Mean Platelet Volume 12.1 fL (9.4-12.4); Monocytes # 1.3 K/mcL (0.0-1.3); Monocytes % 9.2 %; Neutrophils # 10.9 K/mcL (1.6-8.9); Platelet Count 213 K/mcL (140-400); Red Blood Count 3.57 M/mcL (3.82-4.97); Red Cell Distribution Width 16.4 % (11.5-14.5); Segmented Neutrophils % 80.2 %; White Blood Count 13.6 K/mcL (4.3-11.1)
[2020-11-16 15:34] LABS: BUN/Creatinine Ratio 19 (6-26); Blood Urea Nitrogen 15 mg/dL (8-23); Calcium 8.3 mg/dL (8.6-10.3); Carbon Dioxide 27 mEq/L (23-29); Chloride 97 mEq/L (98-107); Glucose 225 mg/dL (70-105); Osmolality,Calculated 280 (280-300); Potassium 3.3 mEq/L (3.5-5.1); Sodium 131 mEq/L (136-145); eGFR For African Americans > 60 (> 60); eGFR For Non-African Americans > 60 (> 60)
[2020-11-16] MEDS: cefTRIAXone 1,000 MG in Water for inj. (sterile) 10 ML IVP SCH (16:41)
[2020-11-16] MEDS: Acetaminophen 325 MG TABLET PO PRN (21:21)
[2020-11-17] MEDS: *HR* HYDROcodone/Acet 5/325 mg TABLET PO PRN (02:26)
[2020-11-17] MEDS: Levalbuterol Neb 1.25 MG/3 ML IH SCH ×2 (04:30→09:15)
[2020-11-17] MEDS: Acetaminophen 325 MG TABLET PO PRN (06:31)
[2020-11-17] MEDS ORDERED: Potassium Effervescent 25 MEQ TABLET.EFF PO ONE (08:46)
[2020-11-17] MEDS: Budesonide/Formoterol 160/4.5 1 PUFF INH IH SCH (09:15)
[2020-11-17] MEDS: BuPROPion SR (12 HR) 150 MG TABLET PO SCH (10:16)
[2020-11-17] MEDS: Magnesium Oxide 400 MG TABLET PO SCH (10:17)
[2020-11-17] MEDS: Pregabalin 50 MG CAPSULE PO SCH (10:17)
[2020-11-17] MEDS: Celecoxib 100 MG CAPSULE PO SCH (10:18)
[2020-11-17] MEDS: Nystatin POWDER 30 GM BOTTLE TP SCH (10:18)
[2020-11-17] MEDS: Metoprolol XL (24 HR) Succ 25 MG TAB.ER.24H PO SCH (10:18)
[2020-11-17] MEDS: Aspirin Enteric Coated 81 MG Tablet PO SCH (10:18)
[2020-11-17] MEDS: (Cyclosporine [Restasis] 1 EACH Droperette) OP SCH (10:18)
[2020-11-17 10:33] VITALS: BP 156/80; PULSE 100; TEMP 97.7
[2020-11-17 13:23] VITALS: O2SAT 96
== END 2020-11-17 15:00 | disposition home health service (06) ==
LOC: 3ANU 11:30 → EMEROOARM 11:30 → SUATTDRO 16:36 → 3ANU 17:41
PROVIDERS: ADMIT Student in an Organized Health Care Education/Training Program; ATTEND Hospitalist

== ENCOUNTER 2020-11-26 15:54 | Inpatient (IN) ==
[2020-11-26] MEDS ORDERED: 0.9 % Sodium Chloride 1,000 ML IVC ONE (16:08)
[2020-11-26 16:50] LABS: Basophils # 0.1 K/mcL (0.0-0.2); Basophils % 0.2 %; Eosinophils # 0.1 K/mcL (0.0-0.6); Eosinophils % 0.2 %; Hematocrit 33.7 % (35.3-44.9); Hemoglobin 10.9 g/dL (11.5-15.4); Immature Granulocytes % 0.9 % (0-4); Lymphocytes % 4.3 %; Mean Corpuscular HGB Conc 32.3 g/dL (31.6-35.5); Mean Corpuscular Hemoglobin 27.4 pg (28.0-33.3); Mean Corpuscular Volume 84.7 fL (83.0-100.0); Mean Platelet Volume 11.1 fL (9.4-12.4); Monocytes # 1.2 K/mcL (0.0-1.3); Monocytes % 5.3 %; Neutrophils # 19.6 K/mcL (1.6-8.9); Platelet Count 348 K/mcL (140-400); Red Blood Count 3.98 M/mcL (3.82-4.97); Red Cell Distribution Width 15.7 % (11.5-14.5); Segmented Neutrophils % 89.1 %
[2020-11-26 17:19] LABS: Alanine Aminotransferase 11 Units/L (7-52); Albumin 3.1 g/dL (3.5-5.7); Albumin/Globulin Ratio 0.8 (1.1-2.2); Alkaline Phosphatase 96 Units/L (34-104); Aspartate Amino Transferase 19 Units/L (13-39); BUN/Creatinine Ratio 19 (6-26); Bilirubin,Total 0.7 mg/dL (0.3-1.0); Blood Urea Nitrogen 19 mg/dL (8-23); Calcium 8.8 mg/dL (8.6-10.3); Carbon Dioxide 25 mEq/L (23-29); Chloride 94 mEq/L (98-107); Creatine Kinase 51 Units/L (30-223); Glucose 172 mg/dL (70-105); Osmolality,Calculated 274 (280-300); Potassium 4.5 mEq/L (3.5-5.1); Sodium 129 mEq/L (136-145); Total Protein 7.1 g/dL (6.4-8.9); eGFR For African Americans > 60 (> 60); eGFR For Non-African Americans 56 (> 60)
[2020-11-26 18:05] LABS: INR 1.9; Prothrombin Time 21.2 Seconds (9.4-12.1)
[2020-11-26 18:08] LABS: Activated Partial Thrombo Time 39.3 Seconds (26.0-36.0)
[2020-11-26 19:01] LABS: Bilirubin,Urine Negative (Negative); Blood,Urine Negative (Negative); Clarity,Urine Clear (Clear); Color,Urine Yellow (Yellow); Glucose,Urine (UA) Normal (Normal); Ketones,Urine 20 mg/dL (Negative); Leukocyte Esterase,Urine Negative (Negative); Mucus,Urine Few per lpf (None-Few); Nitrite,Urine Negative (Negative); PH,Urine 7.5 pH Units (5.0-8.0); Protein,Urine >=300 mg/dL (Neg-Trace); Specific Gravity,Urine 1.023 (1.010-1.025)
[2020-11-26] MEDS ORDERED: Melatonin 3 MG TABLET PO PRN (19:45)
[2020-11-26] MEDS ORDERED: Naloxone 0.4 MG/ML INJ IVP PRN ×2 (19:45→21:49)
[2020-11-26] MEDS ORDERED: Isovue-370 500 ML BOTTLE IVP ONE (23:03)
[2020-11-27] MEDS: Acetaminophen 325 MG TABLET PO PRN ×2 (00:14→14:51)
[2020-11-27 05:51] LABS: Adenovirus Not Detected (Not Detect); Bordetella Pertussis Not Detected (Not Detect); Chlamydophila pneumoniae Not Detected (Not Detect); Coronavirus 229E Not Detected (Not Detect); Coronavirus HKU1 Not Detected (Not Detect); Coronavirus NL63 Not Detected (Not Detect); Coronavirus OC43 Not Detected (Not Detect); Human Metapneumovirus Not Detected (Not Detect); Human Rhinovirus/Enterovirus Not Detected (Not Detect); Influenza A Subtype 2009 H1 Not Detected (Not Detect); Influenza B Not Detected (Not Detect); Mycoplasma pneumoniae Not Detected (Not Detect); Parainfluenza Virus 1 Not Detected (Not Detect); Parainfluenza Virus 2 Not Detected (Not Detect); Parainfluenza Virus 3 Not Detected (Not Detect); Parainfluenza Virus 4 Not Detected (Not Detect); Respiratory Syncytial Virus Not Detected (Not Detect); SARS-CoV-2 Not Detected (Not Detect)
[2020-11-27] MEDS: Aspirin Enteric Coated 81 MG Tablet PO SCH (08:00)
[2020-11-27 08:06] LABS: Basophils % 0.1 %; Eosinophils % 0.1 %; Hematocrit 29.3 % (35.3-44.9); Hemoglobin 9.6 g/dL (11.5-15.4); Lymphocytes # 1.1 K/mcL (0.6-4.6); Lymphocytes % 5.7 %; Mean Corpuscular HGB Conc 32.8 g/dL (31.6-35.5); Mean Corpuscular Hemoglobin 27.5 pg (28.0-33.3); Mean Platelet Volume 11.3 fL (9.4-12.4); Monocytes # 1.3 K/mcL (0.0-1.3); Monocytes % 6.9 %; Neutrophils # 16.1 K/mcL (1.6-8.9); Platelet Count 356 K/mcL (140-400); Red Blood Count 3.49 M/mcL (3.82-4.97); Red Cell Distribution Width 15.8 % (11.5-14.5); Segmented Neutrophils % 86.2 %; White Blood Count 18.6 K/mcL (4.3-11.1)
[2020-11-27 08:30] LABS: BUN/Creatinine Ratio 18 (6-26); Blood Urea Nitrogen 17 mg/dL (8-23); Calcium 8.6 mg/dL (8.6-10.3); Carbon Dioxide 27 mEq/L (23-29); Chloride 95 mEq/L (98-107); Glucose 140 mg/dL (70-105); Osmolality,Calculated 276 (280-300); Potassium 4.1 mEq/L (3.5-5.1); Sodium 131 mEq/L (136-145); eGFR For African Americans > 60 (> 60); eGFR For Non-African Americans 58 (> 60)
[2020-11-27] MEDS: Cefepime HCl 1,000 MG in Water for inj. (sterile) 10 ML IVP SCH ×2 (13:43→21:28)
[2020-11-27] MEDS: 0.9 % Sodium Chloride 1,000 ML IVC SCH (13:44)
[2020-11-27 14:09] LABS: Thyroid Stimulating Hormone 21.444 mcIU/mL (0.340-5.600)
[2020-11-27 14:21] LABS: BUN/Creatinine Ratio 17 (6-26); Blood Urea Nitrogen 16 mg/dL (8-23); Calcium 8.5 mg/dL (8.6-10.3); Carbon Dioxide 24 mEq/L (23-29); Chloride 94 mEq/L (98-107); Glucose 215 mg/dL (70-105); Osmolality,Calculated 274 (280-300); Potassium 4.4 mEq/L (3.5-5.1); Sodium 128 mEq/L (136-145); eGFR For African Americans > 60 (> 60); eGFR For Non-African Americans > 60 (> 60)
[2020-11-27] MEDS ORDERED: Vancomycin 1,250 MG/262.5 ML IV.SOLN IVPB ONE (15:11)
[2020-11-27 15:51] LABS: Enterococcus by PCR Not Detected (Not Detect); mecA Methicillin-Resist Gene Not Detected (Not Detect)
[2020-11-27 15:52] LABS: Acinetobacter baumannii by PCR Not Detected (Not Detect); Candida albicans by PCR Not Detected (Not Detect); Candida glabrata by PCR Not Detected (Not Detect); Candida krusei by PCR Not Detected (Not Detect); Candida parapsilosis by PCR Not Detected (Not Detect); Candida tropicalis by PCR Not Detected (Not Detect); Enterobacter cloacae Cmplx PCR Not Detected (Not Detect); Enterobacteriaceae by PCR Not Detected (Not Detect); Escherichia coli by PCR Not Detected (Not Detect); Klebsiella oxytoca by PCR Not Detected (Not Detect); Klebsiella pneumoniae by PCR Not Detected (Not Detect); Proteus by PCR Not Detected (Not Detect); Pseudomonas aeruginosa by PCR Not Detected (Not Detect); Serratia marcescens by PCR Not Detected (Not Detect); Staphylococcus aureus by PCR DETECTED (Not Detect); Streptococcus agalactiae(B)PCR Not Detected (Not Detect); Streptococcus by PCR Not Detected (Not Detect); Streptococcus pneumoniae PCR Not Detected (Not Detect); Streptococcus pyogenes (A) PCR Not Detected (Not Detect)
[2020-11-27] MEDS: Doxycycline 100 MG CAPSULE PO SCH (21:30)
[2020-11-28] MEDS ORDERED: *HR* Metoprolol 5 MG/5 ML VIAL IVP ONE ×3 (03:03→05:12)
[2020-11-28 04:53] LABS: Basophils % 0.2 %; Eosinophils % 0.1 %; Hematocrit 28.5 % (35.3-44.9); Hemoglobin 9.4 g/dL (11.5-15.4); Immature Granulocytes % 0.5 % (0-4); Lymphocytes % 4.9 %; Mean Corpuscular Hemoglobin 27.1 pg (28.0-33.3); Mean Corpuscular Volume 82.1 fL (83.0-100.0); Mean Platelet Volume 11.1 fL (9.4-12.4); Monocytes % 4.9 %; Neutrophils # 17.8 K/mcL (1.6-8.9); Platelet Count 303 K/mcL (140-400); Red Blood Count 3.47 M/mcL (3.82-4.97); Red Cell Distribution Width 15.5 % (11.5-14.5); Segmented Neutrophils % 89.4 %; White Blood Count 19.9 K/mcL (4.3-11.1)
[2020-11-28] MEDS ORDERED: Vancomycin 1,250 MG/262.5 ML IV.SOLN IVPB SCH (05:00)
[2020-11-28] MEDS: Cefepime HCl 1,000 MG in Water for inj. (sterile) 10 ML IVP SCH ×2 (05:01→12:54)
[2020-11-28 05:02] LABS: BUN/Creatinine Ratio 18 (6-26); Blood Urea Nitrogen 17 mg/dL (8-23); Carbon Dioxide 22 mEq/L (23-29); Chloride 98 mEq/L (98-107); Creatine Kinase 153 Units/L (30-223); Glucose 168 mg/dL (70-105); Magnesium 1.7 mg/dL (1.6-2.6); Osmolality,Calculated 273 (280-300); Phosphorous 2.4 mg/dL (2.7-4.5); Potassium 3.9 mEq/L (3.5-5.1); Sodium 129 mEq/L (136-145); eGFR For African Americans > 60 (> 60); eGFR For Non-African Americans 58 (> 60)
[2020-11-28 08:46] LABS: Adenovirus F 40/41 PCR Not detected (Not detect); Astrovirus PCR Not detected (Not detect); C.difficile Toxin A/B Gene PCR Not detected (Not detect); Campylobacter by PCR Not detected (Not detect); Cryptosporidium by PCR Not detected (Not detect); Cyclospora cayetanensis PCR Not detected (Not detect); E. coli O157 by PCR Not detected (Not detect); Entamoeba histolytica PCR Not detected (Not detect); Enteroaggregative E.coli(EAEC) Not detected (Not detect); Enteropathogenic E.coli(EPEC) Not detected (Not detect); Enterotoxigenic E.coli (ETEC) Not detected (Not detect); Giardia lamblia PCR Not detected (Not detect); Norovirus GI/GII PCR Not detected (Not detect); Plesiomonas shigelloides PCR Not detected (Not detect); Rotavirus A PCR Not detected (Not detect); Salmonella PCR Not detected (Not detect); Sapovirus PCR Not detected (Not detect); Shig/EnteroinvasiveE coli EIEC Not detected (Not detect); Shigalike tox-prod E coli STEC Not detected (Not detect); Vibrio PCR Not detected (Not detect); Vibrio cholerae PCR Not detected (Not detect); Yersinia enterocolitica PCR Not detected (Not detect)
[2020-11-28] MEDS: Aspirin Enteric Coated 81 MG Tablet PO SCH (08:55)
[2020-11-28] MEDS: 0.9 % Sodium Chloride 1,000 ML IVC SCH ×2 (08:55→12:56)
[2020-11-28] MEDS: Doxycycline 100 MG CAPSULE PO SCH (08:55)
[2020-11-28] MEDS: Metoprolol XL (24 HR) Succ 25 MG TAB.ER.24H PO SCH (09:43)
[2020-11-28] MEDS: BuPROPion SR (12 HR) 150 MG TABLET PO SCH ×2 (12:53→20:05)
[2020-11-28] MEDS ORDERED: Perflutren Lipid Microsphere 1.3 ML in 0.9 % Sodium Chloride 8.7 ML IVP PRN (13:12)
[2020-11-28] MEDS: ceFAZolin 2,000 MG in 0.9 % Sodium Chloride 100 ML IVPB SCH ×2 (16:27→22:47)
[2020-11-28] MEDS ORDERED: Isovue-370 500 ML BOTTLE IVP ONE (16:59)
[2020-11-28] MEDS: (Cyclosporine [Restasis] 1 EACH Droperette) OP SCH (20:01)
[2020-11-28] MEDS: Acetaminophen 325 MG TABLET PO PRN (20:05)
[2020-11-28] MEDS: traZODone 50 MG TABLET PO SCH (20:05)
[2020-11-28] MEDS: Budesonide/Formoterol 160/4.5 1 PUFF INH IH SCH (20:30)
[2020-11-29] MEDS: 0.9 % Sodium Chloride 1,000 ML IVC SCH (03:27)
[2020-11-29 08:49] LABS: Basophils % 0.1 %; Eosinophils # 0.1 K/mcL (0.0-0.6); Eosinophils % 0.3 %; Hematocrit 24.6 % (35.3-44.9); Hemoglobin 8.3 g/dL (11.5-15.4); Immature Granulocytes % 1.3 % (0-4); Lymphocytes # 1.1 K/mcL (0.6-4.6); Mean Corpuscular HGB Conc 33.7 g/dL (31.6-35.5); Mean Corpuscular Hemoglobin 27.6 pg (28.0-33.3); Mean Corpuscular Volume 81.7 fL (83.0-100.0); Mean Platelet Volume 11.4 fL (9.4-12.4); Monocytes # 1.1 K/mcL (0.0-1.3); Monocytes % 5.9 %; Neutrophils # 15.4 K/mcL (1.6-8.9); Platelet Count 304 K/mcL (140-400); Red Blood Count 3.01 M/mcL (3.82-4.97); Segmented Neutrophils % 86.4 %; White Blood Count 17.9 K/mcL (4.3-11.1)
[2020-11-29 09:08] LABS: BUN/Creatinine Ratio 19 (6-26); Blood Urea Nitrogen 17 mg/dL (8-23); Calcium 7.8 mg/dL (8.6-10.3); Carbon Dioxide 22 mEq/L (23-29); Chloride 101 mEq/L (98-107); Glucose 121 mg/dL (70-105); Magnesium 1.7 mg/dL (1.6-2.6); Osmolality,Calculated 275 (280-300); Phosphorous 2.1 mg/dL (2.7-4.5); Potassium 3.4 mEq/L (3.5-5.1); Sodium 131 mEq/L (136-145); eGFR For African Americans > 60 (> 60); eGFR For Non-African Americans > 60 (> 60)
[2020-11-29] MEDS: BuPROPion SR (12 HR) 150 MG TABLET PO SCH ×2 (09:32→20:36)
[2020-11-29] MEDS: (Cyclosporine [Restasis] 1 EACH Droperette) OP SCH ×2 (09:33→20:35)
[2020-11-29] MEDS: Metoprolol XL (24 HR) Succ 25 MG TAB.ER.24H PO SCH (09:33)
[2020-11-29] MEDS: Aspirin Enteric Coated 81 MG Tablet PO SCH (09:33)
[2020-11-29] MEDS: Loratadine 10 MG TABLET PO SCH (09:33)
[2020-11-29] MEDS: Budesonide/Formoterol 160/4.5 1 PUFF INH IH SCH ×2 (10:09→20:54)
[2020-11-29] MEDS: ceFAZolin 2,000 MG in 0.9 % Sodium Chloride 100 ML IVPB SCH ×2 (10:21→16:19)
[2020-11-29] MEDS: rifAMPin 150 MG CAPSULE PO SCH (16:19)
[2020-11-29] MEDS: traZODone 50 MG TABLET PO SCH (20:35)
[2020-11-30] MEDS: ceFAZolin 2,000 MG in 0.9 % Sodium Chloride 100 ML IVPB SCH ×3 (00:39→18:26)
[2020-11-30 01:27] LABS: Basophils % 0.2 %; Eosinophils # 0.1 K/mcL (0.0-0.6); Eosinophils % 0.4 %; Hematocrit 26.5 % (35.3-44.9); Hemoglobin 8.7 g/dL (11.5-15.4); Immature Granulocytes % 1.3 % (0-4); Lymphocytes # 1.8 K/mcL (0.6-4.6); Lymphocytes % 11.5 %; Mean Corpuscular HGB Conc 32.8 g/dL (31.6-35.5); Mean Corpuscular Hemoglobin 26.9 pg (28.0-33.3); Mean Corpuscular Volume 81.8 fL (83.0-100.0); Mean Platelet Volume 10.9 fL (9.4-12.4); Monocytes # 1.2 K/mcL (0.0-1.3); Monocytes % 7.3 %; Neutrophils # 12.7 K/mcL (1.6-8.9); Platelet Count 315 K/mcL (140-400); Red Blood Count 3.24 M/mcL (3.82-4.97); Red Cell Distribution Width 15.9 % (11.5-14.5); Segmented Neutrophils % 79.3 %
[2020-11-30 01:49] LABS: BUN/Creatinine Ratio 15 (6-26); Blood Urea Nitrogen 13 mg/dL (8-23); Calcium 7.6 mg/dL (8.6-10.3); Carbon Dioxide 20 mEq/L (23-29); Chloride 101 mEq/L (98-107); Glucose 98 mg/dL (70-105); Magnesium 1.7 mg/dL (1.6-2.6); Osmolality,Calculated 274 (280-300); Phosphorous 2.2 mg/dL (2.7-4.5); Potassium 3.6 mEq/L (3.5-5.1); Sodium 132 mEq/L (136-145); eGFR For African Americans > 60 (> 60); eGFR For Non-African Americans > 60 (> 60)
[2020-11-30] MEDS ORDERED: *HR* Metoprolol 5 MG/5 ML VIAL IVP ONE ×3 (05:45→20:39)
[2020-11-30] MEDS ORDERED: Metoprolol XL (24 HR) Succ 25 MG TAB.ER.24H PO SCH (06:45)
[2020-11-30] MEDS: Budesonide/Formoterol 160/4.5 1 PUFF INH IH SCH ×2 (07:32→22:42)
[2020-11-30 08:34] LABS: Albumin 2.6 g/dL (3.5-5.7)
[2020-11-30] MEDS: (Cyclosporine [Restasis] 1 EACH Droperette) OP SCH ×2 (09:04→22:17)
[2020-11-30] MEDS: rifAMPin 150 MG CAPSULE PO SCH ×2 (09:10→18:26)
[2020-11-30] MEDS: Aspirin Enteric Coated 81 MG Tablet PO SCH (09:10)
[2020-11-30] MEDS: Loratadine 10 MG TABLET PO SCH (09:10)
[2020-11-30] MEDS: BuPROPion SR (12 HR) 150 MG TABLET PO SCH ×2 (09:10→22:15)
[2020-11-30] MEDS ORDERED: Lidocaine Viscous Oral Soln 15 ML SOLUTION MM PRN (10:43)
[2020-11-30] MEDS ORDERED: 0.9 % Sodium Chloride 500 ML IVC ONE (10:44)
[2020-11-30] MEDS: *HR* FentaNYL (PF) 100 MCG/2 ML VIAL IVP PRN ×2 (11:30→11:35)
[2020-11-30] MEDS: *HR* Midazolam HCl 5 MG/5 ML VIAL IVP PRN ×2 (11:30→11:35)
[2020-11-30] MEDS: DilTIAZem 50 MG in 0.9 % Sodium Chloride 40 ML IVC SCH (13:24)
[2020-11-30] MEDS: Metoprolol XL (24 HR) Succ 25 MG TAB.ER.24H PO SCH (20:33)
[2020-11-30] MEDS: traZODone 50 MG TABLET PO SCH (22:16)
[2020-12-01] MEDS: ceFAZolin 2,000 MG in 0.9 % Sodium Chloride 100 ML IVPB SCH ×3 (01:05→16:06)
[2020-12-01] MEDS: DilTIAZem 50 MG in 0.9 % Sodium Chloride 40 ML IVC SCH ×2 (03:54→10:45)
[2020-12-01] MEDS ORDERED: *HR* Metoprolol 5 MG/5 ML VIAL IVP ONE (05:17)
[2020-12-01] MEDS: Budesonide/Formoterol 160/4.5 1 PUFF INH IH SCH ×2 (07:25→20:28)
[2020-12-01] MEDS ORDERED: Levothyroxine Sodium 100 MCG VIAL IVP SCH (09:00)
[2020-12-01] MEDS: Loratadine 10 MG TABLET PO SCH (11:04)
[2020-12-01] MEDS: BuPROPion SR (12 HR) 150 MG TABLET PO SCH ×2 (11:04→21:05)
[2020-12-01] MEDS: Aspirin Enteric Coated 81 MG Tablet PO SCH (11:04)
[2020-12-01] MEDS: Metoprolol XL (24 HR) Succ 25 MG TAB.ER.24H PO SCH ×2 (11:05→21:04)
[2020-12-01] MEDS: rifAMPin 150 MG CAPSULE PO SCH ×2 (11:05→16:21)
[2020-12-01] MEDS: (Cyclosporine [Restasis] 1 EACH Droperette) OP SCH ×2 (11:09→21:04)
[2020-12-01 19:15] LABS: Basophils # 0.1 K/mcL (0.0-0.2); Basophils % 0.3 %; Eosinophils % 0.1 %; Hematocrit 29.4 % (35.3-44.9); Hemoglobin 9.8 g/dL (11.5-15.4); Lymphocytes % 11.2 %; Mean Corpuscular HGB Conc 33.3 g/dL (31.6-35.5); Mean Corpuscular Hemoglobin 27.7 pg (28.0-33.3); Mean Corpuscular Volume 83.1 fL (83.0-100.0); Mean Platelet Volume 11.2 fL (9.4-12.4); Monocytes # 1.2 K/mcL (0.0-1.3); Monocytes % 6.4 %; Neutrophils # 14.3 K/mcL (1.6-8.9); Nucleated Red Blood Cells 0.2 /100 WBC (0); Red Blood Count 3.54 M/mcL (3.82-4.97); White Blood Count 18.1 K/mcL (4.3-11.1)
[2020-12-01 19:33] LABS: BUN/Creatinine Ratio 24 (6-26); Blood Urea Nitrogen 24 mg/dL (8-23); Calcium 8.4 mg/dL (8.6-10.3); Carbon Dioxide 19 mEq/L (23-29); Chloride 103 mEq/L (98-107); Glucose 209 mg/dL (70-105); Magnesium 2.1 mg/dL (1.6-2.6); Osmolality,Calculated 290 (280-300); Potassium 4.4 mEq/L (3.5-5.1); Sodium 135 mEq/L (136-145); eGFR For African Americans > 60 (> 60); eGFR For Non-African Americans 57 (> 60)
[2020-12-01 19:57] LABS: Platelet Count 492 K/mcL (140-400)
[2020-12-01 20:07] LABS: ABG Base Excess -5 mEq/L (-2 to 3); ABG HCO3 19 mEq/L (21-27); ABG Oxygen Saturation 93 % (95-98); ABG PCO2 31 mmHg (35-45); ABG PH 7.39 pH Units (7.32-7.45); ABG PO2 67 mmHg (85-104); ABG TCO2 20 mEq/L (20-26)
[2020-12-01] MEDS ORDERED: Haloperidol Lactate 5 MG/ML VIAL IVP ONE (20:15)
[2020-12-01] MEDS: Furosemide 20 MG/2 ML VIAL IVP ONE (20:20)
[2020-12-01] MEDS: traZODone 50 MG TABLET PO SCH (21:05)
[2020-12-01] MEDS ORDERED: Albumin 25% 25gram/100mL 25 GM/100 ML IV.SOLN IVPB ONE (21:58)
[2020-12-01] MEDS ORDERED: Morphine Sulfate 2 MG/ML SYRINGE IVP ONE (22:00)
[2020-12-01] MEDS ORDERED: Furosemide 20 MG/2 ML VIAL IVP ONE (22:30)
[2020-12-01 23:07] LABS: Thyroid Stimulating Hormone 34.88 mcIU/mL (0.340-5.600)
[2020-12-01] MEDS ORDERED: Levothyroxine Sodium 100 MCG VIAL IVP ONE (23:30)
[2020-12-02] MEDS ORDERED: Haloperidol Lactate 5 MG/ML VIAL IVP PRN
[2020-12-02] MEDS: Furosemide 20 MG/2 ML VIAL IVP ONE (00:49)
[2020-12-02] MEDS: ceFAZolin 2,000 MG in 0.9 % Sodium Chloride 100 ML IVPB SCH ×3 (01:55→14:50)
[2020-12-02] MEDS: MethylPREDNISolone 40 MG/ML VIAL IVP SCH ×3 (05:06→23:49)
[2020-12-02 05:53] LABS: Basophils # 0.1 K/mcL (0.0-0.2); Basophils % 0.4 %; Eosinophils # 0.1 K/mcL (0.0-0.6); Eosinophils % 0.4 %; Hematocrit 26.1 % (35.3-44.9); Hemoglobin 8.6 g/dL (11.5-15.4); Immature Granulocytes % 2.7 % (0-4); Lymphocytes # 2.2 K/mcL (0.6-4.6); Lymphocytes % 13.2 %; Mean Corpuscular Hemoglobin 27.3 pg (28.0-33.3); Mean Corpuscular Volume 82.9 fL (83.0-100.0); Mean Platelet Volume 11.4 fL (9.4-12.4); Monocytes # 0.8 K/mcL (0.0-1.3); Monocytes % 4.7 %; Neutrophils # 13.3 K/mcL (1.6-8.9); Nucleated Red Blood Cells 0.3 /100 WBC (0); Platelet Count 419 K/mcL (140-400); Red Blood Count 3.15 M/mcL (3.82-4.97); Segmented Neutrophils % 78.6 %; White Blood Count 16.9 K/mcL (4.3-11.1)
[2020-12-02 06:03] LABS: Calcium 8.6 mg/dL (8.6-10.3); Potassium 3.7 mEq/L (3.5-5.1)
[2020-12-02] MEDS: Levothyroxine Sodium 100 MCG VIAL IVP SCH (08:01)
[2020-12-02] MEDS ORDERED: Furosemide 40 MG/4 ML VIAL IVP STA (08:20)
[2020-12-02] MEDS ORDERED: Furosemide 40 MG/4 ML VIAL ONE (08:22)
[2020-12-02] MEDS ORDERED: *HR* LORazepam 2 MG/ML VIAL IVP STA (08:24)
[2020-12-02] MEDS ORDERED: *HR* LORazepam 2 MG/ML VIAL ONE (08:31)
[2020-12-02] MEDS ORDERED: Isovue-370 500 ML BOTTLE IVP ONE (08:34)
[2020-12-02] MEDS: Budesonide/Formoterol 160/4.5 1 PUFF INH IH SCH ×2 (08:36→19:55)
[2020-12-02 08:43] LABS: ABG Base Excess -4 mEq/L (-2 to 3); ABG HCO3 20 mEq/L (21-27); ABG Oxygen Saturation 97 % (95-98); ABG PCO2 32 mmHg (35-45); ABG PH 7.41 pH Units (7.32-7.45); ABG PO2 92 mmHg (85-104); ABG TCO2 21 mEq/L (20-26); Blood Gas Modality CPAP/PS
[2020-12-02] MEDS ORDERED: *HR* Metoprolol 5 MG/5 ML VIAL IVP STA (11:59)
[2020-12-02] MEDS: rifAMPin 150 MG CAPSULE PO SCH ×2 (12:03→14:53)
[2020-12-02] MEDS: Aspirin Enteric Coated 81 MG Tablet PO SCH (12:04)
[2020-12-02] MEDS: (Cyclosporine [Restasis] 1 EACH Droperette) OP SCH ×2 (12:04→23:00)
[2020-12-02] MEDS: Loratadine 10 MG TABLET PO SCH (12:04)
[2020-12-02] MEDS: Metoprolol XL (24 HR) Succ 25 MG TAB.ER.24H PO SCH ×2 (12:05→23:00)
[2020-12-02] MEDS: BuPROPion SR (12 HR) 150 MG TABLET PO SCH ×2 (12:05→23:00)
[2020-12-02] MEDS ORDERED: *HR* Metoprolol 5 MG/5 ML VIAL IVP ONE (12:07)
[2020-12-02] MEDS ORDERED: MethylPREDNISolone 40 MG/ML VIAL IVP ONE (22:00)
[2020-12-02] MEDS: traZODone 50 MG TABLET PO SCH (23:00)
[2020-12-03] MEDS: ceFAZolin 2,000 MG in 0.9 % Sodium Chloride 100 ML IVPB SCH ×2 (01:01→07:33)
[2020-12-03] MEDS: MethylPREDNISolone 40 MG/ML VIAL IVP SCH ×2 (06:14→13:40)
[2020-12-03] MEDS: Budesonide/Formoterol 160/4.5 1 PUFF INH IH SCH (07:26)
[2020-12-03] MEDS: Levothyroxine Sodium 100 MCG VIAL IVP SCH (07:32)
[2020-12-03 08:11] LABS: VBG HCO3 23 mEq/L (21-27); VBG PCO2 46 mmHg (41-51); VBG PH 7.31 pH Units (7.32-7.42); VBG PO2 50 mmHg (25-50)
[2020-12-03 08:16] LABS: Basophils # 0.1 K/mcL (0.0-0.2); Basophils % 0.3 %; Hemoglobin 9.3 g/dL (11.5-15.4); Immature Granulocytes % 4.5 % (0-4); Lymphocytes % 4.4 %; Mean Corpuscular HGB Conc 33.2 g/dL (31.6-35.5); Mean Corpuscular Hemoglobin 27.8 pg (28.0-33.3); Mean Corpuscular Volume 83.6 fL (83.0-100.0); Monocytes # 0.9 K/mcL (0.0-1.3); Monocytes % 3.8 %; Neutrophils # 19.8 K/mcL (1.6-8.9); Nucleated Red Blood Cells 3.6 /100 WBC (0); Platelet Count 481 K/mcL (140-400); Red Blood Count 3.35 M/mcL (3.82-4.97); Red Cell Distribution Width 16.6 % (11.5-14.5); White Blood Count 22.7 K/mcL (4.3-11.1)
[2020-12-03] MEDS ORDERED: Furosemide 40 MG/4 ML VIAL IVP ONE (09:29)
[2020-12-03] MEDS ORDERED: *HR* Metoprolol 5 MG/5 ML VIAL IVP STA (10:21)
[2020-12-03] MEDS: (Cyclosporine [Restasis] 1 EACH Droperette) OP SCH (10:24)
[2020-12-03] MEDS: Loratadine 10 MG TABLET PO SCH (10:24)
[2020-12-03] MEDS: rifAMPin 150 MG CAPSULE PO SCH (10:24)
[2020-12-03] MEDS: Aspirin Enteric Coated 81 MG Tablet PO SCH (10:24)
[2020-12-03] MEDS: Metoprolol XL (24 HR) Succ 25 MG TAB.ER.24H PO SCH (10:25)
[2020-12-03] MEDS: BuPROPion SR (12 HR) 150 MG TABLET PO SCH (10:25)
[2020-12-03 11:07] LABS: Calcium 8.4 mg/dL (8.6-10.3); Potassium 4.1 mEq/L (3.5-5.1)
[2020-12-03 12:26] VITALS: BP 124/78; PULSE 93; TEMP 98.7; O2SAT 96
== END 2020-12-03 15:35 | disposition short-term general hospital (02) | DRG 559 ==
LOC: SUATTDRO → 3BNU 15:54 → EMEROOARM 15:54 → SUATTDRO 19:37 → 3BNU 20:13 → SUATTDRO 11-28 13:19 → 2NENU 12-01 20:39
PROVIDERS: ADMIT Family Medicine; ATTEND Internal Medicine